=== PATIENT | female | born 1945 | race Caucasian/White ===

== ENCOUNTER → 2016-10-14 | Outpatient (CLI) | payer MEDICARE ==
--- NOTE | 2016-10-18 09:03 | MM ---
Reason for exam: screening (asymptomatic). Last mammogram was performed 2 years and 2 months ago. History: Patient is postmenopausal. Family history of breast cancer in maternal grandmother at age 82. Physical Findings: A clinical breast exam by your physician is recommended on an annual basis and results should be correlated with mammographic findings. MG 3D Screening Mammo W/Cad Bilateral CC and MLO view(s) were taken. Prior study comparison: August 02, 2014, bilateral MG screening mammo w CAD. June 26, 2013, bilateral digital screening mammo w/CAD. There are scattered fibroglandular densities. No significant changes when compared with prior studies. ASSESSMENT: Negative, BI-RAD 1 RECOMMENDATION: Routine screening mammogram of both breasts in 1 year.
== END | disposition home or self-care (01) ==
LOC: RADMAMWWP 09:52
PROVIDERS: ATTEND Family Medicine
DX: Z12.31 Encounter for screening mammogram for malignant neoplasm of breast (principal)
CPT/HCPCS: 77063; G0202

== ENCOUNTER 2016-12-06 07:41 | Emergency (ER) | payer MEDICARE ==
[2016-12-06] MEDS ORDERED: ONDANSETRON 4 MG/2 ML VIAL IVP STA (08:19)
[2016-12-06] MEDS ORDERED: SODIUM CHLORIDE 0.9% 1,000 ML IV STA (08:19)
--- NOTE | 2016-12-06 08:20 | ED ---
General Adult HPI - General Chief complaint: Nausea/Vomiting/Diarrhea Stated complaint: vomiting Time Seen by Provider: 12/06/16 08:13 Source: patient, RN notes reviewed Mode of arrival: wheelchair Limitations: no limitations - History of Present Illness Initial comments: Patient 71-year-old female who presents emergency room today with a chief complaint of chills with episode of nausea vomiting that started just approximate 45 minutes ago. Patient does admit that she was here at the hospital as a visitor when she began having chills upstairs. States she was down to the cafeteria and tried eats something when she had an episode of nausea vomiting. States she still feeling very nauseated at this time. Denies any abdominal pain. Admits to chills. Denies any other complaints or symptoms. Patient denies any recent fever, chills, shortness of breath, chest pain, back pain, abdominal pain, numbness or tingling, dysuria or hematuria, constipation or diarrhea, headaches or visual changes, or any other complaints. - Related Data Home Medications Medication Instructions Recorded Confirmed Albuterol Inhaler [Ventolin 1 - 2 puff INHALATION RT-Q6H PRN 08/05/14 12/06/16 Inhaler] Aspirin EC [Ecotrin] 81 mg PO DAILY 08/05/14 12/06/16 Fluticasone/Salmeterol [Advair 1 puff INHALATION RT-BID 08/05/14 12/06/16 500-50 Diskus] Hydrochlorothiazide [Hydrodiuril] 25 mg PO DAILY 08/05/14 12/06/16 Levothyroxine Sodium [Synthroid] 37.5 mcg PO DAILY 08/05/14 12/06/16 Lisinopril [Prinivil] 20 mg PO BID 08/05/14 12/06/16 Metoprolol Tartrate [Lopressor] 50 mg PO BID 08/05/14 12/06/16 Montelukast [Singulair] 10 mg PO HS 08/05/14 12/06/16 Omeprazole 40 mg PO DAILY 08/05/14 12/06/16 Sennosides-Docusate Sodium 1 tab PO BID 08/05/14 12/06/16 [Senokot-S] amLODIPine BESYLATE [Norvasc] 10 mg PO DAILY 08/05/14 12/06/16 Meloxicam [Mobic] 7.5 mg PO DAILY 10/23/14 12/06/16 Loratadine [Claritin] 10 mg PO DAILY 11/26/14 12/06/16 Biotin 10,000 mcg PO DAILY 02/09/16 12/06/16 HYDROcodone/APAP 10-325MG [Lenox 1 tab PO Q6H PRN 02/09/16 12/06/16 10-325] Ibuprofen [Motrin] 200 - 400 mg PO Q6HR PRN 02/09/16 12/06/16 Multivitamins, Thera [Multivitamin] 1 tab PO DAILY 04/07/16 12/06/16 Previous Rx's Medication Instructions Recorded Meclizine [Antivert] 25 mg PO TID PRN #12 tab 03/01/16 Ondansetron Odt [Zofran ODT] 4 mg PO Q8HR PRN #20 tab 12/06/16 Allergies Allergy/AdvReac Type Severity Reaction Status Date / Time adhesive Allergy Unknown Rash/Hives, Verified 12/06/16 08:44 Blisters codeine AdvReac Unknown Abdominal Verified 12/06/16 08:44 Pain banana AdvReac Wheezing Verified 12/06/16 08:44 cinnamon AdvReac Wheezing Verified 12/06/16 08:44 Mushroom AdvReac Wheezing Verified 12/06/16 08:44 Review of Systems ROS Statement: Those systems with pertinent positive or pertinent negative responses have been documented in the HPI. ROS Other: All systems not noted in ROS Statement are negative. Past Medical History Past Medical History: Asthma, Diabetes Mellitus, GERD/Reflux, Hypertension, Osteoarthritis (OA), Pneumonia Additional Past Medical History / Comment(s): DIET CONTROLLED-DIABETIC, recent pneumonia in May.-now resolved History of Any Multi-Drug Resistant Organisms: None Reported Past Surgical History: Adenoidectomy, Bariatric Surgery, Cholecystectomy, Hysterectomy, Joint Replacement, Tonsillectomy Additional Past Surgical History / Comment(s): Kwame.knee replacement,Lap band, eyelid surgery Past Anesthesia/Blood Transfusion Reactions: Motion Sickness Past Psychological History: No Psychological Hx Reported Smoking Status: Former smoker Past Alcohol Use History: Rare Additional Past Alcohol Use History / Comment(s): QUIT 1985-STARTED [id number] Past Drug Use History: None Reported - Past Family History Mother Family Medical History: No Reported History General Exam - General Exam Comments Initial Comments: General: The patient is awake and alert, in no distress, and does not appear acutely ill. Eye: Pupils are equal, round and reactive to light, extra-ocular movements are intact. No nystagmus. There is normal conjunctiva bilaterally. No signs of icterus. Ears, nose, mouth and throat: There are moist mucous membranes and no oral lesions. Neck: The neck is supple, there is no tenderness or JVD. Cardiovascular: There is a regular rate and rhythm. No murmur, rub or gallop is appreciated. Respiratory: Lungs are clear to auscultation, respirations are non-labored, breath sounds are equal. No wheezes, stridor, rales, or rhonchi. Gastrointestinal: Soft, non-distended, non-tender abdomen without masses or organomegaly noted. There is no rebound or guarding present. No CVA tenderness. Bowel sounds are unremarkable. Musculoskeletal: Normal ROM, no tenderness. Strength 5/5. Sensation intact. Pulses equal bilaterally 2+. Neurological: A&O x 3. CN II-XII intact, There are no obvious motor or sensory deficits. Coordination appears grossly intact. Speech is normal. Skin: Skin is warm and dry and no rashes or lesions are noted. Psychiatric: Cooperative, appropriate mood & affect, normal judgment. Limitations: no limitations Course Vital Signs 12/06/16 12/06/16 07:44 08:51 Temperature 98.5 F 99.3 F Pulse Rate 87 75 Respiratory 20 18 Rate Blood Pressure 200/103 121/66 O2 Sat by Pulse 99 95 Oximetry Medical Decision Making - Medical Decision Making Patient reexamined at this time shows no signs of distress. She is resting comfortably in the stretcher. She admits that nausea vomiting has improved. Denies any abdominal pain. Her abdomen is soft nontender on reexam. Results were discussed with the patient. Mildly elevated white count. Did have several bouts of vomiting and dry heaves prior to arrival. Discussed with attending physician Dr. Sinha. Patient will be discharged home with nausea medication advised return if symptoms increase or worsen or for any other concerns. She states understanding and is in agreement. - Lab Data Result diagrams: 12/06/16 08:26 12/06/16 08:26 Lab Results 12/06/16 12/06/16 12/06/16 Range/Units 08:08 08:26 08:26 WBC 15.3 H (3.8-10.6) k/uL RBC 4.75 (3.80-5.40) m/uL Hgb 13.8 (11.4-16.0) gm/dL Hct 43.4 (34.0-46.0) % MCV 91.4 (80.0-100.0) fL MCH 29.1 (25.0-35.0) pg MCHC 31.9 (31.0-37.0) g/dL RDW 14.1 (11.5-15.5) % Plt Count 299 (150-450) k/uL Neutrophils % 89 % Lymphocytes % 7 % Monocytes % 2 % Eosinophils % 2 % Basophils % 0 % Neutrophils # 13.6 H (1.3-7.7) k/uL Lymphocytes # 1.0 (1.0-4.8) k/uL Monocytes # 0.3 (0-1.0) k/uL Eosinophils # 0.3 (0-0.7) k/uL Basophils # 0.0 (0-0.2) k/uL Sodium 139 (137-145) mmol/L Potassium 3.9 (3.5-5.1) mmol/L Chloride 100 (98-107) mmol/L Carbon Dioxide 26 (22-30) mmol/L Anion Gap 13 mmol/L BUN 21 H (7-17) mg/dL Creatinine 0.83 (0.52-1.04) mg/dL Est GFR (MDRD) Af Amer >60 (>60 ml/min/1.73 sqM) Est GFR (MDRD) Non-Af >60 (>60 ml/min/1.73 sqM) Glucose 78 (74-99) mg/dL POC Glucose (mg/dL) 78 (75-99) mg/dL POC Glu Javascript Web Developer ID Radha Mata Calcium 9.6 (8.4-10.2) mg/dL Total Bilirubin 1.0 (0.2-1.3) mg/dL AST 22 (14-36) U/L ALT 16 (9-52) U/L Alkaline Phosphatase 50 (38-126) U/L Total Protein 7.3 (6.3-8.2) g/dL Albumin 4.2 (3.5-5.0) g/dL Amylase 109 (30-110) U/L Lipase 137 (23-300) U/L Urine Color Urine Appearance (Clear) Urine pH (5.0-8.0) Ur Specific Lockhart (1.001-1.035) Urine Protein (Negative) Urine Glucose (UA) (Negative) Urine Ketones (Negative) Urine Blood (Negative) Urine Nitrite (Negative) Urine Bilirubin (Negative) Urine Urobilinogen (<2.0) mg/dL Ur Leukocyte Esterase (Negative) Urine RBC (0-5) /hpf Urine WBC (0-5) /hpf Ur Squamous Epith Cells (0-4) /hpf Urine Bacteria (None) /hpf Urine Mucus (None) /hpf 12/06/16 Range/Units 08:26 WBC (3.8-10.6) k/uL RBC (3.80-5.40) m/uL Hgb (11.4-16.0) gm/dL Hct (34.0-46.0) % MCV (80.0-100.0) fL MCH (25.0-35.0) pg MCHC (31.0-37.0) g/dL RDW (11.5-15.5) % Plt Count (150-450) k/uL Neutrophils % % Lymphocytes % % Monocytes % % Eosinophils % % Basophils % % Neutrophils # (1.3-7.7) k/uL Lymphocytes # (1.0-4.8) k/uL Monocytes # (0-1.0) k/uL Eosinophils # (0-0.7) k/uL Basophils # (0-0.2) k/uL Sodium (137-145) mmol/L Potassium (3.5-5.1) mmol/L Chloride (98-107) mmol/L Carbon Dioxide (22-30) mmol/L Anion Gap mmol/L BUN (7-17) mg/dL Creatinine (0.52-1.04) mg/dL Est GFR (MDRD) Af Amer (>60 ml/min/1.73 sqM) Est GFR (MDRD) Non-Af (>60 ml/min/1.73 sqM) Glucose (74-99) mg/dL POC Glucose (mg/dL) (75-99) mg/dL POC Glu Javascript Web Developer ID Calcium (8.4-10.2) mg/dL Total Bilirubin (0.2-1.3) mg/dL AST (14-36) U/L ALT (9-52) U/L Alkaline Phosphatase (38-126) U/L Total Protein (6.3-8.2) g/dL Albumin (3.5-5.0) g/dL Amylase (30-110) U/L Lipase (23-300) U/L Urine Color Yellow Urine Appearance Clear (Clear) Urine pH 6.5 (5.0-8.0) Ur Specific Lockhart 1.013 (1.001-1.035) Urine Protein Negative (Negative) Urine Glucose (UA) Negative (Negative) Urine Ketones Negative (Negative) Urine Blood Negative (Negative) Urine Nitrite Negative (Negative) Urine Bilirubin Negative (Negative) Urine Urobilinogen <2.0 (<2.0) mg/dL Ur Leukocyte Esterase Moderate H (Negative) Urine RBC 2 (0-5) /hpf Urine WBC 3 (0-5) /hpf Ur Squamous Epith Cells 1 (0-4) /hpf Urine Bacteria Rare H (None) /hpf Urine Mucus Rare H (None) /hpf Disposition Clinical Impression: Nausea & vomiting Disposition: HOME SELF-CARE Condition: Good Instructions: Acute Nausea and Vomiting (ED) Additional Instructions: Please use medication as discussed. Please follow-up with family doctor in the next 2 days of symptoms have not improved. Please return to emergency room if the symptoms increase or worsen or for any other concerns. Prescriptions: Ondansetron Odt [Zofran ODT] 4 mg PO Q8HR PRN #20 tab PRN Reason: Nausea Time of Disposition: 10:13
[2016-12-06 08:47] LABS: Basophils % (A) 0 %; CH 29.4; CHCM 32.4; Eosinophils # (A) 0.3 k/uL (0-0.7); Eosinophils % (A) 2 %; HCT 43.4 % (34.0-46.0); HDW 2.39; HGB 13.8 gm/dL (11.4-16.0); Luc # (Auto) 0.07; Luc % (Auto) 1; Lymphocytes % (A) 7 %; MCH 29.1 pg (25.0-35.0); MCHC 31.9 g/dL (31.0-37.0); MCV 91.4 fL (80.0-100.0); Mean Platelet Volume 7.1; Monocytes # (A) 0.3 k/uL (0-1.0); Monocytes % (A) 2 %; Neutrophils # (A) 13.6 k/uL (1.3-7.7); Neutrophils % (A) 89 %; RBC 4.75 m/uL (3.80-5.40); RDW 14.1 % (11.5-15.5); WBC 15.3 k/uL (3.8-10.6); WBC (Perox) 15.46
[2016-12-06 08:53] VITALS: RESP 18
[2016-12-06 08:53] LABS: Appearance,Urine Clear (Clear); Bacteria,Urine Rare /hpf; Bilirubin,Urine Negative (Negative); Glucose,Urine (UA) Negative (Negative); Ketones,Urine Negative (Negative); Leukocyte Esterase,Urine Moderate (Negative); Mucus,Urine Rare /hpf; Nitrite,Urine Negative (Negative); PH, Urine 6.5 (5.0-8.0); Particle Count 1584; Protein,Urine Negative (Negative); RBC,Urine 2 /hpf (0-5); Specific Gravity,Urine 1.013 (1.001-1.035); Squamous Epithelial Cell,Urine 1 /hpf (0-4); UA Billing (MACRO vs. MICRO) MICRO; Urobilinogen,Urine <2.0 mg/dL (<2.0); WBC,Urine 3 /hpf (0-5)
[2016-12-06 09:08] LABS: ALT 16 U/L (9-52); AST 22 U/L (14-36); Alkaline Phosphatase 50 U/L (38-126); Amylase 109 U/L (30-110); Anion Gap 13 mmol/L; Blood Urea Nitrogen 21 mg/dL (7-17); Calcium 9.6 mg/dL (8.4-10.2); Carbon Dioxide 26 mmol/L (22-30); Chloride 100 mmol/L (98-107); Glucose 78 mg/dL (74-99); Non-African American GFR(MDRD) >60 (>60 ml/min/1.73 sqM); Sodium 139 mmol/L (137-145); Total Protein 7.3 g/dL (6.3-8.2)
[2016-12-06 09:09] LABS: Potassium 3.9 mmol/L (3.5-5.1)
--- NOTE | 2016-12-06 09:25 | XR ---
EXAMINATION TYPE: XR KUB DATE OF EXAM: 12/06/2016 9:20 AM CLINICAL HISTORY: Abdominal pain and vomiting. TECHNIQUE: Single upright KUB image of the abdomen is obtained. COMPARISON: None. FINDINGS: Lap band device is redemonstrated with stable positioning at level of diaphragmatic hiatus . Stable angle is noted. Scattered gas is seen in non-distended small bowel loops. Gas and fecal mat erial is seen in non-distended colon. There is no visceromegaly, pneumoperitoneum, or abnormal calc ification appreciated. The lung bases are clear. Osseous structures are demineralized. Underlying le voconvex scoliosis centered in the upper lumbar spine is redemonstrated. There is moderate axial join t space loss in both hips redemonstrated. IMPRESSION: Overall nonobstructive bowel gas pattern.
[2016-12-06 09:31] LABS: Glucose,Whole Blood 78 mg/dL (75-99)
[2016-12-06 10:18] VITALS: BP 127/61; PULSE 65; TEMP 100.2
== END 2016-12-06 10:30 | disposition home or self-care (01) ==
LOC: EC 07:41
DX: R11.2 Nausea with vomiting, unspecified (principal); R68.83 Chills (without fever); D72.829 Elevated white blood cell count, unspecified; M19.90 Unspecified osteoarthritis, unspecified site; J45.909 Unspecified asthma, uncomplicated; I10 Essential (primary) hypertension; K21.9 Gastro-esophageal reflux disease without esophagitis; Z87.891 Personal history of nicotine dependence; Z79.82 Long term (current) use of aspirin; Z79.51 Long term (current) use of inhaled steroids; Z79.899 Other long term (current) drug therapy; Z88.5 Allergy status to narcotic agent; Z91.018 Allergy to other foods; Z91.09 Other allergy status, other than to drugs and biological substances; Z87.01 Personal history of pneumonia (recurrent); Z90.49 Acquired absence of other specified parts of digestive tract; Z98.84 Bariatric surgery status
CPT/HCPCS: 99284 ×2; 96374 ×2; 36415; 80053; 82150; 83690; 85025; 81001; 74000; J2405

== ENCOUNTER → 2017-11-01 | Outpatient (CLI) | payer MEDICARE | LOC: CPPFTMAIN 13:16 | PROVIDERS: ATTEND Internal Medicine | DX: J45.909 Unspecified asthma, uncomplicated (principal) | CPT/HCPCS: 94060; 94726; 94729 ==

== ENCOUNTER → 2018-07-19 | Outpatient (CLI) | payer MEDICARE ==
--- NOTE | 2018-07-21 09:34 | MM ---
Reason for exam: screening (asymptomatic). Last mammogram was performed 1 year and 9 months ago. History: Patient is postmenopausal. Family history of breast cancer in maternal grandmother at age 82. Physical Findings: A clinical breast exam by your physician is recommended on an annual basis and results should be correlated with mammographic findings. MG 3D Screening Mammo W/Cad Bilateral CC and MLO view(s) were taken. Prior study comparison: October 14, 2016, bilateral MG 3d screening mammo w/cad. August 02, 2014, bilateral MG screening mammo w CAD. There are scattered fibroglandular densities. No significant changes when compared with prior studies. ASSESSMENT: Benign, BI-RAD 2 RECOMMENDATION: Routine screening mammogram of both breasts in 1 year.
== END | disposition home or self-care (01) ==
LOC: RADMAMWWP 14:08
PROVIDERS: ATTEND Internal Medicine
DX: Z12.31 Encounter for screening mammogram for malignant neoplasm of breast (principal)
CPT/HCPCS: 77063; 77067

== ENCOUNTER → 2018-07-26 | Outpatient (CLI) | payer MEDICARE ==
[2018-07-26 14:11] VITALS: BP 155/81; PULSE 60; RESP 16
--- NOTE | 2018-07-26 14:28 | P.PN ---
Subjective Progress Note Date: 07/26/18 This is a pleasant 73-year-old lady with history of lower back pain radiating down the right leg to the right ankle with numbness and tingling on the lateral aspect of the right thigh and calf. The patient denies any bowel or bladder dysfunction. She tried oral Medrol dosepak about one week ago which gave her only some pain relief during the trial. She had seen Dr. Montenegro who told her that she has mild arthritis in the right hip however he thinks most of her pain is coming from her back. Straight leg raising test negative bilaterally Neuro exam of the lower extremities showed absent right knee reflex due to previous surgery on the right knee. the rest of the neuro exam is within normal limits bilaterally and symmetrically Impression and plan: Right lumbar radiculopathy Lumbar stenosis Lumbar degenerative disc disease Lumbar spondylosis without myelopathy Pain the patient may benefit from getting lumbar epidural steroid injection under fluoroscopic guidance at the L4 5 level in the right paramedian approach. If his pain does not improve after this injection then we'll plan on doing diagnostic lumbar medial branch block on the right side followed by RFA if indicated. Objective - Vital Signs Vital signs: Vital Signs Temp Pulse 60 07/26/18 13:58 Resp 16 07/26/18 13:58 BP 155/81 07/26/18 13:58 Pulse Ox 98 07/26/18 13:58 Intake & Output 07/25/18 07/26/18 07/26/18 18:59 06:59 18:59 Weight 68.039 kg
== END | disposition home or self-care (01) ==
LOC: PNWHC3 12:34
PROVIDERS: ATTEND Anesthesiology
DX: M48.061 Spinal stenosis, lumbar region without neurogenic claudication (principal); M51.16 Intervertebral disc disorders with radiculopathy, lumbar region; M47.26 Other spondylosis with radiculopathy, lumbar region
CPT/HCPCS: 99211

== ENCOUNTER 2018-08-02 06:50 | Day surgery (SDC) | payer MEDICARE ==
[2018-07-31 11:36] VITALS: BMI 35.4
[~2018-08-02 06:50] MED LIST: LACTATED RINGERS 1,000 ML IV SCH; LIDOCAINE 1% 20 ML VIAL (10MG/ML) FOR IV START INTRADERMA PRN
[2018-08-02 07:21] VITALS: TEMP 97.8
[2018-08-02] MEDS ORDERED: PROPOFOL 10 MG/ML 20 ML VIAL IV ONE (07:35)
--- NOTE | 2018-08-02 08:03 | P.PCN ---
Date of Procedure: 08/02/18 Procedure(s) Performed: BRIEF HISTORY: Patient is a 73-year-old pleasant white female, scheduled for an elective colonoscopy as a part of evaluation of prior history of colon polyps. Last colonoscopy was 5 years ago. PROCEDURE PERFORMED: Colonoscopy. PREOPERATIVE DIAGNOSIS: History of colon polyps. IV sedation per Anesthesia. PROCEDURE: After informed consent was obtained, the patient, was brought into the endoscopy unit. IV sedation was administered by Anesthesia under continuous monitoring. Digital rectal examination was normal. Initially the Olympus CF- 160 flexible video colonoscope was then inserted in the rectum, gradually advanced into the cecum without any difficulty. Careful examination was performed as the scope was gradually being withdrawn. Ileocecal valve and the appendiceal orifice were visualized and appeared normal. Prep was excellent. Mucosa of the cecum, ascending colon, transverse colon, descending colon, sigmoid colon, and rectum appeared normal. Scattered sigmoid diverticulosis Retroflexion was performed in the rectum and no lesions were seen. The patient tolerated the procedure well. IMPRESSION: Normal-appearing colon from rectum to cecum with no evidence of colorectal neoplasia Scattered sigmoid diverticulosis . RECOMMENDATIONS: Findings of this examination were discussed with the patient as well as his family. She was she was advised to have a repeat surveillance colonoscopy in 5 years because of the prior history of colon polyps..
[2018-08-02 08:04] VITALS: BP 117/70
[2018-08-02 08:18] VITALS: PULSE 60; RESP 18
== END 2018-08-02 08:55 | disposition home or self-care (01) ==
LOC: ORWHC2ENDO 06:50
PROVIDERS: ATTEND Internal Medicine Gastroenterology
DX: Z12.11 Encounter for screening for malignant neoplasm of colon (principal); K57.30 Diverticulosis of large intestine without perforation or abscess without bleeding; Z86.010 Personal history of colon polyps; I10 Essential (primary) hypertension; J44.9 Chronic obstructive pulmonary disease, unspecified; E07.9 Disorder of thyroid, unspecified; K21.9 Gastro-esophageal reflux disease without esophagitis; Z79.82 Long term (current) use of aspirin; Z79.890 Hormone replacement therapy; Z79.51 Long term (current) use of inhaled steroids; Z79.899 Other long term (current) drug therapy; Z88.5 Allergy status to narcotic agent; Z87.891 Personal history of nicotine dependence
CPT/HCPCS: J2704; G0105; 45378

== ENCOUNTER → 2018-08-09 | Day surgery (SDC) | payer MEDICARE ==
[2018-08-07 12:30] VITALS: BMI 36.1
[~2018-08-09] MED LIST changes: -LACTATED RINGERS 1,000 ML IV SCH; -LIDOCAINE 1% 20 ML VIAL (10MG/ML) FOR IV START INTRADERMA PRN; +SODIUM CHLORIDE 0.9% 500 ML 500 ML IV ONE; +SODIUM CHLORIDE 0.9% 500 ML 500 ML IV SCH
[2018-08-09 06:44] VITALS: TEMP 97.9
--- NOTE | 2018-08-09 08:23 | P.PCN ---
Date of Procedure: 08/09/18 Surgeon: Matthias Oscar Pathology: none sent Condition: stable Disposition: PACU Description of Procedure: PREOPERATIVE DIAGNOSIS: 1-Lumbar radiculopathy 2- Lumber Degenerative Disc Diseases. POSTOPERATIVE DIAGNOSIS: 1-Lumbar radiculopathy. 2-Lumbar Degenerative Disc Diseases PROCEDURE 1. Lumbar epidural steroid injection under fluoroscopic guidance at the L4-5 level. 2. Lumbar epidurogram. ANESTHESIA: Local with 1% lidocaine; and IV moderate conscious sedation with Versed and fentanyl EBL: Minimal PROCEDURE INDICATION: The patient with low back pain and radiculitis symptoms unresponsive to conservative treatment. Fluoroscopy was used to optimize visualization of the needle placement and to maximize safety. PROCEDURE DESCRIPTION / TECHNIQUE: The patient was seen and identified in the preoperative area. Risks, benefits , complications including but not limited to infections ,bleeding ,allergic reaction to the medications ,nerve damage and not complete pain relief , and alternatives were discussed with the patient. The patient agreed to proceed with the procedure and signed the consent. IV was started, and vital signs were stable. Patient was taken to the OR and time out was completed. The patient was placed in the prone position on procedure table and a pillow was placed under the abdomen to reduce lumbar lordosis. The lumbosacral area was prepped and draped in the usual sterile fashion with ChloraPrep.Patient was closely monitored during the procedure. Conscious sedation was used during the procedure to decrease patients anxiety. Vital signs were monitered during the entire procedure. Using anterior-posterior fluoroscopy, the L4-5 interlaminar space was identified and the skin over this site was marked and then infiltrated with 1% lidocaine subcutaneously. Subsequently, a 20-gauge Tuohy epidural needle was inserted and advanced toward the epidural space in the right paramedian approach using the Loss of resistance to air technique and guided by AP and lateral fluoroscopy. The correct needle position in the epidural space was verified with the injection of 1 mL of the water soluble contrast dye Omnipaque 180 contrast and observing an excellent epidurogram with the epidural spread of the dye, after negative aspiration for blood and CSF and in the absence of paresthesias. Again after negative aspiration, a 8 ml mixture containing 80 mg of Kenalog and 4 ml of preservative free Normal Saline, and 2 ml of preservative free ropivacaine 0.5% solution was injected and a washout of epidurogram was seen. Needle was withdrawn intact, skin was cleansed, and bandages were applied. patient tolerated procedure well and was transferred to PACU in stable condition. COMPLICATIONS: None
[2018-08-09 08:29] VITALS: RESP 18
[2018-08-09 08:42] VITALS: BP 139/63; PULSE 62
--- NOTE | 2018-08-09 12:54 | FL ---
EXAMINATION TYPE: FL guided pain mgmt statistic DATE OF EXAM: 08/09/2018 FLUOROSCOPY Fluoroscopy time of 13 seconds was used during lumbar epidural steroid injection. 2 image/s document /s the procedure.
== END ==
LOC: ORPAIN 05:55
PROVIDERS: ATTEND Anesthesiology
DX: M51.16 Intervertebral disc disorders with radiculopathy, lumbar region (principal); M48.061 Spinal stenosis, lumbar region without neurogenic claudication; M47.26 Other spondylosis with radiculopathy, lumbar region
CPT/HCPCS: 62323; J2250; J3301; J3010; Q9966; 99152

== ENCOUNTER 2018-08-28 08:21 | Day surgery (SDC) | payer MEDICARE ==
[2018-08-24 13:39] VITALS: BMI 32.4
[~2018-08-28 08:21] MED LIST changes: -SODIUM CHLORIDE 0.9% 500 ML 500 ML IV ONE
[2018-08-28] MEDS ORDERED: LIDOCAINE 1% 20 ML VIAL (10MG/ML) FOR IV START INTRADERMA ONE (09:03)
[2018-08-28] MEDS ORDERED: LACTATED RINGERS 1,000 ML IV ONE (09:05)
[2018-08-28 09:07] VITALS: PULSE 60; RESP 16; TEMP 97.9
--- NOTE | 2018-08-28 10:01 | P.PCN ---
Date of Procedure: 08/28/18 Procedure(s) Performed: PREOPERATIVE DIAGNOSIS: 1- Lumbar Degenerative Disc Diseases 2-Lumbar radiculopathy POSTOPERATIVE DIAGNOSIS: 1-Lumber Degenerative Disc Diseases 2-Lumbar radiculopathy PROCEDURE 1. Lumbar epidural steroid injection under fluoroscopic guidance at the L4- 5level. 2. Lumbar epidurogram. ANESTHESIA: Local with 1% lidocaine 3 ml and , moderate sedation with intravenous Versed 1 mg ,and fentanyle 50 Mcg EBL: Minimal PROCEDURE INDICATION: The patient with low back pain and radiculitis symptoms unresponsive to conservative treatment. Fluoroscopy was used to optimize visualization of the needle placement and to maximize safety. PROCEDURE DESCRIPTION / TECHNIQUE: The patient was seen and identified in the preoperative area. Risks, benefits , complications including but not limited to infections ,bleeding ,allergic reaction to the medications ,nerve damage and not complete pain releife , and alternatives were discussed with the patient. The patient agreed to proceed with the procedure and signed the consent. IV was started, and vital signs were stable. Patient was taken to the OR and time out was completed. The patient was placed in the prone position on procedure table and a pillow was placed under the abdomen to reduce lumbar lordosis. The lumbosacral area was prepped and draped in the usual sterile fashion.ere closely monitored during the procedure. Conscious sedation was used during the procedure to decrease patients anxiety. Vital signs was monitered during the entire procedure. Using anterior-posterior fluoroscopy, the L4-5interlaminar space was identified and the skin over this site was marked and then infiltrated with 1% lidocaine subcutaneously. Subsequently, a 20-gauge Tuohy epidural needle was inserted and advanced toward the epidural space using the ``Loss of resistance technique and guided by AP and lateral fluoroscopy. The correct needle position in the epidural space was verified with the injection of 2 mL of the water soluble contrast dye Isovue 200 contrast and observing an excellent epidurogram with the epidural spread of the dye, after negative aspiration for blood and CSF and in the absence of paresthesias. Again after negative aspiration, a 6 ml mixture containing 60 mg of Depo-medrol , and 2 ml of preservative free Normal Saline, and 2 ml of preservative free lidocaine 1% solution was injected and a washout of epidurogram was seen. Needle was withdrawn intact, skin was cleansed , and bandages were applied. COMPLICATIONS: None DISPOSITION / PLANS: The patient was placed in a supine position and transferred to the recovery area in a stable condition for observation. There was no evidence of lower extremity motor or sensory deficit after the procedure. Patient was discharged from the recovery room after meeting discharge criteria. Home discharge instructions were given to the patient by the staff. The patient was reexamined prior to discharge. The patient will schedule a follow up in the clinic in 2-4 weeks.
[2018-08-28] MEDS ORDERED: IV FLUID CONTINUATION 1,000 ML IV ONE (10:08)
--- NOTE | 2018-08-28 10:11 | FL ---
Fluoroscopy INDICATION: Pain FINDINGS: Fluoroscopy time: 2 seconds. Images obtained: 1. IMPRESSIONS: 1. Documentation of fluoroscopy.
[2018-08-28 10:19] VITALS: BP 141/88
== END 2018-08-28 10:35 | disposition home or self-care (01) ==
LOC: ORPAIN 08:21
PROVIDERS: ATTEND Specialist
DX: M51.16 Intervertebral disc disorders with radiculopathy, lumbar region (principal); Z88.5 Allergy status to narcotic agent; Z91.048 Other nonmedicinal substance allergy status
CPT/HCPCS: 62323; J2250; J1030; J3010; Q9966; 99152

== ENCOUNTER → 2018-10-02 | Outpatient (CLI) | payer MEDICARE ==
[2018-10-02 15:01] VITALS: BP 126/81; PULSE 66; RESP 16
--- NOTE | 2018-10-03 18:30 | P.PAINPG ---
Subjective Progress Note Date: 10/02/18 This is follow-up visit for this patient with a history of severe and chronic low back pain secondary to lumbar degenerative disc diseases , lumbar spondylosis with facet arthropathy, We have done interventional pain procedures lumbar epidural steroid injections 3 patient continued to have severe low back pain Patients currently on Tylenol extended-release twice a day Patient denies any side effects of the medication, denies excessive drowsiness or sleepiness, denies suicidal ideation, and reports that the current pain medication is helping to control the pain ,and improve activity of daily living Patient denies any motor or sensory deficit , patient denies any fever or night sweats, denies any change in the bowel movements or urination Physical Examinations : 1-Constitutional : Cooperative , not in acute distress . 2-HEENT : nech ; supple , no Lymphadenopathy , no Thyromegaly , normal thyroid size . eyes : no ptosis , no icterus, no photophobia . ENT : normal of hearing , normal oropharynx , no Thrush . 3- Respiratory : Chest clear to auscultations Bilaterally , no wheezing , no Rhonchi . 4- Cardiovascular : regular rate and rhythem , S1 , S2 , no S3 , no S4. 5- Gastrointestinal : abdomen soft no tenderness , bowel sounds positive all four quadrents , no organomegally . 6- Genitourinary : Defferred . 7- neurologic: Cranial nerve II to XII intact , no focal neurological deffecit . 8- Psychatric: alert , oriented X 3 , appropriate affect , intact judgment and insight . 9- Lymphatic : no Lymphadenopathy . 10- Musculoskeltal : exams of the cervical spine = motor strength normal bilateral upper extremities facet loading test cervical area positive. exams of the Lumber spine =motor strength lower extremities ,thigh and legs .5/5 deep tendon reflexes : normal Knee Jerk , normal ankle Jerk . lumber facet Loading Test positive strait leg raising test positive at 30 degree RT , negative LT , Fabere test positive RT and negative LT . Range of motion: Range of motion in flexion of the lumbar spine 30 degrees Range of motion range of motion of extension of the lumbar spine 10 Sever tenderness over the Sacroiliac joint on the Right , and Left side Assessment and plan = Chronic low back pain secondary to lumbar degenerative disc disease , lumbar spondylosis with facet arthropathy without myelopathy Patient continued to have severe low back pain after lumbar epidural steroid injections 3 Patient will be good candidate to have diagnostic medial branch block lumbar area L3 to S1 and if it's positive then we will proceed with the radiofrequency ablation of the medial branch lumbar area - diagnoses, prognosis, and treatment options including but not limited to physical therapy, surgical interventions, interventional therapies , and medication management including narcotics and adjuvant medication were discussed with the patient and all the questions answered Objective - Vital Signs Vital signs: Vital Signs Temp Pulse 66 10/02/18 14:45 Resp 16 10/02/18 14:45 BP 126/81 10/02/18 14:45 Pulse Ox Intake & Output 10/02/18 10/03/18 10/03/18 18:59 06:59 18:59 Weight 68.946 kg PQRS Measure Charge Sheet Measure #130: Documentation of Current Meds in Medical Chart: Patient's medications documented in chart Measure #226: Tobacco Use: Screen & Cessation Intervention: Pt not a tobacco user Measure #111: Pneumonia Vaccination: Pneumococcal vaccine administered or previously received Measure #47: Advance Care Plan: Advance care planning discussed & documented, pt chose/unable to give Measure #412: Opioid Treatment Agreement: No documentation of signed opioid treatment agreement Measure #408: Opioid Therapy Follow-up Evaluation: Patient had NO f/u eval minimum every 3 months during opioid therapy Measure #317: Preventitive Care & Scrn High Bld Press & F/U: Normal blood pressure, f/u not required Measure #128: Body Mass Index (BMI) Screening & Follow-up: BMI documented ABOVE normal parameters - f/u documented Measure #131: Pain Assessment & Follow-up: Pain positive & plan documented, Follow-up scheduled Measure #431: Unhealthy Alcohol Use Preventative Care & Scrn: Patient not identified as an unhealthy alcohol user PQRS Narrative: Smoking Status Former smoker Do You Want the Pneumonia No Vaccine AT THIS TIME? Narcotic Agreement Date Signed 10/04/14 Blood Pressure 126/81 Pain Intensity [Bilateral 3 Lower Back] Scale Used Numeric (1 - 10) Hx Alcohol Use (MH) Yes: OCCASIONAL Home Medications: Ambulatory Orders Albuterol Inhaler [Ventolin Inhaler] 1 - 2 puff INHALATION RT-Q6H PRN 08/05/14 Aspirin EC [Ecotrin] 81 mg PO DAILY 08/05/14 Fluticasone/Salmeterol [Advair 500-50 Diskus] 1 puff INHALATION RT-BID 08/05/14 Hydrochlorothiazide [Hydrodiuril] 25 mg PO DAILY 08/05/14 Levothyroxine Sodium [Synthroid] 37.5 mcg PO DAILY 08/05/14 Lisinopril [Prinivil] 20 mg PO BID 08/05/14 Metoprolol Tartrate [Lopressor] 50 mg PO BID 08/05/14 Montelukast [Singulair] 10 mg PO HS 08/05/14 Omeprazole 40 mg PO DAILY 08/05/14 Sennosides-Docusate Sodium [Senokot-S] 1 tab PO BID 08/05/14 amLODIPine BESYLATE [Norvasc] 10 mg PO DAILY 08/05/14 Loratadine [Claritin] 10 mg PO DAILY 11/26/14 Multivitamins, Thera [Multivitamin] 1 tab PO DAILY 04/07/16 Acetaminophen Tab [Tylenol Tab] 1,000 mg PO BID PRN 10/02/18 Biotin 5,000 mcg PO DAILY 10/02/18 Controlled Substance Measures - Controlled Substance Measures Is patient prescribed a controlled substance at discharge?: No
== END | disposition home or self-care (01) ==
LOC: PNWHC3 14:16
PROVIDERS: ATTEND Specialist
DX: G89.29 Other chronic pain (principal); M54.5 Low back pain; M51.36 Other intervertebral disc degeneration, lumbar region; M47.816 Spondylosis without myelopathy or radiculopathy, lumbar region; M46.86 Other specified inflammatory spondylopathies, lumbar region; Z98.890 Other specified postprocedural states; Z79.899 Other long term (current) drug therapy; Z87.891 Personal history of nicotine dependence; Z79.891 Long term (current) use of opiate analgesic; Z79.82 Long term (current) use of aspirin
CPT/HCPCS: 99211

== ENCOUNTER 2018-10-19 06:02 | Day surgery (SDC) | payer MEDICARE ==
[2018-10-10 11:46] VITALS: BMI 31.8
[2018-10-19 06:31] VITALS: TEMP 97.5
[2018-10-19] MEDS ORDERED: LACTATED RINGERS 1,000 ML IV ONE (06:31)
[2018-10-19] MEDS ORDERED: LIDOCAINE 1% 20 ML VIAL (10MG/ML) FOR IV START INTRADERMA ONE (06:44)
[2018-10-19 06:48] LABS: Glucose,Whole Blood 72 mg/dL (75-99)
--- NOTE | 2018-10-19 07:16 | P.PCN ---
Date of Procedure: 10/19/18 Procedure(s) Performed: PREOPERATIVE DIAGNOSIS : 1- Lumbar spondylosis with Facet Arthropathy without myelopathy . 2- Lumber degenerative disc disease POSTOPERATIVE DIAGNOSIS: 1- Lumbar spondylosis with Facet Arthropathy without myelopathy . 2- Lumber degenerative disc disease PROCEDURE: Diagnostic bilateral L3 -4 , L4 -5 , and L5-S1 medial branch block under fluoroscopy ANESTHESIA: Local with Ropivacain 0.5 % 6 ml , moderate sedation with intravenous Versed 1 mg and Fentanyl 50 mcg. EBL: Minimal COMPLICATION: None. IV FLUIDS: 100 mL of normal saline. PROCEDURE INDICATION: Chronic low back pain secondary to Facet arthropathy unresponsive to conservative treatment. PROCEDURE DESCRIPTION: the patient was seen and identified in the preop holding area , risks and benefits and possible complications of the procedure and alternative were discussed with the patient, and the patient agreed to proceed with the procedure and signed the consent IV was started and vital signs monitored during the procedure and fluoroscopy was used to maximize the benefit and accuracy of the needle placement, and sedation was given to decrease patient anxiety, patient was taken to the procedure room and placed in prone position vital signs monitored in the back prepped with chlorhexidine X3 then under strict sterile technique using a right oblique fluoroscopy ,the junction of the transverse process and the superior articulating process of the right L3- 4 , L4- 5, and L5-S1 vertebra which corresponding to the fluoroscopy image of the eye of the [place] dog on the block side for the medial branches and subsequently , after local infiltration of skin and subcu tissuies with Ropivacaine 0.5 % , one mL at each level , then 22-gauge Quincke-type needles , 3 needle was used , each one of them placed at the junction of the base of the transverse process and the superior articular process at the appropriate level, and the needle was advanced until the periosteum contacted, needle placement confirmed with AP oblique and lateral view and after appropriate needle placement confirmed, and after negative aspiration for heme and CSF and there was no paresthesia 1-1/2 mL of Ropivacaine 0.5% mixed with 20 mg Depo-Medrol , then half mL injected at each level after negative aspiration the needle subsequently removed and the same procedure repeated for the left side at left side at L3-4, L4- 5 and L5-S1 levels. At the end of the procedure and the needles removed and a bandage applied after the skin was cleaned the cleaning solution patient taken to recovery room in stable condition and monitors in the recovery room for 20-30 minutes and discharged home in stable condition after discharge criteria met and patient will follow up with the pain clinic in 2-4 weeks
[2018-10-19] MEDS ORDERED: IV FLUID CONTINUATION 1,000 ML IV ONE (07:24)
--- NOTE | 2018-10-19 07:43 | FL ---
Fluoroscopy INDICATION: Pain FINDINGS: Fluoroscopy time: 10 seconds. Images obtained: 4. IMPRESSIONS: 1. Documentation of fluoroscopy.
[2018-10-19 07:50] VITALS: BP 125/74; PULSE 74; RESP 18
[2018-10-19 08:11] LABS: Glucose,Whole Blood 80 mg/dL (75-99)
== END 2018-10-19 07:56 | disposition home or self-care (01) ==
LOC: ORPAIN 06:02
PROVIDERS: ATTEND Specialist
DX: M47.816 Spondylosis without myelopathy or radiculopathy, lumbar region (principal); G89.29 Other chronic pain; M51.36 Other intervertebral disc degeneration, lumbar region; Z79.891 Long term (current) use of opiate analgesic; Z87.891 Personal history of nicotine dependence; Z79.82 Long term (current) use of aspirin; Z79.51 Long term (current) use of inhaled steroids; Z79.890 Hormone replacement therapy; Z79.899 Other long term (current) drug therapy; Z91.040 Latex allergy status; Z88.5 Allergy status to narcotic agent; Z91.048 Other nonmedicinal substance allergy status
CPT/HCPCS: 64493; 64494; 64495; J2250; J3010; 99152

== ENCOUNTER 2018-11-02 07:24 | Day surgery (SDC) | payer MEDICARE ==
[2018-11-01 09:50] VITALS: BMI 34.0
[2018-11-02 07:59] VITALS: RESP 16; TEMP 97.4
[2018-11-02] MEDS ORDERED: LACTATED RINGERS 1,000 ML IV ONE (08:04)
[2018-11-02] MEDS ORDERED: LIDOCAINE 1% 20 ML VIAL (10MG/ML) FOR IV START INTRADERMA ONE (08:05)
--- NOTE | 2018-11-02 09:23 | P.PCN ---
Date of Procedure: 11/02/18 Surgeon: Matthias Oscar Pathology: none sent Condition: stable Disposition: PACU Description of Procedure: PREOPERATIVE DIAGNOSIS : 1- Lumbar spondylosis with Facet Arthropathy without myelopathy . 2- Lumber degenerative disc disease POSTOPERATIVE DIAGNOSIS: 1- Lumbar spondylosis with Facet Arthropathy without myelopathy . 2- Lumber degenerative disc disease PROCEDURE: Diagnostic bilateral L3 -4 , L4 -5 , and L5-S1 medial branch block under fluoroscopy ANESTHESIA: Local with 1% lidocaine; IV moderate conscious sedation with Versed 2 mg . EBL: Negligible COMPLICATION: None. PROCEDURE INDICATION: Chronic low back pain secondary to Facet arthropathy unresponsive to conservative treatment. PROCEDURE DESCRIPTION: the patient was seen and identified in the preop holding area , risks and benefits and possible complications of the procedure and alternatives were discussed with the patient, and the patient agreed to proceed with the procedure and signed the consent. IV was started and vital signs monitored during the procedure and fluoroscopy was used to maximize the benefit and accuracy of the needle placement, sedation was given to decrease patient anxiety, patient was taken to the procedure room and placed in prone position vital signs monitored. The patient was brought into the procedure room and placed in prone position. Skin was prepped with Chloraprep and draped in a sterile manner. Lidocaine 1 % was used to numb the skin up at the target points that were chosen as follows : at the L5-S1 level which corresponds to the dorsal ramus of L5 the target points were at the superior medial aspect of the sacral ala on each side of the spine on the AP view of fluoroscopy, and for theL2, L3 and L4 medial branches the target points were the connection between the transverse process and the superior to go process of L3, L4 and L5 respectively on the oblique views of fluoroscopy. I used 25-gauge 3-1/2 inch Quincke spinal needles for this procedure and after contacting bone at the target points mentioned above I injected 1 mL of a mixture of Kenalog 40 mg +7 MLS of Marcaine 0.5% PF . Patient tolerated procedure well. At the end of the procedure the needles removed and a bandage applied after the skin was cleaned the cleaning solution. patient was then taken to the recovery room in stable condition and monitored in the recovery room for 20-30 minutes and discharged home in stable condition after discharge criteria met .
[2018-11-02] MEDS ORDERED: IV FLUID CONTINUATION 1,000 ML IV ONE (09:31)
[2018-11-02 09:43] VITALS: BP 125/66; PULSE 65
--- NOTE | 2018-11-02 09:45 | FL ---
Fluoroscopy INDICATION: Pain FINDINGS: Fluoroscopy time: 8 seconds. Images obtained: 1. IMPRESSIONS: 1. Documentation of fluoroscopy.
== END 2018-11-02 09:58 | disposition home or self-care (01) ==
LOC: ORPAIN 07:24
PROVIDERS: ATTEND Anesthesiology
DX: G89.29 Other chronic pain (principal); M47.816 Spondylosis without myelopathy or radiculopathy, lumbar region; Z87.891 Personal history of nicotine dependence; Z79.82 Long term (current) use of aspirin; Z79.51 Long term (current) use of inhaled steroids; Z79.899 Other long term (current) drug therapy
CPT/HCPCS: 64493; 64494; 64495; J2250; J3301; 99152

== ENCOUNTER → 2018-11-23 | Outpatient (CLI) | payer MEDICARE ==
[2018-11-23 14:13] VITALS: BP 160/77; PULSE 64; RESP 20; TEMP 98.1
--- NOTE | 2018-11-23 14:35 | P.PAINPG ---
Subjective Progress Note Date: 11/23/18 Principal diagnosis: Lumbar spondylosis and lumbar spinal stenosis This a very pleasant 73-year-old woman with a history of intractable low back pain. She's recently undergone her second lumbar medial branch nerve block. Unfortunately, she fell approximately one or 2 days after this procedure. Nevertheless, she reports that the 2 lumbar medial branch nerve blocks that she had did not seem to offer her substantial pain relief. She reports feeling much better from the lumbar epidural steroid injections that she previously had. She does feel somewhat banged up after the falls although she denies any significant exacerbation of any of her pains and overall she reports she is getting better. She does continue take Tylenol treat her pain. She limits her dosage to less than 3000 mg daily. Objective - Vital Signs Vital signs: Vital Signs Temp 98.1 F 11/23/18 14:07 Pulse 64 11/23/18 14:07 Resp 20 11/23/18 14:07 BP 160/77 11/23/18 14:07 Pulse Ox 96 11/23/18 14:07 Intake & Output 11/22/18 11/23/18 11/23/18 18:59 06:59 18:59 Weight 74.389 kg - Exam General: The patient is alert and oriented. Patient is not sedated Patient answers all question appropriately. Cardiac: Heart is regular in rate and rhythm Respiratory: Clear to auscultation. No audible wheezes. Abdomen: Soft nontender nondistended. Musculoskeletal: Strength is normal bilaterally. Sensation is normal bilaterally. Straight leg raise is negative bilaterally. She is tender to palpation over her lumbar facet joints bilaterally. Facet loading maneuvers are positive bilaterally. Neurological: Reflexes are preserved and symmetric bilaterally. Assessment and Plan (1) Spondylosis of lumbar region without myelopathy or radiculopathy Narrative/Plan: Plan of Care 1. Medications: She will continue utilize Tylenol on a dosage of less than 3000 g daily 2. Interventions: We will schedule her for lumbar epidural steroid injection at some point in the future. I do want her to wait for a period of time as I believe she has had a significant amount of steroids recently. 3. Referrals: I'm sending the patient to physical therapy. She does not benefit for quite some time I believe this will be helpful for her. 4. Testing: None 5. Follow-up: Reevaluation after completion of physical therapy Current Visit: Yes Status: Acute Code(s): M47.816 - SPONDYLOSIS W/O MYELOPATHY OR RADICULOPATHY, LUMBAR REGION SNOMED Code(s): 07426725 PQRS Measure Charge Sheet Measure #130: Documentation of Current Meds in Medical Chart: Patient not eligible for medications to be documented Measure #226: Tobacco Use: Screen & Cessation Intervention: Pt not a tobacco user Measure #111: Pneumonia Vaccination: Pneumococcal vaccine administered or previously received Measure #47: Advance Care Plan: Advance care planning discussed & documented, plan or surrogate given Measure #412: Opioid Treatment Agreement: Documented signed opioid trtmnt agreemnt min once during opioid trtmnt Measure #408: Opioid Therapy Follow-up Evaluation: Patient had f/u eval minimum every 3 months during opioid therapy Measure #317: Preventitive Care & Scrn High Bld Press & F/U: Normal blood pressure, f/u not required Measure #128: Body Mass Index (BMI) Screening & Follow-up: BMI documented ABOVE normal parameters - f/u documented Measure #131: Pain Assessment & Follow-up: Pain positive & plan documented Measure #431: Unhealthy Alcohol Use Preventative Care & Scrn: Patient not identified as an unhealthy alcohol user PQRS Narrative: Smoking Status Former smoker Narcotic Agreement Date Signed 10/04/14 Blood Pressure 160/77 Pain Intensity [Lower Back] 8 Scale Used Numeric (1 - 10) Hx Alcohol Use (MH) Yes: OCCASIONAL Home Medications: Ambulatory Orders Albuterol Inhaler [Ventolin Inhaler] 1 - 2 puff INHALATION RT-Q6H PRN 08/05/14 Aspirin EC [Ecotrin] 81 mg PO DAILY 08/05/14 Hydrochlorothiazide [Hydrodiuril] 25 mg PO DAILY 08/05/14 Levothyroxine Sodium [Synthroid] 37.5 mcg PO DAILY 08/05/14 Lisinopril [Prinivil] 20 mg PO BID 08/05/14 Metoprolol Tartrate [Lopressor] 50 mg PO BID 08/05/14 Montelukast [Singulair] 10 mg PO HS 08/05/14 Omeprazole 40 mg PO DAILY 08/05/14 Sennosides-Docusate Sodium [Senokot-S] 1 tab PO BID 08/05/14 amLODIPine BESYLATE [Norvasc] 10 mg PO DAILY 11/17/14 Loratadine [Claritin] 10 mg PO DAILY 11/26/14 Multivitamins, Thera [Multivitamin] 1 tab PO DAILY 04/07/16 Acetaminophen Tab [Tylenol Tab] 1,000 mg PO BID PRN 10/02/18 Biotin 5,000 mcg PO DAILY 10/02/18 Fluticasone/Salmeterol [Advair 250-50 Diskus] 1 inhalation PO BID 10/10/18 Controlled Substance Measures - Controlled Substance Measures Is patient prescribed a controlled substance at discharge?: No
== END ==
LOC: PNWHC3 13:52
PROVIDERS: ATTEND Pain Medicine Pain Medicine
DX: Z53.9 Procedure and treatment not carried out, unspecified reason (principal)

== ENCOUNTER → 2019-01-04 | Outpatient (CLI) | payer MEDICARE ==
[2019-01-04 13:23] VITALS: BP 151/97; PULSE 63; RESP 16
--- NOTE | 2019-01-04 14:11 | P.PN ---
Subjective Progress Note Date: 01/04/19 This is follow-up visit for this 73 years old female, with a history of severe and chronic low back pain secondary to lumbar degenerative disc diseases , lumbar spondylosis with facet arthropathy,We have done interventional pain procedures lumbar epidural steroid injections 3 patient continued to have severe low back pain, and recently we did diagnostic medial branch block lumbar area L3 4, L4 5, L5-S1 , the pain before the first diagnostic block was 7/10 dropped to 0/10 and the pain relief was for 2 days , and the second diagnostic block the pain was 5/10 decreased to 0/10 and the pain relief lasted for 2 days , patient with more than 80% improvement in her pain level after each diagnostic block Patients currently on Tylenol extended-release twice a day Patient denies any side effects of the medication, denies excessive drowsiness or sleepiness, denies suicidal ideation, and reports that the current pain medication is helping to control the pain ,and improve activity of daily living Patient denies any motor or sensory deficit , patient denies any fever or night sweats, denies any change in the bowel movements or urination Physical Examinations : 1-Constitutional : Cooperative , not in acute distress . 2-HEENT : nech ; supple , no Lymphadenopathy , no Thyromegaly , normal thyroid size . eyes : no ptosis , no icterus, no photophobia . ENT : normal of hearing , normal oropharynx , no Thrush . 3- Respiratory : Chest clear to auscultations Bilaterally , no wheezing , no Rhonchi . 4- Cardiovascular : regular rate and rhythem , S1 , S2 , no S3 , no S4. 5- Gastrointestinal : abdomen soft no tenderness , bowel sounds positive all four quadrents , no organomegally . 6- Genitourinary : Defferred . 7- neurologic: Cranial nerve II to XII intact , no focal neurological d effecit . 8- Psychatric: alert , oriented X 3 , appropriate affect , intact judgment and insight . 9- Lymphatic : no Lymphadenopathy . 10- Musculoskeltal : exams of the cervical spine = motor strength normal bilateral upper extremities facet loading test cervical area positive. exams of the Lumber spine =motor strength lower extremities ,thigh and legs .5/5 deep tendon reflexes : normal Knee Jerk , normal ankle Jerk . lumber facet Loading Test positive strait leg raising test positive at 60 degree RT , negative LT , Fabere test positive RT and negative LT . Range of motion: Range of motion in flexion of the lumbar spine 30 degrees Range of motion range of motion of extension of the lumbar spine 10 Sever tenderness over the Sacroiliac joint on the Right , and Left side Assessment and plan = Chronic low back pain secondary to lumbar degenerative disc disease , lumbar spondylosis with facet arthropathy without myelopathy Patient continued to have severe low back pain after lumbar epidural steroid injections 3 Patient had good result after the diagnostic medial branch block , she will be good candidate to radiofrequency ablation of the medial branch lumbar area Do the right side first then the left side Later - diagnoses, prognosis, and treatment options including but not limited to physical therapy, surgical interventions, interventional therapies , and medication management including narcotics and adjuvant medication were discussed with the patient and all the questions answered PQRS Measure Charge Sheet Measure #130: Documentation of Current Meds in Medical Chart: Patient's medications documented in chart Measure #226: Tobacco Use: Screen & Cessation Intervention: Pt not a tobacco user Measure #111: Pneumonia Vaccination: Pneumococcal vaccine administered or previously received Measure #47: Advance Care Plan: Advance care planning discussed & documented, pt chose/unable to give Measure #412: Opioid Treatment Agreement: No documentation of signed opioid treatment agreement Measure #408: Opioid Therapy Follow-up Evaluation: Patient had NO f/u eval minimum every 3 months during opioid therapy Measure #317: Preventitive Care & Scrn High Bld Press & F/U: elevated blood pressure, 151/97, she will follow up with her primary care Measure #128: Body Mass Index (BMI) Screening & Follow-up: BMI documented ABOVE normal parameters - f/u documented Measure #131: Pain Assessment & Follow-up: Pain positive & plan documented, Follow-up scheduled Measure #431: Unhealthy Alcohol Use Preventative Care & Scrn: Patient not identified as an unhealthy alcohol user PQRS Narrative: - Controlled Substance Measures Is patient prescribed a controlled substance at discharge?: No Objective - Vital Signs Vital signs: Vital Signs Temp Pulse 63 01/04/19 13:13 Resp 16 01/04/19 13:13 BP 151/97 01/04/19 13:13 Pulse Ox 95 01/04/19 13:13 Intake & Output 01/03/19 01/04/19 01/04/19 18:59 06:59 18:59 Weight 73.936 kg
== END ==
LOC: PNWHC3 12:45
PROVIDERS: ATTEND Specialist
DX: G89.29 Other chronic pain (principal); M51.36 Other intervertebral disc degeneration, lumbar region; M47.816 Spondylosis without myelopathy or radiculopathy, lumbar region; M46.96 Unspecified inflammatory spondylopathy, lumbar region; Z79.891 Long term (current) use of opiate analgesic
CPT/HCPCS: 99211

== ENCOUNTER → 2019-01-15 | Day surgery (SDC) | payer MEDICARE ==
[2019-01-09 16:20] VITALS: BMI 34.7
[~2019-01-15] MED LIST changes: +IV FLUID CONTINUATION 1,000 ML IV ONE; +LIDOCAINE 1% 20 ML VIAL (10MG/ML) FOR IV START INTRADERMA ONE; -SODIUM CHLORIDE 0.9% 500 ML 500 ML IV SCH
[2019-01-15 09:11] VITALS: RESP 16; TEMP 97.8
--- NOTE | 2019-01-15 09:50 | P.PCN ---
Date of Procedure: 01/15/19 Surgeon: Matthias Oscar Pathology: none sent Condition: stable Disposition: PACU Description of Procedure: PREOPERATIVE DIAGNOSIS: Lumbar spondylosis without myelopathy, morbid obesity POSTOPERATIVE DIAGNOSIS: Lumbar spondylosis without myelopathy,morbid obesity PROCEDURES : Right Radiofrequency thermocoagulation L3-L4, L4-L5, and L5-S1 medial branch, with fluoroscopic guidance ANESTHESIA: IV moderate conscious sedation with versed and fentanyl and local infiltration with lidocaine 1% 5 ml EBL: Minimal PROCEDURE INDICATION: The patient with low back pain secondary to lumbar facet arthropathy who had more than 50% relief of her pain with previous diagnostic lumbar medial branch block with bupivacaine. PROCEDURE DESCRIPTION / TECHNIQUE: The patient was seen and identified in the preoperative area. Risks, benefits, complications, including but not limited to risk of infection ,bleeding , allergic reactions to the medications and no complete pain relief , and alternatives were discussed with the patient, the patient agreed to proceed with the procedure and signed the consent. IV was started. Vital signs remained stable throughout the procedure. Patient was taken to the OR and time out was completed. The patient was placed in the prone position on the procedure table. The lumber area was prepped and draped in the usual sterile fashion. . Vital signs were closely monitored during the procedure .IV sedation was used during the procedure to decrease patients anxiety. The target points were identified as follows: For the L5-S1 level which corresponds to the dorsal ramus of L5 the target point was at the superior medial aspect of the sacral ala on the Rt side of the spine on the AP view of fluoroscopy and for the L2, L3, and L4 medial branches the target points were at the connection between the transverse process and the superior articular process of L3, L4, and L5 vertebra respectively on the Rt oblique view of fluoroscopy. skin was marked, and localized with 1% lidocaineat these points. 4 needles were used for this procedure Subsequently, an 18 -eb radiofrequency needles with a 10-mm curved active tips were advanced guided by fluoroscopy to each of the target points mentioned above in a superior medial direction to get the active tips as parallel as possible to the medial branches tracks. AP, oblique, and lateral views of fluoroscopy were used to verify needle tips position. Each level then underwent motor testing at 2.5 Hz and 0 to 3 volt with local stimulation, but no radicular symptoms down the legs. Thereafter radiofrequency thermocoagulation at 80 degrees celsius for 90 seconds after injecting 1 ml of PF Marcaine 0.5%(3 mls) with 40 mg of Kenalog. At the end of the procedure, the skin was cleansed and bandages were applied. COMPLICATIONS: No acute complications. DISPOSITION / PLANS: The patient was placed in a supine position and transferred to the recovery area in a stable condition for observation and was discharged from the recovery room after meeting discharge criteria. Home discharge instructions given to the patient by the staff. The patient was reexamined prior to discharge. The patient will schedule a follow up in the clinic in 2-4 weeks.
[2019-01-15 10:15] VITALS: BP 164/86; PULSE 57
--- NOTE | 2019-01-15 10:35 | FL ---
EXAMINATION TYPE: FL guided pain mgmt statistic DATE OF EXAM: 01/15/2019 FLUOROSCOPY Fluoroscopy time of 12 seconds was used during right-sided lumbar facet radiofrequency ablation. 3 i mage/s document/s the procedure.
== END ==
LOC: ORPAIN 08:54
PROVIDERS: ATTEND Anesthesiology
DX: M47.816 Spondylosis without myelopathy or radiculopathy, lumbar region (principal); M51.36 Other intervertebral disc degeneration, lumbar region; E66.9 Obesity, unspecified; Z68.34 Body mass index [BMI] 34.0-34.9, adult; Z79.899 Other long term (current) drug therapy
CPT/HCPCS: 64635; 64636 ×2; J2250; J3301; J3010; 99152

== ENCOUNTER → 2019-02-01 | Outpatient (CLI) | payer MEDICARE ==
[2019-02-01 12:16] VITALS: BP 136/84; PULSE 65; RESP 18
--- NOTE | 2019-02-01 12:47 | P.PN ---
Progress Note - Text Progress Note Date: 02/01/19 73 female status post right radio frequency ablation lumbar spine. She's doing well post procedure. She would like to schedule the left side next available date. Her VAS today is a 4-10 in severity mostly on her left side. Still has complaints of some radicular pain in her right leg that she's had epidural injections for in the past. Overall patient is doing well In addition to above, 13-point review of systems is also negative for chest pain, shortness of breath, changes in vision, changes in hearing, new onset weakness, abdominal pain, diarrhea, extreme fatigue, malaise, fever, skin changes, homicidal or suicidal ideation, or bowel or bladder incontinence. Vital Signs: Reviewed in EMR, obese Gen: WDWN, AAOx3, NAD HEENT: NCAT, EOMI, hearing grossly normal Pulm: resp unlabored Abd: soft, NT, ND Neck: supple, trachea midline cervical spine exam: motor strength normal bilateral upper extremities Lumbar spine exam: motor strength lower extremities ,thigh and legs .5/5 deep tendon reflexes : normal Knee Jerk , normal ankle Jerk . lumber facet positive on the left strait leg raising test positive at 60 degree RT Fabere test negative bilateral Range of motion: Range of motion in flexion of the lumbar spine 30 degrees Range of motion range of motion of extension of the lumbar spine -10 Bilateral SI joint tenderness Neuro: CN II-XII grossly intact, muscle strength lower extremities PRESERVED Imaging: Reviewed in EMR Assessment: 1. lumbar spinal stenosis 2. lumbar radiculopathy 3. lumbar spondylosis Plan: 1. Explanation: Opioid and psychological risk scores were reviewed. Diagnoses, prognoses, and multiple treatment options including but not limited to physical therapy, interventional therapies, adjuvant medical therapies, narcotic medication therapies, and surgery were discussed with the patient and all questions were answered to the patient's satisfaction. 2. Opioid agreement: None 3. Counseling: The patient was counseled extensively on BODY MASS INDEX, EXERCISE. Specifically, the patient was instructed regarding the importance of obesity and exercise in the context of both chronic pain and overall health. 4. Procedures: Left lumbar radio efficacy ablation L3-L4, L4-L5, L5-S1 5. Consultations: None 6. Investigations: None 7. Medications: None 8. Disposition: f/u for procedure as scheduled PQRS measures: 1-Patient's medications are documented in the chart. 2-Tobacco use is negative 3-Patient has not had a pneumococcal vaccine. 4-Advanced care planning discussed, patient unable to give. 5- No opiates prescribed 6-Pain positive, follow-up visit or procedure scheduled 7-Patient's blood pressure measured and documented, and WNL. 8-Patient's weight was measured, and body mass index ABOVE the normal limits, and counseling was done. Patient instructed to follow up with PCP. 9-Patient WAS NOT identified as an unhealthy alcohol user.
== END | disposition home or self-care (01) ==
LOC: PNWHC3 12:00
PROVIDERS: ATTEND Anesthesiology
DX: M48.061 Spinal stenosis, lumbar region without neurogenic claudication (principal); M47.26 Other spondylosis with radiculopathy, lumbar region
CPT/HCPCS: 99211

== ENCOUNTER 2019-02-06 08:22 | Day surgery (SDC) | payer MEDICARE ==
[2019-02-06 08:44] VITALS: TEMP 97.1
[2019-02-06] MEDS ORDERED: LACTATED RINGERS 1,000 ML IV ONE (08:46)
--- NOTE | 2019-02-06 09:12 | P.PCN ---
Date of Procedure: 02/06/19 Anesthesia: MAC Description of Procedure: PREOPERATIVE DIAGNOSIS: Lumbar Facet Arthropathy. POSTOPERATIVE DIAGNOSIS: Lumbar Facet Arthropathy. PROCEDURES: RIGHT/LEFT Radiofrequency thermocoagulation of L3 4, L4 5, L5-S1 me dial branches, with fluoroscopic guidance ANESTHESIA: IV sedation with versed and fentanyl and local infiltration with lidocaine 1% 10 ml PROCEDURE INDICATION: The patient with low back pain secondary to lumbar facet arthropathy who had more than 50% relief of pain with previous diagnostic lumbar medial branch block with local anesthetic. PROCEDURE DESCRIPTION / TECHNIQUE: The patient was seen and identified in the preoperative area. Risks, benefits, complications, including but not limited to risk of infection ,bleeding , allergic reactions to the medications and no complete pain relief , and alternatives were discussed with the patient, the patient agreed to proceed with the procedure and signed the consent. IV was started. Vital signs remained stable throughout the procedure. Patient was taken to the OR and time out was completed. The patient was placed in the prone position on the procedure table. The lumber area was prepped and draped in the usual sterile fashion. . Vital signs were closely monitored during the procedure. IV sedation was used during the procedure to decrease patient anxiety. Using AP and then oblique fluoroscopy, the eye of the Satnam dog corresponding to the connection between the superior and transverse articular processes of L3, L4, L5, S1 were identified, marked, and localized with 1% lidocaine. Subsequently, a 20 -ds radiofrequency cannula with a 10-mm active tip was advanced guided by fluoroscopy to the junction of the pedicle and transverse process of each identified level. Each site then underwent sensory testing at 50 Hz and 0 to 1 volt and motor testing at 2.5 Hz and 0 to 3 volt with local stimulation, no radicular symptoms sensed by the patient and no obvious motor stimulation noted. Thereafter the tested sites underwent radiofrequency thermocoagulation at 80 degrees celsius for 90 seconds after injecting 1 ml of PF lidocaine 1%. Then after the thermocoagulation was done, 1 ml of the block solution containing ropivaciane 0.5% was injected at the lesioned sites after negative aspiration of CSF and blood and with no paresthesias. Cannulas were retracted. At the end of the procedure, the skin was cleansed and bandages were applied. COMPLICATIONS: No acute complications. DISPOSITION / PLANS: The patient was placed in a supine position and transferred to the recovery area in a stable condition for observation and was discharged from the recovery room after meeting discharge criteria. Home discharge instructions given to the patient by the staff. The patient was reexamined prior to discharge. Patient will follow up as directed.
[2019-02-06] MEDS ORDERED: IV FLUID CONTINUATION 1,000 ML IV ONE (09:19)
[2019-02-06 09:21] VITALS: PULSE 54; RESP 16
--- NOTE | 2019-02-06 09:26 | FL ---
EXAMINATION TYPE: FL guided pain mgmt statistic DATE OF EXAM: 02/06/2019 COMPARISON: NONE HISTORY: Back pain. TECHNIQUE: Fluoroscopy. FINDINGS: Fluoroscopic guidance was provided during procedure performed by Dr. Laboy. A total of 5 seconds of fluoroscopic time was utilized during the procedure and 2 spot images was acquired demon strating multilevel localization of the lumbar spine. IMPRESSION: As Above.
[2019-02-06 09:37] VITALS: BP 132/75
--- NOTE | 2019-02-08 14:15 | CDI ---
Date: 02/08/19 CDS/[employer]er Name: Sherin Hope Phone: If any questions, call Lul[facility] at [phone] Patient Name: Saira Matias Admit Date: 02/06/19 Discharge Date: 02/06/19 ATTENTION: The [facility] Coding Staff appreciate your assistance in clarifying documentation. Please respond to the clarification below the line at the bottom and electronically sign. The [facility] Coding staff will review the response and follow-up if needed. Please note: Queries are made part of the Legal Health Record. If you have any questions, please contact the [facility]. Dear Dr. Laboy, Please clarify the type of sedation provided. Operative note state IV sedation with Versed and Fentanyl only. There is nothing check off on the Pain Procedure note under Anesthesia Plan. Please clarify if the sedation provided was MAC/unconscious or Moderate/conscious sedation. Thank you for your kind consideration. Conscious sedation was utilized. thank you MTDD
== END 2019-02-06 10:14 | disposition home or self-care (01) ==
LOC: ORPAIN 08:22
PROVIDERS: ATTEND Hospitalist
DX: M47.26 Other spondylosis with radiculopathy, lumbar region (principal); M48.061 Spinal stenosis, lumbar region without neurogenic claudication; E66.9 Obesity, unspecified; Z68.36 Body mass index [BMI] 36.0-36.9, adult
CPT/HCPCS: 64635; 64636 ×2; J2250; J2001; J3010; 99152

== ENCOUNTER → 2019-02-22 | Outpatient (CLI) | payer MEDICARE ==
[2019-02-22 13:10] VITALS: BP 169/77; PULSE 69; RESP 18
--- NOTE | 2019-02-22 14:25 | P.PN ---
Subjective Progress Note Date: 02/22/19 Saira a 81-year-old female presented today for postprocedural checkup. She complaining of increased pain in the lumbar spine and significant amount of pain and tenderness over the buttock on the left side. She had a radiofrequency ablation at L3 through the sacral darya. She has tenderness palpation over the buttock on the left side and reports that she is unable to sit on that side. She feels like there is some type of bump or mass in that area. She reports that she was feeling ill a few days after the procedure and felt severe fatigue. She was seen by her doctor is treated for asthma. She reports that he gave her a Medrol Dosepak which did not improve the pain at all. At this point she only has complaints of pain in the area along with fatigue and malaise. She denies any fevers, denies any chills,. Denies any new lower extremity weakness in the upper extremity weakness, any altered mental status denies any bowel or bladder incontinence. Objective - Vital Signs Vital signs: Vital Signs Temp Pulse 69 02/22/19 13:04 Resp 18 02/22/19 13:04 BP 169/77 02/22/19 13:04 Pulse Ox 97 02/22/19 13:04 Intake & Output 02/21/19 02/22/19 02/22/19 18:59 06:59 18:59 Weight 77.111 kg - Exam General: Awake and alert oriented 3 no distress Respiratory exam: No audible wheezing no accessory muscle usage Cardiovascular exam: regular rate, palpable bilateral pulses, no lower extremity edema Abdominal exam: No distention nontender to palpation Cervical spine: Normal alignment, Spurling's negative, facet loading negative, Drafter Plumbing strength is 5/5, seaman negative Lumbar spine: There is a loss of lumbar lordosis. There is no skin changes. There is no erythema. There is no fluctuance. There is tenderness to palpation near the injection site at one level, there is tenderness palpation over the left buttock over the sacral area. Again there is no fluctuance or or skin erythema in that area. Lower extremity strength is 5 out of 5. There is no weakness noted. Patient is able to stand from a seated position able stand on her toes and her heels. There is pain with sitting on the left buttock. Neuro exam: Normal sensation in bilateral upper extremities, deep tendon reflexes are 2+ bilateral upper extremities. Normal sensation in bilateral lower extremities. Deep tendon reflexes are 2+ in lower extremities Psych exam: Cooperative, appropriate mood Assessment and Plan Assessment: #1 lumbar spondylosis without myelopathy #2 postprocedural pain Plan: After examining the patient and evaluate her signs and symptoms. I would feel more comfortable if we got a CAT scan of the lumbar spine and sacrum to evaluate for any abscess after the procedure. His been a little over 2 weeks and her pain is not improved. She is also trialed a Medrol Dosepak without any improvement. There is no symptoms of infection such as fever or chills but she does have a significant amount of fatigue which is new for this young lady. She also has significant pain which is not improved despite having a Medrol Dosepak. Before moving on her prescribing any other steroid dose of like to rule out infection. I did give her tramadol 50 mg #14 tablets for the next week. We'll have her follow up in the next week. Soon as a CAT scan comes over will review and follow up with her if there is any significant changes. I advised her that she doesn't hear from us in the CAT scan is presumed to be normal.
== END | disposition home or self-care (01) ==
LOC: PNWHC3 12:46
PROVIDERS: ATTEND Hospitalist
DX: G89.18 Other acute postprocedural pain (principal); M47.816 Spondylosis without myelopathy or radiculopathy, lumbar region; Z98.890 Other specified postprocedural states
CPT/HCPCS: 99211

== ENCOUNTER → 2019-02-28 | Outpatient (CLI) | payer MEDICARE ==
--- NOTE | 2019-02-28 14:14 | CT ---
EXAMINATION TYPE: CT lumbar spine wo con DATE OF EXAM: 02/28/2019 COMPARISON: None HISTORY: Acute postprocedural pain CT DLP: 996 mGycm Automated exposure control for dose reduction was used. An unenhanced CT of the lumbar spine was performed. Bone and soft tissue window settings are submitt ed as well as coronal and sagittal reconstructions. FINDINGS: There is anterolisthesis grade 1 L4-5, L3-4, there is a slight spinal curvature present. Bone mineral ization is reduced. Vertebral body height is maintained. There is loss of disc height and interverteb ral levels, vacuum phenomenon present L5-S1, L2-3 and L1-2, T12-L1. Multilevel spondylosis is present . L1-L2: Posterior extension of endplate disc complex causes mild anterior mass effect on the thecal sa c. There is facet arthropathy change. Circumferential extension of endplate disc complex results in f oraminal encroachment greater on the right than on the left. L2-L3: Facet arthropathy with hypertrophy of ligamentum flavum, posterior broad-based disc bulge resu lts in a trefoil appearance of the thecal sac, moderate to severe central stenosis. Foraminal encroac hment is suspected greater on the right than on left due to circumferential extension of endplate dis c complex L3-L4: Posterior broad-based disc bulge causes anterior mass effect on the thecal sac. Hypertrophic c hanges at the facets results in severe central canal stenosis, there is likely lateral recess encroac hment. Circumferential extension endplate disc complex results in bilateral foraminal encroachment. N o significant disc herniation. L4-L5: Listhesis contributes to cause spinal stenosis with facet arthropathy changes hypertrophy of t he ligamentum flavum as well as posterior broad-based disc bulge. Listhesis also contributes to cause bilateral foraminal encroachment. L5-S1: Posterior broad-based disc bulge causes anterior mass effect on the thecal sac. There is facet arthropathy with hypertrophic changes of the facets and ligamentum flavum resulting in moderate ignacio l stenosis. Circumferential extension of endplate disc complex causes anterior mass effect on the the christianne sac and bilateral foraminal encroachment. IMPRESSION: Multilevel severe spinal stenosis, facet arthropathy, degenerative disc disease. Multilev el foraminal encroachment. No paraspinal masses are identified. Lumbar segments are intact.
== END | disposition home or self-care (01) ==
LOC: RADCTMAIN 11:41
PROVIDERS: ATTEND Hospitalist
DX: M48.061 Spinal stenosis, lumbar region without neurogenic claudication (principal); M51.36 Other intervertebral disc degeneration, lumbar region; M46.96 Unspecified inflammatory spondylopathy, lumbar region
CPT/HCPCS: 72131

== ENCOUNTER → 2019-03-01 | Outpatient (CLI) | payer MEDICARE ==
[2019-03-01 13:25] VITALS: RESP 16
[2019-03-01 13:28] VITALS: BP 169/90; PULSE 60; TEMP 98
--- NOTE | 2019-03-01 13:48 | P.PN ---
Subjective Progress Note Date: 03/01/19 This is follow up Visits for this 81-year-old female , status post radiofrequency ablation of the medial branch lumbar area, recently she had a radiofrequency ablation of the medial branch on the left-sided L34 /L45 /L5-S1 She reported that 1 week after the procedure ( RFA ) she started feeling severe left-sided low back pain with radiation to the left buttock, she denies any weakness in the lower extremity she denies any fever or night sweats, she denies any change in the bowel movement or urination. Patient had recent computed tomography scan of the lumbar spine and it showed central canal stenosis and severe degenerative disc disease and severe facet arthropathy , and central canal stenosis, patient able to ambulate without any difficulty Physical Examinations : -Constitutiona : Cooperative , not in acute distress . -HEENT : nech ; supple , no Lymphadenopathy , normal thyroid size . eyes : no ptosis , no icterus, no photophobia . - neurologic : Cranial nerve II to XII intact , no focal neurological deffecit . -psychatric : alert , oriented X 3 , appropriate affect , intact judgment and insight . -Lymphatic : no Lymphadenopathy . - musculoskeltal : Lumber spine moter stegnth lower extremities ,thigh and legs 5/5 Right side , 5/5 Left side deep tendon reflexes : normal Knee Jerk , normal ankle Jerk lumber facet Loading Test negative Range of motion of the lumbar spine Flexion 60 degrees, extension 30 degrees strait leg raising test , positive at 60 degree on the left side and is negative on the right side Fabere test negative bilaterally Sever tenderness over the Sacroiliac joint on the Left sides Gaenslen test positive left side Seated flexion test positive left Assessment and Plan Assessment: #1 lumbar spondylosis without myelopathy #2 left sacroiliitis #3 lumbar degenerative disc disease #4 lumbar spinal stenosis. Status post RFA of the lumbar medial branch, currently clinical examination support, that most of the pain is coming from ,the left sacroiliac joint, Patient could benefit from left-sided sacroiliac joint steroid injections under fluoroscopy guidance, procedure risk and benefits and alternatives discussed with the patient she agreed with the preceding Objective - Vital Signs Vital signs: Vital Signs Temp 98 F 03/01/19 13:26 Pulse 60 03/01/19 13:26 Resp 16 03/01/19 13:26 BP 169/90 03/01/19 13:26 Pulse Ox 98 03/01/19 13:26 Intake & Output 02/28/19 03/01/19 03/01/19 18:59 06:59 18:59 Weight 78.018 kg
== END ==
LOC: PNWHC3 13:07
PROVIDERS: ATTEND Specialist
DX: M48.061 Spinal stenosis, lumbar region without neurogenic claudication (principal); M51.36 Other intervertebral disc degeneration, lumbar region; M47.816 Spondylosis without myelopathy or radiculopathy, lumbar region; M46.1 Sacroiliitis, not elsewhere classified; Z98.890 Other specified postprocedural states
CPT/HCPCS: 99211

== ENCOUNTER 2019-03-04 08:07 | Emergency (ER) | payer MEDICARE ==
[2019-03-04 08:14] VITALS: BP 159/97; PULSE 62; RESP 18; TEMP 98.9
[2019-03-04] MEDS ORDERED: FAMOTIDINE 20 MG TAB PO STA (08:45)
[2019-03-04] MEDS ORDERED: DEXAMETHASONE SOD PHOSPHATE 10 MG/ML 1 ML VIAL IM STA (08:46)
[2019-03-04] MEDS ORDERED: diphenhydrAMINE 25 MG CAP PO STA (08:46)
--- NOTE | 2019-03-04 10:03 | ED ---
Skin/Abscess/FB HPI - General Chief complaint: Skin/Abscess/Foreign Body Stated complaint: RASH ALL OVER Time Seen by Provider: 03/04/19 08:16 Source: patient, family, RN notes reviewed Mode of arrival: ambulatory Limitations: no limitations - History of Present Illness Initial comments: This is a 73-year-old female who presents with complaints of a rash to her face and distal forearms the past 5 days she seen her doctor as well as an outpatient clinic has been on a Dosepak of steroids was states she is getting worse not better she does states she woke up last night under covers and felt warm. She denies any shortness of breath difficulty swallowing fevers or chills cough or phlegm production or other symptoms. She believes is secondary to exposure to a burning yan that she has near her house that she was working with. She had a similar reaction last year to the same way at. MD complaint: rash - Related Data Home Medications Medication Instructions Recorded Confirmed Albuterol Inhaler [Ventolin 1 - 2 puff INHALATION RT-Q6H PRN 08/05/14 03/04/19 Inhaler] Aspirin EC [Ecotrin] 81 mg PO DAILY 08/05/14 03/04/19 Hydrochlorothiazide [Hydrodiuril] 25 mg PO DAILY 08/05/14 03/04/19 Levothyroxine Sodium [Synthroid] 37.5 mcg PO DAILY 08/05/14 03/04/19 Lisinopril [Prinivil] 20 mg PO BID 08/05/14 03/04/19 Metoprolol Tartrate [Lopressor] 50 mg PO BID 08/05/14 03/04/19 Montelukast [Singulair] 10 mg PO HS 08/05/14 03/04/19 Omeprazole 40 mg PO DAILY 08/05/14 03/04/19 Sennosides-Docusate Sodium 1 tab PO BID 08/05/14 03/04/19 [Senokot-S] amLODIPine BESYLATE [Norvasc] 10 mg PO DAILY 08/05/14 03/04/19 Loratadine [Claritin] 10 mg PO DAILY 11/26/14 03/04/19 Multivitamins, Thera [Multivitamin] 1 tab PO DAILY 04/07/16 03/04/19 Acetaminophen Tab [Tylenol Tab] 1,000 mg PO BID PRN 10/02/18 03/04/19 Biotin 5,000 mcg PO DAILY 10/02/18 03/04/19 Budesonide-Formot 160-4.5 Mcg 2 puff INHALATION RT-BID 01/09/19 03/04/19 [Symbicort 160-4.5 Mcg Inhaler] traMADol HCL [Ultram] 50 mg PO BID 03/01/19 03/04/19 Previous Rx's Medication Instructions Recorded Famotidine [Pepcid] 20 mg PO BID #14 tablet 03/04/19 predniSONE 20 mg PO BID #10 tab 03/04/19 Allergies Allergy/AdvReac Type Severity Reaction Status Date / Time adhesive Allergy Unknown Rash/Hives, Verified 03/01/19 13:18 Blisters codeine AdvReac Unknown Abdominal Verified 03/01/19 13:18 Pain banana AdvReac Wheezing Verified 03/01/19 13:18 cinnamon AdvReac Wheezing Verified 03/01/19 13:18 monosodium glutamate [MSG] AdvReac Nausea & Verified 03/01/19 13:18 Vomiting Mushroom AdvReac Wheezing Verified 03/01/19 13:18 Review of Systems ROS Statement: Those systems with pertinent positive or pertinent negative responses have been documented in the HPI. ROS Other: All systems not noted in ROS Statement are negative. Past Medical History Past Medical History: Asthma, Diabetes Mellitus, GERD/Reflux, Hypertension, Osteoarthritis (OA), Pneumonia, Sleep Apnea/CPAP/BIPAP Additional Past Medical History / Comment(s): DIET CONTROLLED-DIABETIC, no meds X10 yrs. Pt fell on Oct 16 - tripped going up steps. "No CPAP use in yrs." History of Any Multi-Drug Resistant Organisms: None Reported Past Surgical History: Adenoidectomy, Bariatric Surgery, Cholecystectomy, Hysterectomy, Joint Replacement, Tonsillectomy Additional Past Surgical History / Comment(s): Bilateral knee replacements, Lap band, eyelid surgery, Panniculectomy. Past Anesthesia/Blood Transfusion Reactions: No Reported Reaction Past Psychological History: No Psychological Hx Reported Smoking Status: Former smoker Past Alcohol Use History: Rare - Past Family History Mother Family Medical History: No Reported History General Exam - General Exam Comments Initial Comments: This is a well-developed well-nourished awake alert oriented 3 female Limitations: no limitations General appearance: alert, anxious Head exam: Present: atraumatic, normocephalic, normal inspection Eye exam: Present: normal appearance, PERRL, EOMI. Absent: scleral icterus, conjunctival injection, periorbital swelling ENT exam: Present: normal oropharynx, other (Gemmation face reveals a rash around the ravi-aural region especially right upper cheek consistent with a contact dermatitis the oropharynx is clear) Neck exam: Present: normal inspection (Some rashes noted on the anterior neck.), full ROM. Absent: tenderness, meningismus, lymphadenopathy Respiratory exam: Present: normal lung sounds bilaterally (No stridor JVD or bruits). Absent: respiratory distress, wheezes, rales, rhonchi, stridor Cardiovascular Exam: Present: regular rate, normal rhythm, normal heart sounds. Absent: systolic murmur, diastolic murmur, rubs, gallop, clicks GI/Abdominal exam: Present: soft (Rash on the abdomen), normal bowel sounds. Absent: distended, tenderness, guarding, rebound, rigid Extremities exam: Present: full ROM, normal capillary refill, other (Some linear rash noted on the distal forearms especially on the right) Back exam: Present: full ROM. Absent: tenderness Neurological exam: Present: alert, oriented X3, CN II-XII intact Psychiatric exam: Present: normal affect, normal mood Skin exam: Present: warm, dry, erythema, other (Rash consistent with a contact dermatitis as stated above) Course Vital Signs 03/04/19 08:10 Temperature 98.9 F Pulse Rate 62 Respiratory 18 Rate Blood Pressure 159/97 O2 Sat by Pulse 96 Oximetry Medical Decision Making - Medical Decision Making The patient will be discharged on higher dosing of prednisone continue his H2 and H1 blockers I did also cautioned her buttock he exposure Disposition Clinical Impression: Contact dermatitis Disposition: HOME SELF-CARE Condition: Good Instructions (If sedation given, give patient instructions): Contact Dermatitis (ED) Additional Instructions: Egzv-oxc-yhlontl Benadryl 25 mg every 6 hours as needed also cool compresses when necessary Prescriptions: Famotidine [Pepcid] 20 mg PO BID #14 tablet predniSONE 20 mg PO BID #10 tab Is patient prescribed a controlled substance at d/c from ED?: No Referrals: Sina Tam MD [Primary Care Provider] - 1-2 days
== END 2019-03-04 10:45 | disposition home or self-care (01) ==
LOC: EC 08:07
DX: L25.9 Unspecified contact dermatitis, unspecified cause (principal); J45.909 Unspecified asthma, uncomplicated; I10 Essential (primary) hypertension; K21.9 Gastro-esophageal reflux disease without esophagitis; E11.9 Type 2 diabetes mellitus without complications; G47.30 Sleep apnea, unspecified; M19.90 Unspecified osteoarthritis, unspecified site; Z79.82 Long term (current) use of aspirin; Z79.890 Hormone replacement therapy; Z79.51 Long term (current) use of inhaled steroids; Z79.899 Other long term (current) drug therapy; Z88.5 Allergy status to narcotic agent; Z91.048 Other nonmedicinal substance allergy status; Z91.018 Allergy to other foods; Z87.891 Personal history of nicotine dependence; Z98.84 Bariatric surgery status; Z96.653 Presence of artificial knee joint, bilateral
CPT/HCPCS: 99282; 96372; J1100

== ENCOUNTER 2019-03-08 07:18 | Day surgery (SDC) | payer MEDICARE ==
[2019-03-05 16:23] VITALS: BMI 37.0
[2019-03-08] MEDS ORDERED: LIDOCAINE 1% 20 ML VIAL (10MG/ML) FOR IV START INTRADERMA ONE (07:48)
[2019-03-08 07:49] VITALS: RESP 16; TEMP 97.9
[2019-03-08] MEDS: LACTATED RINGERS 1,000 ML IV SCH ×2 (07:50→08:34)
[2019-03-08 07:56] LABS: Glucose,Whole Blood 101 mg/dL (75-99)
--- NOTE | 2019-03-08 08:55 | P.PCN ---
Date of Procedure: 03/08/19 Procedure(s) Performed: Procedure= Left sacral iliac joints steroid injection under fluoroscopy patricia cecy Preoperative diagnosis= 1-left sacroiliitis 2-lumbar spondylosis with facet arthropathy Postoperative diagnosis= same as preop Diagnoses Complication = none Condition= stable Fluoroscopy time = seconds Anesthesia= moderate sedation with intravenous Versed 1 mg , and fentanyl 50 micrograms . Indication for the procedure= patient complaining of low back pain , examination was positive for severe tenderness over the sacroiliac joints bilaterally and patient diagnosed with sacroiliitis, for this reason , she was good candidate for sacroiliac joint steroid injection. Description of the procedure= procedure risk and benefits discussed with the patient, including but not limited, risk of infection and bleeding, and ALLERGIC reaction to the medication and not complete pain relief and patient agreed with the preceding patient taken to the operating room, placed in prone position or standard monitors applied to the patient then after induction of anesthesia back prepped with chlorhexidine 3 times , Then under strict sterile technique, I did the left sacroiliac joint the which was identified under fluoroscopy guidance been local infiltration of the skin and subcu interstitial with lidocaine 1% then 22-gauge Quincke Needle advanced slowly under fluoroscopy and placed in the left sacroiliac joint needle placement confirmed with AP and oblique and lateral view and after appropriate needle placement confirmed and after negative aspiration, or heme , then Ropivacaine 0.5% 4 mL, and 40 mg of Depo-Medrol mixed together and injected in the left joint after negative aspiration patient tolerated the procedure well without any complication.
[2019-03-08] MEDS ORDERED: IV FLUID CONTINUATION 1,000 ML IV ONE (09:03)
[2019-03-08 09:18] VITALS: BP 169/83; PULSE 52
--- NOTE | 2019-03-08 10:18 | FL ---
EXAMINATION TYPE: FL guided pain mgmt statistic DATE OF EXAM: 03/08/2019 FLUOROSCOPY Fluoroscopy time of 4 seconds was used during left SI joint injection. 1 image/s document/s the proc edure.
== END 2019-03-08 09:41 | disposition home or self-care (01) ==
LOC: ORPAIN 07:18
PROVIDERS: ATTEND Specialist
DX: M46.1 Sacroiliitis, not elsewhere classified (principal); M47.9 Spondylosis, unspecified; Z91.02 Food additives allergy status; Z88.5 Allergy status to narcotic agent; Z91.018 Allergy to other foods
CPT/HCPCS: J2250; J1030; J3010; G0260; 27096

== ENCOUNTER 2019-03-29 07:58 | Day surgery (SDC) | payer MEDICARE ==
[2019-03-28 11:17] VITALS: BMI 37.0
[2019-03-29 08:42] VITALS: TEMP 97.8
[2019-03-29] MEDS ORDERED: LIDOCAINE 1% 20 ML VIAL (10MG/ML) FOR IV START INTRADERMA ONE (08:53)
[2019-03-29] MEDS ORDERED: LACTATED RINGERS 1,000 ML IV ONE (08:53)
[2019-03-29 09:02] LABS: Glucose,Whole Blood 87 mg/dL (75-99)
[2019-03-29] MEDS ORDERED: IV FLUID CONTINUATION 1,000 ML IV ONE ×2 (09:50)
[2019-03-29 09:54] VITALS: RESP 18
--- NOTE | 2019-03-29 09:55 | P.PCN ---
Date of Procedure: 03/29/19 Procedure(s) Performed: Procedure= Left sacral iliac joint steroid injection under fluoroscopy guidance Preoperative diagnosis= 1-left sacroiliitis Postoperative diagnosis= same as preop Diagnoses Complication = none Condition= stable Anesthesia= lidocaine 1% 3 mL's, Versed and fentanyl IV Indication for the procedure= patient complaining of low back pain , examination was positive for severe tenderness over the sacroiliac joints bilaterally and patient diagnosed with sacroiliitis, for this reason , she was good candidate for sacroiliac joint steroid injection. Description of the procedure= procedure risk and benefits discussed with the patient, including but not limited, risk of infection and bleeding, and ALLERGIC reaction to the medication and not complete pain relief and patient agreed with the preceding patient taken to the operating room, placed in prone position or standard monitors applied to the patient then after induction of anesthesia back prepped with chlorhexidine 2 times , Then under strict sterile technique, the left sacroiliac joint was identified under fluoroscopy guidance. Local infiltration of the skin and subcutaneous tissue was done with lidocaine 1% then 22-gauge 3.5" Quincke Needle advanced slowly under fluoroscopy and placed in the inferior portion of the left sacroiliac joint. Needle placement confirmed with AP and lateral view and after negative aspiration, 0.5 mL of Isovue-200 was injected, which revealed an arthrogram. Then, Ropivacaine 0.5% 2 mL, and 40 mg of Kenalog was mixed together and injected in the left joint after negative aspiration. Patient tolerated the procedure well without any complication. She was taken to the recovery room and monitored for a brief period of time. She was then discharged. She will follow up in clinic in 4 weeks.
--- NOTE | 2019-03-29 10:14 | FL ---
EXAMINATION TYPE: FL guided pain mgmt statistic DATE OF EXAM: 03/29/2019 CLINICAL HISTORY: Low back and sacroiliac joint pain. TECHNIQUE: Fluoroscopy. COMPARISON: None. FINDINGS: Fluoroscopic guidance was provided during pain relief procedure performed by Dr. Vogel. A t otal of 5 seconds of fluoroscopic time was utilized during the procedure and two spot images are acqu ired. Images acquired shows needle localization of the left sacroiliac joint. IMPRESSION: As Above.
[2019-03-29 10:34] VITALS: BP 137/85; PULSE 56
--- NOTE | 2019-04-02 13:46 | CDI ---
Outpatient Documentation Clarification Form Date: 04/02/19 CDS/Fruit Bar Maker Name: Sherin Hope Phone: If any questions, call [employer] Desktop Publisher at [phone] Patient Name: Saira Matias Admit Date: 03/29/19 Discharge Date: 03/29/19 ATTENTION: The [facility] Coding Staff appreciate your assistance in clarifying documentation. Please respond to the clarification below the line at the bottom and electronically sign. The [facility] Coding staff will review the response and follow-up if needed. Please note: Queries are made part of the Legal Health Record. If you have any questions, please contact the Desktop Publisher. Dear Dr. Vogel, Please clarify what type of sedation was provided. Operative note states IV versed and fentanyl Pain procedure record documents MAC. Please clarify if MAC/unconscious sedation or Moderate/conscious sedation as provided. Thank you for your kind consideration. Conscious sedation was used MTDD
== END 2019-03-29 10:34 | disposition home or self-care (01) ==
LOC: ORPAIN 07:58
PROVIDERS: ATTEND Anesthesiology
DX: M46.1 Sacroiliitis, not elsewhere classified (principal); M47.26 Other spondylosis with radiculopathy, lumbar region; M51.16 Intervertebral disc disorders with radiculopathy, lumbar region; M48.061 Spinal stenosis, lumbar region without neurogenic claudication
CPT/HCPCS: J2250; J3301; J3010; G0260; 27096

== ENCOUNTER → 2019-04-26 | Outpatient (CLI) | payer MEDICARE ==
[2019-04-26 13:11] VITALS: PULSE 74; RESP 16
[2019-04-26 13:55] VITALS: BP 153/91
--- NOTE | 2019-06-13 11:41 | P.PAINPG ---
Subjective Progress Note Date: 04/26/19 This is follow-up visit for this patient with a history of severe and chronic low back pain secondary to lumbar degenerative disc diseases , lumbar spondylosis with facet arthropathy, and sacroiliitis, recently we have done a left sacroiliac joint steroid injection and she get excellent pain relief, but currently she is complaining of severe low back pain with radiation to the lower extremities, the pain interfering with the quality of life Patient denies any side effects of the medication, denies excessive drowsiness or sleepiness, denies suicidal ideation, and reports that the current pain medication is helping to control the pain ,and improve activity of daily living Patient denies any motor or sensory deficit , patient denies any fever or night sweats, denies any change in the bowel movements or urination Physical Examinations : 1-Constitutional : Cooperative , not in acute distress . 2-HEENT : nech ; supple , no Lymphadenopathy , no Thyromegaly , normal thyroid size . eyes : no ptosis , no icterus, no photophobia . ENT : normal of hearing , normal oropharynx , no Thrush . 3- Respiratory : Chest clear to auscultations Bilaterally , no wheezing , no Rhonchi . 4- Cardiovascular : regular rate and rhythem , S1 , S2 , no S3 , no S4. 5- Gastrointestinal : abdomen soft no tenderness , bowel sounds positive all four quadrents , no organomegally . 6- Genitourinary : Defferred . 7- neurologic: Cranial nerve II to XII intact , no focal neurological deffecit . 8- Psychatric: alert , oriented X 3 , appropriate affect , intact judgment and insight . 9- Lymphatic : no Lymphadenopathy . 10- Musculoskeltal : exams of the cervical spine = motor strength normal bilateral upper extremities facet loading test cervical area positive. exams of the Lumber spine =motor strength lower extremities ,thigh and legs .5/5 deep tendon reflexes : normal Knee Jerk , normal ankle Jerk . lumber facet Loading Test positive strait leg raising test positive at 30 degree RT , negative LT , Fabere test positive RT and negative LT . Range of motion: Range of motion in flexion of the lumbar spine 30 degrees Range of motion range of motion of extension of the lumbar spine 10 tenderness over the Sacroiliac joint on the Right , and Left side Assessment and plan = Chronic low back pain secondary to lumbar degenerative disc disease , lumbar spondylosis with facet arthropathy without myelopathy , left sacroiliitis Patient could benefit from lumbar epidural steroid injection at L4 5 Patient currently on Ultram 50 mg every 12 hours when necessary she denies any side effects of the medication Patient signed a narcotic agreement risk and benefit. Discussed with the patient MAPS reviewed, and it was appropriate PQRS Measure Charge Sheet Measure #130: Documentation of Current Meds in Medical Chart: Patient's medications documented in chart Measure #226: Tobacco Use: Screen & Cessation Intervention: Pt not a tobacco user Measure #111: Pneumonia Vaccination: Pneumococcal vaccine administered or previously received Measure #47: Advance Care Plan: Advance care planning discussed & documented, pt chose/unable to give Measure #412: Opioid Treatment Agreement: Documented signed opioid trtmnt agreemnt min once during opioid trtmnt Measure #408: Opioid Therapy Follow-up Evaluation: Patient had f/u eval minimum every 3 months during opioid therapy Measure #317: Preventitive Care & Scrn High Bld Press & F/U: Pre-hypertensive or hypertensive BP documented, pt will f/u with PCP Measure #128: Body Mass Index (BMI) Screening & Follow-up: BMI documented ABOVE normal parameters - f/u documented Measure #131: Pain Assessment & Follow-up: Pain positive & plan documented, Follow-up scheduled Measure #431: Unhealthy Alcohol Use Preventative Care & Scrn: Patient not identified as an unhealthy alcohol user PQRS Narrative: Smoking Status Former smoker Narcotic Agreement Date Signed 10/04/14 Hx Alcohol Use (MH) Yes: OCCASIONAL Home Medications: Ambulatory Orders Albuterol Inhaler [Ventolin Inhaler] 1 - 2 puff INHALATION RT-Q6H PRN 08/05/14 Aspirin EC [Ecotrin] 81 mg PO DAILY 08/05/14 Hydrochlorothiazide [Hydrodiuril] 25 mg PO DAILY 08/05/14 Levothyroxine Sodium [Synthroid] 37.5 mcg PO DAILY 08/05/14 Lisinopril [Prinivil] 20 mg PO BID 08/05/14 Metoprolol Tartrate [Lopressor] 50 mg PO BID 08/05/14 Montelukast [Singulair] 10 mg PO HS 08/05/14 Omeprazole 40 mg PO DAILY 08/05/14 Sennosides-Docusate Sodium [Senokot-S] 1 tab PO BID 08/05/14 amLODIPine BESYLATE [Norvasc] 10 mg PO DAILY 08/05/14 Loratadine [Claritin] 10 mg PO DAILY 11/26/14 Multivitamins, Thera [Multivitamin] 1 tab PO DAILY 04/07/16 Acetaminophen Tab [Tylenol Tab] 1,000 mg PO BID PRN 10/02/18 Biotin 5,000 mcg PO DAILY 10/02/18 Budesonide-Formot 160-4.5 Mcg [Symbicort 160-4.5 Mcg Inhaler] 1 puff INHALATION RT-BID 01/09/19 traMADol HCL [Ultram] 50 mg PO BID PRN 03/01/19 diphenhydrAMINE [Benadryl] 25 mg PO QID PRN 03/05/19 HYDROcodone/APAP 7.5-325MG [[place] 7.5-325] 1 each PO Q6HR PRN 7 Days #28 tab 05/30/19 Controlled Substance Measures - Controlled Substance Measures Is patient prescribed a controlled substance at discharge?: Yes When asked, does pt state using other controlled substances?: No If prescribed controlled substance>3 days was MAPS reviewed?: Yes If Rx opioid, was Start Talking consent form obtained?: Yes If opioid is for acute pain is fill amount 7 days or less?: No Was information provided regarding opioid addiction?: Yes
== END | disposition home or self-care (01) ==
LOC: PNWHC3 12:52
PROVIDERS: ATTEND Specialist
DX: G89.29 Other chronic pain (principal); M51.36 Other intervertebral disc degeneration, lumbar region; M47.816 Spondylosis without myelopathy or radiculopathy, lumbar region; M46.96 Unspecified inflammatory spondylopathy, lumbar region; M46.1 Sacroiliitis, not elsewhere classified; Z87.891 Personal history of nicotine dependence; Z79.899 Other long term (current) drug therapy; Z79.82 Long term (current) use of aspirin; Z79.891 Long term (current) use of opiate analgesic
CPT/HCPCS: 99211

== ENCOUNTER → 2019-04-30 | Outpatient (CLI) | payer MEDICARE ==
--- NOTE | 2019-04-26 14:58 | P.PAINPG ---
Subjective Progress Note Date: 04/26/19 This is follow-up visit for this patient with a history of severe and chronic low back pain secondary to lumbar degenerative disc diseases , lumbar spondylosis with facet arthropathy, and sacroiliitis, recently we have done a left sacroiliac joint steroid injection and she get excellent pain relief, but currently she is complaining of severe low back pain with radiation to the lower extremities, the pain interfering with the quality of life Patient denies any side effects of the medication, denies excessive drowsiness or sleepiness, denies suicidal ideation, and reports that the current pain medication is helping to control the pain ,and improve activity of daily living Patient denies any motor or sensory deficit , patient denies any fever or night sweats, denies any change in the bowel movements or urination Physical Examinations : 1-Constitutional : Cooperative , not in acute distress . 2-HEENT : nech ; supple , no Lymphadenopathy , no Thyromegaly , normal thyroid size . eyes : no ptosis , no icterus, no photophobia . ENT : normal of hearing , normal oropharynx , no Thrush . 3- Respiratory : Chest clear to auscultations Bilaterally , no wheezing , no Rhonchi . 4- Cardiovascular : regular rate and rhythem , S1 , S2 , no S3 , no S4. 5- Gastrointestinal : abdomen soft no tenderness , bowel sounds positive all four quadrents , no organomegally . 6- Genitourinary : Defferred . 7- neurologic: Cranial nerve II to XII intact , no focal neurological deffecit . 8- Psychatric: alert , oriented X 3 , appropriate affect , intact judgment and insight . 9- Lymphatic : no Lymphadenopathy . 10- Musculoskeltal : exams of the cervical spine = motor strength normal bilateral upper extremities facet loading test cervical area positive. exams of the Lumber spine =motor strength lower extremities ,thigh and legs .5/5 deep tendon reflexes : normal Knee Jerk , normal ankle Jerk . lumber facet Loading Test positive strait leg raising test positive at 30 degree RT , negative LT , Fabere test positive RT and negative LT . Range of motion: Range of motion in flexion of the lumbar spine 30 degrees Range of motion range of motion of extension of the lumbar spine 10 tenderness over the Sacroiliac joint on the Right , and Left side Assessment and plan = Chronic low back pain secondary to lumbar degenerative disc disease , lumbar spondylosis with facet arthropathy without myelopathy , left sacroiliitis Patient could benefit from lumbar epidural steroid injection at L4 5 Patient currently on Ultram 50 mg every 12 hours when necessary she denies any side effects of the medication Patient signed a narcotic agreement risk and benefit. Discussed with the patient MAPS reviewed, and it was appropriate PQRS Measure Charge Sheet Measure #130: Documentation of Current Meds in Medical Chart: Patient's medications documented in chart Measure #226: Tobacco Use: Screen & Cessation Intervention: Pt not a tobacco user Measure #111: Pneumonia Vaccination: Pneumococcal vaccine administered or previously received Measure #47: Advance Care Plan: Advance care planning discussed & documented, pt chose/unable to give Measure #412: Opioid Treatment Agreement: Documented signed opioid trtmnt agreemnt min once during opioid trtmnt Measure #408: Opioid Therapy Follow-up Evaluation: Patient had f/u eval minimum every 3 months during opioid therapy Measure #317: Preventitive Care & Scrn High Bld Press & F/U: Pre-hypertensive or hypertensive BP documented, pt will f/u with PCP Measure #128: Body Mass Index (BMI) Screening & Follow-up: BMI documented ABOVE normal parameters - f/u documented Measure #131: Pain Assessment & Follow-up: Pain positive & plan documented, Follow-up scheduled Measure #431: Unhealthy Alcohol Use Preventative Care & Scrn: Patient not identified as an unhealthy alcohol user PQRS Narrative: Smoking Status Former smoker Narcotic Agreement Date Signed 10/04/14 Hx Alcohol Use (MH) Yes: OCCASIONAL Home Medications: Ambulatory Orders Albuterol Inhaler [Ventolin Inhaler] 1 - 2 puff INHALATION RT-Q6H PRN 08/05/14 Aspirin EC [Ecotrin] 81 mg PO DAILY 08/05/14 Hydrochlorothiazide [Hydrodiuril] 25 mg PO DAILY 08/05/14 Levothyroxine Sodium [Synthroid] 37.5 mcg PO DAILY 08/05/14 Lisinopril [Prinivil] 20 mg PO BID 08/05/14 Metoprolol Tartrate [Lopressor] 50 mg PO BID 08/05/14 Montelukast [Singulair] 10 mg PO HS 08/05/14 Omeprazole 40 mg PO DAILY 08/05/14 Sennosides-Docusate Sodium [Senokot-S] 1 tab PO BID 08/05/14 amLODIPine BESYLATE [Norvasc] 10 mg PO DAILY 08/05/14 Loratadine [Claritin] 10 mg PO DAILY 11/26/14 Multivitamins, Thera [Multivitamin] 1 tab PO DAILY 04/07/16 Acetaminophen Tab [Tylenol Tab] 1,000 mg PO BID PRN 10/02/18 Biotin 5,000 mcg PO DAILY 10/02/18 Budesonide-Formot 160-4.5 Mcg [Symbicort 160-4.5 Mcg Inhaler] 1 puff INHALATION RT-BID 01/09/19 traMADol HCL [Ultram] 50 mg PO BID PRN 03/01/19 diphenhydrAMINE [Benadryl] 25 mg PO QID PRN 03/05/19 Controlled Substance Measures - Controlled Substance Measures Is patient prescribed a controlled substance at discharge?: Yes When asked, does pt state using other controlled substances?: No If prescribed controlled substance>3 days was MAPS reviewed?: Yes If Rx opioid, was Start Talking consent form obtained?: Yes If opioid is for acute pain is fill amount 7 days or less?: No Was information provided regarding opioid addiction?: Yes
--- NOTE | 2019-04-30 11:44 | MR ---
EXAMINATION TYPE: MR shoulder RT wo con DATE OF EXAM: 04/30/2019 11:26 AM COMPARISON: NONE HISTORY: Right shoulder pain TECHNIQUE: Multiplanar multispin echo imaging of the right shoulder was performed. FINDINGS: Rotator cuff : Thickening and heterogeneity of the supraspinatus tendon compatible with chronic tendi nopathy. No evidence for full-thickness tear. Bursa: No bursal effusion or thickening is seen. Musculature: There is no muscular tear, contusion, or atrophy. Acromioclavicular joint : Moderate subacromial spur resulting in subacromial impingement. Moderate AC joint arthropathy. Osseous structures : There are no fractures or regions of abnormal bone marrow si gnal intensity. Long biceps tendon : The biceps tendon is normally situated within the bicipital groove. No complete or partial biceps tendon tear is present. Glenohumeral Joint fluid : Subcoracoid fluid collection noted measuring 1.6 cm. Cartilage and Bone : No focal hyaline cartilage defects are noted. No Hill-Sachs, reverse Hill-Sachs, or bony Bankart lesions are seen. Labrum : There are no SLAP or soft tissue Bankart lesions. No paralabral cysts are seen. OTHER FINDINGS : none IMPRESSION: 1. Chronic tendinopathy supraspinatus tendon without evidence for full-thickness tear. Subacromial im pingement as noted.
== END | disposition home or self-care (01) ==
LOC: RADMRIMAIN 10:07
PROVIDERS: ATTEND Orthopaedic Surgery
DX: M67.813 Other specified disorders of tendon, right shoulder (principal)

== ENCOUNTER 2019-05-07 07:26 | Day surgery (SDC) | payer MEDICARE ==
[2019-05-01 10:08] VITALS: BMI 37.8
[~2019-05-07 07:26] MED LIST changes: -IV FLUID CONTINUATION 1,000 ML IV ONE; +LACTATED RINGERS 1,000 ML IV SCH; -LIDOCAINE 1% 20 ML VIAL (10MG/ML) FOR IV START INTRADERMA ONE
[2019-05-07 08:02] VITALS: TEMP 98.2
[2019-05-07 08:05] LABS: Glucose,Whole Blood 84 mg/dL (75-99)
--- NOTE | 2019-05-07 08:31 | P.PCN ---
Date of Procedure: 05/07/19 Procedure(s) Performed: PREOPERATIVE DIAGNOSIS: Lumbar radicular pain POSTOPERATIVE DIAGNOSIS: Same PROCEDURE Lumbar epidural steroid injection under fluoroscopic guidance at the L4-L5 level. ANESTHESIA: Local with 1% lidocaine 3 ml; moderate sedation with 1mg Versed 50 mg of fentanyl EBL: Minimal PROCEDURE INDICATION: Radicular pain. PROCEDURE DESCRIPTION / TECHNIQUE: The patient was seen and identified in the preoperative area. Risks, benefits, complications including but not limited to infections ,bleeding ,allergic reaction to the medications ,nerve damage and not complete pain relief , and alternatives were discussed with the patient. The patient agreed to proceed with the procedure and signed the consent. IV was started, and vital signs were stable. Patient was taken to the OR and time out was completed. The patient was placed in the prone position on procedure table and a pillow was placed under the abdomen to reduce lumbar lordosis. The lumbosacral area was prepped and draped in the usual sterile fashion. The patient was closely monitored during the procedure. Conscious sedation was used during the procedure to decrease patients anxiety. Vital signs was monitored during the entire procedure. Using anterior-posterior fluoroscopy, the L4-L5 interlaminar space was identified and the skin over this site was marked and then infiltrated with 1% lidocaine subcutaneously. Subsequently, a 20-gauge Tuohy epidural needle was inserted and advanced toward the epidural space using the loss of resistance technique and guided by AP and lateral fluoroscopy. The correct needle position in the epidural space was verified. After negative aspiration, a solution con taining 40 mg of Depo-Medrol, 2 mL 1% lidocaine, 2 mL of normal saline was injected. The needle was withdrawn intact, skin was cleansed, and bandages were applied. COMPLICATIONS: None DISPOSITION / PLANS: The patient was returned to the supine position and transferred to the recovery area in a stable condition for observation. There was no evidence of lower extremity motor or sensory deficit after the procedure. Patient was discharged from the recovery room after meeting discharge criteria. Home discharge instructions were given to the patient by the staff. Follow up plan: Repeat epidural if she obtains benefit
[2019-05-07 08:43] VITALS: RESP 16
[2019-05-07 08:56] VITALS: BP 130/84; PULSE 66
[2019-05-07] MEDS ORDERED: IV FLUID CONTINUATION 1,000 ML IV ONE (08:57)
--- NOTE | 2019-05-07 11:57 | FL ---
Fluoroscopy HISTORY: Pain 9 seconds fluoroscopy time supplied to the referring clinician. 2 intraoperative C-arm images docume nt the procedure. See dictated report from anesthesia.
== END 2019-05-07 09:12 | disposition home or self-care (01) ==
LOC: ORPAIN 07:26
PROVIDERS: ATTEND Student in an Organized Health Care Education/Training Program
DX: M54.16 Radiculopathy, lumbar region (principal); Z88.5 Allergy status to narcotic agent; Z91.018 Allergy to other foods; Z91.09 Other allergy status, other than to drugs and biological substances
CPT/HCPCS: 62323; J2250; J1030; J3010; Q9966

== ENCOUNTER → 2019-05-30 | Day surgery (SDC) | payer MEDICARE ==
[2019-05-24 10:48] VITALS: BMI 40.0
--- NOTE | 2019-05-29 14:08 | HP ---
HISTORY AND PHYSICAL DATE OF SURGERY: 05/30/2019 Saira Matias is a 74-year-old patient seen with progressive right shoulder pain. After treatment options were discussed with her, she elected to proceed with right shoulder arthroscopy. Consent was obtained. PAST MEDICAL HISTORY: Asthma, hypertension, hypothyroidism. PAST SURGICAL HISTORY: Cholecystectomy, hysterectomy, left knee unicompartmental arthroplasty, right total knee arthroplasty. DAILY MEDICATIONS: 1. Advair. 2. Metoprolol. 3. Norvasc. 4. Synthroid. ALLERGIES: None. SOCIAL HISTORY: She denies current tobacco use. PHYSICAL EVALUATION RIGHT SHOULDER: Flexion 90 degrees, abduction 70 degrees, external rotation is 50 degrees with pain, weakness, tenderness along the anterior lateral acromion rotator cuff insertion site. Impingement signs positive at 80 degrees. Drop-arm sign positive. Distal neurovascular exam intact. RADIOGRAPHS OF THE RIGHT SHOULDER: Revealed a type 2 anterior acromion and evidence for acromioclavicular joint osteoarthritis. Right shoulder MRI revealed chronic rotator cuff tendinitis as well as acromioclavicular joint osteoarthritis. IMPRESSION: Right shoulder impingement with possible rotator cuff tear and acromioclavicular joint osteoarthritis. PLAN: Right shoulder arthroscopy with subacromial decompression, possible arthroscopic rotator cuff repair, probable Chidi procedure and debridement. MMODL / IJN: [id number] /
[~2019-05-30] MED LIST changes: +DEXAMETHASONE SOD PHOSPHATE 10 MG/ML 1 ML VIAL IV ONE; +DEXAMETHASONE SOD PHOSPHATE 4 MG/ML 1 ML VIAL ONE; +HYDROmorphone 0.5 MG/0.5 ML SYRINGE IVP PRN; +LACTATED RINGERS 1,000 ML IV ONE; +LIDOCAINE 1% 20 ML VIAL (10MG/ML) FOR IV START INTRADERMA PRN; +LIDOCAINE 1% INJ 10MG/ML (20 ML MDV) ONE; +MIDAZOLAM 2 MG/2 ML VIAL IV PRN; +ONDANSETRON 4 MG/2 ML VIAL IVP ONE; +PROPOFOL 10 MG/ML 20 ML VIAL IV ONE; +ROPIVACAINE 5 MG/ML 30 ML VIAL ONE; +SCOPOLAMINE 1.5MG/72HR PATCH TRANSDERM ONE; +SUCCINYLCHOLINE CHLORIDE 100 MG/5 ML SYR IV ONE; +ePHEDrine SULFATE/0.9% NACL/PF 50 MG/5 ML SYRINGE IV ONE; +fentaNYL (PF) 50 MCG/ML 2 ML AMP ONE
[2019-05-30 09:49] VITALS: RESP 16
--- NOTE | 2019-05-30 10:06 | P.ANPRN ---
Procedure Note - Anesthesia - Nerve Block Performed Right Interscalene Single Time Out Performed: Yes Date of Procedure: 05/30/19 Procedure Start Time: 09:35 Procedure Stop Time: 09:39 Location of Patient Procedure: PreOp Indication: Acute Post-Operative Pain, Requested by Surgeon Sedation Type: Sedate with meaningful contact maintained Preparation: Sterile Prep Position: Supine Needle Types: Pajunk Needle Gauge: 21 Ultrasound used to visualize needle placement: Yes Ultrasound used to observe medication spread: Yes Injectate: 0.5% Ropivacaine (see comment for volume) (ropi .5% 25 cc plus dexamethasone 4mg) Blood Aspirated: No Pain Paresthesia on Injection Noted: No Resistance on Injection: Normal Image Stored and Saved: Yes Events: Uneventful and Well Tolerated
--- NOTE | 2019-05-30 11:21 | P.OP ---
Date of Procedure: 05/30/19 Preoperative Diagnosis: Right shoulder impingement Postoperative Diagnosis: 1. Right shoulder rotator cuff tear 2. 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 Right shoulder impingement 4. Right shoulder acromioclavicular joint osteoarthritis Procedure(s) Performed: 1. Right shoulder arthroscopic rotator cuff repair 2. Right shoulder arthroscopic subacromial decompression 3. Right shoulder arthroscopic Chidi procedure 4. Right shoulder arthroscopic chondroplasty glenohumeral joint Implants: 1Arthrex 5.5 swivel lock anchor Anesthesia: GETA, regional (Interscalene block) Surgeon: Jacob Beavers Estimated Blood Loss (ml): 10 Pathology: none sent Condition: stable Disposition: PACU Indications for Procedure: 74-year-old patient seen with progressive right shoulder pain. After treatment options were discussed, she elected to proceed with arthroscopy. Operative Findings: See description of procedure Description of Procedure: Patient underwent an interscalene block by department of anesthesia for postoperative pain management. The patient was then taken to the operative suite. The patient underwent a general anesthetic by the department of anesthesia. The patient was placed into a lateral position and secured. There was appropriate padding of the bony prominence. Right shoulder was then prepped and draped in normal sterile orthopedic fashion. We placed the extremity in 10 pounds of longitudinal traction. A posterior incision was now made for a posterior working portal site. The trocar and cannula were inserted into the glenohumeral joint. Arthroscopy was initiated. Spinal needle was now inserted anteriorly, to ascertain the anterior working portal site. An incision was now made in that area, a trocar was inserted followed by a probe. There was grade 4 chondromalacia changes of both the humeral head and glenoid with osteochondral tears present as well as osteochondral fragment loose bodies noted diffusely throughout glenohumeral joint. At this point introduced a motorized shaver and I debrided out all a small osteochondral loose body fragments there were floating around. I did go ahead and perform a chondroplasty of both the humeral head and glenoid debriding out the osteochondral flap tears. There was some superficial tearing of the superior labrum which I debrided out with my motorized shaver. The shaver was removed. The probe was reintroduced. The biceps tendon was absent. I couldn't visualize rotator cuff tear from the glenohumeral side. At this point instruments removed from glenohumeral joint. Utilizing the posterior working portal site, the trocar and cannula were inserted into the subacromial space. Arthroscopy initiated. I made an incision 2 fingerbreadths lateral to the acromion. I introduced my trocar followed by my ArthroCare ablator. I now began ablating thick subacromial bursal tissue, which exposed the undersurface of the anterior acromion. There was diminished subacromial space. There was some prominence of the anterior acromion. A motorize shaver was introduced and a subacromial decompression was performed. We had good decompression of subacromial space noted. I turned my attention to the rotator cuff tendon. There was about a 11.5 cm tear along the distal supraspinatus tendon. I debrided the margins getting down to stable tendon tissue. I abraded the footprint with a motorized bur. I now passed 2 everted mattress sutures through good bites of rotator cuff tendon. I punched the hole in the footprint area for insertion of anchor. All 4 limbs of suture were now passed through a Arthrex 5.5 swivel lock anchor. I introduced anchor into her pre-punch hole. My nurses assistant appropriate tension sutures and introduced anchor with good bite and purchase noted. Residual suture limbs were clipped. We had good compression of the tendon along the footprint. We had a good stable repair. I injected 1 mL Renyte intra-articular. All residual suture limbs were now clipped. We had good compression of the tendon along the entire footprint. Instruments now removed from the portal sites. All portal sites were approximated with nylon suture. Sterile dressings were applied followed by a shoulder sling. The patient was awakened, transferred to a bed, and taken to recovery in stable condition.
[2019-05-30 11:35] VITALS: TEMP 97.3
[2019-05-30 13:03] VITALS: PULSE 58
[2019-05-30 13:04] VITALS: BP 130/80
== END | disposition home or self-care (01) ==
LOC: OR 08:55
PROVIDERS: ATTEND Orthopaedic Surgery
DX: M75.101 Unspecified rotator cuff tear or rupture of right shoulder, not specified as traumatic (principal); M94.211 Chondromalacia, right shoulder; M24.011 Loose body in right shoulder; M19.011 Primary osteoarthritis, right shoulder; S43.431A Superior glenoid labrum lesion of right shoulder, initial encounter; M75.41 Impingement syndrome of right shoulder; G47.33 Obstructive sleep apnea (adult) (pediatric); E03.9 Hypothyroidism, unspecified; J44.9 Chronic obstructive pulmonary disease, unspecified; I12.9 Hypertensive chronic kidney disease with stage 1 through stage 4 chronic kidney disease, or unspecified chronic kidney disease; E11.22 Type 2 diabetes mellitus with diabetic chronic kidney disease; N18.9 Chronic kidney disease, unspecified; M47.812 Spondylosis without myelopathy or radiculopathy, cervical region; K57.30 Diverticulosis of large intestine without perforation or abscess without bleeding; E78.00 Pure hypercholesterolemia, unspecified; K21.9 Gastro-esophageal reflux disease without esophagitis; Z90.49 Acquired absence of other specified parts of digestive tract; Z90.710 Acquired absence of both cervix and uterus; Z96.653 Presence of artificial knee joint, bilateral; Z79.890 Hormone replacement therapy; Z79.899 Other long term (current) drug therapy; Z98.84 Bariatric surgery status; Z79.82 Long term (current) use of aspirin; Z88.5 Allergy status to narcotic agent; Z86.718 Personal history of other venous thrombosis and embolism; Z98.890 Other specified postprocedural states; Z82.49 Family history of ischemic heart disease and other diseases of the circulatory system; Z80.3 Family history of malignant neoplasm of breast; X58.XXXA Exposure to other specified factors, initial encounter; Z79.51 Long term (current) use of inhaled steroids; Z79.891 Long term (current) use of opiate analgesic
CPT/HCPCS: 29827; 29826; 64415; C1713; C1765; J2250; J1100 ×2; J0690; J2405; J2001; J3010; J2795; J0330; J2704

== ENCOUNTER 2019-07-30 08:27 | Day surgery (SDC) | payer MEDICARE ==
[2019-07-25 18:30] VITALS: BMI 42.5
[~2019-07-30 08:27] MED LIST changes: -DEXAMETHASONE SOD PHOSPHATE 10 MG/ML 1 ML VIAL IV ONE; -DEXAMETHASONE SOD PHOSPHATE 4 MG/ML 1 ML VIAL ONE; -HYDROmorphone 0.5 MG/0.5 ML SYRINGE IVP PRN; -LACTATED RINGERS 1,000 ML IV ONE; -LIDOCAINE 1% 20 ML VIAL (10MG/ML) FOR IV START INTRADERMA PRN; -LIDOCAINE 1% INJ 10MG/ML (20 ML MDV) ONE; -MIDAZOLAM 2 MG/2 ML VIAL IV PRN; -ONDANSETRON 4 MG/2 ML VIAL IVP ONE; -PROPOFOL 10 MG/ML 20 ML VIAL IV ONE; -ROPIVACAINE 5 MG/ML 30 ML VIAL ONE; -SCOPOLAMINE 1.5MG/72HR PATCH TRANSDERM ONE; -SUCCINYLCHOLINE CHLORIDE 100 MG/5 ML SYR IV ONE; -ePHEDrine SULFATE/0.9% NACL/PF 50 MG/5 ML SYRINGE IV ONE; -fentaNYL (PF) 50 MCG/ML 2 ML AMP ONE
[2019-07-30 08:48] VITALS: RESP 16; TEMP 97.9
[2019-07-30] MEDS ORDERED: LIDOCAINE 1% 20 ML VIAL (10MG/ML) FOR IV START INTRADERMA ONE (08:53)
--- NOTE | 2019-07-30 09:27 | P.PCN ---
Date of Procedure: 07/30/19 Procedure(s) Performed: PREOPERATIVE DIAGNOSIS: 1- Lumbar Degenerative Disc Diseases 2-Lumbar spondylosis with Facet arthropathy without myelopathy POSTOPERATIVE DIAGNOSIS: 1-Lumber Degenerative Disc Diseases 2-Lumbar spondylosis with Facet arthropathy without myelopathy PROCEDURE 1. Lumbar epidural steroid injection under fluoroscopic guidance at the L4-5 level. (Fluoroscopy imaging was available in radiology department) 2. Lumbar epidurogram. ANESTHESIA: Local with 1% lidocaine 3 ml and , moderate sedation with intravenous Versed 1 mg ,and fentanyle 50 Mcg EBL: Minimal PROCEDURE INDICATION: The patient with low back pain and radiculitis symptoms unresponsive to conservative treatment. Fluoroscopy was used to optimize visualization of the needle placement and to maximize safety. PROCEDURE DESCRIPTION / TECHNIQUE: The patient was seen and identified in the preoperative area. Risks, benefits, complications including but not limited to infections ,bleeding ,allergic reaction to the medications ,nerve damage and not complete pain releife , and alternatives were discussed with the patient. The patient agreed to proceed with the procedure and signed the consent. IV was started, and vital signs were stable. Patient was taken to the OR and time out was completed. The patient was placed in the prone position on procedure table and a pillow was placed under the abdomen to reduce lumbar lordosis. The lumbosacral area was prepped and draped in the usual sterile fashion.ere closely monitored during the procedure. Conscious sedation was used during the procedure to decrease patients anxiety. Vital signs was monitered during the entire procedure. Using anterior-posterior fluoroscopy, the L4-5 interlaminar space was identified and the skin over this site was marked and then infiltrated with 1% lidocaine subcutaneously. Subsequently, a 20-gauge Tuohy epidural needle was inserted and advanced toward the epidural space using the ``Loss of resistance technique and guided by AP and lateral fluoroscopy. The correct needle position in the epidural space was verified with the injection of 2 mL of the water soluble contrast dye Isovue 200 contrast and observing an excellent epidurogram with the epidural spread of the dye, after negative aspiration for blood and CSF and in the absence of paresthesias. Again after negative aspiration, a 6 ml mixture containing 80 mg of Depo-medrol , and 2 ml of preservative free Normal Saline, and 2 ml of preservative free lidocaine 1% solution was injected and a washout of epidurogram was seen. Needle was withdrawn intact, skin was cleansed, and bandages were applied. COMPLICATIONS: None DISPOSITION / PLANS: The patient was placed in a supine position and transferred to the recovery area in a stable condition for observation. There was no evidence of lower extremity motor or sensory deficit after the procedure. Patient was discharged from the recovery room after meeting discharge criteria. Home discharge instructions were given to the patient by the staff. The patient was reexamined prior to discharge. The patient will schedule a follow up in the clinic in 2-4 weeks.
[2019-07-30] MEDS ORDERED: LACTATED RINGERS 1,000 ML IV ONE (09:32)
[2019-07-30 09:48] VITALS: PULSE 60
[2019-07-30 09:50] VITALS: BP 161/77
--- NOTE | 2019-07-30 10:40 | FL ---
EXAMINATION TYPE: FL guided pain mgmt statistic DATE OF EXAM: 07/30/2019 CLINICAL HISTORY: Low back pain. TECHNIQUE: Fluoroscopy. COMPARISON: None. FINDINGS: Fluoroscopic guidance was provided during pain relief procedure performed by Dr. Zapata . A total of 10 seconds of fluoroscopic time was utilized during the procedure and 1 spot images are acquired. Image acquired shows needle localization of the lumbar spine. IMPRESSION: As Above.
== END 2019-07-30 10:02 | disposition home or self-care (01) ==
LOC: ORPAIN 08:27
PROVIDERS: ATTEND Specialist
DX: M47.26 Other spondylosis with radiculopathy, lumbar region (principal); M51.16 Intervertebral disc disorders with radiculopathy, lumbar region; Z88.5 Allergy status to narcotic agent; Z91.018 Allergy to other foods; Z91.09 Other allergy status, other than to drugs and biological substances
CPT/HCPCS: 62323; J2250; J1030; J3010; Q9966

== ENCOUNTER → 2019-08-15 | Outpatient (CLI) | payer MEDICARE ==
[2019-08-15 14:32] VITALS: BP 117/85; PULSE 67; RESP 20
--- NOTE | 2019-08-17 13:28 | P.PAINPG ---
Subjective Progress Note Date: 08/15/19 This is a follow-up visit for this 74 y F patient with a history of severe and chronic low back pain secondary to lumbar degenerative disc diseases , lumbar spondylosis with facet arthropathy, and sacroiliitis, recently we have done lumbar epidural steroid injections 2 on 05/07/2019 and 07/30/2019. Patient reports very short-lived benefit from these procedures, lasting 3 days at most. Today, her pain is primarily located in the right low back, rated as 6/10, radiating occasionally to right leg. She has in the past undergone a right lumbar radiofrequency ablation in December 2017, with excellent benefit from this procedure. She believes her pain relief from this procedure lasted over a year. She would like to have this procedure repeated. She currently uses Ultram when necessary for pain. Patient denies any side effects of the medication, denies excessive drowsiness or sleepiness, denies suicidal ideation, and reports that the current pain medication is helping to control the pain ,and improve activity of daily living Patient denies any motor or sensory deficit , patient denies any fever or night sweats, denies any change in the bowel movements or urination Review of systems is negative for chest pain, shortness of breath, new onset weakness, numbness/tingling, abdominal pain, malaise, fever, night sweats, chills, homicidal or suicidal ideation, or bowel or bladder incontinence. She does endorse about 70 pound weight gain over the last 8 months or so. She has undergone bariatric surgery with Dr. Jarquin in the past and I instructed her to follow-up with him. Physical exam: Vitals: Reviewed in EMR GENERAL: Well appearing, in no acute distress PSYCH: Mood and affect is appropriate. Awake, alert, and oriented SKIN: Skin color, texture, turgor normal, no rashes or lesions HEENT: Normocephalic, atraumatic. EOM intact CV: No pedal edema RESP: Respirations are unlabored, no audible wheezing GI: Abdomen non-distended MUSCULOSKELETAL: Bilateral upper and lower extremity strength is normal and symmetric. No atrophy or tone abnormalities are noted. Lumbar spine: Tenderness to palpation over the lumbar spine and paraspinous muscles bilaterally, right greater than left. Positive for pain with facet loading, particularly on the right side Buttocks: No pain to palpation over the PSIS, sacroiliac joint maneuvers are negative for pain. Extremities: Peripheral joint ROM is full and pain free without obvious instability or laxity in all four extremities. No edema or skin discolorations noted. NEUR: Bilateral lower extremity coordination and muscle stretch reflexes are physiologic and symmetric. Negative clonus bilaterally. No loss of sensation is noted. Assessment and plan = Chronic low back pain secondary to lumbar degenerative disc disease , lumbar spondylosis with facet arthropathy without myelopathy , left sacroiliitis Patient could benefit from repeat right lumbar radiofrequency ablation, we will schedule this Patient currently on Ultram 50 mg every 12 hours when necessary she denies any side effects of the medication, she does not require refill at this point. No medications were prescribed today In the past, Patient has signed a narcotic agreement and risk and benefits were reviewed. MAPS reviewed, and it was appropriate Patient was instructed to follow up with Dr. Jarquin regarding recent weight gain PQRS Measure Charge Sheet Measure #130: Documentation of Current Meds in Medical Chart: Patient's medications documented in chart Measure #226: Tobacco Use: Screen & Cessation Intervention: Pt not a tobacco user Measure #111: Pneumonia Vaccination: Pneumococcal vaccine administered or previously received Measure #47: Advance Care Plan: Advance care planning discussed & documented, pt chose/unable to give Measure #412: Opioid Treatment Agreement: Documented signed opioid trtmnt agreemnt min once during opioid trtmnt Measure #408: Opioid Therapy Follow-up Evaluation: Patient had f/u eval minimum every 3 months during opioid therapy Measure #317: Preventitive Care & Scrn High Bld Press & F/U: Blood pressure within the normal limits, BP documented Measure #128: Body Mass Index (BMI) Screening & Follow-up: BMI documented ABOVE normal parameters - f/u documented Measure #131: Pain Assessment & Follow-up: Pain positive & plan documented, Follow-up scheduled Measure #431: Unhealthy Alcohol Use Preventative Care & Scrn: Patient not identified as an unhealthy alcohol user Objective - Vital Signs Vital signs: Vital Signs Temp Pulse 67 08/15/19 14:28 Resp 20 08/15/19 14:28 BP 117/85 08/15/19 14:28 Pulse Ox 98 08/15/19 14:28 PQRS Measure Charge Sheet PQRS Narrative: Smoking Status Former smoker Narcotic Agreement Date Signed 10/04/14 Blood Pressure 117/85 Pain Intensity [Back] 5 Scale Used Numeric (1 - 10) Hx Alcohol Use (MH) Yes: RARE Home Medications: Ambulatory Orders Albuterol Inhaler [Ventolin Inhaler] 1 - 2 puff INHALATION RT-Q6H PRN 08/05/14 Aspirin EC [Ecotrin] 81 mg PO DAILY 08/05/14 Hydrochlorothiazide [Hydrodiuril] 25 mg PO DAILY 08/05/14 Levothyroxine Sodium [Synthroid] 37.5 mcg PO DAILY 08/05/14 Lisinopril [Prinivil] 20 mg PO BID 08/05/14 Metoprolol Tartrate [Lopressor] 50 mg PO BID 08/05/14 Montelukast [Singulair] 10 mg PO HS 08/05/14 Omeprazole 40 mg PO DAILY 08/05/14 Sennosides-Docusate Sodium [Senokot-S] 1 tab PO BID 08/05/14 amLODIPine BESYLATE [Norvasc] 10 mg PO DAILY 08/05/14 Loratadine [Claritin] 10 mg PO DAILY 11/26/14 Multivitamins, Thera [Multivitamin] 1 tab PO DAILY 04/07/16 Acetaminophen Tab [Tylenol Tab] 1,000 mg PO BID PRN 10/02/18 Biotin 5,000 mcg PO DAILY 10/02/18 Budesonide-Formot 160-4.5 Mcg [Symbicort 160-4.5 Mcg Inhaler] 1 puff INHALATION RT-BID 01/09/19 traMADol HCL [Ultram] 50 mg PO BID PRN 03/01/19 diphenhydrAMINE [Benadryl] 25 mg PO QID PRN 03/05/19 HYDROcodone/APAP 7.5-325MG [[place] 7.5-325] 1 each PO Q6HR PRN 7 Days #28 tab 05/30/19 Controlled Substance Measures - Controlled Substance Measures Is patient prescribed a controlled substance at discharge?: No
== END | disposition home or self-care (01) ==
LOC: PNWHC3 13:51
PROVIDERS: ATTEND Anesthesiology
DX: G89.29 Other chronic pain (principal); M51.36 Other intervertebral disc degeneration, lumbar region; M47.816 Spondylosis without myelopathy or radiculopathy, lumbar region; M46.96 Unspecified inflammatory spondylopathy, lumbar region; M46.1 Sacroiliitis, not elsewhere classified; Z87.891 Personal history of nicotine dependence; Z79.82 Long term (current) use of aspirin; Z79.890 Hormone replacement therapy; Z79.51 Long term (current) use of inhaled steroids; Z79.891 Long term (current) use of opiate analgesic; Z79.899 Other long term (current) drug therapy
CPT/HCPCS: 99211

== ENCOUNTER 2019-08-29 06:06 | Day surgery (SDC) | payer MEDICARE ==
[2019-08-27 17:37] VITALS: BMI 45.1
[2019-08-29 06:48] VITALS: RESP 18; TEMP 97.8
[2019-08-29] MEDS ORDERED: LACTATED RINGERS 1,000 ML IV ONE (06:49)
[2019-08-29] MEDS ORDERED: LIDOCAINE 1% 20 ML VIAL (10MG/ML) FOR IV START INTRADERMA ONE (06:49)
--- NOTE | 2019-08-29 07:55 | P.PCN ---
Date of Procedure: 08/29/19 Procedure(s) Performed: PREOPERATIVE DIAGNOSIS: 1-Lumbar Spondylosis with Facet Arthropathy without myelopathy. 2- Lumber degenerative disc disease. 3-sacroiliitis POSTOPERATIVE DIAGNOSIS: 1- Lumbar Spondylosis with Facet Arthropathy without myelopathy. 2- Lumber degenerative disc disease. 3-sacroiliitis PROCEDURES : Right Radiofrequency thermocoagulation, L3 , L4 , and L5 medial branch, with fluoroscopic guidance (fluoroscopy images available in the radiology department) ( to denervate the facet joint at right L4-5 ,and L5-S1 levels ) ANESTHESIA: Moderate sedation with intravenous versed 1 mg and fentaneyl 50 mcg, and local infiltration with Ropivacaine 0.5 % . EBL: Minimal PROCEDURE INDICATION: The patient with low back pain secondary to lumbar facet arthropathy who had more than 50% relief of her pain with previous diagnostic lumbar medial branch block with bupivacaine. PROCEDURE DESCRIPTION / TECHNIQUE: The patient was seen and identified in the preoperative area. Risks, benefits, complications, including but not limited to risk of infection ,bleeding , allergic reactions to the medications and no complete pain releife , and alternatives were discussed with the patient, the patient agreed to proceed with the procedure and signed the consent. IV was started. Vital signs remained stable throughout the procedure. Patient was taken to the OR and time out was completed. The patient was placed in the prone position on the procedure table. The lumber area was prepped and draped in the usual sterile fashion. . Vital signs were closely monitored during the procedure .IV sedation was used during the procedure to decrease patients anxiety. Using AP and then oblique fluoroscopy, the ``eye of the [place] dog corresponding to the connection between the superior and transverse articular processes of right L3, L4, and L5 were identified, marked, and localized with 1% lidocaine. Subsequently, a 18 -xi radiofrequency cannula with a 10- mm active tip was advanced guided by fluoroscopy to each of the``eyes of the [place] dog at right L3, L4, and L5. Each site then underwent sensory testing at 50 Hz and 0 to 1 volt and motor testing at 2.5 Hz and 0 to 3 volt with local stimulation, but no radicular symptoms down the legs. Thereafter the right L3, L4 , and L5 sites underwent radiofrequency thermocoagulation at 80 degrees celsius for 90 seconds after injecting 0.5 ml of PF Ropivacaine 1ml, then after the thermocoagulation done , 1 ml of the block solution containing Depo-Medrol 40 mg and 3 ml of Ropivacaine 0.5% was injected at the right L3 , L4 , and L5 , levels after negative aspiration of CSF and blood and with no paresthesias. Cannulas were retracted while injecting lidocaine 1% until the needle is out. At the end of the procedure, the skin was cleansed and bandages were applied. COMPLICATIONS: No acute complications. DISPOSITION / PLANS: The patient was placed in a supine position and transferred to the recovery area in a stable condition for observation and was discharged from the recovery room after meeting discharge criteria. Home discharge instructions given to the patient by the staff. The patient was reexamined prior to discharge. The patient will schedule a follow up in the clinic in 2-4 weeks.
[2019-08-29] MEDS ORDERED: IV FLUID CONTINUATION 1,000 ML IV ONE ×2 (08:01)
[2019-08-29 08:29] VITALS: BP 144/78; PULSE 60
--- NOTE | 2019-08-29 08:55 | FL ---
EXAMINATION TYPE: FL guided pain mgmt statistic DATE OF EXAM: 08/29/2019 CLINICAL HISTORY: Low back pain. TECHNIQUE: Fluoroscopy. COMPARISON: None. FINDINGS: Fluoroscopic guidance was provided during pain relief procedure performed by Dr. Zapata . A total of 10 seconds of fluoroscopic time was utilized during the procedure and 3 spot images are acquired. Images acquired shows needle localization at multiple levels of the lumbar spine. IMPRESSION: As Above.
== END 2019-08-29 08:30 | disposition home or self-care (01) ==
LOC: ORPAIN 06:06
PROVIDERS: ATTEND Specialist
DX: M47.816 Spondylosis without myelopathy or radiculopathy, lumbar region (principal); M51.36 Other intervertebral disc degeneration, lumbar region; M46.1 Sacroiliitis, not elsewhere classified; Z91.048 Other nonmedicinal substance allergy status; Z88.5 Allergy status to narcotic agent; Z79.82 Long term (current) use of aspirin
CPT/HCPCS: 64635; 64636; J2250; J3010; 99152

== ENCOUNTER → 2019-09-03 | Outpatient (CLI) | payer MEDICARE ==
[2019-09-03 16:52] VITALS: BP 167/88; PULSE 64; TEMP 98.2; BMI 46.5
--- NOTE | 2019-10-07 13:11 | P.HPBAR ---
Bariatric H&P - History & Physicial H&P Date: 09/03/19 History & Physicial: Visit/CC: band fill Patient initial contact: Initial weight: 142.882 kg Initial weight in pounds: 315.00 Height: 4 ft 9 in Initial BMI: 68.1 Last weight: Current weight: 97.522 kg Current weight in pounds: 215.00 Current BMI: 46.5 [place] body weight (based on NIH guidelines): 38.555 kg Excess body weight loss: 43.4% The patient is a 74 year-old F who presents for Bariatric Assessment. Patient requesting a fill of her LAP-BAND. She currently is hungry. Past Medical History Past Medical History: Asthma, GERD/Reflux, Hypertension, Osteoarthritis (OA), Pneumonia, Thyroid Disorder Additional Past Medical History / Comment(s): DIET [id number] meds X10 yrs. History of Any Multi-Drug Resistant Organisms: None Reported Past Surgical History: Adenoidectomy, Appendectomy, Bariatric Surgery, Cholecystectomy, Hysterectomy, Joint Replacement, Tonsillectomy Additional Past Surgical History / Comment(s): Bilateral knee replacements, Lap band, eyelid surgery, Panniculectomy. PAIN CLINIC PROC. Past Anesthesia/Blood Transfusion Reactions: No Reported Reaction Past Psychological History: No Psychological Hx Reported Smoking Status: Former smoker Past Alcohol Use History: Rare Additional Past Alcohol Use History / Comment(s): QUIT 1985-STARTED 1966-1PPD Past Drug Use History: None Reported - Past Family History Mother Family Medical History: No Reported History Surgical - Exam Vital Signs Temp Pulse BP 98.2 F 64 167/88 09/03/19 16:44 09/03/19 16:44 09/03/19 16:44 - General well developed, well nourished - Abdomen Abdomen: soft, non tender Bariatric Assessment & Plan Plan: Patient LAP-BAND was adjusted. Her LAP-BAND port appears to malfunction. She will need replacement of the port. Bariatric Checklist Checklist: Plan: Checklist: EGD: 1. Hiatal hernia: 2. H. Pylori: HgbA1c: Vitamin D: Smoking: Former smoker Primary care physician referral: DR STORM Psychiatry clearance: Cardiology clearance: Sleep study: Diet journal: VTE risk score: VTE risk level: Rehab needs at discharge:
== END | disposition home or self-care (01) ==
LOC: BARWHC3 14:55
PROVIDERS: ATTEND Surgery
DX: Z46.51 Encounter for fitting and adjustment of gastric lap band (principal); Z87.891 Personal history of nicotine dependence; Z98.84 Bariatric surgery status; Z90.49 Acquired absence of other specified parts of digestive tract
CPT/HCPCS: 99212

== ENCOUNTER 2019-09-06 08:50 | Day surgery (SDC) | payer MEDICARE ==
[2019-09-05 09:20] VITALS: BMI 45.3
[2019-09-06 09:29] VITALS: RESP 18; TEMP 97.6
[2019-09-06] MEDS ORDERED: LIDOCAINE 1% 20 ML VIAL (10MG/ML) FOR IV START INTRADERMA ONE (09:40)
[2019-09-06 09:44] LABS: Glucose,Whole Blood 84 mg/dL (75-99)
--- NOTE | 2019-09-06 10:27 | P.PCN ---
Date of Procedure: 09/06/19 Procedure(s) Performed: PREOPERATIVE DIAGNOSIS: Lumbar Spondylosis POSTOPERATIVE DIAGNOSIS: Same PROCEDURES: Radiofrequency ablation of the L3, L4, L5 medial branches with fluoroscopic guidance on the right side SURGEON: Michael Vogel MD. ANESTHESIA: Lidocaine 1% 5 mL, Moderate sedation with intravenous Versed and fentanyl, sedation time 15 minutes EBL: Minimal Fluoroscopy was used for the procedure and images were saved in the radiology portion of the chart. PROCEDURE INDICATION: The patient with low back pain secondary to lumbar facet arthropathy who had more than 50% relief of pain with previous diagnostic lumbar medial branch block X2. PROCEDURE DESCRIPTION / TECHNIQUE: The patient was seen and identified in the preoperative area. Risks, benefits, complications, including but not limited to risk of infection ,bleeding , allergic reactions to the medications and incomplete pain relief , and alternatives were discussed with the patient, the patient agreed to proceed with the procedure and signed the consent. IV was started. The operative site was marked. Patient was taken to the OR and time out was completed. The patient was placed in the prone position on the procedure table. The lumbar area was prepped and draped in the usual sterile fashion. Vital signs were closely monitored during the procedure .IV sedation was used during the procedure to decrease patients anxiety. Using AP and then oblique fluoroscopy, the "eye of the [place] dog" corresponding to the connection between the superior and transverse articular processes of the [] L4 and L5 as well as the sacral ala were identified, marked, and localized with 1% lidocaine. Subsequently, an 18 guage 150-mm radiofrequency cannula with a 10-mm active tip was advanced guided by fluoroscopy to the identified target at each site. Needle positioning was confirmed on AP, oblique and lateral fluoroscopy. Motor testing at 2.5 Hz was done with paraspinal muscle stimulation only, and no radicular symptoms down the legs. Then 1 mL of 4% lidocaine was injected in each site. Radiofrequency thermocoagulation at 80 degrees celsius for 90 seconds was then performed. [place] were removed. Sterile dressings were applied. COMPLICATIONS: No acute complications. DISPOSITION / PLANS: The patient was placed in a supine position and transferred to the recovery area in a stable condition for observation and was discharged from the recovery room after meeting discharge criteria. Home discharge instructions given to the patient by the staff. The patient will follow up in clinic in 4 weeks.
[2019-09-06 10:48] VITALS: BP 159/77; PULSE 57
[2019-09-06] MEDS ORDERED: IV FLUID CONTINUATION 1,000 ML IV ONE (10:50)
--- NOTE | 2019-09-06 12:58 | FL ---
EXAMINATION TYPE: FL guided pain mgmt statistic DATE OF EXAM: 09/06/2019 CLINICAL HISTORY: Low back pain. TECHNIQUE: Fluoroscopy. COMPARISON: None. FINDINGS: Fluoroscopic guidance was provided during pain relief procedure performed by Dr. Vogel . A total of 10 seconds of fluoroscopic time was utilized during the procedure and then spot images are a cquired. Images acquired shows needle localization at multiple levels of the lumbosacral spine. IMPRESSION: As Above.
== END 2019-09-06 11:04 | disposition home or self-care (01) ==
LOC: ORPAIN 08:50
PROVIDERS: ATTEND Anesthesiology
DX: G89.29 Other chronic pain (principal); M51.36 Other intervertebral disc degeneration, lumbar region; M47.816 Spondylosis without myelopathy or radiculopathy, lumbar region; M46.1 Sacroiliitis, not elsewhere classified; Z98.84 Bariatric surgery status; Z87.891 Personal history of nicotine dependence; Z79.82 Long term (current) use of aspirin; Z79.890 Hormone replacement therapy; Z79.899 Other long term (current) drug therapy; Z91.048 Other nonmedicinal substance allergy status; Z88.5 Allergy status to narcotic agent
CPT/HCPCS: 64635; 64636; J2250; J3010; 99152

== ENCOUNTER → 2019-10-03 | Outpatient (CLI) | payer MEDICARE ==
[2019-10-03 11:45] LABS: Basophils # (A) 0.2 k/uL (0-0.2); Basophils % (A) 3 %; Eosinophils # (A) 0.2 k/uL (0-0.7); Eosinophils % (A) 3 %; HCT 42.2 % (34.0-46.0); HGB 13.3 gm/dL (11.4-16.0); Lymphocytes # (A) 1.6 k/uL (1.0-4.8); Lymphocytes % (A) 21 %; MCH 28.5 pg (25.0-35.0); MCHC 31.5 g/dL (31.0-37.0); MCV 90.4 fL (80.0-100.0); Mean Platelet Volume 7.5; Monocytes # (A) 0.6 k/uL (0-1.0); Monocytes % (A) 8 %; Neutrophils # (A) 4.9 k/uL (1.3-7.7); Neutrophils % (A) 62 %; Platelet Count 311 k/uL (150-450); RBC 4.67 m/uL (3.80-5.40); RDW 15.1 % (11.5-15.5); WBC 7.9 k/uL (3.8-10.6)
[2019-10-03 11:58] LABS: ALT 16 U/L (4-34); AST 25 U/L (14-36); African American GFR (CKD) >90 (>60 ml/min/1.73 sqM); Albumin 4.2 g/dL (3.5-5.0); Alkaline Phosphatase 65 U/L (38-126); Anion Gap 10 mmol/L; Blood Urea Nitrogen 20 mg/dL (7-17); Calcium 9.4 mg/dL (8.4-10.2); Carbon Dioxide 26 mmol/L (22-30); Chloride 102 mmol/L (98-107); Glucose 93 mg/dL (74-99); Non-African American GFR(CKD) 79 (>60 ml/min/1.73 sqM); Potassium 4.5 mmol/L (3.5-5.1); Sodium 138 mmol/L (137-145); Total Bilirubin 0.7 mg/dL (0.2-1.3)
== END | disposition home or self-care (01) ==
LOC: LABPAT 10:59
PROVIDERS: ATTEND Surgery
DX: Z01.812 Encounter for preprocedural laboratory examination (principal)
CPT/HCPCS: 80053; 85025; 93005

== ENCOUNTER 2019-10-08 07:29 | Day surgery (SDC) | payer MEDICARE ==
--- NOTE | 2019-10-03 14:09 | P.PN ---
Progress Note - Text Progress Note Date: 10/03/19 74 female status post bilateral radio frequency ablation lumbar spine of the L4- 5, L5-S1 facet joints. She states left-sided radio frequency ablation has not provided her with relief at this point. She is reporting excellent relief with the right-sided radio frequency ablation. She still describes point tenderness along the superior medial aspect of her gluteal muscle as well as in the lumbar paraspinal muscles on the left. She's not been taking any medication, has not been using ice or heat. She's been having limitations with range of motion of her lumbar spine secondary to discomfort on the left. She denies any radicular symptoms into her left extremity or weakness in her left lower extremity. In addition to above, 13-point review of systems is also negative for chest pain, shortness of breath, changes in vision, changes in hearing, new onset weakness, abdominal pain, diarrhea, extreme fatigue, malaise, fever, skin changes, homicidal or suicidal ideation, or bowel or bladder incontinence. Vital Signs: Reviewed in EMR, obese Gen: WDWN, AAOx3, NAD HEENT: NCAT, EOMI, hearing grossly normal Pulm: resp unlabored Abd: soft, NT, ND Neck: supple, trachea midline cervical spine exam: motor strength normal bilateral upper extremities Lumbar spine exam: motor strength lower extremities ,thigh and legs .5/5 deep tendon reflexes : normal Knee Jerk , normal ankle Jerk . lumber facet positive on the left strait leg raising test positive at 60 degree RT Fabere test negative bilateral Range of motion: Range of motion in flexion of the lumbar spine 30 degrees Range of motion range of motion of extension of the lumbar spine -10 Tenderness to palpation along left SI joint Tenderness to palpation along left lumbar paraspinal muscles from L2-S1 not appreciated on the right. Neuro: CN II-XII grossly intact, muscle strength lower extremities PRESERVED Imaging: Reviewed in EMR Assessment: 1. lumbar spinal stenosis 2. lumbar radiculopathy 3. lumbar spondylosis 4. Myofascial/myalgia pain of lumbar paraspinal muscles Plan: 1. Explanation: Diagnoses, prognoses, and multiple treatment options including but not limited to physical therapy, interventional therapies, adjuvant medical therapies, narcotic medication therapies, and surgery were discussed with the patient and all questions were answered to the patient's satisfaction. 2. Opioid agreement: None 3. Counseling: The patient was counseled extensively on BMI and exercise. Specifically, the patient was instructed regarding the importance of obesity and exercise in the context of both chronic pain and overall health. 4. Procedures: None at the moment, consider trigger point injections along the left lumbar paraspinal and left upper gluteal if patient does not improve. 5. Consultations: None 6. Investigations: None 7. Medications: Flexeril 5mg twice a day as needed 14 days 8. Disposition: We discussed trialing muscle relaxants as there appears to be a component of myofascial pain as well. I also encouraged her to utilize heat to help alleviate some myofascial discomfort and pain. Patient will call back in 2 weeks to report on her postprocedural progress. PQRS measures: 1-Patient's medications are documented in the chart. 2-Tobacco use is negative 3-Patient has not had a pneumococcal vaccine. 4-Advanced care planning discussed, patient unable to give. 5- No opiates prescribed 6-Pain positive, follow-up visit or procedure scheduled 7-Patient's blood pressure measured and documented, and WNL. 8-Patient's weight was measured, and body mass index ABOVE the normal limits, and counseling was done. Patient instructed to follow up with PCP. 9-Patient WAS NOT identified as an unhealthy alcohol user.
[2019-10-04 10:51] VITALS: BMI 45.9
[~2019-10-08 07:29] MED LIST changes: +DEXAMETHASONE SOD PHOSPHATE 10 MG/ML 1 ML VIAL IV ONE; +LIDOCAINE 1% 20 ML VIAL (10MG/ML) FOR IV START INTRADERMA PRN; +ONDANSETRON 4 MG/2 ML VIAL IVP ONE; +fentaNYL (PF) 50 MCG/ML 2 ML AMP IV PRN
[2019-10-08 08:17] LABS: Glucose,Whole Blood 106 mg/dL (75-99)
[2019-10-08] MEDS ORDERED: HEPARIN SODIUM,PORCINE 5,000 UNIT/ML 1 ML VIAL SQ ONE (08:27)
--- NOTE | 2019-10-08 08:29 | P.GSHP ---
History of Present Illness H&P Date: 10/08/19 Chief Complaint: LAP-BAND port malfunction Cyst 74-year-old female who presents today for LAP-BAND port placement. Patient has had failure the port with weight gain. Past Medical History Past Medical History: Asthma, GERD/Reflux, Hypertension, Osteoarthritis (OA), Pneumonia, Thyroid Disorder Additional Past Medical History / Comment(s): DIET [id number] meds X10 yrs. History of Any Multi-Drug Resistant Organisms: None Reported Past Surgical History: Adenoidectomy, Appendectomy, Bariatric Surgery, Cholecystectomy, Hysterectomy, Joint Replacement, Tonsillectomy Additional Past Surgical History / Comment(s): Bilateral knee replacements, Lap band, eyelid surgery, Panniculectomy. PAIN CLINIC PROC. Past Anesthesia/Blood Transfusion Reactions: No Reported Reaction Additional Past Alcohol Use History / Comment(s): QUIT 1985-STARTED 1966-1PPD - Past Family History Mother Family Medical History: No Reported History Medications and Allergies Home Medications Medication Instructions Recorded Confirmed Type Albuterol Inhaler [Ventolin 1 - 2 puff INHALATION RT-Q6H PRN 08/05/14 10/08/19 History Inhaler] Aspirin EC [Ecotrin] 81 mg PO DAILY 08/05/14 10/04/19 History Hydrochlorothiazide [Hydrodiuril] 25 mg PO QAM 08/05/14 10/04/19 History Levothyroxine Sodium [Synthroid] 37.5 mcg PO QAM 08/05/14 10/04/19 History Lisinopril [Prinivil] 20 mg PO BID 08/05/14 10/04/19 History Metoprolol Tartrate [Lopressor] 50 mg PO BID 08/05/14 10/04/19 History Montelukast [Singulair] 10 mg PO HS 08/05/14 10/04/19 History Omeprazole 40 mg PO QAM 08/05/14 10/04/19 History Sennosides-Docusate Sodium 1 tab PO BID 08/05/14 10/04/19 History [Senokot-S] amLODIPine BESYLATE [Norvasc] 10 mg PO QAM 08/05/14 10/04/19 History Loratadine [Claritin] 10 mg PO DAILY 11/26/14 10/04/19 History Multivitamins, Thera [Multivitamin] 1 tab PO DAILY 04/07/16 10/04/19 History Acetaminophen Tab [Tylenol Tab] 1,000 mg PO BID PRN 10/02/18 10/04/19 History Biotin 5,000 mcg PO DAILY 10/02/18 10/04/19 History Budesonide-Formot 160-4.5 Mcg 1 puff INHALATION RT-BID 01/09/19 10/04/19 History [Symbicort 160-4.5 Mcg Inhaler] traMADol HCL [Ultram] 50 mg PO BID PRN 03/01/19 10/04/19 History HYDROcodone/APAP 7.5-325MG [[place] 1 each PO Q6HR PRN 7 Days #28 tab 05/30/19 10/04/19 Rx 7.5-325] Cyclobenzaprine [Flexeril] 5 mg PO BID 10/04/19 10/04/19 History Naproxen Sodium [Aleve] 220 mg PO BID 10/04/19 10/04/19 History Allergies Allergy/AdvReac Type Severity Reaction Status Date / Time adhesive tape Allergy Rash/BLISTE Verified 10/08/19 08:04 RS banana Allergy Wheezing Verified 10/08/19 08:04 cinnamon Allergy Wheezing Verified 10/08/19 08:04 Mushroom Allergy Wheezing Verified 10/08/19 08:04 codeine AdvReac Unknown Abdominal Verified 10/08/19 08:04 Pain monosodium glutamate [MSG] AdvReac Nausea & Verified 10/08/19 08:04 Vomiting Surgical - Exam Vital Signs Temp Pulse Resp BP Pulse Ox 97.7 F 68 17 163/79 98 10/08/19 08:12 10/08/19 08:12 10/08/19 08:12 10/08/19 08:12 10/08/19 08:12 - General well nourished, no distress - Eyes PERRL - ENT normal pinna - Neck no masses - Respiratory normal expansion - Cardiovascular Rhythm: regular - Abdomen Abdomen: soft, non tender Results - Labs Abnormal Lab Results - Last 24 Hours (Table) 10/08/19 Range/Units 08:15 POC Glucose (mg/dL) 106 H (75-99) mg/dL Assessment and Plan Assessment: LAP-BAND port malfunction. We'll perform laparoscopic removal and replacement of LAP-BAND port
[2019-10-08] MEDS ORDERED: MIDAZOLAM 2 MG/2 ML VIAL ONE (08:51)
[2019-10-08] MEDS ORDERED: ePHEDrine SULFATE/0.9% NACL/PF 50 MG/5 ML SYRINGE IV ONE (08:51)
[2019-10-08] MEDS ORDERED: GLYCOPYRROLATE 0.2 MG/ML 2 ML VIAL ONE (08:51)
[2019-10-08] MEDS ORDERED: fentaNYL (PF) 50 MCG/ML 2 ML AMP ONE (08:51)
[2019-10-08] MEDS ORDERED: PROPOFOL 10 MG/ML 20 ML VIAL IV ONE (08:51)
[2019-10-08] MEDS ORDERED: SUCCINYLCHOLINE CHLORIDE 100 MG/5 ML SYR IV ONE (08:51)
[2019-10-08] MEDS ORDERED: ROCURONIUM BROMIDE 10 MG/ML 10 ML VIAL IV ONE (08:51)
[2019-10-08] MEDS ORDERED: LIDOCAINE 1% INJ 10MG/ML (20 ML MDV) ONE (08:51)
[2019-10-08] MEDS ORDERED: NEOSTIGMINE 1 MG/ML 10 ML VIAL ONE (08:51)
[2019-10-08] MEDS ORDERED: BUPIVACAINE (PF) 0.25% 30 ML VIAL SQ ONE ×2 (09:23)
[2019-10-08] MEDS ORDERED: LACTATED RINGERS 1,000 ML IV ONE (09:47)
[2019-10-08 10:03] VITALS: RESP 16; TEMP 96.8
--- NOTE | 2019-10-08 10:06 | P.OP ---
Date of Procedure: 10/08/19 Preoperative Diagnosis: LAP-BAND port malfunction Postoperative Diagnosis: LAP-BAND port malfunction Procedure(s) Performed: Laparoscopic removal and replacement of LAP-BAND port Anesthesia: AARON Surgeon: Osito Carr Estimated Blood Loss (ml): 5 Pathology: none sent Condition: stable Disposition: PACU Description of Procedure: The patient's placed on the endoscopy table in the lateral position. She received IV sedation. The skin was anesthetized at the LAP-BAND port site and using a 15 blade skin was incised and using left cautery and blunt sharp dissection the LAP-BAND port was dissected free. The port appeared to be fractured 2. At this point a 5 mm optical trochars placed into the peritoneal cavity direct visualization. The abdomen was insufflated. After adequate insufflation the laparoscope placed back the pleural cavity. Next a 5 mm trochars placed in the epigastric position and then the Tube was grasped and brought out through the 5 mm trocar site. The trochars withdrawn. The LAP-BAND port was connected to the PEG tube and then the port was secured to the fascia using 0 Nurolon suture. The port was flushed with saline. 2 mL of saline placed Band port. The skin was closed interrupted 3-0 Monocryl suture. Steri- Strips applied. Patient tolerated procedure well
[2019-10-08 10:08] LABS: Glucose,Whole Blood 112 mg/dL (75-99)
[2019-10-08 11:19] VITALS: BP 155/71; PULSE 56
== END 2019-10-08 11:30 | disposition home or self-care (01) ==
LOC: OR 07:29
PROVIDERS: ATTEND Surgery
DX: K95.09 Other complications of gastric band procedure (principal); Z79.82 Long term (current) use of aspirin; Z79.899 Other long term (current) drug therapy; J45.909 Unspecified asthma, uncomplicated; K21.9 Gastro-esophageal reflux disease without esophagitis; I10 Essential (primary) hypertension; M19.90 Unspecified osteoarthritis, unspecified site; E07.9 Disorder of thyroid, unspecified; E11.9 Type 2 diabetes mellitus without complications; Z87.01 Personal history of pneumonia (recurrent); Z98.84 Bariatric surgery status; Z90.89 Acquired absence of other organs; Z98.890 Other specified postprocedural states; Z90.49 Acquired absence of other specified parts of digestive tract; Z90.710 Acquired absence of both cervix and uterus; Z96.653 Presence of artificial knee joint, bilateral; Z87.891 Personal history of nicotine dependence; Z79.890 Hormone replacement therapy; Z79.1 Long term (current) use of non-steroidal anti-inflammatories (NSAID); Z88.5 Allergy status to narcotic agent; Z88.8 Allergy status to other drugs, medicaments and biological substances; Z91.048 Other nonmedicinal substance allergy status; Z91.018 Allergy to other foods; Z79.51 Long term (current) use of inhaled steroids
CPT/HCPCS: 43659; 43888; C1751; J2250; J1644; J1100; J2710; J0690; J2405; J2001; J3010; J0330; J2704

== ENCOUNTER → 2019-10-15 | Outpatient (CLI) | payer MEDICARE ==
[2019-10-15 15:39] VITALS: BP 167/88; PULSE 64; RESP 16; TEMP 98.2; BMI 45.6
--- NOTE | 2019-10-15 16:12 | P.HPBAR ---
Bariatric H&P - History & Physicial H&P Date: 10/15/19 History & Physicial: Visit/CC: Port Replacement check Patient initial contact: Initial weight: 142.882 kg Initial weight in pounds: 315.00 Height: 4 ft 9 in Initial BMI: 68.1 Last weight: Current weight: 95.708 kg Current weight in pounds: 211.00 Current BMI: 45.6 [place] body weight (based on NIH guidelines): 38.555 kg Excess body weight loss: 45.2% The patient is a 74 year-old F who presents for Bariatric Assessment. Patient presents today for lab band follow. She had her LAP-BAND port replaced last week. She has lost 8 pounds since her port was replaced. Past Medical History Past Medical History: Asthma, GERD/Reflux, Hypertension, Osteoarthritis (OA), Pneumonia, Thyroid Disorder Additional Past Medical History / Comment(s): DIET [id number]-sm meds X10 yrs. History of Any Multi-Drug Resistant Organisms: None Reported Past Surgical History: Adenoidectomy, Appendectomy, Bariatric Surgery, Cholecystectomy, Hysterectomy, Joint Replacement, Tonsillectomy Additional Past Surgical History / Comment(s): Bilateral knee replacements, Lap band, eyelid surgery, Panniculectomy. PAIN CLINIC PROC. Past Anesthesia/Blood Transfusion Reactions: No Reported Reaction Smoking Status: Former smoker - Past Family History Mother Family Medical History: No Reported History Surgical - Exam Vital Signs Temp Pulse Resp BP 98.2 F 64 16 167/88 10/15/19 15:37 10/15/19 15:37 10/15/19 15:37 10/15/19 15:37 - General well developed, well nourished, no distress - Eyes PERRL - ENT normal pinna - Neck no masses - Respiratory normal expansion - Cardiovascular Rhythm: regular - Abdomen Abdomen: soft, non tender Bariatric Assessment & Plan Plan: Patient is status post port replaced. Her LAP-BAND was not adjusted. She'll follow-up in 4 weeks. Bariatric Checklist Checklist: Plan: Checklist: EGD: 1. Hiatal hernia: 2. H. Pylori: HgbA1c: Vitamin D: Smoking: Former smoker Primary care physician referral: DR SANDRO MAURO Psychiatry clearance: Cardiology clearance: Sleep study: Diet journal: VTE risk score: VTE risk level: Rehab needs at discharge:
== END | disposition home or self-care (01) ==
LOC: BARWHC3 15:19
PROVIDERS: ATTEND Surgery
DX: Z46.51 Encounter for fitting and adjustment of gastric lap band (principal); Z87.891 Personal history of nicotine dependence; Z98.84 Bariatric surgery status; Z90.49 Acquired absence of other specified parts of digestive tract; Z90.710 Acquired absence of both cervix and uterus
CPT/HCPCS: 99211

== ENCOUNTER → 2019-10-30 | Outpatient (CLI) | payer MEDICARE ==
[2019-10-30 13:25] VITALS: PULSE 79; RESP 16
--- NOTE | 2019-10-30 13:56 | P.PN ---
Subjective Progress Note Date: 10/30/19 This is a 75-year-old pleasant lady with history of chronic lower back pain due to lumbar spondylosis and severe lumbar stenosis. The patient failed to respond to the last lumbar medial branch RFA. She still has significant pain in the mid to lower lumbar area more on the right side than the left side. The patient uses Tylenol for her pain. Patient denies new-onset weakness, bowel/bladder incontinence, or any other signs or symptoms of cauda equina syndrome. There are no signs of acute intoxication, and no indications of medication diversion or overuse. In addition to above, 13-point review of systems is also negative for chest pain, shortness of breath, changes in vision, changes in hearing, new onset weakness, abdominal pain, diarrhea, extreme fatigue, malaise, fever, skin changes, homicidal or suicidal ideation, or bowel or bladder incontinence. Vital Signs: Reviewed in EMR Gen: AAOx3, NAD HEENT: PERRLA,hearing grossly normal Pulm: resp unlabored Heart: Regular Neck: supple, trachea midline Neuro exam of the lower extremities: Absent knee reflexes bilaterally due to previous knee surgery, normal and symmetrical ankle reflexes bilaterally. Normal muscle strength bilaterally Straight leg raising test: Negative bilaterally Tenderness in the paravertebral musculature: Positive significant tenderness in the lumbar paravertebral musculature more on the right side than the left side. Neuro: CN II-XII grossly intact, Imaging: Reviewed in EMR/chart Assessment: Morbid obesity Lumbar spondylosis without myelopathy Severe lumbar stenosis centrally Myofascial pain in the lumbar area Plan: 1. Explanation: Opioid and psychological risk scores were reviewed. Diagnoses, prognoses, and multiple treatment options including but not limited to physical therapy, interventional therapies, adjuvant medical therapies, narcotic med ication therapies, and surgery were discussed with the patient and all questions were answered to the patient's satisfaction. 2. Opioid agreement: Signed with the patient and the patient is warned not to use opioids while driving or before driving and not to combine opioids with benzodiazepines or alcohol. 3. Counseling: The patient was counseled extensively on SMOKING CESSATION, BODY MASS INDEX, EXERCISE. Specifically, the patient was instructed regarding the importance of smoking cessation, obesity, and exercise in the context of both chronic pain and overall health. 4. Procedures: Schedule for trigger point injection in the lumbar paravertebral musculature bilaterally 5. Consultations: None 6. Investigations: None 7. Medications: Flexeril 5 mg daily at bedtime #10 pills with 1 refill 8. Disposition: Return to the above-mentioned procedure as soon as possible 9. Maps were reviewed and were appropriate. Objective - Vital Signs Vital signs: Vital Signs Temp Pulse 79 10/30/19 13:18 Resp 16 10/30/19 13:18 BP Pulse Ox 96 10/30/19 13:18
== END ==
LOC: PNWHC3 11:14
PROVIDERS: ATTEND Anesthesiology
DX: G89.29 Other chronic pain (principal); E66.01 Morbid (severe) obesity due to excess calories; M47.816 Spondylosis without myelopathy or radiculopathy, lumbar region; M48.061 Spinal stenosis, lumbar region without neurogenic claudication; M79.18 Myalgia, other site; Z68.42 Body mass index [BMI] 45.0-49.9, adult; Z79.899 Other long term (current) drug therapy
CPT/HCPCS: 99211

== ENCOUNTER → 2019-11-05 | Outpatient (CLI) | payer MEDICARE ==
[2019-11-05 14:05] VITALS: BP 157/96; PULSE 76; TEMP 97.2; BMI 45.8
--- NOTE | 2019-11-08 11:42 | P.HPBAR ---
Bariatric H&P - History & Physicial H&P Date: 11/05/19 History & Physicial: Visit/CC: lap band follow up Patient initial contact: Initial weight: 142.882 kg Initial weight in pounds: 315.00 Height: 4 ft 9 in Initial BMI: 68.1 Last weight: Current weight: 96.162 kg Current weight in pounds: 212.00 Current BMI: 45.8 [place] body weight (based on NIH guidelines): 38.555 kg Excess body weight loss: 44.7% The patient is a 74 year-old F who presents for Bariatric Assessment. Patient presents today for lab band follow. She had her port replaced last week. She's had some minimal inflammation the port site. She describes a rash. Past Medical History Past Medical History: Asthma, GERD/Reflux, Hypertension, Osteoarthritis (OA), Pneumonia, Thyroid Disorder Additional Past Medical History / Comment(s): DIET [id number] meds X10 yrs. History of Any Multi-Drug Resistant Organisms: None Reported Past Surgical History: Adenoidectomy, Appendectomy, Bariatric Surgery, Cholecystectomy, Hysterectomy, Joint Replacement, Tonsillectomy Additional Past Surgical History / Comment(s): Bilateral knee replacements, Lap band, eyelid surgery, Panniculectomy. PAIN CLINIC PROC. lap band port replacement 2-20 Past Anesthesia/Blood Transfusion Reactions: No Reported Reaction Past Psychological History: No Psychological Hx Reported Smoking Status: Former smoker Past Alcohol Use History: Rare Additional Past Alcohol Use History / Comment(s): QUIT 1985-STARTED 1967-1PPD Past Drug Use History: None Reported - Past Family History Mother Family Medical History: No Reported History Surgical - Exam Vital Signs Temp Pulse BP 97.2 F L 76 157/96 11/05/19 14:02 11/05/19 14:02 11/05/19 14:02 - General well developed, well nourished, no distress - Eyes PERRL - ENT normal pinna - Neck no masses - Respiratory normal expansion - Cardiovascular Rhythm: regular - Abdomen Abdomen: soft, non tender - Integumentary Evidence of [place] infection below the breast. Bariatric Assessment & Plan Plan: Patient has large pendulous breasts. She has a yeast infection in the inframammary crease was extended onto the abdominal wall. Patient was placed on nystatin powder. She'll follow-up in one week. Bariatric Checklist Checklist: Plan: Checklist: EGD: 1. Hiatal hernia: 2. H. Pylori: HgbA1c: Vitamin D: Smoking: Former smoker Primary care physician referral: DR SANDRO MAURO Psychiatry clearance: Cardiology clearance: Sleep study: Diet journal: VTE risk score: VTE risk level: Rehab needs at discharge:
== END | disposition home or self-care (01) ==
LOC: BARWHC3 13:50
PROVIDERS: ATTEND Surgery
DX: Z46.51 Encounter for fitting and adjustment of gastric lap band (principal); Z87.891 Personal history of nicotine dependence; Z98.84 Bariatric surgery status; Z98.890 Other specified postprocedural states; Z90.49 Acquired absence of other specified parts of digestive tract; Z90.710 Acquired absence of both cervix and uterus
CPT/HCPCS: 99211

== ENCOUNTER 2019-11-13 06:20 | Day surgery (SDC) | payer MEDICARE ==
[2019-11-13 06:41] VITALS: TEMP 97.7
[2019-11-13 06:47] LABS: Glucose,Whole Blood 104 mg/dL (75-99)
[2019-11-13] MEDS ORDERED: LACTATED RINGERS 1,000 ML IV ONE (06:48)
[2019-11-13] MEDS ORDERED: MIDAZOLAM 2 MG/2 ML VIAL ONE (07:36)
[2019-11-13] MEDS ORDERED: fentaNYL (PF) 50 MCG/ML 2 ML AMP ONE (07:36)
[2019-11-13] MEDS ORDERED: ROPIVACAINE 5MG/ML 20ML VIAL ONE (07:36)
[2019-11-13] MEDS ORDERED: TRIAMCINOLONE ACETONIDE 40 MG/ML 1 ML VIAL ONE (07:36)
--- NOTE | 2019-11-13 07:45 | P.PCN ---
Date of Procedure: 11/13/19 Preoperative Diagnosis: Myofascial pain Postoperative Diagnosis: Myofascial pain Procedure(s) Performed: Trigger point injection in the lumbar paravertebral musculature Anesthesia: MAC (IV moderate conscious sedation with Versed and fentanyl) Surgeon: Matthias Oscar Pathology: none sent Condition: stable Disposition: PACU Description of Procedure: The patient was seen in preoperative holding area consent was obtained patient was brought into the procedure room and placed in prone position. The trigger points were already identified and skin was marked of these points preoperatively. Skin was prepped with DuraPrep and draped in sterile manner. I used 25-gauge 1-1/2 inch needle to go through the skin and into the paravertebral musculature on both sides of the spine and injected 1 mL of a mixture of 6 and mils ropivacaine 0.5% +40 mg of Kenalog and 1 mL of this mixture was injected at each trigger point. A total of 7 trigger point injections were done. Patient tolerated procedure well.
[2019-11-13] MEDS ORDERED: IV FLUID CONTINUATION 1,000 ML IV ONE ×2 (07:49)
[2019-11-13 07:55] VITALS: PULSE 72; RESP 18
[2019-11-13] MEDS ORDERED: LACTATED RINGERS 1,000 ML IV SCH (08:00)
[2019-11-13 08:14] VITALS: BP 113/78
== END 2019-11-13 08:19 | disposition home or self-care (01) ==
LOC: ORPAIN 06:20
PROVIDERS: ATTEND Anesthesiology
DX: M79.18 Myalgia, other site (principal); I10 Essential (primary) hypertension; Z88.5 Allergy status to narcotic agent; Z91.09 Other allergy status, other than to drugs and biological substances
CPT/HCPCS: 20553; J2250; J3301; J3010; J2795

== ENCOUNTER 2019-11-14 04:35 | Inpatient (IN) | payer MEDICARE ==
[2019-11-14] MEDS ORDERED: MORPHINE SULFATE 4 MG/ML SYRINGE IV STA ×2 (04:49→06:48)
[2019-11-14 04:55] LABS: Basophils % (A) 0 %; Eosinophils # (A) 0.2 k/uL (0-0.7); Eosinophils % (A) 1 %; HCT 46.1 % (34.0-46.0); HGB 14.8 gm/dL (11.4-16.0); Lymphocytes # (A) 1.2 k/uL (1.0-4.8); Lymphocytes % (A) 9 %; MCH 29.2 pg (25.0-35.0); MCHC 32.2 g/dL (31.0-37.0); MCV 90.7 fL (80.0-100.0); Mean Platelet Volume 7.3; Monocytes # (A) 0.5 k/uL (0-1.0); Monocytes % (A) 4 %; Neutrophils # (A) 11.5 k/uL (1.3-7.7); Neutrophils % (A) 86 %; Platelet Count 378 k/uL (150-450); RBC 5.08 m/uL (3.80-5.40); RDW 14.6 % (11.5-15.5); WBC 13.4 k/uL (3.8-10.6)
[2019-11-14 05:06] LABS: Albumin 4.4 g/dL (3.5-5.0); Calcium 9.4 mg/dL (8.4-10.2); Magnesium 2.1 mg/dL (1.6-2.3); Total Bilirubin 0.7 mg/dL (0.2-1.3); Total Protein 7.6 g/dL (6.3-8.2)
--- NOTE | 2019-11-14 05:06 | XR ---
EXAMINATION TYPE: XR chest 2V DATE OF EXAM: 11/14/2019 COMPARISON: NONE HISTORY: Chest pain TECHNIQUE: FINDINGS: Heart size is normal. There is no heart failure. There is some coarsening of interstitial m arkings. There is no pleural effusion. There is small linear density at the left posterior lung base. IMPRESSION: Minimal atelectasis left lung base. Mild fibrotic changes. Normal heart.
[2019-11-14 05:12] LABS: Potassium 4.1 mmol/L (3.5-5.1)
[2019-11-14 05:30] LABS: D-Dimer 1.89 mg/L FEU (<0.60); Partial Thromboplastin Time 23.1 sec (22.0-30.0); Prothrombin Time 10.2 sec (9.0-12.0)
[2019-11-14] MEDS ORDERED: ACETAMINOPHEN TAB 325 MG TAB PO STA (06:58)
--- NOTE | 2019-11-14 07:12 | CT ---
EXAM: CT Angiography Chest With Intravenous Contrast CLINICAL HISTORY: ITS.REASON CT Reason: chest pain TECHNIQUE: Axial computed tomographic angiography images of the chest with intravenous contrast. CTDI is 23 mGy and DLP is 892 mGy-cm. This CT exam was performed using one or more of the following dose reduction techniques: automated exposure control, adjustment of the mA and/or kV according to patient size, and/or use of iterative reconstruction technique. MIP reconstructed images were created and reviewed. COMPARISON: 06/28/2013 FINDINGS: Pulmonary arteries: No filling defects. Aorta: No thoracic aortic aneurysm. Lungs: Bilateral lower lobe scarring. Nonspecific patchy groundglass opacities in the bilateral upper lobes and left lower lobe. Pleural space: No pneumothorax. No significant effusion. Heart: No cardiomegaly. No pericardial effusion. Bones/joints: No acute fracture or dislocation. Evidence of DISH. Soft tissues: Gastric band device is in place. Mild intrahepatic biliary dilatation, unchanged. Patulous fluid-filled esophagus. Lymph nodes: No enlarged lymph nodes. IMPRESSION: 1. No pulmonary embolism. 2. Nonspecific patchy groundglass opacities in the bilateral upper lobes and left lower lobe. May represent aspiration given the esophageal finding versus infectious/inflammatory process. 3. Patulous fluid-filled esophagus.
[2019-11-14] MEDS ORDERED: AZITHROMYCIN 500 MG in SODIUM CHLORIDE 0.9% 250 ML IVPB STA (07:31)
[2019-11-14] MEDS ORDERED: ALBUTEROL NEBULIZED 2.5 MG/3 ML INHALATION PRN (07:31)
[2019-11-14] MEDS ORDERED: PNEUMONIA PROTOCOL UTILIZED 1 EACH MISC PO PRN (07:31)
--- NOTE | 2019-11-14 07:35 | ED ---
Chest Pain HPI - General Chief Complaint: Chest Pain Stated Complaint: chest pain Time Seen by Provider: 11/14/19 04:48 Source: patient Mode of arrival: wheelchair Limitations: no limitations - History of Present Illness MD Complaint: chest pain Onset/Timin -: hour(s) Onset: awoke with symptoms Pain Location: epigastric Pain Radiation: back Severity: severe Quality: sharp Consistency: constant Improves With: nothing Worsens With: inspiration Other Symptoms: cough Treatments Prior to Arrival: none - Related Data Home Medications Medication Instructions Recorded Confirmed Albuterol Inhaler [Ventolin Hfa 1 - 2 puff INHALATION RT-Q6H PRN 08/05/14 11/14/19 Inhaler] Aspirin EC [Ecotrin Low Dose] 81 mg PO DAILY 08/05/14 11/14/19 Hydrochlorothiazide [Hydrodiuril] 25 mg PO QAM 08/05/14 11/14/19 Levothyroxine Sodium [Synthroid] 37.5 mcg PO QAM 08/05/14 11/14/19 Lisinopril [Prinivil] 20 mg PO BID 08/05/14 11/14/19 Metoprolol Tartrate [Lopressor] 50 mg PO BID 08/05/14 11/14/19 Montelukast [Singulair] 10 mg PO HS 08/05/14 11/14/19 Omeprazole 40 mg PO QAM 08/05/14 11/14/19 Sennosides-Docusate Sodium 1 tab PO BID 08/05/14 11/14/19 [Senokot-S] amLODIPine BESYLATE [Norvasc] 10 mg PO QAM 08/05/14 11/14/19 Loratadine [Claritin] 10 mg PO DAILY 11/26/14 11/14/19 Multivitamins, Thera [Multivitamin 1 tab PO DAILY 04/07/16 11/14/19 (formulary)] Biotin 5,000 mcg PO DAILY 10/02/18 11/14/19 Budesonide-Formot 160-4.5 Mcg 1 puff INHALATION RT-BID 01/09/19 11/14/19 [Symbicort 160-4.5 Mcg Inhaler] Nystatin 100,000 Unit/gm Powd 1 applic TOPICAL TID PRN 11/14/19 11/14/19 [Mycostatin Powder] Previous Rx's Medication Instructions Recorded Amoxicillin/Potassium Clav 1 each PO Q12HR #14 tab 11/16/19 [Augmentin 875-125 Tablet] predniSONE 0 mg PO DIRECTED #18 tab 11/16/19 Allergies Allergy/AdvReac Type Severity Reaction Status Date / Time adhesive tape Allergy Rash/BLISTE Verified 11/14/19 08:11 RS banana Allergy Wheezing Verified 11/14/19 08:11 cinnamon Allergy Wheezing Verified 11/14/19 08:11 Mushroom Allergy Wheezing Verified 11/14/19 08:11 codeine AdvReac Unknown Abdominal Verified 11/14/19 08:11 Pain monosodium glutamate [MSG] AdvReac Nausea & Verified 11/14/19 08:11 Vomiting Review of Systems ROS Statement: Those systems with pertinent positive or pertinent negative responses have been documented in the HPI. ROS Other: All systems not noted in ROS Statement are negative. Constitutional: Denies: fever, chills Respiratory: Reports: dyspnea. Denies: cough, wheezes Cardiovascular: Reports: as per HPI, chest pain. Denies: palpitations, dyspnea on exertion, orthopnea, edema, syncope Gastrointestinal: Denies: abdominal pain, nausea, vomiting, melena, hematochezia Genitourinary: Denies: dysuria, hematuria Musculoskeletal: Denies: back pain Skin: Denies: rash Neurological: Denies: headache Past Medical History Past Medical History: Asthma, GERD/Reflux, Hypertension, Osteoarthritis (OA), Pneumonia, Thyroid Disorder Additional Past Medical History / Comment(s): DIET [id number] meds X10 yrs. History of Any Multi-Drug Resistant Organisms: None Reported Past Surgical History: Adenoidectomy, Appendectomy, Bariatric Surgery, Cholecystectomy, Hysterectomy, Joint Replacement, Tonsillectomy Additional Past Surgical History / Comment(s): Bilateral knee replacements, Lap band, eyelid surgery, Panniculectomy. PAIN CLINIC PROC. lap band port replacement 2-20 Past Anesthesia/Blood Transfusion Reactions: No Reported Reaction Past Psychological History: No Psychological Hx Reported Smoking Status: Former smoker Past Alcohol Use History: Rare Past Drug Use History: None Reported - Past Family History Mother Family Medical History: No Reported History Father Family Medical History: Myocardial Infarction ([place]) Additional Family Medical History / Comment(s): Father of a [place] at the age of 63 yrs. Sister(s) Additional Family Medical History / Comment(s): Patient has one sister that from overdose of medications. Patient does not have any brothers. Patient has 2 sons with no major medical problems. General Exam Limitations: no limitations General appearance: alert, in no apparent distress Head exam: Present: atraumatic, normocephalic Eye exam: Present: normal appearance. Absent: scleral icterus, conjunctival injection ENT exam: Present: normal oropharynx Neck exam: Present: normal inspection Respiratory exam: Present: respiratory distress (Mild tachypnea), rales (Bilateral bases). Absent: wheezes, rhonchi, stridor, chest wall tenderness, accessory muscle use Cardiovascular Exam: Present: regular rate, normal rhythm, normal heart sounds. Absent: systolic murmur, diastolic murmur, rubs, gallop GI/Abdominal exam: Present: soft. Absent: distended, tenderness, guarding, rebound, rigid, mass Extremities exam: Present: normal inspection, normal capillary refill. Absent: pedal edema, calf tenderness Back exam: Present: normal inspection. Absent: CVA tenderness (R), CVA tenderness (L) Neurological exam: Present: alert Skin exam: Present: warm, dry, intact, normal color. Absent: rash Course Vital Signs 11/14/19 11/14/19 11/14/19 04:41 05:27 05:40 Temperature 97.9 F Pulse Rate 87 78 75 Respiratory 24 20 Rate Blood Pressure 135/78 129/68 130/76 O2 Sat by Pulse 92 L 97 97 Oximetry 11/14/19 11/14/19 11/14/19 06:10 06:40 07:00 Temperature Pulse Rate 75 78 70 Respiratory 19 18 Rate Blood Pressure 123/60 111/58 102/57 O2 Sat by Pulse 97 97 95 Oximetry Procedures - [place] Protocol (Time Out) Nurse: Radha Wilburn Chest Pain [facility] Patient 74-year-old woman presenting with dyspnea and chest pain. She does appear to have small bilateral infiltrates and there is question of possible aspiration. Given that the patient does have desaturations when she ambulates and become severely dyspneic, will admit to start her antibiotic therapy and for pulmonary consultation. Disposition Clinical Impression: Pneumonia Disposition: ADMITTED IP TO THIS HOSP Condition: Good
[2019-11-14] MEDS: SODIUM CHLORIDE 0.9% 1,000 ML IV SCH (08:14)
[2019-11-14] MEDS ORDERED: NYSTATIN 100,000 UNIT/GM POWD 15 GM TOPICAL PRN (08:40)
[2019-11-14] MEDS: amLODIPine 10 MG TAB PO SCH (09:01)
[2019-11-14] MEDS: METOPROLOL TARTRATE 50 MG TAB PO SCH ×2 (09:02→21:27)
[2019-11-14] MEDS: LORATADINE 10 MG TAB PO SCH (09:02)
[2019-11-14] MEDS: ASPIRIN 81 MG PO SCH (09:02)
[2019-11-14] MEDS: SENNOSIDES-DOCUSATE SODIUM 1 EACH TAB PO SCH ×2 (09:02→20:31)
[2019-11-14] MEDS: MULTIVITAMINS, THERA 1 EACH TAB PO SCH (09:02)
[2019-11-14] MEDS: PANTOPRAZOLE 40 MG TABLET PO SCH (09:06)
[2019-11-14] MEDS: LEVOTHYROXINE 75 MCG TAB PO SCH (09:06)
[2019-11-14] MEDS: IPRATROPIUM-ALBUTEROL 3 ML NEB INHALATION SCH ×4 (11:03→19:48)
--- NOTE | 2019-11-14 13:55 | P.HPIM ---
History of Present Illness H&P Date: 11/14/19 Chief Complaint: CP, SOB This is a 74-year-old female patient of Dr. Tam with past medical history of mild intermittent asthma, gastroesophageal reflux disease, hy pertension, hypothyroidism, chronic back pain status post multiple back injections, diabetes mellitus type 2 diet controlled, morbid obesity status post lap band with initial weight loss of heart 74 pounds with weight gain of about 60-70 pounds over the past year. Patient recently had lab band port replaced by Dr. Carr one month ago. She states she did have some trouble with healing following that. Patient underwent trigger point injection lumbar area yesterday with Dr. Oscar. Patient states that she woke with chest pain and shortness of breath at all started at the same time. She denies any recent cough, fever, chills, nausea, vomiting. Patient does have pain in the chest with deep inspiration. Patient states that she has seen Dr. Franco in the past for asthma but not recently. Patient came into [facility] emergency center for evaluation. Patient was found to be afebrile, initial blood pressure 135/78, heart rate 87, respiratory rate 24, pulse ox 92% on room air. Chest x-ray reveals minimal atelectasis left lung base. Mild fibrotic changes. Normal heart. CT of the chest was negative for pulmonary embolism. Nonspecific patchy groundglass opaci ties in the bilateral upper lobes and left lower lobe. This may represent aspiration given the esophageal finding versus infectious inflammatory process. Patulous fluid-filled esophagus. WBC 13.4, BUN 29 creatinine 0.85, blood sugar 136. Electrolytes normal. AST 37, troponin negative, influenza testing negative. Patient was started on a Zithromax and ceftriaxone admitted to the MedSurg floor, we have added in consult with Briana Loo. Blood culture is in progress. Review of Systems Constitutional: Reports fatigue, Denies chills, Denies fever, Denies weight loss Eyes: denies blurred vision, denies pain Ears, nose, mouth and throat: Denies dysphagia, Denies headache, Denies nasal congestion, Denies nasal discharge, Denies sore throat Cardiovascular: Reports chest pain, Reports dyspnea on exertion, Reports shortness of breath, Denies decreased exercise tolerance, Denies leg edema, Denies lightheadedness, Denies syncope Respiratory: Reports dyspnea, Denies cough, Denies cough with sputum, Denies excessive sputum, Denies hemoptysis, Denies home oxygen, Denies respiratory infections, Denies wheezing Gastrointestinal: Denies abdominal pain, Denies diarrhea, Denies loss of appetite, Denies nausea, Denies vomiting Genitourinary: Denies dysuria, Denies hematuria, Denies urgency, Denies urinary frequency Musculoskeletal: Denies gait dysfunction, Denies myalgias Integumentary: Denies pruritus, Denies rash, Denies wounds Neurological: Denies change in mentation, Denies confusion, Denies gait dysfunction, Denies numbness, Denies weakness Endocrine: Denies fatigue, Denies weight change Past Medical History Past Medical History: Asthma, Diabetes Mellitus, GERD/Reflux, Hypertension, Osteoarthritis (OA), Pneumonia, Sleep Apnea/CPAP/BIPAP, Thyroid Disorder Additional Past Medical History / Comment(s): Bronchitis, sinus problems, seasonal allergies, vhtoniv low back pain with R leg sciatica-numbness/tingling/pain, MONICA but not since wt loss, diet controlled diabetes, pt states she is on thyroid supplement for her hair/nails, occasional constipation, stress incontinence. History of Any Multi-Drug Resistant Organisms: None Reported Past Surgical History: Adenoidectomy, Appendectomy, Bariatric Surgery, Cholecystectomy, Hysterectomy, Joint Replacement, Orthopedic Surgery, Tonsillectomy Additional Past Surgical History / Comment(s): Multiple pain clinic procedures with last one on 11/13/19, Lap banding with replacements-last replacement 10/08/19, panniculectomy, one ovary removed d/t benign mass, R shoulder rotator cuff surgery, r knee arthroscopy/replacement/manipulation, L total knee arthroplasty, bilateral blepharoplasty, conlonoscopies/benign polypectomy, EGD. Past Anesthesia/Blood Transfusion Reactions: Motion Sickness, Postoperative Nausea & Vomiting (PONV) Additional Past Anesthesia/Blood Transfusion Reaction / Comment(s): PONV once with hysterectomy. Smoking Status: Former smoker Additional Past Alcohol Use History / Comment(s): Patient smokes cigarettes for 22 years and quit in 1985. She has rare alcohol use. She is . Patient is really tired from school bus driving. - Past Family History Mother Family Medical History: Congestive Heart Failure (CHF) Additional Family Medical History / Comment(s): Mother from CHF at the age of 69yrs Father Family Medical History: Myocardial Infarction ([place]) Additional Family Medical History / Comment(s): Father of a [place] at the age of 63 yrs. Sister(s) Additional Family Medical History / Comment(s): Patient has one sister that from overdose of medications. Patient does not have any brothers. Patient has 2 sons with no major medical problems. Medications and Allergies Home Medications Medication Instructions Recorded Confirmed Type Albuterol Inhaler [Ventolin 1 - 2 puff INHALATION RT-Q6H PRN 08/05/14 11/14/19 History Inhaler] Aspirin EC [Ecotrin] 81 mg PO DAILY 08/05/14 11/14/19 History Hydrochlorothiazide [Hydrodiuril] 25 mg PO QAM 08/05/14 11/14/19 History Levothyroxine Sodium [Synthroid] 37.5 mcg PO QAM 08/05/14 11/14/19 History Lisinopril [Prinivil] 20 mg PO BID 08/05/14 11/14/19 History Metoprolol Tartrate [Lopressor] 50 mg PO BID 08/05/14 11/14/19 History Montelukast [Singulair] 10 mg PO HS 08/05/14 11/14/19 History Omeprazole 40 mg PO QAM 08/05/14 11/14/19 History Sennosides-Docusate Sodium 1 tab PO BID 08/05/14 11/14/19 History [Senokot-S] amLODIPine BESYLATE [Norvasc] 10 mg PO QAM 08/05/14 11/14/19 History Loratadine [Claritin] 10 mg PO DAILY 11/26/14 11/14/19 History Multivitamins, Thera [Multivitamin] 1 tab PO DAILY 04/07/16 11/14/19 History Biotin 5,000 mcg PO DAILY 10/02/18 11/14/19 History Budesonide-Formot 160-4.5 Mcg 1 puff INHALATION RT-BID 01/09/19 11/14/19 History [Symbicort 160-4.5 Mcg Inhaler] Nystatin 100,000 Unit/gm Powd 1 applic TOPICAL TID PRN 11/14/19 11/14/19 History [Mycostatin Powder] Allergies Allergy/AdvReac Type Severity Reaction Status Date / Time adhesive tape Allergy Rash/BLISTE Verified 11/14/19 08:11 RS banana Allergy Wheezing Verified 11/14/19 08:11 cinnamon Allergy Wheezing Verified 11/14/19 08:11 Mushroom Allergy Wheezing Verified 11/14/19 08:11 codeine AdvReac Unknown Abdominal Verified 11/14/19 08:11 Pain monosodium glutamate [MSG] AdvReac Nausea & Verified 11/14/19 08:11 Vomiting Physical Exam Vitals: Vital Signs Temp Pulse Pulse Resp BP BP Pulse Ox 11/14/19 08:45 97.9 F 68 16 100/66 96 11/14/19 07:00 70 18 102/57 95 11/14/19 06:40 78 19 111/58 97 11/14/19 06:10 75 123/60 97 11/14/19 05:40 75 130/76 97 11/14/19 05:27 78 20 129/68 97 11/14/19 04:41 97.9 F 87 24 135/78 92 L Intake and Output 11/13/19 11/14/19 11/14/19 22:59 06:59 14:59 Other: Weight 94.347 kg 94.347 kg Gen: This is a 74-year-old female. Patient is resting in bed appears to be comfortable and in no acute distress. HEENT: Head is atraumatic, normocephalic. Pupils equal, round. Sclerae is an icteric. NECK: Supple. No JVD. No lymphadenopathy. No thyromegaly. LUNGS: Bilateral rales. No wheezes or rhonchi. No intercostal retractions. HEART: Regular rate and rhythm. No murmur. Chest wall tenderness ABDOMEN: Soft. Bowel sounds are present. No masses. No tenderness. EXTREMITIES: No pedal edema. No calf tenderness. NEUROLOGICAL: Patient is awake, alert and oriented x3. Cranial nerves 2 through 12 are grossly intact. Results CBC & Chem 7: 11/15/19 08:06 11/15/19 08:06 Labs: Abnormal Lab Results - Last 24 Hours (Table) 11/14/19 11/14/19 11/14/19 Range/Units 04:46 04:46 04:46 WBC 13.4 H (3.8-10.6) k/uL Hct 46.1 H (34.0-46.0) % Neutrophils # 11.5 H (1.3-7.7) k/uL D-Dimer 1.89 H (<0.60) mg/L FEU BUN 29 H (7-17) mg/dL Glucose 136 H (74-99) mg/dL AST 37 H (14-36) U/L Thrombosis Risk Factor Assmnt - DVT/VTE Prophylaxis DVT/VTE Prophylaxis: Pharmacologic Prophylaxis ordered - Choose All That Apply Any of the Below Risk Factors Present?: Yes Each Factor Represents 1 point: Obesity (BMI >25), Serious lung disease incl. pneumonia (< 1month) Other Risk Factors: Yes Each Risk Factor Represents 2 Points: Age 61-74 years Other congenital or acquired thrombophilia - If yes, enter type in comment: No Thrombosis Risk Factor Assessment Total Risk Factor Score: 4 Thrombosis Risk Factor Assessment Level: Moderate Risk Assessment and Plan Plan: 1. Bilateral pneumonia, possible aspiration pneumonia. Consult with pulmonary medicine. Continue azithromycin and ceftriaxone, DuoNeb treatments 4 times daily, Symbicort twice daily, Solu-Medrol 40 mg IV every 8 hours. Pulmonary embolism ruled out. 2. Mild intermittent asthma, mild exacerbation. Continue as in #1. Continue Singulair 10 mg at bedtime, Claritin 10 mg daily. 3. Hypertension. Continue Norvasc 10 mg daily, Lopressor 50 mg twice daily. Hold hydrochlorothiazide and hold lisinopril due to hypotension 4. Hypothyroidism. Continue levothyroxine 37.5 g daily. 5. Gastroesophageal reflux disease. Continue Protonix. 6. DVT prophylaxis. Heparin subcu. 7. Diabetes mellitus type 2, diet controlled. NovoLog scale before meals and at bedtime. 8. Remote history of tobacco use. Patient will be admitted to the hospital for a minimum of 2 night stay. Discharge plan: home Impression and plan of care have been directed as dictated by the signing physician. Roxane York nurse practitioner acting as scribe for signing physician.
--- NOTE | 2019-11-14 16:18 | P.CNPUL ---
History of Present Illness Consult date: 11/14/19 Requesting physician: Jeremy Hamilton Reason for consult: pneumonia Chief complaint: Shortness of breath History of present illness: This is a 74-year-old female with history of mild intermittent asthma, normally sees Dr. Franco for her asthma. Patient is also known to have history of type 2 diabetes, hypertension, degenerative joint disease, obstructive sleep apnea syndrome, and hypothyroidism. Patient is also known to have history of morbid obesity, and previous lab band placement with significant weight loss since her band was placed over 70 pounds in the last year. She had a recent lab band port replaced by Dr. Carr few weeks ago. Patient is also known to have history of low back pain, being followed in the pain clinic at [facility]. Patient presented to the ER with mostly acute onset of chest discomfort, described as tightness, shortness of breath, minimal cough, no wheezing, no fever, no chills, no hemoptysis. Workup in the ER included a chest x-ray which came back nondiagnostic. However her CT of the chest showed multiple areas of groundglass opacities consistent with pneumonia mostly involving the left upper lobe, left lower lobe, and to some extent right upper lobe and right lower lobe. Suggestive of possible aspiration pneumonia. Patient was admitted, had a CT angiogram of the chest showed no evidence of pulmonary embolism, and this consult was initiated. CBC showed minimal leukocytosis with WBC count of 13.4. Influenza screen was negative. Basic metabolic profile and complete metabolic profile noted to be normal. Review of Systems Constitutional: Denies fevers or chills. Had significant weight loss since she had a lab in place. Eyes: Denies blurred vision denies diplopia. Ears, nose, mouth and throat: Denies any nasal discharge, denies any sore throat, no earaches, Cardiovascular: Reports chest discomfort as noted in HPI, denies any palpitations, denies any syncope. Denies any orthopnea or PND. Respiratory: As noted in HPI. Gastrointestinal: Denies nausea vomiting abdominal pain melena or hematemesis. Genitourinary: Denies hematuria dysuria, frequency or urgency. Integumentary: Denies any skin rashes, denies any pruritus. Neurological: Denies any headache blurred vision dizziness or syncope. Endocrine: Denies any heat or cold intolerance. Musculoskeletal: Denies any deformities or limitation in range of motion. Psychiatric: Denies any symptoms of depression. Hematologic: Denies clotting bleeding or bruising. Past Medical History Past Medical History: Asthma, Diabetes Mellitus, GERD/Reflux, Hypertension, Osteoarthritis (OA), Pneumonia, Sleep Apnea/CPAP/BIPAP, Thyroid Disorder Additional Past Medical History / Comment(s): Bronchitis, sinus problems, seasonal allergies, vhtoniv low back pain with R leg sciatica- numbness/tingling/pain, MONICA but not since wt loss, diet controlled diabetes, pt states she is on thyroid supplement for her hair/nails, occasional constipation, stress incontinence. History of Any Multi-Drug Resistant Organisms: None Reported Past Surgical History: Adenoidectomy, Appendectomy, Bariatric Surgery, Cholecystectomy, Hysterectomy, Joint Replacement, Orthopedic Surgery, Tonsillectomy Additional Past Surgical History / Comment(s): Multiple pain clinic procedures with last one on 11/13/19, Lap banding with replacements-last replacement 10/08/19, panniculectomy, one ovary removed d/t benign mass, R shoulder rotator cuff surgery, r knee arthroscopy/replacement/manipulation, L total knee arthroplasty, bilateral blepharoplasty, conlonoscopies/benign polypectomy, EGD. Past Anesthesia/Blood Transfusion Reactions: Motion Sickness, Postoperative Nausea & Vomiting (PONV) Additional Past Anesthesia/Blood Transfusion Reaction / Comment(s): PONV once with hysterectomy. Smoking Status: Former smoker Additional Past Alcohol Use History / Comment(s): Patient smokes cigarettes for 22 years and quit in 1985. She has rare alcohol use. She is . Patient is really tired from school bus driving. - Past Family History Mother Family Medical History: Congestive Heart Failure (CHF) Additional Family Medical History / Comment(s): Mother from CHF at the age of 69yrs Father Family Medical History: Myocardial Infarction (UT) Additional Family Medical History / Comment(s): Father of a UT at the age of 63 yrs. Sister(s) Additional Family Medical History / Comment(s): Patient has one sister that from overdose of medications. Patient does not have any brothers. Patient has 2 sons with no major medical problems. Medications and Allergies Home Medications Medication Instructions Recorded Confirmed Type Albuterol Inhaler [Ventolin 1 - 2 puff INHALATION RT-Q6H PRN 08/05/14 11/14/19 History Inhaler] Aspirin EC [Ecotrin] 81 mg PO DAILY 08/05/14 11/14/19 History Hydrochlorothiazide [Hydrodiuril] 25 mg PO QAM 08/05/14 11/14/19 History Levothyroxine Sodium [Synthroid] 37.5 mcg PO QAM 08/05/14 11/14/19 History Lisinopril [Prinivil] 20 mg PO BID 08/05/14 11/14/19 History Metoprolol Tartrate [Lopressor] 50 mg PO BID 08/05/14 11/14/19 History Montelukast [Singulair] 10 mg PO HS 08/05/14 11/14/19 History Omeprazole 40 mg PO QAM 08/05/14 11/14/19 History Sennosides-Docusate Sodium 1 tab PO BID 08/05/14 11/14/19 History [Senokot-S] amLODIPine BESYLATE [Norvasc] 10 mg PO QAM 08/05/14 11/14/19 History Loratadine [Claritin] 10 mg PO DAILY 11/26/14 11/14/19 History Multivitamins, Thera [Multivitamin] 1 tab PO DAILY 04/07/16 11/14/19 History Biotin 5,000 mcg PO DAILY 10/02/18 11/14/19 History Budesonide-Formot 160-4.5 Mcg 1 puff INHALATION RT-BID 01/09/19 11/14/19 History [Symbicort 160-4.5 Mcg Inhaler] Nystatin 100,000 Unit/gm Powd 1 applic TOPICAL TID PRN 11/14/19 11/14/19 History [Mycostatin Powder] Allergies Allergy/AdvReac Type Severity Reaction Status Date / Time adhesive tape Allergy Rash/BLISTE Verified 11/14/19 08:11 RS banana Allergy Wheezing Verified 11/14/19 08:11 cinnamon Allergy Wheezing Verified 11/14/19 08:11 Mushroom Allergy Wheezing Verified 11/14/19 08:11 codeine AdvReac Unknown Abdominal Verified 11/14/19 08:11 Pain monosodium glutamate [MSG] AdvReac Nausea & Verified 11/14/19 08:11 Vomiting Physical Exam Vitals: Vital Signs Temp Pulse Pulse Resp BP BP Pulse Ox 11/14/19 15:52 72 16 93 L 11/14/19 15:37 16 11/14/19 14:40 98.4 F 54 L 14 94/60 95 11/14/19 11:26 72 11/14/19 11:20 68 11/14/19 08:45 97.9 F 68 16 100/66 96 11/14/19 07:00 70 18 102/57 95 11/14/19 06:40 78 19 111/58 97 11/14/19 06:10 75 123/60 97 11/14/19 05:40 75 130/76 97 11/14/19 05:27 78 20 129/68 97 11/14/19 04:41 97.9 F 87 24 135/78 92 L Intake and Output 11/14/19 11/14/19 11/14/19 06:59 14:59 22:59 Intake Total 540 Balance 540 Intake: Oral 540 Other: # Voids 2 Weight 94.347 kg 94.347 kg Physical Exam: Revealed a 74-year-old female in no distress. Head: Atraumatic, normocephalic. HEENT:[Neck is supple.] [No neck masses.] [No thyromegaly.] [No JVD.] PERRLA, EOMI, no icterus, moist mucous membranes. Chest: [Symmetrical chest expansion, bibasilar rales and crackles, no rhonchi and no wheezes.] Cardiac Exam: [Normal S1 and S2, no S3 gallop, no murmur.] Abdomen: [Soft, nontender, no megaly, no rebound, no guarding, normal bowel sounds.] Extremities: [No clubbing, no edema, no cyanosis.] Neurological Exam: [No focal neurologic deficit.] Alert and oriented 3. Psychiatric: Normal mood, affect and normal mental status examination. Skin: No rashes. Lymphatics: No lymphadenopathy. Musculoskeletal: No limitation in range of motion, good muscle tone bilaterally. No deformities. Results - Laboratory Findings CBC and BMP: 11/14/19 04:46 11/14/19 04:46 PT/INR, D-dimer PT 10.2 sec (9.0-12.0) 11/14/19 04:46 INR 1.0 (<1.2) 11/14/19 04:46 D-Dimer 1.89 mg/L FEU (<0.60) H 11/14/19 04:46 Abnormal lab findings: Abnormal Labs 11/14/19 11/14/19 11/14/19 04:46 04:46 04:46 WBC 13.4 H Hct 46.1 H Neutrophils # 11.5 H D-Dimer 1.89 H BUN 29 H Glucose 136 H AST 37 H - Diagnostic Findings Chest x-ray: image reviewed CT scan - chest: image reviewed (As noted in HPI.) Assessment and Plan Assessment: Impression: Acute bilateral, multilobar pneumonia, strongly suspicious for aspiration pneumonia. Mild intermittent asthma, presently under control. History of GERD without esophagitis. History of lap band and recent surgery on her lap band. History of hypothyroidism Benign essential hypertension Remote history of tobacco use. Patient quit smoking in 1985. She only had a [id number] smoking history. Recommendation: Continue antibiotics, however since there is a major concern about possible aspi ration I will discontinue Rocephin and Zithromax, and we will treat the patient with Zosyn and Levaquin. Continue bronchodilators. Asthma seems to be stable at this point, inactive, however will continue steroids. Continue GI and DVT prophylaxis. Resume home meds, and monitor her sugars closely. We'll continue to follow. Repeat chest x-ray in a.m. Time with Patient: Greater than 30
[2019-11-14 16:57] LABS: Glucose,Whole Blood 137 mg/dL (75-99)
[2019-11-14] MEDS: PIPERACILLIN-TAZOBACTAM 3.375 GM in SODIUM CHLORIDE 0.9% 100 ML IVPB SCH (17:11)
[2019-11-14] MEDS: INSULIN ASPART (NovoLOG) 100 UNIT/ML VIAL SQ SCH ×2 (17:12→21:26)
[2019-11-14] MEDS: methylPREDNISolone SOD SUCCI 40 MG/ML 1 ML VIAL IV SCH ×2 (17:12→23:31)
[2019-11-14] MEDS ORDERED: ACETAMINOPHEN TAB 325 MG TAB PO PRN (17:16)
[2019-11-14] MEDS: SYMBICORT 160-4.5 MCG INHALER INHALATION SCH (19:48)
[2019-11-14] MEDS: HEPARIN SODIUM,PORCINE 5,000 UNIT/ML 1 ML VIAL SQ SCH (20:31)
[2019-11-14] MEDS: MONTELUKAST 10 MG TAB PO SCH (20:31)
[2019-11-14] MEDS: LEVOFLOXACIN 750MG-D5W PMX 750 MG in DEXTROSE/WATER 1 150ML.BAG IVPB SCH (21:25)
[2019-11-14 21:51] LABS: Glucose,Whole Blood 205 mg/dL (75-99)
[2019-11-15] MEDS: PIPERACILLIN-TAZOBACTAM 3.375 GM in SODIUM CHLORIDE 0.9% 100 ML IVPB SCH ×4 (00:01→23:57)
[2019-11-15] MEDS: LEVOTHYROXINE 75 MCG TAB PO SCH (06:18)
[2019-11-15] MEDS: SYMBICORT 160-4.5 MCG INHALER INHALATION SCH ×2 (07:12→20:03)
[2019-11-15] MEDS: IPRATROPIUM-ALBUTEROL 3 ML NEB INHALATION SCH ×4 (07:12→20:03)
[2019-11-15 07:23] LABS: Glucose,Whole Blood 154 mg/dL (75-99)
--- NOTE | 2019-11-15 07:26 | XR ---
EXAMINATION TYPE: XR chest 2V DATE OF EXAM: 11/15/2019 COMPARISON: 11/14/2019 INDICATION: Pneumonia TECHNIQUE: Frontal and lateral views of the chest are obtained. FINDINGS: The heart size is normal. The pulmonary vasculature is normal. There is resolving right lower lobe infiltrate. Minimal residual remains. Some minimal increased lung markings are at the left base. Correlate for subsegmental atelectasis.. Some mild blunting the left costophrenic angle has developed. IMPRESSION: 1. Resolving infiltrate. Very minimal infiltrate remains present bases.
[2019-11-15] MEDS: HEPARIN SODIUM,PORCINE 5,000 UNIT/ML 1 ML VIAL SQ SCH ×2 (08:18→21:04)
[2019-11-15] MEDS: MULTIVITAMINS, THERA 1 EACH TAB PO SCH (08:18)
[2019-11-15] MEDS: ASPIRIN 81 MG PO SCH (08:18)
[2019-11-15] MEDS: amLODIPine 10 MG TAB PO SCH (08:18)
[2019-11-15] MEDS: PANTOPRAZOLE 40 MG TABLET PO SCH (08:18)
[2019-11-15] MEDS: methylPREDNISolone SOD SUCCI 40 MG/ML 1 ML VIAL IV SCH ×2 (08:18→15:49)
[2019-11-15] MEDS: LORATADINE 10 MG TAB PO SCH (08:18)
[2019-11-15] MEDS: SENNOSIDES-DOCUSATE SODIUM 1 EACH TAB PO SCH ×2 (08:18→21:04)
[2019-11-15] MEDS: METOPROLOL TARTRATE 50 MG TAB PO SCH ×2 (08:18→21:04)
[2019-11-15] MEDS: SODIUM CHLORIDE 0.9% 1,000 ML IV SCH (08:19)
[2019-11-15] MEDS: INSULIN ASPART (NovoLOG) 100 UNIT/ML VIAL SQ SCH ×4 (08:23→21:05)
[2019-11-15 08:57] LABS: ALT 36 U/L (4-34); AST 38 U/L (14-36); African American GFR (CKD) >90 (>60 ml/min/1.73 sqM); Albumin 3.4 g/dL (3.5-5.0); Alkaline Phosphatase 63 U/L (38-126); Anion Gap 13 mmol/L; Blood Urea Nitrogen 24 mg/dL (7-17); Calcium 8.9 mg/dL (8.4-10.2); Carbon Dioxide 18 mmol/L (22-30); Chloride 106 mmol/L (98-107); Glucose 187 mg/dL (74-99); Non-African American GFR(CKD) 83 (>60 ml/min/1.73 sqM); Potassium 3.9 mmol/L (3.5-5.1); Sodium 137 mmol/L (137-145); Total Bilirubin 0.7 mg/dL (0.2-1.3); Total Protein 6.3 g/dL (6.3-8.2)
[2019-11-15] MEDS ORDERED: AZITHROMYCIN 500 MG TAB PO SCH (09:00)
[2019-11-15 09:23] LABS: HCT 41.3 % (34.0-46.0); HGB 13.4 gm/dL (11.4-16.0); MCH 29.2 pg (25.0-35.0); MCHC 32.4 g/dL (31.0-37.0); MCV 90.1 fL (80.0-100.0); Mean Platelet Volume 8.3; Platelet Count 300 k/uL (150-450); RBC 4.58 m/uL (3.80-5.40); RDW 14.6 % (11.5-15.5); WBC 16.9 k/uL (3.8-10.6)
[2019-11-15 11:42] LABS: Glucose,Whole Blood 187 mg/dL (75-99)
--- NOTE | 2019-11-15 13:23 | P.PN ---
Subjective Progress Note Date: 11/15/19 Principal diagnosis: Aspiration pneumonia This is a 74-year-old female with history of mild intermittent asthma, normally sees Dr. Franco for her asthma. Patient is also known to have history of type 2 diabetes, hypertension, degenerative joint disease, obstructive sleep apnea syndrome, and hypothyroidism. Patient is also known to have history of morbid obesity, and previous lab band placement with significant weight loss since her band was placed over 70 pounds in the last year. She had a recent lab band port replaced by Dr. Carr few weeks ago. Patient is also known to have history of low back pain, being followed in the pain clinic at [facility]. Patient presented to the ER with mostly acute onset of chest discomfort, described as tightness, shortness of breath, minimal cough, no wheezing, no fever, no chills, no hemoptysis. Workup in the ER included a chest x-ray which came back nondiagnostic. However her CT of the chest showed multiple areas of groundglass opacities consistent with pneumonia mostly involving the left upper lobe, left lower lobe, and to some extent right upper lobe and right lower lobe. Suggestive of possible aspiration pneumonia. Patient was admitted, had a CT angiogram of the chest showed no evidence of pulmonary embolism, and this consult was initiated. CBC showed minimal leukocytosis with WBC count of 13.4. Influenza screen was negative. Basic metabolic profile and complete metabolic profile noted to be normal. Reevaluated today on 11/15/19, patient is feeling better, breathing easier, doesn't feel as sick as she felt yesterday. Her chest x-ray showed significant improvement practically speaking overnight. I believe the patient most likely aspirated and she is improving with antibiotics and steroids. Hence I will strongly recommend discharging the patient home tomorrow on Augmentin as well as a course of prednisone burst and taper. And to resume her home medications for underlying asthma. Objective - Vital Signs Vital signs: Vital Signs Temp 98.2 F 11/15/19 07:00 Pulse 70 11/15/19 11:20 Resp 18 11/15/19 07:00 BP 127/71 11/15/19 07:00 Pulse Ox 95 11/15/19 08:00 Intake & Output 11/14/19 11/15/19 11/15/19 18:59 06:59 18:59 Intake Total 540 Balance 540 Weight 94.347 kg Intake: Oral 540 Other: # Voids 2 1 - Exam Physical Exam: Revealed a 74-year-old female in no distress. Head: Atraumatic, normocephalic. HEENT:[Neck is supple.] [No neck masses.] [No thyromegaly.] [No JVD.] PERRLA, EOMI, no icterus, moist mucous membranes. Chest: [Symmetrical chest expansion, clear throughout no crackles or rhonchi or wheezes. Cardiac Exam: [Normal S1 and S2, no S3 gallop, no murmur.] Abdomen: [Soft, nontender, no megaly, no rebound, no guarding, normal bowel sounds.] Extremities: [No clubbing, no edema, no cyanosis.] Neurological Exam: [No focal neurologic deficit.] Alert and oriented 3. Psychiatric: Normal mood, affect and normal mental status examination. Skin: No rashes. Lymphatics: No lymphadenopathy. Musculoskeletal: No limitation in range of motion, good muscle tone bilaterally. No deformities. - Labs CBC & Chem 7: 11/15/19 08:06 11/15/19 08:06 Labs: Abnormal Lab Results - Last 24 Hours (Table) 11/14/19 11/14/19 11/15/19 Range/Units 16:55 21:19 07:21 WBC (3.8-10.6) k/uL Carbon Dioxide (22-30) mmol/L BUN (7-17) mg/dL Glucose (74-99) mg/dL POC Glucose (mg/dL) 137 H 205 H 154 H (75-99) mg/dL AST (14-36) U/L ALT (4-34) U/L Albumin (3.5-5.0) g/dL 11/15/19 11/15/19 11/15/19 Range/Units 08:06 08:06 11:40 WBC 16.9 H (3.8-10.6) k/uL Carbon Dioxide 18 L (22-30) mmol/L BUN 24 H (7-17) mg/dL Glucose 187 H (74-99) mg/dL POC Glucose (mg/dL) 187 H (75-99) mg/dL AST 38 H (14-36) U/L ALT 36 H (4-34) U/L Albumin 3.4 L (3.5-5.0) g/dL Microbiology - Last 24 Hours (Table) 11/14/19 08:00 Blood Culture - Preliminary Blood No Growth after 24 hours Assessment and Plan Assessment: Impression: Acute bilateral, multilobar pneumonia, strongly suspicious for aspiration pneumonia. Mild intermittent asthma, presently under control. History of GERD without esophagitis. History of lap band and recent surgery on her lap band. History of hypothyroidism Benign essential hypertension Remote history of tobacco use. Patient quit smoking in 1985. She only had a [id number] smoking history. Recommendation: Continue antibiotics, however since there is a major concern about possible aspiration I will discontinue Rocephin and Zithromax, and we will treat the patient with Zosyn and Levaquin. Continue bronchodilators. Asthma seems to be stable at this point, inactive, however will continue steroids. Continue GI and DVT prophylaxis. Chest x-ray was reviewed and discussed with the patient. We'll recommend switching the patient tomorrow to oral antibiotics in the form of Augmentin, and discharge the patient home on Augmentin, prednisone burst and taper 30 mg tapered over 2 weeks, and her usual bronchodilators. Patient will follow-up with me or with Dr. Franco in the next one week. Time with Patient: Less than 30
--- NOTE | 2019-11-15 14:52 | P.PN ---
Subjective Progress Note Date: 11/15/19 This is a 74-year-old female patient of Dr. Tam with past medical history of mild intermittent asthma, gastroesophageal reflux disease, hypertension, hypothyroidism, chronic back pain status post multiple back injections, diabetes mellitus type 2 diet controlled, morbid obesity status post lap band with initial weight loss of heart 74 pounds with weight gain of about 60-70 pounds over the past year. Patient recently had lab band port replaced by Dr. Carr one month ago. She states she did have some trouble with healing following that. Patient underwent trigger point injection lumbar area yesterday with Dr. Oscar. Patient states that she woke with chest pain and shortness of breath at all started at the same time. She denies any recent cough, fever, chills, nausea, vomiting. Patient does have pain in the chest with deep inspiration. Patient states that she has seen Dr. Franco in the past for asthma but not recently. Patient came into [facility] emergency center for evaluation. Patient was found to be afebrile, initial blood pressure 135/78, heart rate 87, respiratory rate 24, pulse ox 92% on room air. Chest x-ray reveals minimal atelectasis left lung base. Mild fibrotic changes. Normal heart. CT of the chest was negative for pulmonary embolism. Nonspecific patchy groundglass opacities in the bilateral upper lobes and left lower lobe. This may represent aspiration given the esophageal finding versus infectious inflammatory process. Patulous fluid-filled esophagus. WBC 13.4, BUN 29 creatinine 0.85, blood sugar 136. Electrolytes normal. AST 37, troponin negative, influenza testing negative. Patient was started on a Zithromax and ceftriaxone admitted to the [facility] floor, we have added in consult with Lopez LooAshley. Blood culture is in progress. 11/15: Patient is afebrile, heart rate 72, blood pressure 127/71, pulse ox 95% on room air. Repeat blood work reveals WBC 16.9, CO2 18, BUN 24 and creatinine 2.73. Blood sugars run between 154 and 205. AST 38, ALT 36, alkaline phosphatase 63. Repeat chest x-ray reveals resolving infiltrate. Very minimal infiltrate remains present. Patient is seen and followed by Dr. Drew and patient cleared for discharge home most likely with Augmentin and prednisone and follow up with Dr. Franco. States that her breathing is much improved. She feels better today. She is walking to the bathroom but not in the hallway. She is currently on Zosyn and Levaquin. Solu-Medrol will be discontinued tonight and prednisone initiated in the morning. Objective - Vital Signs Vital signs: Vital Signs Temp 98.2 F 11/15/19 07:00 Pulse 78 11/15/19 07:24 Resp 18 11/15/19 07:00 BP 127/71 11/15/19 07:00 Pulse Ox 95 11/15/19 07:00 Intake & Output 11/14/19 11/15/19 11/15/19 18:59 06:59 18:59 Intake Total 540 Balance 540 Weight 94.347 kg Intake: Oral 540 Other: # Voids 2 1 - Exam Review of Systems Constitutional: Reports fatigue, Denies chills, Denies fever, Denies weight loss Ears, nose, mouth and throat: Denies dysphagia, Denies headache, Denies nasal congestion, Denies nasal discharge, Denies sore throat Cardiovascular: Reports chest pain, Reports dyspnea on exertion, Reports shortness of breath, Denies decreased exercise tolerance, Denies leg edema, Denies lightheadedness, Denies syncope Respiratory: Reports dyspnea, Denies cough, Denies cough with sputum, Denies excessive sputum, Denies hemoptysis, Denies home oxygen, Denies respiratory infections, Denies wheezing Gastrointestinal: Denies abdominal pain, Denies diarrhea, Denies loss of appetite, Denies nausea, Denies vomiting Genitourinary: Denies dysuria, Denies hematuria, Denies urgency, Denies urinary frequency Musculoskeletal: Denies gait dysfunction, Denies myalgias Integumentary: Denies pruritus, Denies rash, Denies wounds Neurological: Denies change in mentation, Denies confusion, Denies gait dysfunction, Denies numbness, Denies weakness Endocrine: Denies fatigue, Denies weight change Physical examination: Gen: This is a 74-year-old female. Patient is resting in bed appears to be comfortable and in no acute distress. HEENT: Head is atraumatic, normocephalic. Pupils equal, round. Sclerae is anicteric. NECK: Supple. No JVD. No lymphadenopathy. No thyromegaly. LUNGS: Bilateral rales. No wheezes or rhonchi. No intercostal retractions. HEART: Regular rate and rhythm. No murmur. Chest wall tenderness ABDOMEN: Soft. Bowel sounds are present. No masses. No tenderness. EXTREMITIES: No pedal edema. No calf tenderness. NEUROLOGICAL: Patient is awake, alert and oriented x3. Cranial nerves 2 through 12 are grossly intact. - Labs CBC & Chem 7: 11/15/19 08:06 11/15/19 08:06 Labs: Abnormal Lab Results - Last 24 Hours (Table) 11/14/19 11/14/19 11/15/19 Range/Units 16:55 21:19 07:21 WBC (3.8-10.6) k/uL Carbon Dioxide (22-30) mmol/L BUN (7-17) mg/dL Glucose (74-99) mg/dL POC Glucose (mg/dL) 137 H 205 H 154 H (75-99) mg/dL AST (14-36) U/L ALT (4-34) U/L Albumin (3.5-5.0) g/dL 11/15/19 11/15/19 Range/Units 08:06 08:06 WBC 16.9 H (3.8-10.6) k/uL Carbon Dioxide 18 L (22-30) mmol/L BUN 24 H (7-17) mg/dL Glucose 187 H (74-99) mg/dL POC Glucose (mg/dL) (75-99) mg/dL AST 38 H (14-36) U/L ALT 36 H (4-34) U/L Albumin 3.4 L (3.5-5.0) g/dL Assessment and Plan Plan: 1. Bilateral pneumonia, possible aspiration pneumonia. Consult with pulmonary medicine. Continue azithromycin and ceftriaxone, DuoNeb treatments 4 times daily, Symbicort twice daily, Solu-Medrol 40 mg IV every 8 hours transitioned to oral prednisone in the morning. Pulmonary embolism ruled out. 2. Mild intermittent asthma, mild exacerbation. Continue as in #1. Continue Singulair 10 mg at bedtime, Claritin 10 mg daily. 3. Hypertension. Continue Norvasc 10 mg daily, Lopressor 50 mg twice daily. Hold hydrochlorothiazide and hold lisinopril due to hypotension 4. Hypothyroidism. Continue levothyroxine 37.5 g daily. 5. Gastroesophageal reflux disease. Continue Protonix. 6. DVT prophylaxis. Heparin subcu. 7. Diabetes mellitus type 2, diet controlled. NovoLog scale before meals and at bedtime. 8. Remote history of tobacco use. Discharge plan: home tomorrow Impression and plan of care have been directed as dictated by the signing physician. Roxane York nurse practitioner acting as scribe for signing physician.
[2019-11-15 16:33] LABS: Hemoglobin A1C 5.7 % (4.0-6.0)
[2019-11-15 16:52] LABS: Glucose,Whole Blood 212 mg/dL (75-99)
[2019-11-15 20:38] LABS: Glucose,Whole Blood 220 mg/dL (75-99)
[2019-11-15] MEDS: LEVOFLOXACIN 750MG-D5W PMX 750 MG in DEXTROSE/WATER 1 150ML.BAG IVPB SCH (20:41)
[2019-11-15] MEDS: MONTELUKAST 10 MG TAB PO SCH (21:04)
[2019-11-16] MEDS: LEVOTHYROXINE 75 MCG TAB PO SCH (05:37)
[2019-11-16 06:43] VITALS: BP 160/85; RESP 17; TEMP 98.1
[2019-11-16 07:17] LABS: Glucose,Whole Blood 134 mg/dL (75-99)
[2019-11-16] MEDS: IPRATROPIUM-ALBUTEROL 3 ML NEB INHALATION SCH ×2 (07:57→11:23)
[2019-11-16] MEDS: SYMBICORT 160-4.5 MCG INHALER INHALATION SCH (07:57)
[2019-11-16] MEDS: INSULIN ASPART (NovoLOG) 100 UNIT/ML VIAL SQ SCH ×2 (08:04→12:41)
[2019-11-16] MEDS: PIPERACILLIN-TAZOBACTAM 3.375 GM in SODIUM CHLORIDE 0.9% 100 ML IVPB SCH (08:04)
[2019-11-16] MEDS: amLODIPine 10 MG TAB PO SCH (08:05)
[2019-11-16] MEDS: METOPROLOL TARTRATE 50 MG TAB PO SCH (08:05)
[2019-11-16] MEDS: SODIUM CHLORIDE 0.9% 1,000 ML IV SCH (08:05)
[2019-11-16] MEDS: LORATADINE 10 MG TAB PO SCH (08:05)
[2019-11-16] MEDS: HEPARIN SODIUM,PORCINE 5,000 UNIT/ML 1 ML VIAL SQ SCH (08:05)
[2019-11-16] MEDS: PANTOPRAZOLE 40 MG TABLET PO SCH (08:06)
[2019-11-16] MEDS: MULTIVITAMINS, THERA 1 EACH TAB PO SCH (08:06)
[2019-11-16] MEDS: ASPIRIN 81 MG PO SCH (08:06)
[2019-11-16] MEDS: SENNOSIDES-DOCUSATE SODIUM 1 EACH TAB PO SCH (08:06)
[2019-11-16] MEDS ORDERED: predniSONE 20 MG TAB PO SCH (09:00)
[2019-11-16 11:33] VITALS: PULSE 72
[2019-11-16 11:40] LABS: Glucose,Whole Blood 169 mg/dL (75-99)
--- NOTE | 2019-11-16 12:00 | P.PN ---
Subjective Progress Note Date: 11/16/19 Principal diagnosis: Aspiration pneumonia This is a 74-year-old female with history of mild intermittent asthma, normally sees Dr. Franco for her asthma. Patient is also known to have history of type 2 diabetes, hypertension, degenerative joint disease, obstructive sleep apnea syndrome, and hypothyroidism. Patient is also known to have history of morbid obesity, and previous lab band placement with significant weight loss since her band was placed over 70 pounds in the last year. She had a recent lab band port replaced by Dr. Carr few weeks ago. Patient is also known to have history of low back pain, being followed in the pain clinic at [facility]. Patient presented to the ER with mostly acute onset of chest discomfort, described as tightness, shortness of breath, minimal cough, no wheezing, no fever, no chills, no hemoptysis. Workup in the ER included a chest x-ray which came back nondiagnostic. However her CT of the chest showed multiple areas of groundglass opacities consistent with pneumonia mostly involving the left upper lobe, left lower lobe, and to some extent right upper lobe and right lower lobe. Suggestive of possible aspiration pneumonia. Patient was admitted, had a CT angiogram of the chest showed no evidence of pulmonary embolism, and this consult was initiated. CBC showed minimal leukocytosis with WBC count of 13.4. Influenza screen was negative. Basic metabolic profile and complete metabolic profile noted to be normal. Reevaluated today on 11/15/19, patient is feeling better, breathing easier, doesn't feel as sick as she felt yesterday. Her chest x-ray showed significant improvement practically speaking overnight. I believe the patient most likely aspirated and she is improving with antibiotics and steroids. Hence I will strongly recommend discharging the patient home tomorrow on Augmentin as well as a course of prednisone burst and taper. And to resume her home medications for underlying asthma. The patient is seen today 11/16/2019 in follow-up on the regular medical floor. She is currently sitting up in a chair at the bedside. Awake and alert in no acute distress. Feeling nearly back to her baseline. Maintaining O2 saturations in the mid 90s on room air. She's been afebrile. Hemodynamically stable. Blood and sputum cultures reveal no growth. Blood glucose 169. Continued on DuoNeb inhalations, Symbicort, Singulair, prednisone taper. Objective - Vital Signs Vital signs: Vital Signs Temp 98.1 F 11/16/19 06:16 Pulse 72 11/16/19 11:32 Resp 17 11/16/19 06:16 BP 160/85 11/16/19 06:16 Pulse Ox 96 11/16/19 07:59 Intake & Output 11/15/19 11/16/19 11/16/19 18:59 06:59 18:59 Intake Total 540 240 Balance 540 240 Intake: Oral 540 240 Other: # Voids 3 1 - Exam GENERAL EXAM: Alert, active, pleasant 74-year-old female patient, on room air, comfortable in no apparent distress. HEAD: Normocephalic. EYES: Normal reaction of pupils, equal size. NOSE: Clear with pink turbinates. THROAT: No erythema or exudates. NECK: No masses, no JVD. CHEST: No chest wall deformity. LUNGS: Equal air entry with few scattered rhonchi CVS: S1 and S2 normal with no audible murmur, regular rhythm. ABDOMEN: No hepatosplenomegaly, normal bowel sounds, no guarding or rigidity. SPINE: No scoliosis or deformity SKIN: No rashes CENTRAL NERVOUS SYSTEM: No focal deficits, tone is normal in all 4 extremities. EXTREMITIES: There is no peripheral edema. No clubbing, no cyanosis. Peripheral pulses are intact. - Labs CBC & Chem 7: 11/15/19 08:06 11/15/19 08:06 Labs: Abnormal Lab Results - Last 24 Hours (Table) 11/15/19 11/15/19 11/16/19 Range/Units 16:50 20:36 07:14 POC Glucose (mg/dL) 212 H 220 H 134 H (75-99) mg/dL 11/16/19 Range/Units 11:39 POC Glucose (mg/dL) 169 H (75-99) mg/dL Microbiology - Last 24 Hours (Table) 11/14/19 08:00 Blood Culture - Preliminary Blood No Growth after 48 hours 11/15/19 11:30 Gram Stain - Preliminary Sputum Sputum Culture - Preliminary Assessment and Plan Assessment: Acute bilateral, multilobar pneumonia, strongly suspicious for aspiration pneumonia. Mild intermittent asthma, presently under control. History of GERD without esophagitis. History of lap band and recent surgery on her lap band. History of hypothyroidism Benign essential hypertension Remote history of tobacco use. Patient quit smoking in 1985. She only had a [id number] smoking history. Plan: The patient was seen and evaluated by Dr. Case. She is cleared for discharge from the pulmonary standpoint. Complete prednisone taper. Continue Symbicort and DuoNeb's. Complete course of Augmentin. Follow up with Dr. Franco in 1 week. We'll repeat a chest x-ray then. She is encouraged to call sooner with any recurrence of symptoms or other questions or concerns. I, the cosigning physician, performed a history & physical examination of the patient. Lungs sounds with few scattered rhonchi. Maintaining good O2 sat urations in the 90s on room air. I discussed the assessment and plan of care with my nurse practitioner, Tanya Hammond. I attest to the above note as dictated by her.
--- NOTE | 2019-11-16 13:45 | P.DS ---
Providers Date of admission: 11/14/19 07:31 Expected date of discharge: 11/16/19 Attending physician: Paola Valera Consults: 11/14/19 10:55 Consult Physician Routine Consulting Provider: Ryan Case Consult Reason/Comments: pneumonia, asthma hx Do you want consulting provider notified?: Yes Primary care physician: Sina [facility] Course: This is a 74-year-old female patient of Dr. Tam with past medical history of mild intermittent asthma, gastroesophageal reflux disease, hypertension, hypothyroidism, chronic back pain status post multiple back injections, diabetes mellitus type 2 diet controlled, morbid obesity status post lap band with initial weight loss of heart 74 pounds with weight gain of about 60-70 pounds over the past year. Patient recently had lab band port replaced by Dr. Carr one month ago. She states she did have some trouble with healing following that. Patient underwent trigger point injection lumbar area yesterday with Dr. Oscar. Patient states that she woke with chest pain and shortness of breath at all started at the same time. She denies any recent cough, fever, chills, nausea, vomiting. Patient does have pain in the chest with deep inspiration. Patient states that she has seen Dr. Franco in the past for asthma but not recently. Patient came into [facility] emergency center for evaluation. Patient was found to be afebrile, initial blood pressure 135/78, heart rate 87, respiratory rate 24, pulse ox 92% on room air. Chest x-ray reveals minimal atelectasis left lung base. Mild fibrotic changes. Normal heart. CT of the chest was negative for pulmonary embolism. Nonspecific patchy groundglass opacities in the bilateral upper lobes and left lower lobe. This may represent aspiration given the esophageal finding versus infectious inflammatory process. Patulous fluid-filled esophagus. WBC 13.4, BUN 29 creatinine 0.85, blood sugar 136. Electrolytes normal. AST 37, troponin negative, influenza testing negative. Patient was started on a Zithromax and ceftriaxone admitted to the MedSurg floor, we have added in consult with Briana Loo. Blood culture is in progress. 11/15: Patient is afebrile, heart rate 72, blood pressure 127/71, pulse ox 95% on room air. Repeat blood work reveals WBC 16.9, CO2 18, BUN 24 and creatinine 2.73. Blood sugars run between 154 and 205. AST 38, ALT 36, alkaline phosphatase 63. Repeat chest x-ray reveals resolving infiltrate. Very minimal infiltrate remains present. Patient is seen and followed by Dr. rDew and patient cleared for discharge home most likely with Augmentin and prednisone and follow up with Dr. Franco. States that her breathing is much improved. She feels better today. She is walking to the bathroom but not in the hallway. She is currently on Zosyn and Levaquin. Solu-Medrol will be discontinued tonight and prednisone initiated in the morning. 11/16: Patient is afebrile, heart rate 70, pulse ox 96% on room air, blood pressure 160/85. Blood sugars are running between 134 and 220. Patient states she still has some residual difficulty breathing but much improved since she was admitted. Patient has been transitioned to oral prednisone this morning. Patient is resting in chair and appears to be in no acute distress. She has been cleared for discharge by pulmonary medicine. Patient will be discharged home today in stable condition. Discharge diagnoses: 1. Bilateral pneumonia, possible aspiration pneumonia. 2. Mild intermittent asthma, mild exacerbation. 3. Hypertension. 4. Hypothyroidism. 5. Gastroesophageal reflux disease. 6. Diabetes mellitus type 2, diet controlled. 7. Remote history of tobacco use. Discharge plan: home Impression and plan of care have been directed as dictated by the signing physician. Roxane York nurse practitioner acting as scribe for signing physician. Patient Condition at Discharge: Good Plan - Discharge Summary Discharge Rx Participant: No New Discharge Prescriptions: New Amoxicillin/Potassium Clav [Augmentin 875-125 Tablet] 1 each PO Q12HR #14 tab predniSONE 0 mg PO DIRECTED #18 tab Continue Sennosides-Docusate Sodium [Senokot-S] 1 tab PO BID Albuterol Inhaler [Ventolin Hfa Inhaler] 1 - 2 puff INHALATION RT-Q6H PRN PRN Reason: Shortness Of Breath amLODIPine BESYLATE [Norvasc] 10 mg PO QAM Omeprazole 40 mg PO QAM Montelukast [Singulair] 10 mg PO HS Metoprolol Tartrate [Lopressor] 50 mg PO BID Hydrochlorothiazide [Hydrodiuril] 25 mg PO QAM Aspirin EC [Ecotrin Low Dose] 81 mg PO DAILY Lisinopril [Prinivil] 20 mg PO BID Levothyroxine Sodium [Synthroid] 37.5 mcg PO QAM Loratadine [Claritin] 10 mg PO DAILY Multivitamins, Thera [Multivitamin (formulary)] 1 tab PO DAILY Biotin 5,000 mcg PO DAILY Budesonide-Formot 160-4.5 Mcg [Symbicort 160-4.5 Mcg Inhaler] 1 puff INHALATION RT-BID Nystatin 100,000 Unit/gm Powd [Mycostatin Powder] 1 applic TOPICAL TID PRN PRN Reason: IRRITATION Discharge Medication List Albuterol Inhaler [Ventolin Hfa Inhaler] 1 - 2 puff INHALATION RT-Q6H PRN 08/05/14 [History] Aspirin EC [Ecotrin Low Dose] 81 mg PO DAILY 08/05/14 [History] Hydrochlorothiazide [Hydrodiuril] 25 mg PO QAM 08/05/14 [History] Levothyroxine Sodium [Synthroid] 37.5 mcg PO QAM 08/05/14 [History] Lisinopril [Prinivil] 20 mg PO BID 08/05/14 [History] Metoprolol Tartrate [Lopressor] 50 mg PO BID 08/05/14 [History] Montelukast [Singulair] 10 mg PO HS 08/05/14 [History] Omeprazole 40 mg PO QAM 08/05/14 [History] Sennosides-Docusate Sodium [Senokot-S] 1 tab PO BID 08/05/14 [History] amLODIPine BESYLATE [Norvasc] 10 mg PO QAM 08/05/14 [History] Loratadine [Claritin] 10 mg PO DAILY 11/26/14 [History] Multivitamins, Thera [Multivitamin (formulary)] 1 tab PO DAILY 04/07/16 [Hi story] Biotin 5,000 mcg PO DAILY 10/02/18 [History] Budesonide-Formot 160-4.5 Mcg [Symbicort 160-4.5 Mcg Inhaler] 1 puff INHALATION RT-BID 01/09/19 [History] Nystatin 100,000 Unit/gm Powd [Mycostatin Powder] 1 applic TOPICAL TID PRN 11/14/19 [History] Amoxicillin/Potassium Clav [Augmentin 875-125 Tablet] 1 each PO Q12HR #14 tab 11/16/19 [Rx] predniSONE 0 mg PO DIRECTED #18 tab 11/16/19 [Rx] Follow up Appointment(s)/Referral(s): Sina Tam MD [Primary Care Provider] - 1 Week (please call office to set up appt.) Quentin Franco MD [STAFF PHYSICIAN] - 11/27/19 2:00 am Patient Instructions/Handouts: Pneumonia (DC) Activity/Diet/Wound Care/Special Instructions: activity as tolerated heart healthy diet Discharge Disposition: HOME SELF-CARE
== END 2019-11-16 13:01 | disposition home or self-care (01) | DRG 178 ==
LOC: EC 04:35 → 6NMEDSUR 07:31
PROVIDERS: ADMIT Family Medicine; ATTEND Family Medicine
DX: J69.0 Pneumonitis due to inhalation of food and vomit (principal); J45.21 Mild intermittent asthma with (acute) exacerbation; I95.9 Hypotension, unspecified; E11.9 Type 2 diabetes mellitus without complications; I10 Essential (primary) hypertension; E03.9 Hypothyroidism, unspecified; G89.29 Other chronic pain; K21.9 Gastro-esophageal reflux disease without esophagitis; N39.3 Stress incontinence (female) (male); K59.00 Constipation, unspecified; M54.41 Lumbago with sciatica, right side; M19.90 Unspecified osteoarthritis, unspecified site; E66.9 Obesity, unspecified; Z68.30 Body mass index [BMI] 30.0-30.9, adult; Z87.891 Personal history of nicotine dependence; Z79.82 Long term (current) use of aspirin; Z79.51 Long term (current) use of inhaled steroids; Z79.890 Hormone replacement therapy; Z79.899 Other long term (current) drug therapy; Z90.49 Acquired absence of other specified parts of digestive tract; Z90.710 Acquired absence of both cervix and uterus; Z96.653 Presence of artificial knee joint, bilateral; Z98.84 Bariatric surgery status; Z87.09 Personal history of other diseases of the respiratory system; Z98.890 Other specified postprocedural states; Z91.02 Food additives allergy status; Z88.5 Allergy status to narcotic agent; Z91.018 Allergy to other foods; Z91.048 Other nonmedicinal substance allergy status; Z82.49 Family history of ischemic heart disease and other diseases of the circulatory system; Z81.4 Family history of other substance abuse and dependence
CPT/HCPCS: 36415; 71046; 71275; 80053; 82150; 83036; 83690; 83735; 84484; 85025; 85027; 85379; 85610; 85730; 87040; 87070; 87205; 87502; 93005; 94640; 94760; 96365; 96375; 99285

== ENCOUNTER → 2019-11-26 | Outpatient (CLI) | payer MEDICARE ==
[2019-11-26 14:59] VITALS: BP 125/84; PULSE 73; TEMP 98; BMI 44.6
--- NOTE | 2019-11-27 12:21 | P.HPBAR ---
Bariatric H&P - History & Physicial H&P Date: 11/26/19 History & Physicial: Visit/CC: lap band follow up Patient initial contact: Initial weight: 142.882 kg Initial weight in pounds: 315.00 Height: 4 ft 9 in Initial BMI: 68.1 Last weight: Current weight: 93.44 kg Current weight in pounds: 206.00 Current BMI: 44.6 [place] body weight (based on NIH guidelines): 38.555 kg Excess body weight loss: 47.3% The patient is a 74 year-old F who presents for Bariatric Assessment. Patient resents today for her LAP-BAND adjustment. She requesting a fill of her band. She currently is hungry. Past Medical History Past Medical History: Asthma, GERD/Reflux, Hypertension, Osteoarthritis (OA), Pneumonia, Thyroid Disorder Additional Past Medical History / Comment(s): DIET [id number]-ff meds X10 yrs. History of Any Multi-Drug Resistant Organisms: None Reported Past Surgical History: Adenoidectomy, Appendectomy, Bariatric Surgery, Cholecystectomy, Hysterectomy, Joint Replacement, Tonsillectomy Additional Past Surgical History / Comment(s): Bilateral knee replacements, Lap band, eyelid surgery, Panniculectomy. PAIN CLINIC PROC. lap band port replacement 2-20 Past Anesthesia/Blood Transfusion Reactions: No Reported Reaction Additional Past Anesthesia/Blood Transfusion Reaction / Comm: PONV once with hysterectomy. Past Psychological History: No Psychological Hx Reported Additional Psychological History / Comment(s): Pt resides alone in her home with 2 steps. She owns a cane/walker but does not need to use them. She drives. Smoking Status: Former smoker Past Alcohol Use History: Rare Additional Past Alcohol Use History / Comment(s): Patient smokes cigarettes for 22 years and quit in 1985. She has rare alcohol use. She is . Patient is really tired from school bus driving. Past Drug Use History: None Reported - Past Family History Mother Family Medical History: No Reported History Additional Family Medical History / Comment(s): Mother from CHF at the age of 69yrs Father Family Medical History: Myocardial Infarction ([place]) Additional Family Medical History / Comment(s): Father of a [place] at the age of 63 yrs. Sister(s) Additional Family Medical History / Comment(s): Patient has one sister that from overdose of medications. Patient does not have any brothers. Patient has 2 sons with no major medical problems. Surgical - Exam Vital Signs Temp Pulse BP 98.0 F 73 125/84 11/26/19 14:57 11/26/19 14:57 11/26/19 14:57 - General well developed, no distress - Eyes PERRL - ENT normal pinna - Neck no masses - Respiratory normal expansion - Cardiovascular Rhythm: regular - Abdomen Abdomen: soft, non tender Bariatric Assessment & Plan Plan: Patient LAP-BAND was adjusted. She has 3 mL added to the band. She will follow-up in 4 weeks. Bariatric Checklist Checklist: Plan: Checklist: EGD: 1. Hiatal hernia: 2. H. Pylori: HgbA1c: Vitamin D: Smoking: Former smoker Primary care physician referral: DR SANDRO MAURO Psychiatry clearance: Cardiology clearance: Sleep study: Diet journal: VTE risk score: VTE risk level: Rehab needs at discharge:
== END ==
LOC: BARWHC3 13:46
PROVIDERS: ATTEND Surgery
DX: Z46.51 Encounter for fitting and adjustment of gastric lap band (principal); Z87.891 Personal history of nicotine dependence
CPT/HCPCS: 99212

== ENCOUNTER → 2019-11-28 | Outpatient (CLI) | payer MEDICARE ==
[2019-11-28 11:47] VITALS: BP 98/59; PULSE 78; TEMP 98.2; BMI 43.9
--- NOTE | 2019-11-28 12:01 | P.HPBAR ---
Bariatric H&P - History & Physicial H&P Date: 11/28/19 History & Physicial: Visit/CC: lap band follow up Patient initial contact: Initial weight: 142.882 kg Initial weight in pounds: 315.00 Height: 4 ft 9 in Initial BMI: 68.1 Last weight: Current weight: 92.079 kg Current weight in pounds: 203.00 Current BMI: 43.9 [place] body weight (based on NIH guidelines): 38.555 kg Excess body weight loss: 48.6% The patient is a 74 year-old F who presents for Bariatric Assessment. Patient presents for lap band adjusted. She states her band is too tight. She's had some trouble swallowing last night. Past Medical History Past Medical History: Asthma, GERD/Reflux, Hypertension, Osteoarthritis (OA), Pneumonia, Thyroid Disorder Additional Past Medical History / Comment(s): DIET [id number]-gl meds X10 yrs. History of Any Multi-Drug Resistant Organisms: None Reported Past Surgical History: Adenoidectomy, Appendectomy, Bariatric Surgery, Cholecystectomy, Hysterectomy, Joint Replacement, Tonsillectomy Additional Past Surgical History / Comment(s): Bilateral knee replacements, Lap band, eyelid surgery, Panniculectomy. PAIN CLINIC PROC. lap band port replacement 2-20 Past Anesthesia/Blood Transfusion Reactions: No Reported Reaction Additional Past Anesthesia/Blood Transfusion Reaction / Comm: PONV once with hysterectomy. Past Psychological History: No Psychological Hx Reported Additional Psychological History / Comment(s): Pt resides alone in her home with 2 steps. She owns a cane/walker but does not need to use them. She drives. Smoking Status: Former smoker Past Alcohol Use History: Rare Additional Past Alcohol Use History / Comment(s): Patient smokes cigarettes for 22 years and quit in 1985. She has rare alcohol use. She is . Patient is really tired from school bus driving. Past Drug Use History: None Reported - Past Family History Mother Family Medical History: No Reported History Additional Family Medical History / Comment(s): Mother from CHF at the age of 69yrs Father Family Medical History: Myocardial Infarction ([place]) Additional Family Medical History / Comment(s): Father of a [place] at the age of 63 yrs. Sister(s) Additional Family Medical History / Comment(s): Patient has one sister that from overdose of medications. Patient does not have any brothers. Patient has 2 sons with no major medical problems. Surgical - Exam Vital Signs Temp Pulse BP 98.2 F 78 98/59 11/28/19 11:45 11/28/19 11:45 11/28/19 11:45 - General well developed, well nourished, no distress - Eyes PERRL - ENT normal pinna - Neck no masses - Respiratory normal expansion - Cardiovascular Rhythm: regular - Abdomen Abdomen: soft, non tender Bariatric Assessment & Plan Plan: Patient LAP-BAND was just. She had 0.7 mL removed from the band. She currently is 1.8 mL in the band. She's ill drink water without difficulty. Bariatric Checklist Checklist: Plan: Checklist: EGD: 1. Hiatal hernia: 2. H. Pylori: HgbA1c: Vitamin D: Smoking: Former smoker Primary care physician referral: DR SANDRO MAURO Psychiatry clearance: Cardiology clearance: Sleep study: Diet journal: VTE risk score: VTE risk level: Rehab needs at discharge:
== END | disposition home or self-care (01) ==
LOC: BARWHC3 11:22
PROVIDERS: ATTEND Surgery
DX: Z46.51 Encounter for fitting and adjustment of gastric lap band (principal); Z87.891 Personal history of nicotine dependence; Z98.84 Bariatric surgery status; Z90.49 Acquired absence of other specified parts of digestive tract; Z98.890 Other specified postprocedural states; Z90.710 Acquired absence of both cervix and uterus
CPT/HCPCS: 99212

== ENCOUNTER → 2020-02-04 | Outpatient (CLI) | payer MEDICARE ==
--- NOTE | 2020-02-04 12:12 | P.PAINPG ---
Subjective Progress Note Date: 02/04/20 THIS ENCOUNTER WAS PERFORMED A TELEMEDICINE VISIT VIA TWO-WAY AUDIO TO MINIMIZE RISK AND TRANSMISSION OF COVID-19. This is a 74-year-old pleasant lady with history of chronic lower back pain due to lumbar spondylosis, lumbar myofascial pain and severe lumbar stenosis. She h as been using flexeril and tylenol for pain; medications helping with pain, no side effects. Pain today is located in low back, with occasional radiation to left leg, rated as 6-10/10, described as sharp, stabbing; worse with standing, walking; better with medications, rest, sitting. She also recently pulled a muscle in her left groin while swinging her leg over while getting out of bed. Patient denies new-onset weakness, bowel/bladder incontinence, or any other signs or symptoms of cauda equina syndrome. There are no signs of acute intoxication, and no indications of medication diversion or overuse. In addition to above, 13-point review of systems is also negative for chest pain, shortness of breath, changes in vision, changes in hearing, new onset weakness, abdominal pain, diarrhea, extreme fatigue, malaise, fever, skin changes, homicidal or suicidal ideation, or bowel or bladder incontinence. . Objective Physical exam was unable to be performed audio telemetry medicine revisit Assessment: Morbid obesity Lumbar spondylosis without myelopathy Severe lumbar stenosis centrally Myofascial pain in the lumbar area Groin muscle strain Plan: 1. Medications: Flexeril 5 mg daily at bedtime #30 pills with 2 refills 2. Procedures: none currently 3. Disposition: return to clinic in 12 weeks for medication management 4. Maps were reviewed and were appropriate; no current opioid prescriptions. PQRS Measure Charge Sheet PQRS Narrative: Smoking Status Former smoker Narcotic Agreement Date Signed 04/26/19 Hx Alcohol Use (MH) Yes: OCCASIONAL Home Medications: Ambulatory Orders Albuterol Inhaler (Mhu) [Ventolin Hfa Inhaler (Mhu)] 1 - 2 puff INHALATION RT- Q6H PRN 08/05/14 Aspirin EC [Ecotrin Low Dose] 81 mg PO DAILY 08/05/14 Hydrochlorothiazide [Hydrodiuril] 25 mg PO QAM 08/05/14 Levothyroxine Sodium [Synthroid] 37.5 mcg PO QAM 08/05/14 Lisinopril [Prinivil] 20 mg PO BID 08/05/14 Metoprolol Tartrate [Lopressor] 50 mg PO BID 08/05/14 Montelukast [Singulair] 10 mg PO HS 08/05/14 Omeprazole 40 mg PO QAM 08/05/14 Sennosides-Docusate Sodium [Senokot-S] 1 tab PO BID 08/05/14 amLODIPine BESYLATE [Norvasc] 10 mg PO QAM 08/05/14 Loratadine [Claritin] 10 mg PO DAILY 11/26/14 Multivitamins, Thera [Multivitamin (formulary)] 1 tab PO DAILY 04/07/16 Biotin 5,000 mcg PO DAILY 10/02/18 Budesonide-Formot 160-4.5 Mcg [Symbicort 160-4.5 Mcg Inhaler] 1 puff INHALATION RT-BID 01/09/19 Acetaminophen/Diphenhydramine [Tylenol Pm Ex-Strength Caplet] 2 tab PO DIRECTED PRN 02/01/20 Controlled Substance Measures - Controlled Substance Measures Is patient prescribed a controlled substance at discharge?: No
== END | disposition home or self-care (01) ==
LOC: PNWHC3 07:43
PROVIDERS: ATTEND Anesthesiology
DX: Z53.9 Procedure and treatment not carried out, unspecified reason (principal)

== ENCOUNTER → 2020-02-04 | Outpatient (CLI) | payer MEDICARE ==
[2020-02-04 14:08] VITALS: BP 152/95; PULSE 64; RESP 20; TEMP 98; BMI 45.2
--- NOTE | 2020-02-04 14:19 | P.HPBAR ---
Bariatric H&P - History & Physicial H&P Date: 02/04/20 History & Physicial: Visit/CC: Requesting a fill Patient initial contact: Initial weight: 142.882 kg Initial weight in pounds: 315.00 Height: 4 ft 9 in Initial BMI: 68.1 Last weight: Current weight: 94.892 kg Current weight in pounds: 209.20 Current BMI: 45.2 [place] body weight (based on NIH guidelines): 38.555 kg Excess body weight loss: 46.0% The patient is a 74 year-old F who presents for Bariatric Assessment. Patient presents today for bariatric follow-up. She is requesting a fill of her LAP- BAND. She currently feels hungry. Past Medical History Past Medical History: Asthma, GERD/Reflux, Hypertension, Osteoarthritis (OA), Pneumonia, Thyroid Disorder Additional Past Medical History / Comment(s): DIET CONTROLLED-DIABETIC, back pain. , has Lap Band, hospitalized with pneumonia in october 2019., states she pulled her groin muscle 2 1/2 weeks ago . History of Any Multi-Drug Resistant Organisms: None Reported Past Surgical History: Adenoidectomy, Appendectomy, Bariatric Surgery, Cholecystectomy, Hysterectomy, Joint Replacement, Tonsillectomy Additional Past Surgical History / Comment(s): Bilateral knee replacements, Lap band, eyelid surgery, Panniculectomy. PAIN CLINIC PROC. lap band port replacement 2-20 Past Anesthesia/Blood Transfusion Reactions: No Reported Reaction Additional Past Anesthesia/Blood Transfusion Reaction / Comm: PONV once with hysterectomy. Smoking Status: Former smoker - Past Family History Mother Family Medical History: No Reported History Additional Family Medical History / Comment(s): Mother from CHF at the age of 69yrs Father Family Medical History: Myocardial Infarction ([place]) Additional Family Medical History / Comment(s): Father of a [place] at the age of 63 yrs. Sister(s) Additional Family Medical History / Comment(s): Patient has one sister that from overdose of medications. Patient does not have any brothers. Patient has 2 sons with no major medical problems. Surgical - Exam Vital Signs Temp Pulse Resp BP 98.0 F 64 20 152/95 02/04/20 14:02 02/04/20 14:02 02/04/20 14:02 02/04/20 14:02 - General well developed, well nourished, no distress - Eyes PERRL - ENT normal pinna - Neck no masses - Respiratory normal expansion - Cardiovascular Rhythm: regular - Abdomen Abdomen: soft, non tender Bariatric Assessment & Plan Plan: Patient's lap band was adjusted. She had 0.5 mL added to the band. She currently is 2.3 mL in the band. She'll follow-up in 4 weeks. Bariatric Checklist Checklist: Plan: Checklist: EGD: 1. Hiatal hernia: 2. H. Pylori: HgbA1c: Vitamin D: Smoking: Former smoker Primary care physician referral: DR SANDRO MAURO Psychiatry clearance: Cardiology clearance: Sleep study: Diet journal: VTE risk score: VTE risk level: Rehab needs at discharge:
== END | disposition home or self-care (01) ==
LOC: BARWHC3 13:40
PROVIDERS: ATTEND Surgery
DX: Z46.51 Encounter for fitting and adjustment of gastric lap band (principal); Z98.84 Bariatric surgery status; Z87.891 Personal history of nicotine dependence
CPT/HCPCS: 99212

== ENCOUNTER → 2020-02-06 | Outpatient (CLI) | payer MEDICARE ==
[2020-02-06 10:42] VITALS: BP 123/84; PULSE 74; TEMP 97.6; BMI 30.1
--- NOTE | 2020-02-06 11:22 | P.HPBAR ---
Bariatric H&P - History & Physicial H&P Date: 02/06/20 History & Physicial: Visit/CC: lap band follow up Patient initial contact: Initial weight: 142.882 kg Initial weight in pounds: 315.00 Height: 5 ft 9 in Initial BMI: 46.5 Last weight: Current weight: 92.533 kg Current weight in pounds: 204.00 Current BMI: 30.1 [place] body weight (based on NIH guidelines): 65.771 kg Excess body weight loss: 65.2% The patient is a 74 year-old F who presents for Bariatric Assessment. The patient had a recent adjustment of her LAP-BAND. She currently has dysphagia. She is requesting fluid to be removed. Past Medical History Past Medical History: Asthma, GERD/Reflux, Hypertension, Osteoarthritis (OA), Pneumonia, Thyroid Disorder Additional Past Medical History / Comment(s): DIET CONTROLLED-DIABETIC, back pain. , has Lap Band, hospitalized with pneumonia in october 2019., states she pulled her groin muscle 2 1/2 weeks ago . History of Any Multi-Drug Resistant Organisms: None Reported Past Surgical History: Adenoidectomy, Appendectomy, Bariatric Surgery, Cholecystectomy, Hysterectomy, Joint Replacement, Tonsillectomy Additional Past Surgical History / Comment(s): Bilateral knee replacements, Lap band, eyelid surgery, Panniculectomy. PAIN CLINIC PROC. lap band port replacement 2-20 Past Anesthesia/Blood Transfusion Reactions: No Reported Reaction Additional Past Anesthesia/Blood Transfusion Reaction / Comm: PONV once with hysterectomy. Past Psychological History: No Psychological Hx Reported Additional Psychological History / Comment(s): Pt resides alone in her home with 2 steps. She owns a cane/walker . She drives. Smoking Status: Former smoker Past Alcohol Use History: Rare Additional Past Alcohol Use History / Comment(s): Patient smokes cigarettes for 22 years and quit in 1985. Past Drug Use History: None Reported - Past Family History Mother Family Medical History: No Reported History Additional Family Medical History / Comment(s): Mother from CHF at the age of 69yrs Father Family Medical History: Myocardial Infarction ([place]) Additional Family Medical History / Comment(s): Father of a [place] at the age of 63 yrs. Sister(s) Additional Family Medical History / Comment(s): Patient has one sister that from overdose of medications. Patient does not have any brothers. Patient has 2 sons with no major medical problems. Surgical - Exam Vital Signs Temp Pulse BP 97.6 F 74 123/84 02/06/20 10:39 02/06/20 10:39 02/06/20 10:39 - General well developed, no distress - Eyes PERRL - Abdomen Abdomen: soft, non tender Bariatric Assessment & Plan Plan: 0.3 mL of the removal LAP-BAND. There is currently 2 mL in the band. She'll follow-up in 4 weeks. Bariatric Checklist Checklist: Plan: Checklist: EGD: 1. Hiatal hernia: 2. H. Pylori: HgbA1c: Vitamin D: Smoking: Former smoker Primary care physician referral: DR SANDRO MAURO Psychiatry clearance: Cardiology clearance: Sleep study: Diet journal: VTE risk score: VTE risk level: Rehab needs at discharge:
== END | disposition home or self-care (01) ==
LOC: BARWHC3 09:56
PROVIDERS: ATTEND Surgery
DX: Z46.51 Encounter for fitting and adjustment of gastric lap band (principal); Z87.891 Personal history of nicotine dependence; Z98.84 Bariatric surgery status; Z90.49 Acquired absence of other specified parts of digestive tract; Z90.710 Acquired absence of both cervix and uterus
CPT/HCPCS: 99212

== ENCOUNTER → 2020-02-27 | Outpatient (CLI) | payer MEDICARE ==
[2020-02-27 13:48] VITALS: BP 123/79; PULSE 75; RESP 16
--- NOTE | 2020-02-27 13:57 | P.PN ---
Progress Note - Text Progress Note Date: 02/27/20 74 female who presents with a chief complaint low back pain and left hip pain. She briefly saw her orthopedic surgeon who discussed hip arthroplasty. She's having severe pain in her left hip groin area radiating to the anterior part of her quadricep. She is also having significant plates of low back pain. She's having severe difficulty with standing, flexion, bending. Pain today is a 10 out of 10 in severity. Patient is rather emotional because of the pain. She is asking for anything to be done as soon as possible. She describes as a throbbing aching pain in her low back and her left hip with very difficult mobility of her left leg secondary to pain. Nothing seems to ease the pain worse any activity exacerbates it significantly. In addition to above, 13-point review of systems is also negative for chest pain, shortness of breath, changes in vision, changes in hearing, new onset weakness, abdominal pain, diarrhea, extreme fatigue, malaise, fever, skin changes, homicidal or suicidal ideation, or bowel or bladder incontinence. Vital Signs: Reviewed in EMR, obese Gen: WDWN, AAOx3, NAD HEENT: NCAT, EOMI, hearing grossly normal Pulm: resp unlabored Abd: soft, NT, ND Neck: supple, trachea midline cervical spine exam: motor strength normal bilateral upper extremities Lumbar spine exam: motor strength lower extremities ,thigh and legs .5/5 deep tendon reflexes : normal Knee Jerk , normal ankle Jerk . lumber facet positive bilateral straight leg raising test positive at 60 degree RT Dago test negative bilateral Range of motion: Range of motion in flexion of the lumbar spine 30 degrees Range of motion range of motion of extension of the lumbar spine -10 Tenderness to palpation along left SI joint Tenderness to palpation along left lumbar paraspinal muscles from L2-S1 not appreciated on the right. Left hip exam: Pain with motion, crepitus appreciated. Patient unable to externally rotate secondary to pain Neuro: CN II-XII grossly intact, muscle strength lower extremities PRESERVED Imaging: Reviewed in EMR Assessment: 1. lumbar spinal stenosis 2. lumbar radiculopathy 3. lumbar spondylosis 4. Myofascial/myalgia pain of lumbar paraspinal muscles 5. Left hip osteoarthritis Plan: 1. Explanation: Diagnoses, prognoses, and multiple treatment options including but not limited to physical therapy, interventional therapies, adjuvant medical therapies, narcotic medication therapies, and surgery were discussed with the patient and all questions were answered to the patient's satisfaction. 2. Opioid agreement: None 3. Counseling: The patient was counseled extensively on BMI and exercise. Specifically, the patient was instructed regarding the importance of obesity and exercise in the context of both chronic pain and overall health. 4. Procedures: None at the moment, consider trigger point injections along the left lumbar paraspinal and left upper gluteal if patient does not improve. 5. Consultations: None 6. Investigations: None 7. Medications: Flexeril 5mg twice a day as needed 14 days 8. Disposition: We'll schedule patient for left interarticular hip injection next available date. Patient also will need a repeat bilateral lumbar radio frequency ablation of L4 5 and L5-S1 facet joints.
== END | disposition home or self-care (01) ==
LOC: PNWHC3 13:29
PROVIDERS: ATTEND Anesthesiology
DX: M48.061 Spinal stenosis, lumbar region without neurogenic claudication (principal); M47.26 Other spondylosis with radiculopathy, lumbar region; M79.10 Myalgia, unspecified site; M16.12 Unilateral primary osteoarthritis, left hip
CPT/HCPCS: 99211

== ENCOUNTER → 2020-02-28 | Day surgery (SDC) | payer MEDICARE ==
[~2020-02-28] MED LIST changes: -DEXAMETHASONE SOD PHOSPHATE 10 MG/ML 1 ML VIAL IV ONE; +IOPAMIDOL M200 10 ML VIAL ONE; +IV FLUID CONTINUATION 1,000 ML IV ONE; +LACTATED RINGERS 1,000 ML IV ONE; -LACTATED RINGERS 1,000 ML IV SCH; +LIDOCAINE 1% (10MG/ML) FOR IV START INTRADERMA ONE; -LIDOCAINE 1% 20 ML VIAL (10MG/ML) FOR IV START INTRADERMA PRN; +LIDOCAINE 1% INJ 10MG/ML (20 ML MDV) ONE; +MIDAZOLAM 2 MG/2 ML VIAL ONE; -ONDANSETRON 4 MG/2 ML VIAL IVP ONE; +TRIAMCINOLONE ACETONIDE 40 MG/ML 1 ML VIAL ONE; -fentaNYL (PF) 50 MCG/ML 2 ML AMP IV PRN; +fentaNYL (PF) 50 MCG/ML 2 ML AMP ONE; +methylPREDNISolone ACETATE 40 MG/ML 1 ML VIAL ONE
[2020-02-28 11:50] VITALS: RESP 16; TEMP 97
--- NOTE | 2020-02-28 12:37 | P.PCN ---
Date of Procedure: 02/28/20 Description of Procedure: Preoperative diagnoses: 1. Left hip osteoarthritis Postoperative diagnoses: 1. Left hip osteoporosis Procedure: Left hip intra-articular steroid injection with fluoroscopy Anesthesia: Versed 1 mg and fentanyl 50 g and local anesthetic Fluoroscopy image was saved and stored. Description of the procedure: Patient was seen and identified in the preoperative holding area, risk and benefits, complications ,and alternatives of the procedure were discussed with the patient and patient agreed with the preceding, patient signed the consent and IV was started and vital signs were monitored throughout the procedure and it was stable. The patient was taken to the operating room and placed in supine position the groin area was prepped with chlorhexidine 3 and draped with the standard fashion. Local anesthetic was used with lidocaine 1% then using 25 -gauge needle, under direct fluoroscopy and anterior posterior image of the hip joint was ascertained. A 22-gauge Quincke needle was then advanced to the femoral neck until contact with bone was made. After negative aspiration for blood, 3 mL of Omnipaque was then injected to confirm placement of needle into the joint capsule. Once correct position was confirmed and after negative aspiration for blood, a solution consisting of 5 ML's of 1% lidocaine with 40 mg/1 mL of Kenalog was administered. A washout image was then obtained to confirm adequate spread within the joint capsule. Needle was removed, and a Band-Aid was placed. Patient tolerated procedure well with no complications Disposition Schedule patient for bilateral lumbar radio frequency ablation of L4-L5 and L5-S1 facet joints.
--- NOTE | 2020-02-28 12:54 | FL ---
Fluoroscopy INDICATION: Pain FINDINGS: Fluoroscopy time: 8 seconds. Images obtained: 2. IMPRESSIONS: 1. Documentation of fluoroscopy.
[2020-02-28 13:09] VITALS: BP 117/71; PULSE 59
== END ==
LOC: ORPAIN 10:32
PROVIDERS: ATTEND Anesthesiology
DX: M16.12 Unilateral primary osteoarthritis, left hip (principal); M81.0 Age-related osteoporosis without current pathological fracture; Z88.5 Allergy status to narcotic agent; Z88.8 Allergy status to other drugs, medicaments and biological substances
CPT/HCPCS: 20610; J2250; J1030; J3301; J2001; J3010; Q9966

== ENCOUNTER → 2020-03-10 | Outpatient (CLI) | payer MEDICARE ==
[2020-03-10 13:13] VITALS: BP 138/93; PULSE 73; TEMP 98.1; BMI 42.8
--- NOTE | 2020-03-20 12:45 | P.HPBAR ---
Bariatric H&P - History & Physicial H&P Date: 03/20/20 History & Physicial: Visit/CC: lap band follow up Patient initial contact: Initial weight: 142.882 kg Initial weight in pounds: 315.00 Height: 4 ft 9 in Initial BMI: 68.1 Last weight: Current weight: 89.811 kg Current weight in pounds: 198.00 Current BMI: 42.8 [place] body weight (based on NIH guidelines): 38.555 kg Excess body weight loss: 50.8% The patient is a 74 year-old F who presents for Bariatric Assessment.patient presents today for slelap band follow-upfall. She's had some complaints of GERD. Past Medical History Past Medical History: Asthma, GERD/Reflux, Hypertension, Osteoarthritis (OA), Pneumonia, Thyroid Disorder Additional Past Medical History / Comment(s): DIET CONTROLLED-DIABETIC, back pain. has Lap Band, hospitalized with pneumonia in october 2019, states she pulled her groin muscle couple weeks ago. History of Any Multi-Drug Resistant Organisms: None Reported Past Surgical History: Adenoidectomy, Appendectomy, Bariatric Surgery, Cholecystectomy, Hysterectomy, Joint Replacement, Tonsillectomy Additional Past Surgical History / Comment(s): Bilateral knee replacements, Lap band, eyelid surgery, Panniculectomy. PAIN CLINIC PROC. lap band port replacement 2-20 Past Anesthesia/Blood Transfusion Reactions: Postoperative Nausea & Vomiting (PONV) Additional Past Anesthesia/Blood Transfusion Reaction / Comm: once after hyst Past Psychological History: No Psychological Hx Reported Additional Psychological History / Comment(s): Pt resides alone in her home with 2 steps. She owns a cane/walker . She drives. Smoking Status: Former smoker Past Alcohol Use History: Rare Additional Past Alcohol Use History / Comment(s): Patient smokes cigarettes for 22 years and quit in 1985. Past Drug Use History: None Reported - Past Family History Mother Family Medical History: No Reported History Additional Family Medical History / Comment(s): Mother from CHF at the age of 69yrs Father Family Medical History: Myocardial Infarction ([place]) Additional Family Medical History / Comment(s): Father of a [place] at the age of 63 yrs. Sister(s) Additional Family Medical History / Comment(s): Patient has one sister that from overdose of medications. Patient does not have any brothers. Patient has 2 sons with no major medical problems. Surgical - Exam Vital Signs Temp Pulse BP 98.1 F 73 138/93 03/10/20 13:09 03/10/20 13:09 03/10/20 13:09 - General well developed, well nourished, no distress - Eyes PERRL - ENT normal pinna - Abdomen Abdomen: soft, non tender Bariatric Assessment & Plan Plan: patient's lap band was not adjusted. She has minimal GERD. She'll be observed. She'll follow up in 4 weeks. Bariatric Checklist Checklist: Plan: Checklist: EGD: 1. Hiatal hernia: 2. H. Pylori: HgbA1c: Vitamin D: Smoking: Former smoker Primary care physician referral: DR SANDRO MAURO Psychiatry clearance: Cardiology clearance: Sleep study: Diet journal: VTE risk score: VTE risk level: Rehab needs at discharge:
== END | disposition home or self-care (01) ==
LOC: BARWHC3 12:54
PROVIDERS: ATTEND Surgery
DX: Z48.815 Encounter for surgical aftercare following surgery on the digestive system (principal); Z87.891 Personal history of nicotine dependence
CPT/HCPCS: 99211

== ENCOUNTER 2020-03-13 07:42 | Day surgery (SDC) | payer MEDICARE ==
[2020-03-12 10:20] VITALS: BMI 38.7
[~2020-03-13 07:42] MED LIST changes: -IOPAMIDOL M200 10 ML VIAL ONE; -IV FLUID CONTINUATION 1,000 ML IV ONE; -LACTATED RINGERS 1,000 ML IV ONE; +LACTATED RINGERS 1,000 ML IV SCH; -LIDOCAINE 1% (10MG/ML) FOR IV START INTRADERMA ONE; -LIDOCAINE 1% INJ 10MG/ML (20 ML MDV) ONE; -MIDAZOLAM 2 MG/2 ML VIAL ONE; -TRIAMCINOLONE ACETONIDE 40 MG/ML 1 ML VIAL ONE; -fentaNYL (PF) 50 MCG/ML 2 ML AMP ONE; -methylPREDNISolone ACETATE 40 MG/ML 1 ML VIAL ONE
[2020-03-13 08:26] VITALS: TEMP 97.4
[2020-03-13] MEDS ORDERED: LIDOCAINE 1% (10MG/ML) FOR IV START INTRADERMA ONE (08:26)
[2020-03-13] MEDS ORDERED: MIDAZOLAM 2 MG/2 ML VIAL ONE (08:49)
[2020-03-13] MEDS ORDERED: ROPIVACAINE 5MG/ML 20ML VIAL ONE (08:49)
[2020-03-13] MEDS ORDERED: methylPREDNISolone ACETATE 40 MG/ML 1 ML VIAL ONE (08:49)
[2020-03-13] MEDS ORDERED: fentaNYL (PF) 50 MCG/ML 2 ML AMP ONE (08:49)
--- NOTE | 2020-03-13 09:23 | P.PCN ---
Date of Procedure: 03/13/20 Procedure(s) Performed: PREOPERATIVE DIAGNOSIS: 1-Lumbar Spondylosis with Facet Arthropathy without myelopathy. 2- Lumber degenerative disc disease. 3-sacroiliitis POSTOPERATIVE DIAGNOSIS: 1- Lumbar Spondylosis with Facet Arthropathy without myelopathy. 2- Lumber degenerative disc disease. 3-sacroiliitis PROCEDURES : Radiofrequency thermocoagulation Bilateral L3 , L4 , and L5 medial branch, with fluoroscopic guidance (fluoroscopy images available in the radiology department) ( to denervate the facet joint at Bilateral L4-5 ,and L5-S1 levels ) ANESTHESIA: Moderate sedation with intravenous versed 2 mg and fentaneyl 100 mcg, and local infiltration with Ropivacaine 0.5 % . EBL: Minimal PROCEDURE INDICATION: The patient with low back pain secondary to lumbar facet arthropathy who had more than 50% relief of her pain with previous diagnostic lumbar medial branch block with bupivacaine. PROCEDURE DESCRIPTION / TECHNIQUE: The patient was seen and identified in the preoperative area. Risks, benefits, complications, including but not limited to risk of infection ,bleeding , allergic reactions to the medications and no complete pain releife , and alternatives were discussed with the patient, the patient agreed to proceed with the procedure and signed the consent. IV was started. Vital signs remained stable throughout the procedure. Patient was taken to the OR and time out was completed. The patient was placed in the prone position on the procedure table. The lumber area was prepped and draped in the usual sterile fashion. . Vital signs were closely monitored during the procedure .IV sedation was used during the procedure to decrease patients anxiety. Using AP and then oblique fluoroscopy, the ``eye of the Sat[place] dog corresponding to the connection between the superior and transverse articular processes of right L3, L4, and L5 were identified, marked, and localized with 1% lidocaine. Subsequently, a 18 -tg VENOM radiofrequency cannula with a 10-mm active tip was advanced guided by fluoroscopy to each of the``eyes of the [place] dog at right L3, L4, and L5. Each site then underwent sensory testing at 50 Hz and 0 to 1 volt and motor testing at 2.5 Hz and 0 to 3 volt with local stimulation, but no radicular symptoms down the legs. Thereafter the right L3, L4 , and L5 sites underwent radiofrequency thermocoagulation at 80 degrees celsius for 90 seconds after injecting 0.5 ml of PF Ropivacaine 1ml, then after the thermocoagulation done , 1 ml of the block solution containing Depo-Medrol 20 mg and 3 ml of Ropivacaine 0.5% was injected at the right L3 , L4 , and L5 , levels after negative aspiration of CSF and blood and with no paresthesias. Cannulas were retracted while injecting lidocaine 1% until the needle is out. Cathy same entire procedure was repeated for the left side medial branch at L3, L4 , L5 ( to denervate the left side facet joint at L4- 5, and L5-S1 ) At the end of the procedure, the skin was cleansed and bandages were applied. COMPLICATIONS: No acute complications. DISPOSITION / PLANS: The patient was placed in a supine position and transferred to the recovery area in a stable condition for observation and was discharged from the recovery room after meeting discharge criteria. Home discharge instructions given to the patient by the staff. The patient was reexamined prior to discharge. The patient will schedule a follow up in the clinic in 2-4 weeks.
[2020-03-13] MEDS ORDERED: IV FLUID CONTINUATION 450 ML IV ONE (09:25)
[2020-03-13 09:30] VITALS: RESP 20
--- NOTE | 2020-03-13 09:36 | FL ---
Fluoroscopy INDICATION: Pain FINDINGS: Images obtained: 6. IMPRESSIONS: 1. Documentation of fluoroscopy.
[2020-03-13 09:47] VITALS: BP 135/90; PULSE 67
== END 2020-03-13 09:54 | disposition home or self-care (01) ==
LOC: ORPAIN 07:42
PROVIDERS: ATTEND Specialist
DX: M47.816 Spondylosis without myelopathy or radiculopathy, lumbar region (principal); M51.36 Other intervertebral disc degeneration, lumbar region; M46.1 Sacroiliitis, not elsewhere classified; M25.552 Pain in left hip; I10 Essential (primary) hypertension; J45.909 Unspecified asthma, uncomplicated; E11.9 Type 2 diabetes mellitus without complications; E07.9 Disorder of thyroid, unspecified; Z88.5 Allergy status to narcotic agent; Z91.048 Other nonmedicinal substance allergy status; Z79.82 Long term (current) use of aspirin; Z91.018 Allergy to other foods
CPT/HCPCS: 64635; 64636; J2250; J1030; J3010; J2795; 99152; 99153

== ENCOUNTER → 2020-04-02 | Outpatient (CLI) | payer MEDICARE | END | disposition home or self-care (01) | CPT/HCPCS: 99211 ==

== ENCOUNTER → 2020-04-07 | Outpatient (CLI) | payer MEDICARE ==
--- NOTE | 2020-04-02 12:09 | P.PAINPG ---
Subjective Progress Note Date: 04/02/20 This is follow-up visit for this patient with a history of severe and chronic low back pain secondary to lumbar degenerative disc diseases , lumbar spondylosis with facet arthropathy, and sacroiliitis, and she had left hip arthralgia, previously we have done RFA of the medial branch lumbar area and left hip steroid injection,currently she is complaining of severe low back pain , and she is having severe left hip pain increases with any movement, the pain interfering with the quality of life, she continued to use Tylenol when necessary for pain Patient denies any side effects of the medication, denies excessive drowsiness or sleepiness, denies suicidal ideation, and reports that the current pain medication is helping to control the pain ,and improve activity of daily living Patient denies any motor or sensory deficit , patient denies any fever or night sweats, denies any change in the bowel movements or urination The pain in the low back area is generalized transmitted to the buttock bilaterally, and the left hip . Objective - Exam Physical Examinations : -Constitutiona : Cooperative , not in acute distress . -HEENT : nech : supple , no Lymphadenopathy , normal thyroid size . : eyes : no ptosis , no icterus, no photophobia . - neurologic : Cranial nerve II to XII intact , no focal neurological deffecit . -psychatric : alert , oriented X 3 , appropriate affect , intact judgment and insight . -Lymphatic : no Lymphadenopathy . - musculoskeltal : Lumber spine moter stegnth lower extremities ,thigh and legs 5/5 Right side , 5/5 Left side deep tendon reflexes : normal Knee Jerk , normal ankle Jerk lumber facet Loading Test =positive Right , positive Left Range of motion of the lumbar spine Flexion 30 degrees, extension 10 degrees strait leg raising test = positive at 30 degree on the left side and negative on the right side Fabere test= positive Right , and positive LT . Sever tenderness over the Sacroiliac joint on the Right , and Left sides Generalized tenderness and multiple trigger point identified in the lumbar paraspinal muscles bilaterally Severe tenderness over the left trochanteric bursa. Flexion and extension, and lateral rotation of the left hip associated with pain . Assessment and Plan Plan: Assessment and plan=1-lumbar spondylosis with lumbar facet arthropathy without myelopathy, status post RFA of the medial branch lumbar area 2-lumbar degenerative disc disease. 3-myofascial pain syndrome lumbar paraspinal muscles. 4-left trochanteric bursitis. 5-left hip arthralgia. Patient could benefit from left trochanteric bursa steroid injection under fluoroscopy guidance and from the pontine injection lumbar paraspinal muscles, multiple, bilaterally. Time with Patient: Less than 30 PQRS Measure Charge Sheet Measure #130: Documentation of Current Meds in Medical Chart: Patient's medications documented in chart Measure #226: Tobacco Use: Screen & Cessation Intervention: Pt not a tobacco user Measure #111: Pneumonia Vaccination: Pneumococcal vaccine administered or previously received Measure #47: Advance Care Plan: Advance care planning discussed & documented, pt chose/unable to give Measure #412: Opioid Treatment Agreement: No documentation of signed opioid treatment agreement Measure #408: Opioid Therapy Follow-up Evaluation: Patient had NO f/u eval minimum every 3 months during opioid therapy Measure #317: Preventitive Care & Scrn High Bld Press & F/U: Pre-hypertensive or hypertensive BP documented, pt will f/u with PCP Measure #128: Body Mass Index (BMI) Screening & Follow-up: BMI documented ABOVE normal parameters - f/u documented Measure #131: Pain Assessment & Follow-up: Pain positive & plan documented, Follow-up scheduled Measure #431: Unhealthy Alcohol Use Preventative Care & Scrn: Patient not identified as an unhealthy alcohol user PQRS Narrative: Smoking Status Former smoker Narcotic Agreement Date Signed 04/26/19 Hx Alcohol Use (MH) Yes: OCCASIONAL Home Medications: Ambulatory Orders Albuterol Inhaler (Mhu) [Ventolin Hfa Inhaler (Mhu)] 1 - 2 puff INHALATION RT- Q6H PRN 08/05/14 Aspirin EC [Ecotrin Low Dose] 81 mg PO DAILY 08/05/14 Hydrochlorothiazide [Hydrodiuril] 25 mg PO QAM 08/05/14 Levothyroxine Sodium [Synthroid] 37.5 mcg PO QAM 08/05/14 Lisinopril [Prinivil] 20 mg PO BID 08/05/14 Metoprolol Tartrate [Lopressor] 50 mg PO BID 08/05/14 Montelukast [Singulair] 10 mg PO HS 08/05/14 Omeprazole 40 mg PO QAM 08/05/14 Sennosides-Docusate Sodium [Senokot-S] 1 tab PO BID 08/05/14 amLODIPine BESYLATE [Norvasc] 10 mg PO QAM 08/05/14 Loratadine [Claritin] 10 mg PO DAILY 11/26/14 Multivitamins, Thera [Multivitamin (formulary)] 1 tab PO DAILY 04/07/16 Biotin 5,000 mcg PO DAILY 10/02/18 Budesonide-Formot 160-4.5 Mcg [Symbicort 160-4.5 Mcg Inhaler] 1 puff INHALATION RT-BID 01/09/19 Acetaminophen/Diphenhydramine [Tylenol Pm Ex-Strength Caplet] 2 tab PO DIRECTED PRN 02/01/20 Controlled Substance Measures - Controlled Substance Measures Is patient prescribed a controlled substance at discharge?: No
[2020-04-07 13:30] VITALS: BP 141/92; PULSE 95; RESP 16; TEMP 98.4; BMI 42.6
== END | disposition home or self-care (01) ==
LOC: BARWHC3 12:32
PROVIDERS: ATTEND Surgery
DX: G89.29 Other chronic pain (principal); M51.36 Other intervertebral disc degeneration, lumbar region; M47.816 Spondylosis without myelopathy or radiculopathy, lumbar region; M79.18 Myalgia, other site; M70.62 Trochanteric bursitis, left hip; M46.1 Sacroiliitis, not elsewhere classified; M25.552 Pain in left hip; Z87.891 Personal history of nicotine dependence; Z98.890 Other specified postprocedural states; Z79.82 Long term (current) use of aspirin; Z79.899 Other long term (current) drug therapy
CPT/HCPCS: 99212

== ENCOUNTER 2020-04-17 06:14 | Day surgery (SDC) | payer MEDICARE ==
[2020-04-15 09:19] VITALS: BMI 41.5
[2020-04-17 06:45] VITALS: RESP 17; TEMP 97
[2020-04-17 06:46] LABS: Glucose,Whole Blood 91 mg/dL (75-99)
[2020-04-17] MEDS ORDERED: IOPAMIDOL M200 10 ML VIAL ONE (07:02)
[2020-04-17] MEDS ORDERED: TRIAMCINOLONE ACETONIDE 40 MG/ML 1 ML VIAL ONE (07:02)
[2020-04-17] MEDS ORDERED: fentaNYL (PF) 50 MCG/ML 2 ML AMP ONE (07:02)
[2020-04-17] MEDS ORDERED: MIDAZOLAM 2 MG/2 ML VIAL ONE (07:02)
[2020-04-17] MEDS ORDERED: ROPIVACAINE 5MG/ML 20ML VIAL ONE (07:02)
[2020-04-17] MEDS ORDERED: IV FLUID CONTINUATION 1,000 ML IV ONE (07:24)
[2020-04-17 07:29] VITALS: PULSE 62
--- NOTE | 2020-04-17 07:34 | FL ---
Fluoroscopy HISTORY: Pain 4 seconds fluoroscopy time supplied to the referring clinician. 1 intraoperative C-arm images docume nt the procedure. See dictated report from anesthesia.
[2020-04-17 07:41] VITALS: BP 101/66
--- NOTE | 2020-04-17 08:21 | P.PCN ---
Date of Procedure: 04/17/20 Procedure(s) Performed: Pre OP diagnoses= left trochanteric bursitis .myofascial pain syndrome of lumbar paraspinal muscles bilaterally Postoperative diagnosis= left trochanteric bursitis. myofascial pain syndrome of lumbar paraspinal muscles bilaterally Operation= left trochanteric bursa steroid injection under fluoroscopy guidance. Lumbar paraspinal trigger point injections Anesthesia= IV sedation with Versed and fentanyl and local infiltration with lidocaine 1% 2 mL . Sedation time 10 minutes Fluoroscopy was used for the procedure and fluoroscopic patient's chart. Complications= none . Description of the procedure= patient had history of severe low back pain and hip pain secondary to trochanteric bursitis and lumbar myofascial pain syndrome for this reason patient was a good candidate to have left trochanteric bursa steroid injection and trigger point injections of the lumbar paraspinal musculature. Risks and benefits of the procedure including but not limited to risk of infection and bleeding and not complete pain relief and ALLERGIC reaction to medication discussed with the patient and the alternative also discussed with the patient and patient agreed with the preceding. Patient was taken to the operating room placed in prone position or standard monitors applied, the back and the hip area prepped with chlorhexidine, using fluoroscopic guidance the left greater trochanters were identified. Then, under sterile techniquea 25-gauge needle was used for skin and subcutaneous tissue infiltration with 1% lidocaine 1 mL, then a 22-gauge 5 inch Quincke-type spinal needle advanced slowly under fluoroscopy and placed in the left trochanteric bursa. needle placement confirmed with AP fluoroscopy. Then, 1 mL of Isovue 200 was injected, revealing no intravascular uptake. Then, treatment solution consisting of 4 ML of ropivacaine 0.5% mixed with 40 mg of Kenalog was injected into the left greater trochanter after negative aspiration. there was no paresthesia during the injection and the needle removed and a dressing applied. Then I turned my attention to the lumbar paraspinal trigger point. the patient's back was sterilely prepped in the usual fashion with ChloraPrep. 12 trigger points were identified via palpation of the indicated muscles and marked sterilely. Each trigger point was injected with a 25-gauge half inch needle, with 1 mL of solution consisting of ropivacaine 0.5%. The patient's vital signs were stable afterwards and the procedure was tolerated well. Patient was discharged home with follow-up instructions.
== END 2020-04-17 07:52 | disposition home or self-care (01) ==
LOC: ORPAIN 06:14
PROVIDERS: ATTEND Anesthesiology
DX: M79.18 Myalgia, other site (principal); M70.62 Trochanteric bursitis, left hip; E11.9 Type 2 diabetes mellitus without complications; Z88.5 Allergy status to narcotic agent; Z91.048 Other nonmedicinal substance allergy status; Z79.82 Long term (current) use of aspirin
CPT/HCPCS: 20553; 20610; J2250; J3301; J3010; Q9966; J2795; 99152

== ENCOUNTER → 2020-05-02 | Outpatient (CLI) | payer MEDICARE ==
--- NOTE | 2020-05-02 13:49 | MR ---
EXAMINATION TYPE: MR lumbar spine wo con DATE OF EXAM: 05/02/2020 COMPARISON: None HISTORY: 75-year-old female low back pain into buttocks TECHNIQUE: Multiplanar, multisequence images of the lumbar spine were acquired. FINDINGS: There is a degenerated levoconvex scoliosis centered on the thoracolumbar junction. Moderate to advanced degenerative disc disease L1-L2 and L2-L3 and moderate at additional levels with desiccated, narrowed, and bulging discs. 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 Advanced hypertrophic facet arthropathy and ligamentum flavum thickening at multiple levels. Grade 1 anterolisthesis of L3-L4 and L4-L5. The remaining alignment is maintained. Vertebral body heights are preserved. No suspicious bone marrow replacement. Conus medullaris is normal. At T12-L1, there is a right paracentral disc herniation abutting the ventral cord causing a mild over all narrowing of the spinal canal. Facet arthropathy without significant neural foraminal stenosis. At L1-L2, bulging disc and ligamentum flavum thickening. There is a right paracentral disc herniation . There is circumferential attenuation of the thecal sac without significant spinal canal stenosis. F acet arthropathy is present with a moderate to severe right neural foraminal stenosis. At L2-L3, there is diffuse disc bulge with hypertrophic facet arthropathy and ligamentum. There is mo derate to severe focal spinal canal stenosis with a moderate right and mild left neuroforaminal steno sis. At L3-L4, there is hypertrophic facet arthropathy with ligamentum flavum thickening, bulging disc, an d grade 1 anterolisthesis. Changes result in a severe focal spinal canal stenosis with moderate left and mild right neuroforaminal stenosis. At L4-L5, hypertrophic facet arthropathy with bulging disc and ligamentum flavum thickening. There is moderate overall narrowing of the spinal canal with mild to moderate bilateral neuroforaminal stenos is. At L5-S1, bulging disc with ligamentum flavum thickening and facet arthropathy. Mild narrowing of the spinal canal. Moderate to severe left neuroforaminal stenosis and mild narrowing on the right. Right-sided pelvocaliectasis partially visualized. This may be transient. IMPRESSION: 1. Degenerated levoconvex scoliosis centered along the thoracolumbar junction. 2. Moderate multilevel degenerative disc disease, more advanced at L1-L2 and L2-L3. Background of mil d congenital spinal canal narrowing. 3. Hypertrophic facet arthropathy throughout with ligamentum flavum thickening. 4. Overall changes result in severe focal spinal canal stenosis at L3-L4, moderate to severe at L2-L3 , and moderate at L4-L5. 5. Variable neuroforaminal stenoses as outlined above.
== END | disposition home or self-care (01) ==
LOC: RADMRIMAIN 11:00
PROVIDERS: ATTEND Orthopaedic Surgery
DX: M48.061 Spinal stenosis, lumbar region without neurogenic claudication (principal); M51.36 Other intervertebral disc degeneration, lumbar region
CPT/HCPCS: 72148

== ENCOUNTER → 2020-05-19 | Outpatient (CLI) | payer MEDICARE ==
[2020-05-19 13:45] VITALS: BP 148/89; PULSE 67; TEMP 98.3; BMI 40.6
--- NOTE | 2020-05-19 13:58 | P.HPBAR ---
Bariatric H&P - History & Physicial H&P Date: 05/19/20 History & Physicial: Visit/CC: band f/u Patient initial contact: Initial weight: 142.882 kg Initial weight in pounds: 315.00 Height: 4 ft 9 in Initial BMI: 68.1 Last weight: Current weight: 85.275 kg Current weight in pounds: 188.00 Current BMI: 40.6 [place] body weight (based on NIH guidelines): 38.555 kg Excess body weight loss: 55.2% The patient is a 75 year-old F who presents for Bariatric Assessment. Patient presents today for LAP-BAND follow-up. She lost 10 pounds her last visit. Past Medical History Past Medical History: Asthma, GERD/Reflux, Hypertension, Osteoarthritis (OA), Pneumonia, Thyroid Disorder Additional Past Medical History / Comment(s): DIET CONTROLLED-DIABETIC, back pain. has Lap Band, hospitalized with pneumonia in october 2019, states she pulled her groin muscle couple weeks ago. History of Any Multi-Drug Resistant Organisms: None Reported Past Surgical History: Adenoidectomy, Appendectomy, Bariatric Surgery, Cholecystectomy, Hysterectomy, Joint Replacement, Tonsillectomy Additional Past Surgical History / Comment(s): Bilateral knee replacements, Lap band, eyelid surgery, Panniculectomy. PAIN CLINIC PROC. for back, lap band port replacement 2-20 Past Anesthesia/Blood Transfusion Reactions: Postoperative Nausea & Vomiting (PONV) Additional Past Anesthesia/Blood Transfusion Reaction / Comm: once after hyst Smoking Status: Former smoker - Past Family History Mother Family Medical History: No Reported History Additional Family Medical History / Comment(s): Mother from CHF at the age of 69yrs Father Family Medical History: Myocardial Infarction ([place]) Additional Family Medical History / Comment(s): Father of a CA at the age of 63 yrs. Sister(s) Additional Family Medical History / Comment(s): Patient has one sister that from overdose of medications. Patient does not have any brothers. Patient has 2 sons with no major medical problems. Surgical - Exam Vital Signs Temp Pulse BP 98.3 F 67 148/89 05/19/20 13:43 05/19/20 13:43 05/19/20 13:43 - General well developed, well nourished, no distress - Eyes PERRL - ENT normal pinna - Neck no masses - Respiratory normal expansion - Cardiovascular Rhythm: regular - Abdomen Abdomen: soft, non tender Bariatric Assessment & Plan Plan: Patient is an excellent weight loss this month. She has minimal GERD. No Whitley performed. She'll follow-up in 4 weeks Bariatric Checklist Checklist: Plan: Checklist: EGD: 1. Hiatal hernia: 2. H. Pylori: HgbA1c: Vitamin D: Smoking: Former smoker Primary care physician referral: DR SANDRO MAURO Psychiatry clearance: Cardiology clearance: Sleep study: Diet journal: VTE risk score: VTE risk level: Rehab needs at discharge:
== END | disposition home or self-care (01) ==
LOC: BARWHC3 12:25
PROVIDERS: ATTEND Surgery
DX: Z46.51 Encounter for fitting and adjustment of gastric lap band (principal)
CPT/HCPCS: 99211

== ENCOUNTER → 2020-05-28 | Outpatient (CLI) | payer MEDICARE ==
[2020-05-28 09:29] VITALS: BP 126/79; PULSE 77; RESP 18; TEMP 98.4
--- NOTE | 2020-05-28 09:51 | P.PN ---
Progress Note - Text Progress Note Date: 05/28/20 This is follow-up visit for this patient with a history of severe and chronic low back pain secondary to lumbar degenerative disc diseases , lumbar spondylosis with facet arthropathy, and sacroiliitis, and she had left hip arthralgia, previously we have done RFA of the medial branch lumbar area and left hip steroid injection,currently she is complaining of severe low back pain , and she is having severe left hip pain increases with any movement, the pain interfering with the quality of life, she continued to use Tylenol when necessary for pain Patient denies any side effects of the medication, denies excessive drowsiness or sleepiness, denies suicidal ideation, and reports that the current pain medication is helping to control the pain ,and improve activity of daily living Patient denies any motor or sensory deficit , patient denies any fever or night sweats, denies any change in the bowel movements or urination The pain in the low back area is generalized transmitted to the buttock bilaterally, and the left hip . Patient was evaluated by Dr. Montejo spine surgeon, and Dr. Beavers , under recommend possible surgical interventions on the left hip and lumbar spine, to follow up with the pain clinic here when necessary
== END | disposition home or self-care (01) ==
LOC: PNWHC3 09:16
PROVIDERS: ATTEND Specialist
DX: G89.29 Other chronic pain (principal); M51.36 Other intervertebral disc degeneration, lumbar region; M47.816 Spondylosis without myelopathy or radiculopathy, lumbar region; M46.1 Sacroiliitis, not elsewhere classified; M25.552 Pain in left hip; Z98.890 Other specified postprocedural states
CPT/HCPCS: 99211

== ENCOUNTER 2020-05-30 07:58 | Day surgery (SDC) | payer MEDICARE ==
[~2020-05-30 07:58] MED LIST changes: -LACTATED RINGERS 1,000 ML IV SCH; +PREMYELOGRAM MEDICATION REVIEW 1 EACH MISC PO ONE
[2020-05-30] MEDS ORDERED: diazePAM 5 MG TAB PO STA (08:52)
[2020-05-30 09:09] VITALS: BP 124/80; PULSE 98; RESP 18; TEMP 98
--- NOTE | 2020-05-30 09:31 | XR ---
Scoliosis survey HISTORY: Scoliosis Frontal and lateral views of the thoracic lumbar spine submitted, correlation KUB 12/06/2016 Incidental note made of a lap band showing somewhat transverse orientation. Bone mineralization is reduced. Anterolisthesis grade 1 at L4-5. Degenerative disc changes are presen t in the lumbar spine vacuum phenomenon present at L1-2. Sclerosis in the posterior elements is consi stent with facet arthropathy. Flowing anterior osteophytes in the thoracic spine with preservation of disc height may be indicative of diffuse idiopathic skeletal hyperostosis. There is a levoscoliosis centered at the upper lumbar spine corresponding to an angle of approximatel y 24 degrees. impression: Lumbar scoliosis is chronic. Degenerative disc disease and facet uropathy, osteopenia. Tr ansverse orientation of the LAP-BAND, chronic findings.
== END 2020-05-30 09:15 | disposition home or self-care (01) ==
LOC: RADPROMAIN 07:58
PROVIDERS: ATTEND Orthopaedic Surgery
DX: M41.56 Other secondary scoliosis, lumbar region (principal); M47.26 Other spondylosis with radiculopathy, lumbar region; M51.16 Intervertebral disc disorders with radiculopathy, lumbar region; M43.16 Spondylolisthesis, lumbar region; M48.061 Spinal stenosis, lumbar region without neurogenic claudication; M16.12 Unilateral primary osteoarthritis, left hip; I10 Essential (primary) hypertension; J45.909 Unspecified asthma, uncomplicated; E11.9 Type 2 diabetes mellitus without complications; E03.9 Hypothyroidism, unspecified; Z90.49 Acquired absence of other specified parts of digestive tract; Z96.653 Presence of artificial knee joint, bilateral; Z90.89 Acquired absence of other organs; Z79.51 Long term (current) use of inhaled steroids; Z79.890 Hormone replacement therapy; Z79.899 Other long term (current) drug therapy; Z82.49 Family history of ischemic heart disease and other diseases of the circulatory system; Z80.3 Family history of malignant neoplasm of breast; Z84.1 Family history of disorders of kidney and ureter
CPT/HCPCS: 72082

== ENCOUNTER → 2020-06-30 | Outpatient (CLI) | payer MEDICARE ==
[2020-06-30 14:44] VITALS: BP 144/81; PULSE 60; TEMP 98.2; BMI 39.8
--- NOTE | 2020-06-30 15:34 | P.HPBAR ---
Bariatric H&P - History & Physicial H&P Date: 06/30/20 History & Physicial: Visit/CC: lap band follow up Patient initial contact: Initial weight: 142.882 kg Initial weight in pounds: 315.00 Height: 4 ft 9 in Initial BMI: 68.1 Last weight: Current weight: 83.461 kg Current weight in pounds: 184.00 Current BMI: 39.8 [place] body weight (based on NIH guidelines): 38.555 kg Excess body weight loss: 56.9% The patient is a 75 year-old F who presents for Bariatric Assessment. Patient presents today for lab band follow up. Patient has lost 4 pounds since her last visit. She states she sees in a good fill zone. She has complaints of arthritis and some mild GERD. She is scheduled for hip replacement next week. Past Medical History Past Medical History: Asthma, GERD/Reflux, Hypertension, Osteoarthritis (OA), Pneumonia, Thyroid Disorder Additional Past Medical History / Comment(s): DIET CONTROLLED-DIABETIC, back pain. has Lap Band, hospitalized with pneumonia in october 2019, states she pulled her groin muscle couple weeks ago. History of Any Multi-Drug Resistant Organisms: None Reported Past Surgical History: Adenoidectomy, Appendectomy, Bariatric Surgery, Cholecystectomy, Hysterectomy, Joint Replacement, Tonsillectomy Additional Past Surgical History / Comment(s): Bilateral knee replacements, Lap band, eyelid surgery, Panniculectomy. PAIN CLINIC PROC. for back, lap band port replacement 2-20 Past Anesthesia/Blood Transfusion Reactions: Postoperative Nausea & Vomiting (PONV) Additional Past Anesthesia/Blood Transfusion Reaction / Comm: once after hyst Smoking Status: Former smoker - Past Family History Mother Family Medical History: No Reported History Additional Family Medical History / Comment(s): Mother from CHF at the age of 69yrs Father Family Medical History: Myocardial Infarction ([place]) Additional Family Medical History / Comment(s): Father of a [place] at the age of 63 yrs. Sister(s) Additional Family Medical History / Comment(s): Patient has one sister that from overdose of medications. Patient does not have any brothers. Patient has 2 sons with no major medical problems. Surgical - Exam Vital Signs Temp Pulse BP 98.2 F 60 144/81 06/30/20 14:40 06/30/20 14:40 06/30/20 14:40 - General well developed, well nourished, no distress - Eyes PERRL - ENT normal pinna - Neck no masses - Respiratory normal expansion - Cardiovascular Rhythm: regular - Abdomen Abdomen: soft, non tender Bariatric Assessment & Plan Plan: Morbid obesity improving. There is minimal be observed. Osteoarthritis, Patient will have her hip replaced next week . Bariatric Checklist Checklist: Plan: Checklist: EGD: 1. Hiatal hernia: 2. H. Pylori: HgbA1c: Vitamin D: Smoking: Former smoker Primary care physician referral: DR SANDRO MAURO Psychiatry clearance: Cardiology clearance: Sleep study: Diet journal: VTE risk score: VTE risk level: Rehab needs at discharge:
== END | disposition home or self-care (01) ==
LOC: BARWHC3 13:58
PROVIDERS: ATTEND Surgery
DX: Z48.815 Encounter for surgical aftercare following surgery on the digestive system (principal); E66.01 Morbid (severe) obesity due to excess calories; Z68.44 Body mass index [BMI] 60.0-69.9, adult; Z98.84 Bariatric surgery status; Z90.89 Acquired absence of other organs; Z90.49 Acquired absence of other specified parts of digestive tract
CPT/HCPCS: 99211

== ENCOUNTER → 2020-07-14 | Outpatient (CLI) | payer MEDICARE ==
--- NOTE | 2020-07-14 18:42 | BD ---
EXAMINATION TYPE: Axial Bone Density DATE OF EXAM: 07/14/2020 COMPARISON: NONE CLINICAL HISTORY: Postmenopausal screening Height: 5 FT Weight: 182 FRAX RISK QUESTIONS: Alcohol (3 or more units per day): NO Family History (Parent hip fracture): NO Glucocorticoids (More than 3mos): NO (Ex: prednisone, prednisolone, methylprednisolone, dexamethasone, and hydrocortisone). History of Fracture in Adulthood: YES Secondary Osteoporosis: 1. Type 1 Diabetes: NO 2. Hyperthyroidism: NO 3. Menopause before 45: YES 4. Malnutrition: NO 5. Chronic liver disease: NO Rheumatoid Arthritis: NO Current Tobacco Use: NO RISK FACTORS HISTORY OF: History of Wrist Fracture: YES RIGHT When: 30-40 YEARS AGO Surgery to Spine/Hip(right/left)/Wrist (right/left): NO Family History of Osteoporosis: NO Active: NO Diet low in dairy products/other sources of calcium: NO Postmenopausal woman: PART HYST AGE 25 OVARIES REMOVED AGE 31-32 Take estrogen and/or progesterone medications: TOOK HRT FOR ONE YEARS AGE 33 Lost more than 2 inches in height since high school: YES Frequent falls: WALKS WITH A CANE MEDICATIONS: Thyroid Medications: YES Which medication: LEVOTHYROXINE, How Long: UNSURE AROUND 3-4 YEARS Additional Medications: HYDROCHLORTHIAZIDE, AMLODIPINE, LISINOPRIL, LEVOTHYROXINE, ALBUTEROL, METOPRO LOL MONTELUKAST, OMEPRAZOLE Additional History: PT HAS LAP BAND VISUALIZED IN LUMBAR IMAGES EXAM MEASUREMENTS: Bone mineral densitometry was performed using the [employer] System. Bone mineral density as measured about the Lumbar spine is: ----- L1-L4(G/cm2): 1.395 T Score Values are as follows: ----- L2: 1.6 ----- L3: 2.1 ----- L4: 1.1 ----- L1-L4: 1.8 BASELINE Bone mineral density about the R hip (g/cm2): 0.726 Bone mineral density about the L hip (g/cm2): 0.802 T Score values are as follows: -----R Neck: -2.2 -----L Neck: -1.7 -----R Total: -2.4 -----L Total: -1.9 BASELINE IMPRESSION: Osteopenia (T Score between -2.5 and -1). There is slightly increased risk of fracture and the patient may be considered for treatment. Re-Screen 2-5 years. NOTE: T-SCORE=SD OF THE YOUNG ADULT MEAN.
== END | disposition home or self-care (01) ==
LOC: RADBDWWP 16:00
PROVIDERS: ATTEND Orthopaedic Surgery
DX: M85.80 Other specified disorders of bone density and structure, unspecified site (principal)
CPT/HCPCS: 77080

== ENCOUNTER → 2020-07-29 | Outpatient (CLI) | payer MEDICARE | END | disposition home or self-care (01) | LOC: LABPAT 08:38 | PROVIDERS: ATTEND Orthopaedic Surgery | DX: Z22.322 Carrier or suspected carrier of Methicillin resistant Staphylococcus aureus (principal); M16.12 Unilateral primary osteoarthritis, left hip | CPT/HCPCS: 87070 ==

== ENCOUNTER 2020-08-07 06:28 | Day surgery (SDC) | payer MEDICARE ==
[2020-07-29 15:22] VITALS: BMI 38.9
--- NOTE | 2020-08-06 20:07 | HP ---
HISTORY AND PHYSICAL DATE OF SURGERY: 08/07/2020 Saira Matias is a 75-year-old patient seen with symptomatic left hip osteoarthritis. We discussed options for treatment. She elected to proceed with left total hip arthroplasty via direct anterior approach. Consent was obtained. Medical clearance was by Dr. Tam. PAST MEDICAL HISTORY: Asthma, [id number] diabetes, hypertension, hypothyroidism. PAST SURGICAL HISTORY: Cholecystectomy, hysterectomy, left knee arthroplasty, right total knee arthroplasty. DAILY MEDICATIONS: Advil, metoprolol, Norvasc, ProAir, Singulair, Synthroid. ALLERGIES: None reported. SOCIAL HISTORY: She denies tobacco use. PHYSICAL EXAMINATION: Evaluation of the left hip limited range of motion with severe pain, diffuse tenderness. Positive hip impingement sign. Straight leg raise negative. Distal neurovascular exam intact. RADIOGRAPHS: Left hip reveal severe osteoarthritic changes. IMPRESSION: 1. Left hip osteoarthritis. 2. Hypertension. 3. Hypothyroidism. PLAN: Direct anterior left total hip arthroplasty. MMODL / IJN: [id number] /
[~2020-08-07 06:28] MED LIST changes: +ACETAMINOPHEN TAB 500 MG TAB PO ONE; +DEXAMETHASONE SOD PHOSPHATE 4 MG/ML 1 ML VIAL IV ONE; +LACTATED RINGERS 1,000 ML IV SCH; +LIDOCAINE 1% (10MG/ML) FOR IV START INTRADERMA PRN; +MELOXICAM 7.5 MG TAB PO ONE; +MIDAZOLAM 2 MG/2 ML VIAL IV PRN; +ONDANSETRON 4 MG/2 ML VIAL IVP ONE; -PREMYELOGRAM MEDICATION REVIEW 1 EACH MISC PO ONE; +ROPIVACAINE 246.25 MG, EPINEPHrine 0.5 MG, KETOROLAC 30 MG, cloNIDine HCL/PF 80 MCG, WA... MISCELLANE ONE; +TRANEXAMIC ACID 1,000 MG in SODIUM CHLORIDE 0.9% 100 ML IVPB ONE
[2020-08-07 07:05] LABS: Glucose,Whole Blood 95 mg/dL (75-99)
[2020-08-07] MEDS ORDERED: fentaNYL (PF) 50 MCG/ML 2 ML AMP ONE (07:25)
[2020-08-07] MEDS ORDERED: PROPOFOL 10 MG/ML 20 ML VIAL IV ONE (07:25)
[2020-08-07] MEDS ORDERED: SODIUM CHLORIDE 0.9% 100 ML BAG ONE (07:25)
[2020-08-07] MEDS ORDERED: WATER FOR INJECTION, STERILE 10 ML VIAL IV ONE (07:25)
[2020-08-07] MEDS ORDERED: ePHEDrine SULFATE/0.9% NACL/PF 50 MG/5 ML SYRINGE IV ONE (07:25)
[2020-08-07] MEDS ORDERED: TRANEXAMIC ACID 1,000 MG/10 ML VIAL ONE (07:25)
[2020-08-07] MEDS ORDERED: MIDAZOLAM 2 MG/2 ML VIAL ONE (07:25)
[2020-08-07] MEDS ORDERED: LACTATED RINGERS 1,000 ML IV ONE ×2 (09:05→13:21)
[2020-08-07] MEDS ORDERED: HYDROmorphone 0.2 MG/1 ML SYRINGE IVP PRN (09:24)
[2020-08-07] MEDS ORDERED: HYDROmorphone 0.5 MG/0.5 ML SYRINGE IVP PRN ×2 (09:24)
[2020-08-07] MEDS ORDERED: NALOXONE 0.4 MG/ML 1 ML VIAL IV PRN (09:24)
[2020-08-07] MEDS ORDERED: HYDROcodone/APAP 5-325MG 1 EACH TAB PO PRN (09:24)
[2020-08-07] MEDS ORDERED: ONDANSETRON 4 MG/2 ML VIAL IVP PRN (09:24)
--- NOTE | 2020-08-07 09:24 | P.OP ---
Date of Procedure: 08/07/20 Preoperative Diagnosis: Left hip osteoarthritis Postoperative Diagnosis: Left hip osteoarthritis Procedure(s) Performed: Direct anterior left total hip arthroplasty Implants: 1. Depuy Corail KA size 13 press-fit femoral stem 2. Depuy pinnacle 52 mm press-fit multi hole acetabular shell 3. Depuy pinnacle neutral polyethylene acetabular liner 36 mm ID 52 mm OD 4. Biolox delta ceramic femoral head 36 mm +5 Anesthesia: local, spinal Surgeon: Jacob Beavers Agriculture Technician #1: Abhishek Fernández Estimated Blood Loss (ml): 90 Pathology: other (Femoral head) Condition: stable Disposition: PACU Indications for Procedure: 75-year-old patient seen with symptomatic left hip osteoarthritis. After treatment options were discussed with her, she elected to proceed with total hip arthroplasty. Operative Findings: See description of procedure Description of Procedure: The patient was taken to the operative suite. Patient underwent a spinal anesthetic by the department of anesthesia. Patient was then transferred to the [place] table. Patient was given preoperative IV antibiotics and TXA. Both lower extremities were placed in standard leg spars. The hip was then prepped and draped in the normal sterile orthopedic fashion. A standard anterior incision was made beginning 3 cm lateral and 1 cm distal to the ASIS extending 10 cm. Dissection was then carried down through the subcutaneous soft tissues down to the fascia overlying the tensor fascia maycol. An incision was now made through the fascia. Careful dissection was taken down exposing the tensor fascia maycol m uscle. A Cobra retractor was now placed along the medial femoral neck and a second one along the lateral femoral neck. The venous circumflex vessels were now identified, cauterized and clipped. We identified the anterior hip capsule. An incision was made through the hip capsule along the lateral border. I performed a partial anterior capsulectomy. Retractors were now placed around the femoral neck itself. A femoral neck cut was now made with a sagittal saw. It was completed with an osteotome at the lateral neck area. The femoral head was now removed without difficulty. The extremity was now rotated to 45 of external rotation. It was locked in position. Residual labrum was now debrided out. Serial reaming was performed of the acetabulum while Neville BACA assisted holding an anterior retractor for exposure. Once we reached the appropriate size and a trial was position and fit nicely. The appropriate size was now chosen opened and made available. It was introduced into the acetabulum without difficulty. The C-arm/fluoroscopy was now brought into the operative field. We made sure we had a true AP pelvic view. We now under direct C- arm/fluoroscopy introduced into the acetabular component with appropriate version and inclination. I held the cup in appropriate position well Neville BACA used a mallet to seat the acetabular component. I noted the component now to be well seated and stable. Acetabular cup introduce her was removed. The C-arm was pulled back. An appropriate liner was introduced and clicked into position. It was felt to be stable. At this point retractors were removed. The extremity was now placed into 120 external rotation with no traction. The leg was now dropped to the ground and adducted. Appropriate retractors were now positioned along the proximal femur. We also placed our femoral look into position. Additional capsular releasing was performed to gain access to the proximal femur. We now used a box osteotome. A canal finder was now utilized. Serial broaching was now performed with the assistance of Neville BACA tapping the broaches down with a mallet while held the broach in appropriate rotation and position. This was done until we reached the appropriate size with good overall rotational stability. Appropriate calcar planing was performed. A trial head/neck was placed into position. The hip was now reduced. The C- arm/fluoroscopy was brought back into the operative field. Trial components were visualized and appeared to be adequately position. The C-arm/fluoroscopy was pulled back. Retractors were repositioned and the hip was dislocated. The leg was again taken down to the ground and adducted. Appropriate retractors were repositioned as well as the femoral hook. All trial components were removed. The femoral implant was opened along with the femoral head. The femoral implant was introduced on the appropriate handle into our pre-broached area. I held the component position well Neville BACA used a mallet to seat the femoral component. The femoral component was now noted to be well seated and stable.. The femoral head was introduced with good positioning and fixation noted. Retractors were now removed. The hip was now reduced. There appeared be good positioning of the hip confirmed on intraoperative fluoroscopy. Spot films were obtained to document this. A second gram of TXA was given. The deep and superficial soft tissues were infiltrated with local analgesic. Bipolar cautery had been utilized intermittently through the procedure for hemostasis. The wound was irrigated copiously with pulse lavage mechanical irrigation. The fascia was repaired with Vicryl suture. The subcutaneous soft tissues were repaired in layers with Vicryl suture. The skin was approximated with pernio/Dermabond. Sterile dressings were applied. Patient was then awakened, transferred to a bed and taken to recovery in stable condition. Neville BACA assisted with the complex procedure.
--- NOTE | 2020-08-07 11:15 | XR ---
Limited left hip HISTORY: Anterior hip replacement Single intraoperative C-arm image documents the procedure
--- NOTE | 2020-08-07 11:16 | FL ---
Fluoroscopy HISTORY: Anterior hip replacement 37 seconds fluoroscopy time supplied to the referring clinician. 1 intraoperative C-arm images docum ent the procedure. See dictated report from orthopedic surgery.
--- NOTE | 2020-08-07 13:06 | P.DS ---
Providers Date of admission: 08/07/2020 Attending physician: Jacob Beavers Consults: 08/07/20 09:24 Consult Physician Routine Consulting Provider: Sina Tam Reason/Comments: Medical management Do you want consulting provider notified?: Yes Primary care physician: Sina Tam Hospital Course: Date of admission: 08/07/2020 Date of discharge: [] Admission diagnosis: Status post direct anterior left total hip arthroplasty Discharge diagnosis: Same Attending physician: Dr. Beavers Surgical procedures: Direct anterior left total hip arthroplasty Brief history: Patient is a 75-year-old female with a history of progressive primary left hip osteoarthritis. At this point patient has failed conservative treatment measures and has opted to proceed with a elective direct anterior left total hip arthroplasty. Hospital course: Details of patient's surgery can be found in operative report. Patient tolerated the procedure well and was subsequently transported to orthopedic floor. Patient's orthopeidc and medical care was provided daily. Patient had daily laboratory tests performed for evaluation of overall blood counts. Patient had daily physical therapy to include strengthening range of motion as well as education with walker ambulation. Patient was treated with Lovenox for their postoperative DVT prophylaxis during their inpatient stay. Patient was noted to have a relatively uneventful postoperative course. Patient reported satisfactory pain control with oral pain medications by postoperative day 0. Patient showed satisfactory progress with physical therapy. Patient moved steadily through the program and had no difficulty meeting the goals by postoperative day []. Given patient's otherwise satisfactory course and having met physical therapy goals, plan is to discharge patient [home] on postoperative day []. Discharge condition/disposition: Patient will be discharged [home] in stable condition. Discharge medications: Instructions are given on resumption of patient's normal daily medications per primary care recommendation, in addition patient will be prescribed []. Discharge instructions: 1. Wound care and infection precautions, [keep incision dry and covered while showering], no lotions, creams, moisturizers. No soaking, tubs, pools, hottubs. Do not scrub over the incision. 2. Weight-bear [as tolerated] with walker / cane until follow-up. 3. Ice and elevate when necessary. Do not exceed 20 minutes per hour with ice pack. 4. Utilize compression sleeve until seen at first follow up appointment. 5. Visiting nursing care. 6. Home physical therapy. 7. Pain meds and anticoagulants per prescription. 8. Pain medication has potential to cause constipation. Increase oral fluid and fiber intake. Contact primary care provider if you have not had a bowel movement within 48 hours after discharge 9. No anti-inflammatory medication until discussed at first post operative visit, this including Motrin, Aleve, Mobic, Diclofenac. 10. Follow up in office at 2 weeks postop with Neville Fernández PA-C 11. Follow up with your primary care doctor 7-10 days after discharge. 12. Contact [facility] with any questions, . Procedures: Direct anterior left total hip arthroplasty Patient Condition at Discharge: Good Plan - Discharge Summary Discharge Rx Participant: Yes New Discharge Prescriptions: No Action Sennosides-Docusate Sodium [Senokot-S] 1 tab PO BID Albuterol Inhaler (Mhu) [Ventolin Hfa Inhaler (Mhu)] 1 - 2 puff INHALATION RT-Q6H PRN PRN Reason: Shortness Of Breath amLODIPine BESYLATE [Norvasc] 10 mg PO QAM Omeprazole 40 mg PO QAM Montelukast [Singulair] 10 mg PO HS Metoprolol Tartrate [Lopressor] 50 mg PO BID hydroCHLOROthiazide [Hydrodiuril] 25 mg PO QAM Aspirin EC [Ecotrin Low Dose] 81 mg PO DAILY lisinopriL [Prinivil] 20 mg PO BID Levothyroxine Sodium [Synthroid] 37.5 mcg PO QAM Loratadine [Claritin] 10 mg PO DAILY Multivitamins, Thera [Multivitamin (formulary)] 1 tab PO DAILY Biotin 5,000 mcg PO DAILY Budesonide-Formot 160-4.5 Mcg [Symbicort 160-4.5 Mcg Inhaler] 1 puff INHALATION BID Acetaminophen [Tylenol Arthritis] 650 mg PO Q6H PRN PRN Reason: Pain Cholecalciferol [Vitamin D3 (25 Mcg = 1000 Iu)] 1,000 unit PO DAILY Ascorbic Acid [Vitamin C] 500 mg PO DAILY Discharge Medication List Albuterol Inhaler (Mhu) [Ventolin Hfa Inhaler (Mhu)] 1 - 2 puff INHALATION RT- Q6H PRN 08/05/14 [History] Aspirin EC [Ecotrin Low Dose] 81 mg PO DAILY 08/05/14 [History] Levothyroxine Sodium [Synthroid] 37.5 mcg PO QAM 08/05/14 [History] Metoprolol Tartrate [Lopressor] 50 mg PO BID 08/05/14 [History] Montelukast [Singulair] 10 mg PO HS 08/05/14 [History] Omeprazole 40 mg PO QAM 08/05/14 [History] Sennosides-Docusate Sodium [Senokot-S] 1 tab PO BID 08/05/14 [History] amLODIPine BESYLATE [Norvasc] 10 mg PO QAM 08/05/14 [History] hydroCHLOROthiazide [Hydrodiuril] 25 mg PO QAM 08/05/14 [History] lisinopriL [Prinivil] 20 mg PO BID 08/05/14 [History] Loratadine [Claritin] 10 mg PO DAILY 11/26/14 [History] Multivitamins, Thera [Multivitamin (formulary)] 1 tab PO DAILY 04/07/16 [History] Biotin 5,000 mcg PO DAILY 10/02/18 [History] Budesonide-Formot 160-4.5 Mcg [Symbicort 160-4.5 Mcg Inhaler] 1 puff INHALATION BID 01/09/19 [History] Acetaminophen [Tylenol Arthritis] 650 mg PO Q6H PRN 04/15/20 [History] Ascorbic Acid [Vitamin C] 500 mg PO DAILY 05/19/20 [History] Cholecalciferol [Vitamin D3 (25 Mcg = 1000 Iu)] 1,000 unit PO DAILY 05/19/20 [History] Follow up Appointment(s)/Referral(s): Abhishek Fernández PAC [PHYSICIAN MANAGEMENT CONSULTING] - 2 Weeks Activity/Diet/Wound Care/Special Instructions: Orthopedic Discharge Instructions: 1. Wound care and infection precautions, keep incision dry and covered while showering, no lotions, creams, moisturizers. No soaking, pools, hot tubs. Do not scrub over incision. Patient may remove the foam dressing on 08/17/2020, continue to keep incision dry and covered while showering 2. Weight-bear as tolerated with walker / cane until follow-up. 3. Ice and elevate when necessary. Do not exceed 20 minutes per hour with ice pack. 4. Utilize compression sleeve until seen at first follow up appointment. 5. Pain meds and anticoagulants per prescription. 6. Pain medication has potential to cause constipation. Increase oral fluid and fiber intake. Contact primary care provider if you have not had a bowel movement within 48 hours after discharge. 7. No anti-inflammatory medication until discussed at first post operative visit, this including Motrin, Aleve, Mobic, Diclofenac. 8. Follow up in office at 2 weeks postop with Neville Fernández PA-C 9. Follow up with your primary care doctor 7-10 days after discharge. 10. Contact [facility] with any questions, . Discharge Disposition: HOME WITH HOME HEALTH SERVICES
[2020-08-07] MEDS ORDERED: KETOROLAC 15 MG/ML 1 ML VIAL IVP ONE (13:54)
[2020-08-07] MEDS: HYDROcodone/APAP 5-325MG 1 EACH TAB PO PRN ×2 (14:52→21:12)
[2020-08-07] MEDS: LACTATED RINGERS 1,000 ML IV SCH (15:18)
[2020-08-07 17:16] LABS: Glucose,Whole Blood 234 mg/dL (75-99)
[2020-08-07] MEDS ORDERED: ALBUTEROL NEBULIZED 2.5 MG/3 ML INHALATION PRN (18:37)
[2020-08-07] MEDS ORDERED: SENNOSIDES-DOCUSATE SODIUM 1 EACH TAB PO SCH ×2 (21:00)
[2020-08-07] MEDS ORDERED: MONTELUKAST 10 MG TAB PO SCH (21:00)
[2020-08-07] MEDS: METOPROLOL TARTRATE 50 MG TAB PO SCH (21:05)
[2020-08-07] MEDS: lisinopriL 20 MG TAB PO SCH (21:05)
[2020-08-07] MEDS: SYMBICORT 160-4.5 MCG INHALER INHALATION SCH (21:19)
--- NOTE | 2020-08-07 21:51 | P.CONS ---
History of Present Illness - Reason for Consult Consult date: 08/07/20 Post left total hip arthroplasty, asthma, hypertension hyperlipidemia Requesting physician: Jacob Beavers - Chief Complaint Left total hip arthroplasty, diabetes, hypertension and asthma - History of Present Illness 75-year-old female one of Dr. vidal's patient with past medical history of the asthma, type 2 diabetes, GERD, hypertension and hyperlipidemia who is known to have a chronic lower back pain also had history of morbid obesity post lap band has been doing well. Patient had developed severe worsening with advance arthritis of the left hip for the last 6 month with failure to conservative management patient was seen Dr. Beavers and was educated on anterior left total hip arthroplasty. Patient ended up coming to the hospital today had her surgery successful with no major complication. Patient had all her meds review and renew hemodynamically stable she is not having nausea or vomiting and pain is well controlled. Review of Systems CONSTITUTIONAL: Well-developed no acute respiratory distress. EYES: No icterus sclerae, no conjunctivitis. EARS, NOSE, MOUTH, THROAT, and FACE: No sore throat, lymphadenopathy, carotid bruits or deformity. RESPIRATORY: No SOB cough or wheezes. History of asthma CARDIOVASCULAR: No CP, Palpitation, PND, Orthopnea, or angina. GASTROINTESTINAL: No Abd pain, Nausea or vomiting, no Diarrhea or constipation, No GI Bleed, no distention or masses. Still have mild heartburn sometimes GENITOURINARY: Negative for Hematuria or UTI, no kidney stones. INTEGUMENT/BREAST: Negative for any muscular injury with mild osteoarthritis.. HEMATOLOGIC/LYMPHATIC: Negative for bleed or purpura. MUSCULOSKELTAL: Negative for Myalgia or arthralgia. Post left total hip arthroplasty no bleed. NEURLOGICAL: No LOC, Sz or syncope, blurred vision dizziness or abnormality.. BEHAVIORAL/PSYCH: Negative. ENDOCRINE: Negative. Social history: Patient does not smoke, [place] abuse, she is live alone. Family history: Patient has 2 children both are living and well, 1 sister with eye from multiple medical problem. father who has congestive heart failure with a 63 and mother from congestive heart failure at age 69. Past Medical History Past Medical History: No Reported History, Asthma, Diabetes Mellitus, GERD/Reflux, Hypertension, Osteoarthritis (OA), Pneumonia, Sleep Apnea/CPAP/BIPAP, Thyroid Disorder Additional Past Medical History / Comment(s): DIET CONTROLLED-DIABETIC, back pain. has Lap Band, hospitalized with pneumonia in october 2019, History of Any Multi-Drug Resistant Organisms: None Reported Past Surgical History: Adenoidectomy, Appendectomy, Bariatric Surgery, Cholecystectomy, Hysterectomy, Joint Replacement, Tonsillectomy Additional Past Surgical History / Comment(s): Bilateral knee replacements, Lap band, eyelid surgery, Panniculectomy. PAIN CLINIC PROC. for back, lap band port replacement 2-20 , RIGHT SHOULDER SURGERY Past Anesthesia/Blood Transfusion Reactions: Postoperative Nausea & Vomiting (PONV) Additional Past Anesthesia/Blood Transfusion Reaction / Comm: once after hyst Past Psychological History: No Psychological Hx Reported Additional Psychological History / Comment(s): Pt resides alone in her home with 2 steps. She owns a cane/walker . She drives. Smoking Status: Former smoker Past Alcohol Use History: Rare Additional Past Alcohol Use History / Comment(s): STARTED SMOKING AT AGE 20 QUIT IN 1985 SMOKED 3/4 PPD Past Drug Use History: None Reported - Past Family History Mother Family Medical History: No Reported History Additional Family Medical History / Comment(s): Mother from CHF at the age of 69yrs Father Family Medical History: Myocardial Infarction (SD) Additional Family Medical History / Comment(s): Father of a SD at the age of 63 yrs. Sister(s) Additional Family Medical History / Comment(s): Patient has one sister that from overdose of medications. Patient does not have any brothers. Patient has 2 sons with no major medical problems. Medications and Allergies Home Medications Medication Instructions Recorded Confirmed Type Albuterol Inhaler (Mhu) [Ventolin 1 - 2 puff INHALATION RT-Q6H PRN 08/05/14 07/29/20 History Hfa Inhaler (Mhu)] Levothyroxine Sodium [Synthroid] 37.5 mcg PO QAM 08/05/14 07/29/20 History Metoprolol Tartrate [Lopressor] 50 mg PO BID 08/05/14 07/29/20 History Montelukast [Singulair] 10 mg PO HS 08/05/14 07/29/20 History Omeprazole 40 mg PO QAM 08/05/14 07/29/20 History Sennosides-Docusate Sodium 1 tab PO BID 08/05/14 07/29/20 History [Senokot-S] amLODIPine BESYLATE [Norvasc] 10 mg PO QAM 08/05/14 07/29/20 History hydroCHLOROthiazide [Hydrodiuril] 25 mg PO QAM 08/05/14 07/29/20 History lisinopriL [Prinivil] 20 mg PO BID 08/05/14 07/29/20 History Loratadine [Claritin] 10 mg PO DAILY 11/26/14 07/29/20 History Multivitamins, Thera [Multivitamin 1 tab PO DAILY 04/07/16 07/29/20 History (formulary)] Biotin 5,000 mcg PO DAILY 10/02/18 07/29/20 History Budesonide-Formot 160-4.5 Mcg 1 puff INHALATION BID 01/09/19 07/29/20 History [Symbicort 160-4.5 Mcg Inhaler] Acetaminophen [Tylenol Arthritis] 650 mg PO Q6H PRN 04/15/20 07/29/20 History Ascorbic Acid [Vitamin C] 500 mg PO DAILY 05/19/20 07/29/20 History Cholecalciferol [Vitamin D3 (25 1,000 unit PO DAILY 05/19/20 07/29/20 History Mcg = 1000 Iu)] Aspirin [Adult Low Dose Aspirin EC] 81 mg PO BID #60 tablet. 08/08/20 Rx Docusate [Colace] 100 mg PO DAILY #30 capsule 08/08/20 Rx Hydrocodone/Acetaminophen [[place] 1 - 2 each PO Q6HR PRN #42 tab 08/08/20 Rx 5-325] Allergies Allergy/AdvReac Type Severity Reaction Status Date / Time adhesive tape Allergy Rash/BLISTE Verified 08/07/20 07:02 RS banana Allergy Wheezing Verified 08/07/20 07:02 cinnamon Allergy Wheezing Verified 08/07/20 07:02 hydromorphone [From Dilaudid] Allergy Unknown Verified 08/07/20 07:02 Mushroom Allergy COULD NO Verified 08/07/20 07:02 RESPOND" FELT LIKE SHE WAS PASSING OUT poison michell extract Allergy Rash/Hives Verified 08/07/20 07:02 codeine AdvReac Unknown Abdominal Verified 08/07/20 07:02 Pain monosodium glutamate [MSG] AdvReac Nausea & Verified 08/07/20 07:02 Vomiting burning yan Allergy Rash/Hives Uncoded 08/07/20 07:02 Physical Exam Vitals: Vital Signs Temp Pulse Pulse Resp BP Pulse Ox 08/07/20 16:05 97.7 F 72 20 107/62 97 08/07/20 14:15 70 18 103/63 97 08/07/20 13:45 72 18 109/61 98 08/07/20 13:14 89 16 134/72 95 08/07/20 12:43 88 16 147/74 100 08/07/20 12:35 71 18 116/61 98 08/07/20 12:03 66 14 104/62 97 08/07/20 11:33 68 16 118/63 08/07/20 11:05 70 16 103/70 97 08/07/20 10:35 61 16 98/63 97 08/07/20 10:20 60 16 97/51 08/07/20 10:05 59 L 16 101/51 96 08/07/20 09:50 55 L 16 99/49 96 08/07/20 09:36 97.5 F L 86 16 98/67 99 08/07/20 06:58 98 F 68 16 133/61 93 L Intake and Output 08/07/20 08/07/20 08/07/20 06:59 14:59 22:59 Intake Total 2049 Output Total 490 Balance 1560 Intake: IV 2049 Output: Urine 400 Estimated Blood Loss 90 Other: Weight 79.9 kg 79.9 kg General Appearance: Alert, cooperative, no distress, appears stated age. Neck HEENT: Supple, no lymphadenopathy, no thyroid enlargement, no carotid bruits. Lungs: Decreased breath some bilateral with fine rhonchi no crackles or wheezes Chest Wall: Decrease expansion with deep inspiration no tenderness and no deformity was found on exam, no costochondral pain or discomfort. Heart: Regular rate and rhythm, S1, S2 normal, no murmur, rub or gallop. Back: Symmetric, no curvature, ROM normal, no CVA tenderness. Abdomen: Soft, non-tender, bowel sounds active all four quadrants, no masses, no organomegaly. Extremities: Extremities normal, atraumatic, no cyanosis or edema. Left hip incision looks fine with no hematoma or bleeding Pulses: 2+ and symmetric. Skin: Skin color, texture, tugor normal, no rashes or lesions. Neurologic: Alert oriented x3 cranial nerves II through XII intact, no motor deficit, no abnormal balance or gait. Results CBC & Chem 7: 08/08/20 07:44 Labs: Abnormal Lab Results - Last 24 Hours (Table) 08/07/20 Range/Units 17:00 POC Glucose (mg/dL) 234 H (75-99) mg/dL Assessment and Plan Assessment: 1 post diuretic anterior left total hip arthroplasty: Stable post surgery, resume home meds, GI, DVT and pulmonary prophylaxis protocol, keep watching patient and with his current status carefully and watch for any complication. 2 hypertension: Remain on lisinopril 20 mg twice a day, amlodipine 10 mg a day had with diarrhea 25 mg daily also continue patient on metoprolol 50 mg twice a day. 3 Hypothyroidism: Continue patient on levothyroxine 57.5 g a day. 4 arrhythmia: Has been doing very well on metoprolol 50 mg twice a day. 5 chronic edema: Has been on diuretics. 6 mild asthma/COPD: Patient has been on budesonide and Ventolin HFA continue medication continue rescue inhaler as well. 6 chronic ALLERGY: Has been using Singulair and Zyrtec. 7 chronic vitamin D deficiency: Remain on supplement therapy. 8 severe GERD/GI prophylaxis: Patient be on omeprazole 40 mg daily. 9 DVT prophylaxis: Early mobilization and full aspirin daily. CODE STATUS: Full code. Dr. Beavers thank you much for the consult if I can be any further help to please let me know.
[2020-08-08] MEDS: LACTATED RINGERS 1,000 ML IV SCH (00:17)
[2020-08-08] MEDS: HYDROcodone/APAP 5-325MG 1 EACH TAB PO PRN (03:02)
[2020-08-08] MEDS ORDERED: LEVOTHYROXINE 75 MCG TAB PO SCH (06:30)
[2020-08-08 07:09] LABS: Glucose,Whole Blood 128 mg/dL (75-99)
[2020-08-08] MEDS: SYMBICORT 160-4.5 MCG INHALER INHALATION SCH (07:46)
[2020-08-08 08:03] LABS: Basophils % (A) 0 %; Eosinophils % (A) 0 %; HCT 35.2 % (34.0-46.0); HGB 11.6 gm/dL (11.4-16.0); Lymphocytes # (A) 1.6 k/uL (1.0-4.8); Lymphocytes % (A) 11 %; MCH 30.6 pg (25.0-35.0); MCHC 32.9 g/dL (31.0-37.0); MCV 92.8 fL (80.0-100.0); Mean Platelet Volume 6.8; Monocytes % (A) 6 %; Neutrophils # (A) 12.7 k/uL (1.3-7.7); Neutrophils % (A) 81 %; Platelet Count 318 k/uL (150-450); RBC 3.79 m/uL (3.80-5.40); RDW 13.8 % (11.5-15.5); WBC 15.6 k/uL (3.8-10.6)
[2020-08-08] MEDS ORDERED: ASCORBIC ACID 500 MG TAB PO SCH (09:00)
[2020-08-08] MEDS ORDERED: amLODIPine 10 MG TAB PO SCH (09:00)
[2020-08-08] MEDS ORDERED: ENOXAPARIN 40 MG/0.4 ML SYRINGE SQ SCH (09:00)
[2020-08-08] MEDS ORDERED: PANTOPRAZOLE 40 MG TABLET PO SCH (09:00)
[2020-08-08] MEDS ORDERED: LORATADINE 10 MG TAB PO SCH (09:00)
[2020-08-08] MEDS ORDERED: CHOLECALCIFEROL 1,000 UNIT TAB PO SCH (09:00)
[2020-08-08] MEDS ORDERED: NON FORMULARY DRUG (Biotin [Biotin] 5,000 MCG Tab.Rapdis) PO SCH (09:00)
[2020-08-08 09:05] LABS: Glucose,Whole Blood 133 mg/dL (75-99)
[2020-08-08] MEDS: METOPROLOL TARTRATE 50 MG TAB PO SCH (09:50)
[2020-08-08] MEDS: lisinopriL 20 MG TAB PO SCH (09:51)
[2020-08-08 10:01] VITALS: RESP 12
[2020-08-08 10:17] VITALS: BP 100/65; PULSE 67; TEMP 98.2
--- NOTE | 2020-08-08 10:28 | P.PN ---
Subjective Progress Note Date: 08/08/20 Principal diagnosis: Status post direct anterior left total hip arthroplasty Patient evaluated bedside, she is resting comfortably in her hospital chair. She did ambulate well with therapy. She did have some nausea and dry use after doing her exercises, this has improved. Her blood pressure has remained stable. Currently he denies any headaches, lightheadedness, chest pain or shortness of breath. Objective - Vital Signs Vital signs: Vital Signs Temp 98.2 F 08/08/20 07:25 Pulse 67 08/08/20 07:25 Resp 12 08/08/20 09:55 BP 100/65 08/08/20 07:25 Pulse Ox 97 08/08/20 07:25 Intake & Output 08/07/20 08/08/20 08/08/20 18:59 06:59 18:59 Intake Total 2049 Output Total 490 Balance 1560 Weight 79.9 kg Intake: IV 2049 Output: Urine 400 Estimated Blood Loss 90 Other: Voiding Method Toilet - Exam Left lower extremity: Incision is clean, dry, and intact. The foam dressing is in good condition. There is minimal soft tissue swelling and ecchymosis surrounding the medial and lateral aspects of the incision. Calf is soft, no tenderness with palpation. Plantar flexion, dorsiflexion, EHL, FHL are intact. Sensory exam to light touch throughout the extremity is intact, dorsal pedis pulses 2+. - Labs CBC & Chem 7: 08/08/20 07:44 Labs: Abnormal Lab Results - Last 24 Hours (Table) 08/07/20 08/08/20 08/08/20 Range/Units 17:00 07:08 07:44 WBC 15.6 H (3.8-10.6) k/uL RBC 3.79 L (3.80-5.40) m/uL Neutrophils # 12.7 H (1.3-7.7) k/uL POC Glucose (mg/dL) 234 H 128 H (75-99) mg/dL 08/08/20 Range/Units 09:03 WBC (3.8-10.6) k/uL RBC (3.80-5.40) m/uL Neutrophils # (1.3-7.7) k/uL POC Glucose (mg/dL) 133 H (75-99) mg/dL Assessment and Plan Assessment: Postoperative day 1 status post direct anterior left total hip arthroplasty Plan: Pain control, plan for discharge home on [place] 5 mg/325 mg DVT prophylaxis, aspirin 81 mg twice a day for 30 days Wound care instructions were discussed Home health care after discharge Medical recommendations Plan for discharge home today Time with Patient: Less than 30
--- NOTE | 2020-08-08 13:27 | P.PN ---
Subjective Progress Note Date: 08/08/20 HISTORY OF PRESENT ILLNESS 75-year-old female one of Dr. vidal's patient with past medical history of the asthma, type 2 diabetes, GERD, hypertension and hyperlipidemia who is known to have a chronic lower back pain also had history of morbid obesity post lap band has been doing well. Patient had developed severe worsening with advance arthritis of the left hip for the last 6 month with failure to conservative management patient was seen Dr. Beavers and was educated on anterior left total hip arthroplasty. Patient ended up coming to the hospital today had her surgery successful with no major complication. Patient had all her meds review and renew hemodynamically stable she is not having nausea or vomiting and pain is well controlled. 08/08: Patient has been afebrile, heart rate 67, blood pressure 100/65, pulse ox 97% on room air. CBC reveals 70 BC 15.6, hemoglobin 11.6. Blood sugars are running between 128 and 234. Patient is to work with physical therapy and plan for discharge home later today. Medication reconciliation reviewed. Patient may require walker at home. REVIEW OF SYSTEMS CONSTITUTIONAL: Well-developed no acute respiratory distress. Denies fever or chills. EYES: No icterus sclerae, no conjunctivitis. EARS, NOSE, MOUTH, THROAT, and FACE: No sore throat, lymphadenopathy, carotid bruits or deformity. RESPIRATORY: No SOB cough or wheezes. History of asthma CARDIOVASCULAR: No CP, Palpitation, PND, Orthopnea, or angina. GASTROINTESTINAL: No Abd pain, Nausea or vomiting, no Diarrhea or constipation, No GI Bleed, no distention or masses. Still have mild heartburn sometimes GENITOURINARY: Negative for Hematuria or UTI, no kidney stones. INTEGUMENT/BREAST: Negative for any muscular injury with mild osteoarthritis.. HEMATOLOGIC/LYMPHATIC: Negative for bleed or purpura. MUSCULOSKELTAL: Negative for Myalgia or arthralgia. Post left total hip arthroplasty no bleed. NEURLOGICAL: No LOC, Sz or syncope, blurred vision dizziness or abnormality.. BEHAVIORAL/PSYCH: Negative. ENDOCRINE: Negative. PHYSICAL EXAMINATION Gen: This is a 75-year-old female. She is resting in bed and appears to be comfortable and in no acute distress. HEENT: Head is atraumatic, normocephalic. Pupils equal, round. Sclerae is anicteric. NECK: Supple. No JVD. No lymphadenopathy. No thyromegaly. LUNGS: Clear to auscultation. No wheezes or rhonchi. No intercostal retractions. HEART: Regular rate and rhythm. No murmur. ABDOMEN: Soft. Bowel sounds are present. No masses. No tenderness. EXTREMITIES: No pedal edema. No calf tenderness. NEUROLOGICAL: Patient is awake, alert and oriented x3. Cranial nerves 2 through 12 are grossly intact. ASSESSMENT AND PLAN 1 post diuretic anterior left total hip arthroplasty, postop day #1: Stable post surgery, resume home meds, GI, DVT and pulmonary prophylaxis protocol, keep watching patient and with his current status carefully and watch for any complication. 2 hypertension: Remain on lisinopril 20 mg twice a day, amlodipine 10 mg a day had with diarrhea 25 mg daily also continue patient on metoprolol 50 mg twice a day. 3 Hypothyroidism: Continue patient on levothyroxine 57.5 g a day. 4 arrhythmia: Has been doing very well on metoprolol 50 mg twice a day. 5 chronic edema: Has been on diuretics. 6 mild asthma/COPD: Patient has been on budesonide and Ventolin HFA continue medication continue rescue inhaler as well. 6 chronic ALLERGY: Has been using Singulair and Zyrtec. 7 chronic vitamin D deficiency: Remain on supplement therapy. 8 severe GERD/GI prophylaxis: Patient be on omeprazole 40 mg daily. 9 DVT prophylaxis: Early mobilization and full aspirin daily. CODE STATUS: Full code. DISCHARGE PLAN [facility]. Impression and plan of care have been directed as dictated by the signing physician. Roxane York nurse practitioner acting as scribe for signing physician. Objective - Vital Signs Vital signs: Vital Signs Temp 97.9 F 08/08/20 00:39 Pulse 65 08/08/20 00:39 Resp 16 08/08/20 00:39 BP 93/57 08/08/20 00:39 Pulse Ox 97 08/08/20 00:39 Intake & Output 08/07/20 08/08/20 08/08/20 18:59 06:59 18:59 Intake Total 2049 Output Total 490 Balance 1560 Weight 79.9 kg Intake: IV 2049 Output: Urine 400 Estimated Blood Loss 90 - Labs CBC & Chem 7: 08/08/20 07:44 Labs: Abnormal Lab Results - Last 24 Hours (Table) 08/07/20 08/08/20 08/08/20 Range/Units 17:00 07:08 07:44 WBC 15.6 H (3.8-10.6) k/uL RBC 3.79 L (3.80-5.40) m/uL Neutrophils # 12.7 H (1.3-7.7) k/uL POC Glucose (mg/dL) 234 H 128 H (75-99) mg/dL
== END 2020-08-08 12:05 | disposition home health service (06) ==
LOC: OR 06:28 → 4SSUR 14:23 → OR 08-08 12:05
PROVIDERS: ATTEND Orthopaedic Surgery
DX: M16.12 Unilateral primary osteoarthritis, left hip (principal); I10 Essential (primary) hypertension; E03.9 Hypothyroidism, unspecified; J44.9 Chronic obstructive pulmonary disease, unspecified; E11.9 Type 2 diabetes mellitus without complications; E78.5 Hyperlipidemia, unspecified; G89.29 Other chronic pain; K21.9 Gastro-esophageal reflux disease without esophagitis; E55.9 Vitamin D deficiency, unspecified; Z90.710 Acquired absence of both cervix and uterus; Z96.653 Presence of artificial knee joint, bilateral; Z90.49 Acquired absence of other specified parts of digestive tract; Z79.890 Hormone replacement therapy; Z79.899 Other long term (current) drug therapy; Z87.01 Personal history of pneumonia (recurrent); Z87.891 Personal history of nicotine dependence; Z98.84 Bariatric surgery status; Z98.890 Other specified postprocedural states; G47.30 Sleep apnea, unspecified; Z99.89 Dependence on other enabling machines and devices; Z82.49 Family history of ischemic heart disease and other diseases of the circulatory system; Z79.51 Long term (current) use of inhaled steroids; Z91.048 Other nonmedicinal substance allergy status; Z88.8 Allergy status to other drugs, medicaments and biological substances; Z88.5 Allergy status to narcotic agent; Z91.018 Allergy to other foods
CPT/HCPCS: 94640 ×2; 97110; 97161; 97535; 97166; 85025; 88300; 73501; 27130; C1776; J2250; J0171; J1100; J0690; J2405; J1650; J3010; J1885 ×2; J2795; J2704; J0735; 36415; 86850; 86900; 86901

== ENCOUNTER 2020-08-23 10:46 | Inpatient (IN) | payer MEDICARE ==
--- NOTE | 2020-08-23 11:35 | ED ---
SOB HPI - General Chief Complaint: Shortness of Breath Stated Complaint: Dizziness, light headed Time Seen by Provider: 08/23/20 10:55 Source: patient Mode of arrival: wheelchair Limitations: no limitations - History of Present Illness Initial Comments: 75-year-old female patient presents to the emergency department today for evaluation of shortness of breath, weakness, decreased appetite. Patient states that she had hip surgery about a week ago. States she was doing well but she was exposed to people were positive with coronavirus. She has had a nonproductive cough. States that shortness of breath is worsening over the last 24 hours. She denies any vomiting. Denies fever or chills. States she did have some diarrhea but attributes this to increase and stool softeners and laxatives due to constipation from pain medication. She denies any rash. Denies any leg swelling or calf tenderness. Denies history of blood clots. She does take asp irin daily. Patient denies any recent rash, chest pain, abdominal pain, back pain, numbness, tingling, dizziness, weakness, hematuria, dysuria, urinary urgency, urinary frequency, headache, visual changes, or any other complaints. - Related Data Home Medications Medication Instructions Recorded Confirmed Levothyroxine Sodium [Synthroid] 37.5 mcg PO QAM 08/05/14 08/23/20 Metoprolol Tartrate [Lopressor] 50 mg PO BID 08/05/14 08/23/20 Montelukast [Singulair] 10 mg PO HS 08/05/14 08/23/20 Sennosides-Docusate Sodium 1 tab PO BID 08/05/14 08/23/20 [Senokot-S] amLODIPine BESYLATE [Norvasc] 10 mg PO DAILY 08/05/14 08/23/20 hydroCHLOROthiazide [Hydrodiuril] 25 mg PO QAM 08/05/14 08/23/20 lisinopriL [Prinivil] 20 mg PO BID 08/05/14 08/23/20 Loratadine [Claritin] 10 mg PO DAILY 11/26/14 08/23/20 Budesonide-Formot 160-4.5 Mcg 2 puff INHALATION RT-BID 01/09/19 08/23/20 [Symbicort 160-4.5 Mcg Inhaler] Cholecalciferol [Vitamin D3 (25 1,000 unit PO DAILY 05/19/20 08/23/20 Mcg = 1000 Iu)] Aspirin [Adult Low Dose Aspirin EC] 81 mg PO DAILY 08/23/20 08/23/20 Omeprazole 20 mg PO DAILY 08/23/20 08/23/20 Allergies Allergy/AdvReac Type Severity Reaction Status Date / Time adhesive tape Allergy Rash/BLISTE Verified 08/23/20 13:15 RS banana Allergy Wheezing Verified 08/23/20 13:15 cinnamon Allergy Wheezing Verified 08/23/20 13:15 hydromorphone [From Dilaudid] Allergy Unknown Verified 08/23/20 13:15 Mushroom Allergy COULD NO Verified 08/23/20 13:15 RESPOND" FELT LIKE SHE WAS PASSING OUT poison michell extract Allergy Rash/Hives Verified 08/23/20 13:15 codeine AdvReac Unknown Abdominal Verified 08/23/20 13:15 Pain monosodium glutamate [MSG] AdvReac Nausea & Verified 08/23/20 13:15 Vomiting burning yan Allergy Rash/Hives Uncoded 08/23/20 13:15 Review of Systems ROS Statement: Those systems with pertinent positive or pertinent negative responses have been documented in the HPI. ROS Other: All systems not noted in ROS Statement are negative. Past Medical History Past Medical History: Diabetes Mellitus, Hypertension, Pneumonia Additional Past Medical History / Comment(s): DIET CONTROLLED-DIABETIC, back pain. has Lap Band, hospitalized with pneumonia in october 2019, states she pulled her groin muscle couple weeks ago. History of Any Multi-Drug Resistant Organisms: None Reported Past Surgical History: Cholecystectomy, Joint Replacement Additional Past Surgical History / Comment(s): Bilateral knee replacements, Lap band, eyelid surgery, Panniculectomy. PAIN CLINIC PROC. for back, lap band port replacement 2-20 Past Anesthesia/Blood Transfusion Reactions: Postoperative Nausea & Vomiting (PONV) Additional Past Anesthesia/Blood Transfusion Reaction / Comment(s): once after hyst Past Psychological History: No Psychological Hx Reported Smoking Status: Former smoker Past Alcohol Use History: Rare Past Drug Use History: None Reported - Past Family History Mother Family Medical History: No Reported History Additional Family Medical History / Comment(s): Mother from CHF at the age of 69yrs Father Family Medical History: Myocardial Infarction ([place]) Additional Family Medical History / Comment(s): Father of a [place] at the age of 63 yrs. Sister(s) Additional Family Medical History / Comment(s): Patient has one sister that from overdose of medications. Patient does not have any brothers. Patient has 2 sons with no major medical problems. General Exam Limitations: no limitations General appearance: alert, in no apparent distress, other (This is a well- developed, well-nourished adult female patient in no acute distress. Vital signs upon presentation are temperature 98.9F, pulse 95, respirations 18, blood pressure 102/71, pulse ox 97% on room air.) Eye exam: Present: normal appearance, PERRL, EOMI. Absent: scleral icterus, conjunctival injection, periorbital swelling ENT exam: Present: normal exam, normal oropharynx, mucous membranes moist Respiratory exam: Present: normal lung sounds bilaterally. Absent: respiratory distress, wheezes, rales, rhonchi, stridor Cardiovascular Exam: Present: regular rate, normal rhythm, normal heart sounds. Absent: systolic murmur, diastolic murmur, rubs, gallop, clicks GI/Abdominal exam: Present: soft, normal bowel sounds. Absent: distended, tenderness, guarding, rebound, rigid Neurological exam: Present: alert, oriented X3, CN II-XII intact Psychiatric exam: Present: normal affect, normal mood Skin exam: Present: warm, dry, intact, normal color. Absent: rash Course Vital Signs 08/23/20 08/23/20 10:51 12:57 Temperature 98.9 F Pulse Rate 95 76 Respiratory 18 18 Rate Blood Pressure 102/71 136/71 O2 Sat by Pulse 97 98 Oximetry Medical Decision Making - Medical Decision Making 75-year-old female patient presents to the emergency department today for evaluation of cough, shortness of breath, and weakness. Patient states that she is too weak to even make herself food. States she did have left hip surgery about a week ago was staying with her [id number] who tested positive for occult blood, or physical therapist also tested positive for cocaine. Physical examination did reveal clear lung sounds. Patient was quite short of breath upon initial evaluation. Labs reviewed and did reveal d-dimer 1.75. Sodium 132, chloride 97, BUN is 20. She did have CRP of 37.3. She tested positive for COVID-19. X-ray showed developing groundglass opacities. I did discuss findings results with the patient. We did discuss discharge versus admission. Patient states she feels too weak and scared to go home as she has no support. She'll be admitted to the hospital we will give IV dexamethasone. She is agreeable. - Lab Data Result diagrams: 08/23/20 11:37 12 11:37 Lab Results 08/23/20 08/23/20 08/23/20 Range/Units 11:37 11:37 11:37 WBC 4.6 (3.8-10.6) k/uL RBC 4.08 (3.80-5.40) m/uL Hgb 12.7 (11.4-16.0) gm/dL Hct 37.5 (34.0-46.0) % MCV 91.9 (80.0-100.0) fL MCH 31.1 (25.0-35.0) pg MCHC 33.8 (31.0-37.0) g/dL RDW 14.1 (11.5-15.5) % Plt Count 355 (150-450) k/uL MPV 6.9 Neutrophils % 65 % Lymphocytes % 21 % Monocytes % 7 % Eosinophils % 4 % Basophils % 1 % Neutrophils # 3.0 (1.3-7.7) k/uL Lymphocytes # 1.0 (1.0-4.8) k/uL Monocytes # 0.3 (0-1.0) k/uL Eosinophils # 0.2 (0-0.7) k/uL Basophils # 0.1 (0-0.2) k/uL PT 9.7 (9.0-12.0) sec INR 0.9 (<1.2) APTT 25.8 (22.0-30.0) sec D-Dimer 1.75 H (<0.60) mg/L FEU Sodium 132 L (137-145) mmol/L Potassium 3.6 (3.5-5.1) mmol/L Chloride 97 L (98-107) mmol/L Carbon Dioxide 21 L (22-30) mmol/L Anion Gap 14 mmol/L BUN 20 H (7-17) mg/dL Creatinine 0.75 (0.52-1.04) mg/dL Est GFR (CKD-EPI)AfAm >90 (>60 ml/min/1.73 sqM) Est GFR (CKD-EPI)NonAf 79 (>60 ml/min/1.73 sqM) Glucose 61 L (74-99) mg/dL Plasma Lactic Acid Tom (0.7-2.0) mmol/L Calcium 8.9 (8.4-10.2) mg/dL Magnesium 1.8 (1.6-2.3) mg/dL Total Bilirubin 0.7 (0.2-1.3) mg/dL AST 35 (14-36) U/L ALT 21 (4-34) U/L Alkaline Phosphatase 74 (38-126) U/L Lactate Dehydrogenase 576 (313-618) U/L Troponin I (0.000-0.034) ng/mL C-Reactive Protein 37.3 H (<10.0) mg/L Total Protein 6.2 L (6.3-8.2) g/dL Albumin 3.5 (3.5-5.0) g/dL Coronavirus (PCR) (Not Detectd) 08/23/20 08/23/20 08/23/20 Range/Units 11:37 11:37 11:37 WBC (3.8-10.6) k/uL RBC (3.80-5.40) m/uL Hgb (11.4-16.0) gm/dL Hct (34.0-46.0) % MCV (80.0-100.0) fL MCH (25.0-35.0) pg MCHC (31.0-37.0) g/dL RDW (11.5-15.5) % Plt Count (150-450) k/uL MPV Neutrophils % % Lymphocytes % % Monocytes % % Eosinophils % % Basophils % % Neutrophils # (1.3-7.7) k/uL Lymphocytes # (1.0-4.8) k/uL Monocytes # (0-1.0) k/uL Eosinophils # (0-0.7) k/uL Basophils # (0-0.2) k/uL PT (9.0-12.0) sec INR (<1.2) APTT (22.0-30.0) sec D-Dimer (<0.60) mg/L FEU Sodium (137-145) mmol/L Potassium (3.5-5.1) mmol/L Chloride (98-107) mmol/L Carbon Dioxide (22-30) mmol/L Anion Gap mmol/L BUN (7-17) mg/dL Creatinine (0.52-1.04) mg/dL Est GFR (CKD-EPI)AfAm (>60 ml/min/1.73 sqM) Est GFR (CKD-EPI)NonAf (>60 ml/min/1.73 sqM) Glucose (74-99) mg/dL Plasma Lactic Acid Tom 1.3 (0.7-2.0) mmol/L Calcium (8.4-10.2) mg/dL Magnesium (1.6-2.3) mg/dL Total Bilirubin (0.2-1.3) mg/dL AST (14-36) U/L ALT (4-34) U/L Alkaline Phosphatase (38-126) U/L Lactate Dehydrogenase (313-618) U/L Troponin I <0.012 (0.000-0.034) ng/mL C-Reactive Protein (<10.0) mg/L Total Protein (6.3-8.2) g/dL Albumin (3.5-5.0) g/dL Coronavirus (PCR) Detected A (Not Detectd) - EKG Data -: EKG Interpreted by [facility] EKG Comments: EKG obtained at 1200 shows normal sinus rhythm with a ventricular rate of 73, IN interval 166, QRS duration 94, QT 434, QTC 478. No evidence of ST elevation or depression. - Radiology Data Radiology results: report reviewed, image reviewed One view x-ray of the chest is obtained. Report was reviewed in its entirety. Impression by Dr. Reed shows unable to exclude subtle early groundglass infiltrate in the periphery of the right lung. Disposition Clinical Impression: COVID-19 Disposition: [facility] Condition: Serious Referrals: Sina Tam MD [Primary Care Provider] - 1-2 days Decision to Admit Reason: Admit from EC Decision Date: 08/23/20 Decision Time: 13:32
[2020-08-23 11:49] LABS: Basophils # (A) 0.1 k/uL (0-0.2); Basophils % (A) 1 %; Eosinophils # (A) 0.2 k/uL (0-0.7); Eosinophils % (A) 4 %; HCT 37.5 % (34.0-46.0); HGB 12.7 gm/dL (11.4-16.0); Lymphocytes % (A) 21 %; MCH 31.1 pg (25.0-35.0); MCHC 33.8 g/dL (31.0-37.0); MCV 91.9 fL (80.0-100.0); Mean Platelet Volume 6.9; Monocytes # (A) 0.3 k/uL (0-1.0); Monocytes % (A) 7 %; Neutrophils % (A) 65 %; Platelet Count 355 k/uL (150-450); RBC 4.08 m/uL (3.80-5.40); RDW 14.1 % (11.5-15.5); WBC 4.6 k/uL (3.8-10.6)
[2020-08-23 12:02] LABS: ALT 21 U/L (4-34); AST 35 U/L (14-36); African American GFR (CKD) >90 (>60 ml/min/1.73 sqM); Albumin 3.5 g/dL (3.5-5.0); Alkaline Phosphatase 74 U/L (38-126); Anion Gap 14 mmol/L; Blood Urea Nitrogen 20 mg/dL (7-17); Calcium 8.9 mg/dL (8.4-10.2); Carbon Dioxide 21 mmol/L (22-30); Chloride 97 mmol/L (98-107); Glucose 61 mg/dL (74-99); LDH 576 U/L (313-618); Magnesium 1.8 mg/dL (1.6-2.3); Non-African American GFR(CKD) 79 (>60 ml/min/1.73 sqM); Potassium 3.6 mmol/L (3.5-5.1); Sodium 132 mmol/L (137-145); Total Bilirubin 0.7 mg/dL (0.2-1.3); Total Protein 6.2 g/dL (6.3-8.2)
[2020-08-23 12:09] LABS: INR 0.9 (<1.2); Partial Thromboplastin Time 25.8 sec (22.0-30.0); Prothrombin Time 9.7 sec (9.0-12.0)
[2020-08-23 12:11] LABS: D-Dimer 1.75 mg/L FEU (<0.60)
--- NOTE | 2020-08-23 12:13 | XR ---
EXAMINATION TYPE: XR chest 1V portable DATE OF EXAM: 08/23/2020 Comparison: 11/15/2019 Clinical History: 75-year-old female Suspected COVID-19 pneumonia Findings: Heart upper limits of normal in size. Aortopulmonary vasculature within normal limits. There is subtl e patchy peripheral right lung opacity. Impression: Unable to exclude subtle early groundglass infiltrate in the periphery of the right lung. Follow-up r ecommended.
[2020-08-23 12:19] LABS: C Reactive Protein 37.3 mg/L (<10.0)
[2020-08-23] MEDS ORDERED: SODIUM CHLORIDE 0.9% 500 ML 500 ML IV ONE (13:06)
[2020-08-23] MEDS: SODIUM CHLORIDE 0.9% 1,000 ML IV SCH (13:19)
[2020-08-23] MEDS ORDERED: HYDROcodone/APAP 5-325MG 1 EACH TAB PO STA (13:26)
[2020-08-23] MEDS ORDERED: DEXAMETHASONE SOD PHOSPHATE 4 MG/ML 1 ML VIAL IV STA (13:30)
[2020-08-23] MEDS ORDERED: ONDANSETRON 4 MG/2 ML VIAL IVP PRN (13:30)
[2020-08-23] MEDS ORDERED: NALOXONE 0.4 MG/ML 1 ML VIAL IV PRN (13:30)
[2020-08-23] MEDS ORDERED: ENOXAPARIN 40 MG/0.4 ML SYRINGE SQ STA (13:31)
[2020-08-23] MEDS ORDERED: ALBUTEROL HFA INHALER INHALATION PRN (13:39)
[2020-08-23 14:32] LABS: Appearance,Urine Cloudy (Clear); Bacteria,Urine Rare /hpf; Bilirubin,Urine Negative (Negative); Blood,Urine Negative (Negative); Color,Urine Yellow; Glucose,Urine (UA) Negative (Negative); Hyaline Casts,Urine 16 /lpf (0-2); Ketones,Urine 4+ (Negative); Leukocyte Esterase,Urine Negative (Negative); Mucus,Urine Moderate /hpf; Nitrite,Urine Positive (Negative); Protein,Urine 1+ (Negative); RBC,Urine 1 /hpf (0-5); Specific Gravity,Urine 1.029 (1.001-1.035); Squamous Epithelial Cell,Urine 6 /hpf (0-4); WBC,Urine 4 /hpf (0-5)
[2020-08-23] MEDS: ALBUTEROL HFA INHALER INHALATION SCH (17:18)
[2020-08-23 18:31] LABS: Ferritin 367.1 ng/mL (10.0-291.0)
[2020-08-23 20:22] LABS: Glucose,Whole Blood 108 mg/dL (75-99)
[2020-08-23] MEDS: ACETAMINOPHEN TAB 325 MG TAB PO PRN (21:36)
--- NOTE | 2020-08-23 22:25 | P.HPIM ---
History of Present Illness H&P Date: 08/23/20 Chief Complaint: Severe dyspnea and shortness of breath, Covid 19 pneumonitis, severe weakne 75-year-old female one of Dr. vidal's patient who was seen recently in consultation for post left total hip arthroplasty done by Dr. Beavers on 08/07/2020, patient spent the night in the hospital did very well with physical therapy patient was able to be discharged the following day. According to patient she has been seeing physical therapy until this last week when physical therapy call to say is running some symptom of Covid 19 going for testing and I was the last she heard. Patient developed to have significant symptom with high fever chills last 24 hours developed to have significant shortness of breath with severe dyspnea and hypoxia with pulse ox running in the low 90. [facility] with the current complaint code 19 testing was done confirmed to be positive her marker including for routine C- reactive protein along with d-dimer were requested with elevated her urine test was abnormal as well chest x-ray showed early groundglass infiltrate in the peripheral of the right lung patient was started on 2 L 4 to pulse ox is up to 96 percentile started on dexamethasone along with Lovenox will do vitamin C and D along with zinc patient be seen pulmonary and if further decline in pulse ox patient might benefit from antiviral management Review of Systems CONSTITUTIONAL: Well-developed mild respiratory this EYES: No icterus sclerae, no conjunctivitis. EARS, NOSE, MOUTH, THROAT, and FACE: No sore throat, lymphadenopathy, carotid bruits or deformity. RESPIRATORY: Slight dyspnea and shortness of breath and cough CARDIOVASCULAR: PND orthopnea and palpitation with arrhythmia GASTROINTESTINAL: Mild nausea no vomiting or diarrhea GENITOURINARY: Negative for Hematuria or UTI, no kidney stones. INTEGUMENT/BREAST: Negative for any muscular injury with mild osteoarthritis.. HEMATOLOGIC/LYMPHATIC: Negative for bleed or purpura. MUSCULOSKELTAL: Generalized muscle and joint pain especially in the left hip NEURLOGICAL: No LOC, Sz or syncope, blurred vision dizziness or abnormality.. BEHAVIORAL/PSYCH: Negative. ENDOCRINE: Negative. Past Medical History Past Medical History: Asthma, Diabetes Mellitus, Hypertension, Pneumonia Additional Past Medical History / Comment(s): Diet-controlled diabetic, back pain, lap Band, PNA, asthma History of Any Multi-Drug Resistant Organisms: None Reported Past Surgical History: Cholecystectomy, Joint Replacement Additional Past Surgical History / Comment(s): Bilateral knee replacements, lap band, eyelid surgery, panniculectomy, lap band port replacement 2-20, left hip replaced 08/07/2020, sees Dr. Montejo for back pain Past Anesthesia/Blood Transfusion Reactions: Postoperative Nausea & Vomiting (PONV) Additional Past Anesthesia/Blood Transfusion Reaction / Comment(s): once after hyst Past Psychological History: No Psychological Hx Reported Additional Psychological History / Comment(s): Pt resides alone in her home with 2 steps. She owns a cane/walker . She drives. Smoking Status: Former smoker Past Alcohol Use History: Rare Additional Past Alcohol Use History / Comment(s): Patient smokes cigarettes for 22 years and quit in 1985. Past Drug Use History: None Reported - Past Family History Mother Family Medical History: No Reported History Additional Family Medical History / Comment(s): Mother from CHF at the age of 69yrs Father Family Medical History: Myocardial Infarction ([place]) Additional Family Medical History / Comment(s): Father of a [place] at the age of 63 yrs. Sister(s) Additional Family Medical History / Comment(s): Patient has one sister that from overdose of medications. Patient does not have any brothers. Patient has 2 sons with no major medical problems. Medications and Allergies Home Medications Medication Instructions Recorded Confirmed Type Levothyroxine Sodium [Synthroid] 37.5 mcg PO QAM 08/05/14 08/23/20 History Metoprolol Tartrate [Lopressor] 50 mg PO BID 08/05/14 08/23/20 History Montelukast [Singulair] 10 mg PO HS 08/05/14 08/23/20 History Sennosides-Docusate Sodium 1 tab PO BID 08/05/14 08/23/20 History [Senokot-S] amLODIPine BESYLATE [Norvasc] 10 mg PO DAILY 08/05/14 08/23/20 History hydroCHLOROthiazide [Hydrodiuril] 25 mg PO QAM 08/05/14 08/23/20 History lisinopriL [Prinivil] 20 mg PO BID 08/05/14 08/23/20 History Loratadine [Claritin] 10 mg PO DAILY 11/26/14 08/23/20 History Budesonide-Formot 160-4.5 Mcg 2 puff INHALATION RT-BID 01/09/19 08/23/20 History [Symbicort 160-4.5 Mcg Inhaler] Cholecalciferol [Vitamin D3 (25 1,000 unit PO DAILY 05/19/20 08/23/20 History Mcg = 1000 Iu)] Aspirin [Adult Low Dose Aspirin EC] 81 mg PO DAILY 08/23/20 08/23/20 History Omeprazole 20 mg PO DAILY 08/23/20 08/23/20 History Allergies Allergy/AdvReac Type Severity Reaction Status Date / Time adhesive tape Allergy Rash/BLISTE Verified 08/23/20 13:15 RS banana Allergy Wheezing Verified 08/23/20 13:15 cinnamon Allergy Wheezing Verified 08/23/20 13:15 hydromorphone [From Dilaudid] Allergy Unknown Verified 08/23/20 13:15 Mushroom Allergy COULD NO Verified 08/23/20 13:15 RESPOND" FELT LIKE SHE WAS PASSING OUT poison michell extract Allergy Rash/Hives Verified 08/23/20 13:15 codeine AdvReac Unknown Abdominal Verified 08/23/20 13:15 Pain monosodium glutamate [MSG] AdvReac Nausea & Verified 08/23/20 13:15 Vomiting burning yan Allergy Rash/Hives Uncoded 08/23/20 13:15 Physical Exam Vitals: Vital Signs Temp Pulse Pulse Resp BP BP Pulse Ox 08/23/20 19:33 97.9 F 66 94/57 96 08/23/20 18:29 97.9 F 08/23/20 16:50 73 16 117/65 97 08/23/20 14:44 98.5 F 71 22 131/84 96 08/23/20 12:57 76 18 136/71 98 08/23/20 10:51 98.9 F 95 18 102/71 97 Intake and Output 08/23/20 08/23/20 08/23/20 06:59 14:59 22:59 Other: Weight 78.471 kg 78.471 kg General Appearance: Alert, cooperative, no distress, appears stated age. Neck HEENT: Supple, no lymphadenopathy, no thyroid enlargement, no carotid bruits. Lungs: Decreased breath sounds bilaterally especially the right lower lobe with fine rhonchi mild crackles mild expiratory wheezes. Chest Wall: Chest wall normal expansion with deep inspiration no tenderness and no deformity was found on exam, no costochondral pain or discomfort. Heart: Regular rate and rhythm, S1, S2 normal, no murmur, rub or gallop. Back: Symmetric, no curvature, ROM normal, no CVA tenderness. Abdomen: Soft, non-tender, bowel sounds active all four quadrants, no masses, no organomegaly. Extremities: Left hip incision looks fine with no hematoma or bleeding trace edema. Pulses: 2+ and symmetric. Skin: Skin color, texture, tugor normal, no rashes or lesions. Neurologic: Alert oriented x3 cranial nerves II through XII intact, no motor deficit, no abnormal balance or gait. Results CBC & Chem 7: 08/23/20 11:37 08/23/20 11:37 Labs: Abnormal Lab Results - Last 24 Hours (Table) 08/23/20 08/23/20 08/23/20 Range/Units 11:37 11:37 11:37 D-Dimer 1.75 H (<0.60) mg/L FEU Sodium 132 L (137-145) mmol/L Chloride 97 L (98-107) mmol/L Carbon Dioxide 21 L (22-30) mmol/L BUN 20 H (7-17) mg/dL Glucose 61 L (74-99) mg/dL POC Glucose (mg/dL) (75-99) mg/dL Ferritin 367.1 H (10.0-291.0) ng/mL C-Reactive Protein 37.3 H (<10.0) mg/L Total Protein 6.2 L (6.3-8.2) g/dL Urine Appearance (Clear) Urine Protein (Negative) Urine Ketones (Negative) Urine Nitrite (Negative) Ur Squamous Epith Cells (0-4) /hpf Urine Bacteria (None) /hpf Hyaline Casts (0-2) /lpf Urine Mucus (None) /hpf Coronavirus (PCR) Detected A (Not Detectd) 08/23/20 08/23/20 Range/Units 14:15 20:21 D-Dimer (<0.60) mg/L FEU Sodium (137-145) mmol/L Chloride (98-107) mmol/L Carbon Dioxide (22-30) mmol/L BUN (7-17) mg/dL Glucose (74-99) mg/dL POC Glucose (mg/dL) 108 H (75-99) mg/dL Ferritin (10.0-291.0) ng/mL C-Reactive Protein (<10.0) mg/L Total Protein (6.3-8.2) g/dL Urine Appearance Cloudy H (Clear) Urine Protein 1+ H (Negative) Urine Ketones 4+ H (Negative) Urine Nitrite Positive H (Negative) Ur Squamous Epith Cells 6 H (0-4) /hpf Urine Bacteria Rare H (None) /hpf Hyaline Casts 16 H (0-2) /lpf Urine Mucus Moderate H (None) /hpf Coronavirus (PCR) (Not Detectd) Thrombosis Risk Factor Assmnt - DVT/VTE Prophylaxis DVT/VTE Prophylaxis: Pharmacologic Prophylaxis ordered, Mechanical Prophylaxis ordered - Choose All That Apply Any of the Below Risk Factors Present?: No Other Risk Factors: Yes Each Risk Factor Represents 2 Points: Age 61-74 years Other congenital or acquired thrombophilia - If yes, enter type in comment: Yes Each Risk Factor Represents 5 Points: Hip, pelvis, or leg fracture (< 1 month) Thrombosis Risk Factor Assessment Total Risk Factor Score: 7 Thrombosis Risk Factor Assessment Level: High Risk Assessment and Plan Assessment: 1 acute Covid pneumonitis: Patient be admitted to the hospital continue O2 continue dexamethasone along with zinc calcium with vitamin D, vitamin C continue supportive care will consult pulmonary and if further decline in pulse ox patient will benefit from antiviral management. 2 hypoxia and severe dyspnea: Secondary to Covid pneumonitis will continue current management with add Rocephin and azithromycin for treatment of pneumonitis as well. 3 urinary tract infection: Lactic acid is not elevated white blood cell is not significantly elevated this point patient was started on Rocephin 1 g a day Will send urine for culture as well. 4 recent history of left total hip arthroplasty stable patient was managing well before terminating her physical therapy. 5 hypothyroidism: Continue patient on levothyroxine 37.5 g daily. 6 hypertension: Continue lisinopril 20 mg twice a day amlodipine 10 mg daily also continue metoprolol 50 mg twice a day. 7 arrhythmia: On metoprolol at this point. 8 mild asthma/COPD: Has been on budesonide and Ventolin continue updraft treatment. 9 chronic ALLERGY: Has been on Singulair and Zyrtec. 10 severe GERD/GI prophylaxis patient to continue pantoprazole. 11 DVT prophylaxis: Patient will be on Lovenox 40 mg daily. CODE STATUS: Full code. Admit patient to inpatient service for more than 2 night stay
[2020-08-24] MEDS: ALBUTEROL HFA INHALER INHALATION SCH ×5 (00:17→20:02)
[2020-08-24] MEDS: AZITHROMYCIN 500 MG in SODIUM CHLORIDE 0.9% 250 ML IVPB SCH ×2 (00:41→21:23)
[2020-08-24 04:41] LABS: Appearance,Urine Clear (Clear); Bilirubin,Urine Negative (Negative); Blood,Urine Negative (Negative); Color,Urine Yellow; Glucose,Urine (UA) Negative (Negative); Ketones,Urine 4+ (Negative); Leukocyte Esterase,Urine Negative (Negative); Nitrite,Urine Negative (Negative); PH, Urine 5.5 (5.0-8.0); Protein,Urine Trace (Negative); Specific Gravity,Urine 1.023 (1.001-1.035)
[2020-08-24 07:20] LABS: Glucose,Whole Blood 77 mg/dL (75-99)
[2020-08-24 08:00] LABS: Basophils % (A) 1 %; Eosinophils % (A) 0 %; HCT 37.8 % (34.0-46.0); HGB 12.1 gm/dL (11.4-16.0); Hypochromasia Slight; Lymphocytes # (A) 0.8 k/uL (1.0-4.8); Lymphocytes % (A) 31 %; MCH 30.3 pg (25.0-35.0); MCHC 31.9 g/dL (31.0-37.0); Monocytes # (A) 0.3 k/uL (0-1.0); Monocytes % (A) 10 %; Neutrophils # (A) 1.5 k/uL (1.3-7.7); Neutrophils % (A) 55 %; Platelet Count 378 k/uL (150-450); RBC 3.98 m/uL (3.80-5.40); RDW 14.3 % (11.5-15.5); WBC 2.7 k/uL (3.8-10.6)
[2020-08-24] MEDS: SYMBICORT 160-4.5 MCG INHALER INHALATION SCH (08:30)
[2020-08-24] MEDS: LEVOTHYROXINE 75 MCG TAB PO SCH (08:48)
[2020-08-24] MEDS: CHOLECALCIFEROL 1,000 UNIT TAB PO SCH (08:48)
[2020-08-24] MEDS: SENNOSIDES-DOCUSATE SODIUM 1 EACH TAB PO SCH ×2 (08:48→20:35)
[2020-08-24] MEDS: PANTOPRAZOLE 40 MG TABLET PO SCH (08:48)
[2020-08-24] MEDS: ENOXAPARIN 40 MG/0.4 ML SYRINGE SQ SCH (08:48)
[2020-08-24] MEDS: DEXAMETHASONE SOD PHOSPHATE 10 MG/ML 1 ML VIAL IV SCH (08:49)
[2020-08-24] MEDS: lisinopriL 20 MG TAB PO SCH ×2 (08:49→20:36)
[2020-08-24] MEDS: METOPROLOL TARTRATE 50 MG TAB PO SCH ×2 (08:49→20:35)
[2020-08-24] MEDS: ASPIRIN 81 MG PO SCH (08:49)
[2020-08-24] MEDS: LORATADINE 10 MG TAB PO SCH (08:49)
[2020-08-24] MEDS: amLODIPine 10 MG TAB PO SCH (08:49)
[2020-08-24 11:47] LABS: Glucose,Whole Blood 109 mg/dL (75-99)
[2020-08-24 11:48] LABS: African American GFR (CKD) 104.8 (60.0-200.0); Albumin 3.4 g/dL (3.80-4.90); Albumin/Globulin Ratio 1.79 (1.60-3.17); Anion Gap 17.2 mmol/L (4.00-12.00); Calcium 8.5 mg/dL (8.7-10.3); Carbon Dioxide 19.8 mmol/L (21.6-31.8); Globulin 1.9 g/dL (1.6-3.3); Non-African American GFR(CKD) 90.4 (60.0-200.0); Potassium 4.1 mmol/L (3.5-5.5); Total Bilirubin 0.2 mg/dL (0.2-1.2); Total Protein 5.3 g/dL (6.2-8.2)
[2020-08-24] MEDS: INSULIN ASPART (NovoLOG) 100 UNIT/ML VIAL SQ SCH ×3 (11:54→20:36)
--- NOTE | 2020-08-24 11:58 | P.PN ---
Subjective Progress Note Date: 08/24/20 HISTORY OF PRESENT ILLNESS 75-year-old female one of Dr. Rodriguez's patient who was seen recently in consultation for post left total hip arthroplasty done by Dr. Beavers on 08/07/2020, patient spent the night in the hospital did very well with physical therapy patient was able to be discharged the following day. According to patient she has been seeing physical therapy until this last week when physical therapy call to say is running some symptom of Covid 19 going for testing and I was the last she heard. Patient developed to have significant symptom with high fever chills last 24 hours developed to have significant shortness of breath with severe dyspnea and hypoxia with pulse ox running in the low 90. Patient presented to demurs department where was seen with the current complaint code 19 testing was done confirmed to be positive her marker including for routine C- reactive protein along with d-dimer were requested with elevated her urine test was abnormal as well chest x-ray showed early groundglass infiltrate in the peripheral of the right lung patient was started on 2 L 4 to pulse ox is up to 96 percentile started on dexamethasone along with Lovenox will do vitamin C and D along with zinc patient be seen pulmonary and if further decline in pulse ox patient might benefit from antiviral management 08/24: Patient is seen today on the MedSurg floor. She is complaining of feeling significantly weak. Pulse ox is currently 96% on 2 L nasal cannula. She has been afebrile since admission, heart rate 61, blood pressure 118/71. Repeat blood work reveals Mikayla BC 2.7, lymphocytes 0.8. CO2 19.8, potassium 4.1, creatinine 0.6. Blood sugars running between 77 and 108. Urinalysis negative for infection. Patient is reaching 1750 on incentive spirometry. REVIEW OF SYSTEMS CONSTITUTIONAL: Well-developed, no respiratory distress EYES: No icterus sclerae, no conjunctivitis. EARS, NOSE, MOUTH, THROAT, and FACE: No sore throat, lymphadenopathy, carotid bruits or deformity. RESPIRATORY: Slight dyspnea and shortness of breath and cough CARDIOVASCULAR: PND orthopnea and palpitation with arrhythmia GASTROINTESTINAL: Mild nausea no vomiting or diarrhea GENITOURINARY: Negative for Hematuria or UTI, no kidney stones. INTEGUMENT/BREAST: Negative for any muscular injury with mild osteoarthritis.. HEMATOLOGIC/LYMPHATIC: Negative for bleed or purpura. MUSCULOSKELTAL: Generalized muscle and joint pain especially in the left hip NEURLOGICAL: No LOC, Sz or syncope, blurred vision dizziness or abnormality.. BEHAVIORAL/PSYCH: Negative. ENDOCRINE: Negative. PHYSICAL EXAMINATION General Appearance: Alert, cooperative, no distress, appears stated age. Neck HEENT: Supple, no lymphadenopathy, no thyroid enlargement, no carotid bruits. Lungs: Decreased breath sounds bilaterally especially the right lower lobe with fine rhonchi mild crackles mild expiratory wheezes. Chest Wall: Chest wall normal expansion with deep inspiration no tenderness and no deformity was found on exam, no costochondral pain or discomfort. Heart: Regular rate and rhythm, S1, S2 normal, no murmur, rub or gallop. Back: Symmetric, no curvature, ROM normal, no CVA tenderness. Abdomen: Soft, non-tender, bowel sounds active all four quadrants, no masses, no organomegaly. Extremities: Left hip incision looks fine with no hematoma or bleeding trace edema. Pulses: 2+ and symmetric. Skin: Skin color, texture, tugor normal, no rashes or lesions. Neurologic: Alert oriented x3 cranial nerves II through XII intact, no motor deficit, no abnormal balance or gait. ASSESSMENT AND PLAN 1 acute Covid pneumonitis: Patient be admitted to the hospital continue O2 continue dexamethasone along with zinc calcium with vitamin D, vitamin C continue supportive care will consult pulmonary and if further decline in pulse ox patient will benefit from antiviral management. 2 hypoxia and severe dyspnea: Secondary to Covid pneumonitis will continue current management with add Rocephin and azithromycin for treatment of pneumonitis as well. 3 urinary tract infection: Lactic acid is not elevated white blood cell is not significantly elevated this point patient was started on Rocephin 1 g a day Will send urine for culture as well. 4 recent history of left total hip arthroplasty stable patient was managing well before terminating her physical therapy. PT and OT ordered. 5 hypothyroidism: Continue patient on levothyroxine 37.5 g daily. 6 hypertension: Continue lisinopril 20 mg twice a day amlodipine 10 mg daily also continue metoprolol 50 mg twice a day. 7 arrhythmia: On metoprolol at this point. 8 mild asthma/COPD: Has been on budesonide and Ventolin continue updraft treatment. 9 chronic ALLERGY: Has been on Singulair and Zyrtec. 10 severe GERD/GI prophylaxis patient to continue pantoprazole. 11 DVT prophylaxis: Patient will be on Lovenox 40 mg daily. CODE STATUS: Full code. DISCHARGE PLAN Possible need for subacute rehab. Impression and plan of care have been directed as dictated by the signing physician. Roxane York nurse practitioner acting as scribe for signing physician. Objective - Vital Signs Vital signs: Vital Signs Temp 97.7 F 08/24/20 05:55 Pulse 75 08/24/20 05:55 Resp 16 08/23/20 16:50 BP 126/72 08/24/20 05:55 Pulse Ox 97 08/24/20 05:55 Intake & Output 08/23/20 08/24/20 08/24/20 18:59 06:59 18:59 Weight 78.471 kg 78.471 kg Other: Voiding Method Bedpan # Voids 1 - Labs CBC & Chem 7: 08/24/20 07:13 08/24/20 07:13 Labs: Abnormal Lab Results - Last 24 Hours (Table) 08/23/20 08/23/20 08/23/20 Range/Units 11:37 11:37 11:37 WBC (3.8-10.6) k/uL Lymphocytes # (1.0-4.8) k/uL D-Dimer 1.75 H (<0.60) mg/L FEU Sodium 132 L (137-145) mmol/L Chloride 97 L (98-107) mmol/L Carbon Dioxide 21 L (22-30) mmol/L BUN 20 H (7-17) mg/dL Glucose 61 L (74-99) mg/dL POC Glucose (mg/dL) (75-99) mg/dL Ferritin 367.1 H (10.0-291.0) ng/mL C-Reactive Protein 37.3 H (<10.0) mg/L Total Protein 6.2 L (6.3-8.2) g/dL Urine Appearance (Clear) Urine Protein (Negative) Urine Ketones (Negative) Urine Nitrite (Negative) Ur Squamous Epith Cells (0-4) /hpf Urine Bacteria (None) /hpf Hyaline Casts (0-2) /lpf Urine Mucus (None) /hpf Coronavirus (PCR) Detected A (Not Detectd) 08/23/20 08/23/20 08/24/20 Range/Units 14:15 20:21 03:34 WBC (3.8-10.6) k/uL Lymphocytes # (1.0-4.8) k/uL D-Dimer (<0.60) mg/L FEU Sodium (137-145) mmol/L Chloride (98-107) mmol/L Carbon Dioxide (22-30) mmol/L BUN (7-17) mg/dL Glucose (74-99) mg/dL POC Glucose (mg/dL) 108 H (75-99) mg/dL Ferritin (10.0-291.0) ng/mL C-Reactive Protein (<10.0) mg/L Total Protein (6.3-8.2) g/dL Urine Appearance Cloudy H (Clear) Urine Protein 1+ H Trace H (Negative) Urine Ketones 4+ H 4+ H (Negative) Urine Nitrite Positive H (Negative) Ur Squamous Epith Cells 6 H (0-4) /hpf Urine Bacteria Rare H (None) /hpf Hyaline Casts 16 H (0-2) /lpf Urine Mucus Moderate H (None) /hpf Coronavirus (PCR) (Not Detectd) 08/24/20 Range/Units 07:13 WBC 2.7 L (3.8-10.6) k/uL Lymphocytes # 0.8 L (1.0-4.8) k/uL D-Dimer (<0.60) mg/L FEU Sodium (137-145) mmol/L Chloride (98-107) mmol/L Carbon Dioxide (22-30) mmol/L BUN (7-17) mg/dL Glucose (74-99) mg/dL POC Glucose (mg/dL) (75-99) mg/dL Ferritin (10.0-291.0) ng/mL C-Reactive Protein (<10.0) mg/L Total Protein (6.3-8.2) g/dL Urine Appearance (Clear) Urine Protein (Negative) Urine Ketones (Negative) Urine Nitrite (Negative) Ur Squamous Epith Cells (0-4) /hpf Urine Bacteria (None) /hpf Hyaline Casts (0-2) /lpf Urine Mucus (None) /hpf Coronavirus (PCR) (Not Detectd)
[2020-08-24 17:07] LABS: Glucose,Whole Blood 156 mg/dL (75-99)
[2020-08-24] MEDS: SODIUM CHLORIDE 0.9% 1,000 ML IV SCH (19:00)
[2020-08-24 20:09] LABS: Glucose,Whole Blood 141 mg/dL (75-99)
[2020-08-24] MEDS: MONTELUKAST 10 MG TAB PO SCH (20:36)
[2020-08-24] MEDS ORDERED: guaiFENesin-DM 100-10MG/5ML 10 ML CUP PO PRN (21:36)
[2020-08-24] MEDS ORDERED: ALPRAZolam 0.25 MG TAB PO PRN (21:36)
[2020-08-24] MEDS: guaiFENesin SYRUP 100MG/5ML 200 MG/10 ML CUP PO PRN (21:53)
[2020-08-25] MEDS: SYMBICORT 160-4.5 MCG INHALER INHALATION SCH ×3 (05:35→21:00)
[2020-08-25] MEDS: SODIUM CHLORIDE 0.9% 1,000 ML IV SCH (05:35)
[2020-08-25] MEDS: INSULIN ASPART (NovoLOG) 100 UNIT/ML VIAL SQ SCH ×4 (07:21→23:06)
[2020-08-25 07:22] LABS: Glucose,Whole Blood 82 mg/dL (75-99)
[2020-08-25] MEDS: METOPROLOL TARTRATE 50 MG TAB PO SCH ×2 (08:01→23:08)
[2020-08-25] MEDS: amLODIPine 10 MG TAB PO SCH (08:01)
[2020-08-25] MEDS: CHOLECALCIFEROL 1,000 UNIT TAB PO SCH (08:01)
[2020-08-25] MEDS: SENNOSIDES-DOCUSATE SODIUM 1 EACH TAB PO SCH ×2 (08:01→23:15)
[2020-08-25] MEDS: lisinopriL 20 MG TAB PO SCH ×2 (08:01→23:08)
[2020-08-25] MEDS: ENOXAPARIN 40 MG/0.4 ML SYRINGE SQ SCH (08:01)
[2020-08-25] MEDS: DEXAMETHASONE SOD PHOSPHATE 10 MG/ML 1 ML VIAL IV SCH (08:01)
[2020-08-25] MEDS: PANTOPRAZOLE 40 MG TABLET PO SCH (08:02)
[2020-08-25] MEDS: LORATADINE 10 MG TAB PO SCH (08:02)
[2020-08-25] MEDS: LEVOTHYROXINE 75 MCG TAB PO SCH (08:02)
[2020-08-25] MEDS: ASPIRIN 81 MG PO SCH (08:03)
[2020-08-25] MEDS: ALBUTEROL HFA INHALER INHALATION SCH ×4 (09:30→20:58)
[2020-08-25 11:12] LABS: Glucose,Whole Blood 113 mg/dL (75-99)
--- NOTE | 2020-08-25 13:12 | P.PN ---
Subjective Progress Note Date: 08/25/20 HISTORY OF PRESENT ILLNESS 75-year-old female one of Dr. Rodriguez's patient who was seen recently in consultation for post left total hip arthroplasty done by Dr. Beavers on 08/07/2020, patient spent the night in the hospital did very well with physical therapy patient was able to be discharged the following day. According to patient she has been seeing physical therapy until this last week when physical therapy call to say is running some symptom of Covid 19 going for testing and I was the last she heard. Patient developed to have significant symptom with high fever chills last 24 hours developed to have significant shortness of breath with severe dyspnea and hypoxia with pulse ox running in the low 90. Patient presented to demurs department where was seen with the current complaint code 19 testing was done confirmed to be positive her marker including for routine C- reactive protein along with d-dimer were requested with elevated her urine test was abnormal as well chest x-ray showed early groundglass infiltrate in the peripheral of the right lung patient was started on 2 L 4 to pulse ox is up to 96 percentile started on dexamethasone along with Lovenox will do vitamin C and D along with zinc patient be seen pulmonary and if further decline in pulse ox patient might benefit from antiviral management 08/24: Patient is seen today on the MedSurg floor. She is complaining of feeling significantly weak. Pulse ox is currently 96% on 2 L nasal cannula. She has been afebrile since admission, heart rate 61, blood pressure 118/71. Repeat blood work reveals Mikayla BC 2.7, lymphocytes 0.8. CO2 19.8, potassium 4.1, creatinine 0.6. Blood sugars running between 77 and 108. Urinalysis negative for infection. Patient is reaching 1750 on incentive spirometry. 08/25: Patient states that she is feeling a little bit better today. She denies any difficulty with her hip. PT and OT have been ordered and we'll probably see her today. She states she had a lot of coughing last night. Today cough is mild. Pulse ox 94% on room air, afebrile, blood pressure 118/72, heart rate 66. Blood sugars are running between 80-141. Anticipate probable discharge on Tue. REVIEW OF SYSTEMS CONSTITUTIONAL: Well-developed, no respiratory distress. Denies fevers EYES: No icterus sclerae, no conjunctivitis. EARS, NOSE, MOUTH, THROAT, and FACE: No sore throat, lymphadenopathy, carotid bruits or deformity. RESPIRATORY: Slight dyspnea and shortness of breath and cough CARDIOVASCULAR: PND orthopnea and palpitation with arrhythmia GASTROINTESTINAL: Mild nausea no vomiting or diarrhea GENITOURINARY: Negative for Hematuria or UTI, no kidney stones. INTEGUMENT/BREAST: Negative for any muscular injury with mild osteoarthritis.. HEMATOLOGIC/LYMPHATIC: Negative for bleed or purpura. MUSCULOSKELTAL: Generalized muscle and joint pain especially in the left hip NEURLOGICAL: No LOC, Sz or syncope, blurred vision dizziness or abnormality.. BEHAVIORAL/PSYCH: Negative. ENDOCRINE: Negative. PHYSICAL EXAMINATION General Appearance: Alert, cooperative, no distress, appears stated age. No acute respiratory distress, frequent coughing. Neck HEENT: Supple, no lymphadenopathy, no thyroid enlargement, no carotid bruits. Lungs: Decreased breath sounds bilaterally especially the right lower lobe with fine rhonchi mild crackles mild expiratory wheezes. Chest Wall: Chest wall normal expansion with deep inspiration no tenderness and no deformity was found on exam, no costochondral pain or discomfort. Heart: Regular rate and rhythm, S1, S2 normal, no murmur, rub or gallop. Back: Symmetric, no curvature, ROM normal, no CVA tenderness. Abdomen: Soft, non-tender, bowel sounds active all four quadrants, no masses, no organomegaly. Extremities: Left hip incision looks fine with no hematoma or bleeding trace rebecca ma. Pulses: 2+ and symmetric. Skin: Skin color, texture, tugor normal, no rashes or lesions. Neurologic: Alert oriented x3 cranial nerves II through XII intact, no motor deficit, no abnormal balance or gait. ASSESSMENT AND PLAN 1 acute Covid pneumonitis: Patient be admitted to the hospital continue O2 continue dexamethasone, zinc, vitamin D, vitamin C, ceftriaxone, azithromycin, continue supportive care. 2 hypoxia and severe dyspnea: Secondary to Covid pneumonitis will continue current management with add Rocephin and azithromycin for treatment of pneumon itis as well. 3 urinary tract infection: Lactic acid is not elevated white blood cell is not significantly elevated this point patient was started on Rocephin 1 g a day Will send urine for culture as well. 4 recent history of left total hip arthroplasty stable patient was managing well before terminating her physical therapy. PT and OT ordered. 5 hypothyroidism: Continue patient on levothyroxine 37.5 g daily. 6 hypertension: Continue lisinopril 20 mg twice a day amlodipine 10 mg daily also continue metoprolol 50 mg twice a day. 7 arrhythmia: On metoprolol at this point. 8 mild asthma/COPD: Has been on budesonide and Ventolin continue updraft treatment. 9 chronic ALLERGY: Has been on Singulair and Zyrtec. 10 severe GERD/GI prophylaxis patient to continue pantoprazole. 11 DVT prophylaxis: Patient will be on Lovenox 40 mg daily. CODE STATUS: Full code. DISCHARGE PLAN Possible need for subacute rehab. PT and OT to evaluate. Impression and plan of care have been directed as dictated by the signing physician. Roxane York nurse practitioner acting as scribe for signing physician. Objective - Vital Signs Vital signs: Vital Signs Temp 98.0 F 08/25/20 05:32 Pulse 66 08/25/20 05:32 Resp 16 08/24/20 18:00 BP 118/72 08/25/20 05:32 Pulse Ox 94 L 08/25/20 05:32 Intake & Output 08/24/20 08/25/20 08/25/20 18:59 06:59 18:59 Intake Total 540 Balance 540 Intake: Oral 540 Other: Voiding Method Bedpan Bedpan # Voids 3 2 - Labs CBC & Chem 7: 08/24/20 07:13 08/24/20 07:13 Labs: Abnormal Lab Results - Last 24 Hours (Table) 08/24/20 08/24/20 08/24/20 Range/Units 07:13 11:45 17:05 Carbon Dioxide 19.8 L (21.6-31.8) mmol/L Anion Gap 17.20 H (4.00-12.00) mmol/L BUN/Creatinine Ratio 30.00 H (12.00-20.00) Ratio POC Glucose (mg/dL) 109 H 156 H (75-99) mg/dL Calcium 8.5 L (8.7-10.3) mg/dL Total Protein 5.3 L (6.2-8.2) g/dL Albumin 3.40 L (3.80-4.90) g/dL 08/24/20 Range/Units 20:07 Carbon Dioxide (21.6-31.8) mmol/L Anion Gap (4.00-12.00) mmol/L BUN/Creatinine Ratio (12.00-20.00) Ratio POC Glucose (mg/dL) 141 H (75-99) mg/dL Calcium (8.7-10.3) mg/dL Total Protein (6.2-8.2) g/dL Albumin (3.80-4.90) g/dL Microbiology - Last 24 Hours (Table) 08/23/20 11:37 Blood Culture - Preliminary Blood No Growth after 24 hours
[2020-08-25] MEDS: guaiFENesin-Coden 100-10MG/5ML 10 ML CUP PO PRN (13:41)
[2020-08-25 16:41] LABS: Glucose,Whole Blood 217 mg/dL (75-99)
[2020-08-25 20:44] LABS: Glucose,Whole Blood 140 mg/dL (75-99)
[2020-08-25 22:55] LABS: Glucose,Whole Blood 128 mg/dL (75-99)
[2020-08-25] MEDS: MONTELUKAST 10 MG TAB PO SCH (23:09)
[2020-08-25] MEDS: AZITHROMYCIN 500 MG in SODIUM CHLORIDE 0.9% 250 ML IVPB SCH (23:59)
[2020-08-26] MEDS: ACETAMINOPHEN TAB 325 MG TAB PO PRN (02:00)
[2020-08-26 06:56] LABS: Glucose,Whole Blood 115 mg/dL (75-99)
[2020-08-26] MEDS: INSULIN ASPART (NovoLOG) 100 UNIT/ML VIAL SQ SCH ×4 (07:19→21:34)
[2020-08-26] MEDS: ALBUTEROL HFA INHALER INHALATION SCH ×3 (07:19→19:51)
[2020-08-26] MEDS: ASPIRIN 81 MG PO SCH (07:22)
[2020-08-26] MEDS: amLODIPine 10 MG TAB PO SCH (07:22)
[2020-08-26] MEDS: LEVOTHYROXINE 75 MCG TAB PO SCH (07:22)
[2020-08-26] MEDS: CHOLECALCIFEROL 1,000 UNIT TAB PO SCH (07:23)
[2020-08-26] MEDS: PANTOPRAZOLE 40 MG TABLET PO SCH (07:23)
[2020-08-26] MEDS: SENNOSIDES-DOCUSATE SODIUM 1 EACH TAB PO SCH ×2 (07:23→21:38)
[2020-08-26] MEDS: lisinopriL 20 MG TAB PO SCH ×2 (07:23→21:34)
[2020-08-26] MEDS: ENOXAPARIN 40 MG/0.4 ML SYRINGE SQ SCH (07:24)
[2020-08-26] MEDS: LORATADINE 10 MG TAB PO SCH (07:24)
[2020-08-26] MEDS: METOPROLOL TARTRATE 50 MG TAB PO SCH ×2 (07:24→21:34)
[2020-08-26] MEDS: DEXAMETHASONE SOD PHOSPHATE 10 MG/ML 1 ML VIAL IV SCH (07:24)
[2020-08-26] MEDS: SYMBICORT 160-4.5 MCG INHALER INHALATION SCH ×2 (09:12→19:51)
[2020-08-26] MEDS: guaiFENesin-Coden 100-10MG/5ML 10 ML CUP PO PRN (09:33)
[2020-08-26 11:36] LABS: Glucose,Whole Blood 125 mg/dL (75-99)
--- NOTE | 2020-08-26 11:54 | P.PN ---
Subjective Progress Note Date: 08/26/20 HISTORY OF PRESENT ILLNESS 75-year-old female one of Dr. Rodriguez's patient who was seen recently in consultation for post left total hip arthroplasty done by Dr. Beavers on 08/07/2020, patient spent the night in the hospital did very well with physical therapy patient was able to be discharged the following day. According to patient she has been seeing physical therapy until this last week when physical therapy call to say is running some symptom of Covid 19 going for testing and I was the last she heard. Patient developed to have significant symptom with high fever chills last 24 hours developed to have significant shortness of breath with severe dyspnea and hypoxia with pulse ox running in the low 90. Patient presented to demurs department where was seen with the current complaint code 19 testing was done confirmed to be positive her marker including for routine C- reactive protein along with d-dimer were requested with elevated her urine test was abnormal as well chest x-ray showed early groundglass infiltrate in the peripheral of the right lung patient was started on 2 L 4 to pulse ox is up to 96 percentile started on dexamethasone along with Lovenox will do vitamin C and D along with zinc patient be seen pulmonary and if further decline in pulse ox patient might benefit from antiviral management 08/24: Patient is seen today on the MedSurg floor. She is complaining of feeling significantly weak. Pulse ox is currently 96% on 2 L nasal cannula. She has been afebrile since admission, heart rate 61, blood pressure 118/71. Repeat blood work reveals Mikayla BC 2.7, lymphocytes 0.8. CO2 19.8, potassium 4.1, creatinine 0.6. Blood sugars running between 77 and 108. Urinalysis negative for infection. Patient is reaching 1750 on incentive spirometry. 08/25: Patient states that she is feeling a little bit better today. She denies any difficulty with her hip. PT and OT have been ordered and we'll probably see her today. She states she had a lot of coughing last night. Today cough is mild. Pulse ox 94% on room air, afebrile, blood pressure 118/72, heart rate 66. Blood sugars are running between 80-141. Anticipate probable discharge on Tue. 08/26: Patient states she continues to have a cough but a little bit better. She has some sputum production. She denies any fever. She states she is not much appetite. Blood sugars have been running between 115 and 140. She has been afebrile, heart rate 60, blood pressure 121/73, pulse ox 98% on 2 L. Do not expect the patient will require home oxygen but will have nurse check this with plan for discharge home tomorrow. Patient has been evaluated by therapies and advised discharge home without home care. REVIEW OF SYSTEMS CONSTITUTIONAL: Well-developed, no respiratory distress. Denies fevers. Denies chills. EYES: No icterus sclerae, no conjunctivitis. EARS, NOSE, MOUTH, THROAT, and FACE: No sore throat, lymphadenopathy, carotid bruits or deformity. RESPIRATORY: Slight dyspnea and shortness of breath and cough CARDIOVASCULAR: PND orthopnea and palpitation with arrhythmia GASTROINTESTINAL: Mild nausea no vomiting or diarrhea GENITOURINARY: Negative for Hematuria or UTI, no kidney stones. INTEGUMENT/BREAST: Negative for any muscular injury with mild osteoarthritis.. HEMATOLOGIC/LYMPHATIC: Negative for bleed or purpura. MUSCULOSKELTAL: Generalized muscle and joint pain especially in the left hip NEURLOGICAL: No LOC, Sz or syncope, blurred vision dizziness or abnormality.. BEHAVIORAL/PSYCH: Negative. ENDOCRINE: Negative. PHYSICAL EXAMINATION General Appearance: Alert, cooperative, no distress, appears stated age. No acute respiratory distress, occasional coughing. Neck HEENT: Supple, no lymphadenopathy, no thyroid enlargement, no carotid bruits. Lungs: Decreased breath sounds bilaterally especially the right lower lobe with fine rhonchi mild crackles mild expiratory wheezes. Chest Wall: Chest wall normal expansion with deep inspiration no tenderness and no deformity was found on exam, no costochondral pain or discomfort. Heart: Regular rate and rhythm, S1, S2 normal, no murmur, rub or gallop. Back: Symmetric, no curvature, ROM normal, no CVA tenderness. Abdomen: Soft, non-tender, bowel sounds active all four quadrants, no masses, no organomegaly. Extremities: Left hip incision looks fine with no hematoma or bleeding trace edema. Pulses: 2+ and symmetric. Skin: Skin color, texture, tugor normal, no rashes or lesions. Neurologic: Alert oriented x3 cranial nerves II through XII intact, no motor deficit, no abnormal balance or gait. ASSESSMENT AND PLAN 1 acute Covid pneumonitis: Patient be admitted to the hospital continue O2 continue dexamethasone, zinc, vitamin D, vitamin C, ceftriaxone, azithromycin, continue supportive care. 2 hypoxia and severe dyspnea: Secondary to Covid pneumonitis will continue current management with add Rocephin and azithromycin for treatment of pneumonitis as well. Monitor for home oxygen need. 3 urinary tract infection: Lactic acid is not elevated white blood cell is not significantly elevated this point patient was started on Rocephin 1 g a day 4 recent history of left total hip arthroplasty stable patient was managing well before terminating her physical therapy. PT and OT ordered. 5 hypothyroidism: Continue patient on levothyroxine 37.5 g daily. 6 hypertension: Continue lisinopril 20 mg twice a day amlodipine 10 mg daily also continue metoprolol 50 mg twice a day. 7 arrhythmia: On metoprolol at this point. 8 mild asthma/COPD: Has been on budesonide and Ventolin continue updraft treatment. 9 chronic ALLERGY: Has been on Singulair and Zyrtec. 10 severe GERD/GI prophylaxis patient to continue pantoprazole. 11 DVT prophylaxis: Patient will be on Lovenox 40 mg daily. CODE STATUS: Full code. DISCHARGE PLAN Home on Tuesday. Impression and plan of care have been directed as dictated by the signing physician. Roxane York nurse practitioner acting as scribe for signing physician. Objective - Vital Signs Vital signs: Vital Signs Temp 98.8 F 08/26/20 05:25 Pulse 60 08/26/20 05:25 Resp 15 08/26/20 05:25 BP 121/73 08/26/20 05:25 Pulse Ox 98 08/26/20 05:25 Intake & Output 08/25/20 08/26/20 08/26/20 18:59 06:59 18:59 Other: # Voids 3 2 - Labs CBC & Chem 7: 08/24/20 07:13 08/24/20 07:13 Labs: Abnormal Lab Results - Last 24 Hours (Table) 08/25/20 08/25/20 08/25/20 Range/Units 11:07 16:38 20:43 POC Glucose (mg/dL) 113 H 217 H 140 H (75-99) mg/dL 08/25/20 08/26/20 Range/Units 22:43 06:54 POC Glucose (mg/dL) 128 H 115 H (75-99) mg/dL Microbiology - Last 24 Hours (Table) 08/23/20 11:37 Blood Culture - Preliminary Blood No Growth after 48 hours
[2020-08-26 16:38] LABS: Glucose,Whole Blood 154 mg/dL (75-99)
[2020-08-26 20:08] LABS: Glucose,Whole Blood 209 mg/dL (75-99)
[2020-08-26] MEDS: AZITHROMYCIN 500 MG TAB PO SCH (21:34)
[2020-08-26] MEDS: MONTELUKAST 10 MG TAB PO SCH (21:34)
[2020-08-27 06:52] LABS: Glucose,Whole Blood 86 mg/dL (75-99)
[2020-08-27] MEDS: INSULIN ASPART (NovoLOG) 100 UNIT/ML VIAL SQ SCH ×4 (07:10→20:28)
[2020-08-27] MEDS: LEVOTHYROXINE 75 MCG TAB PO SCH (07:17)
[2020-08-27] MEDS: SENNOSIDES-DOCUSATE SODIUM 1 EACH TAB PO SCH ×2 (07:18→20:28)
[2020-08-27] MEDS: LORATADINE 10 MG TAB PO SCH (07:18)
[2020-08-27] MEDS: ASPIRIN 81 MG PO SCH (07:18)
[2020-08-27] MEDS: CHOLECALCIFEROL 1,000 UNIT TAB PO SCH (07:18)
[2020-08-27] MEDS: METOPROLOL TARTRATE 50 MG TAB PO SCH ×2 (07:19→20:28)
[2020-08-27] MEDS: lisinopriL 20 MG TAB PO SCH ×2 (07:19→20:28)
[2020-08-27] MEDS: amLODIPine 10 MG TAB PO SCH (07:19)
[2020-08-27] MEDS: PANTOPRAZOLE 40 MG TABLET PO SCH (07:19)
[2020-08-27] MEDS: DEXAMETHASONE SOD PHOSPHATE 10 MG/ML 1 ML VIAL IV SCH (07:20)
[2020-08-27] MEDS: ENOXAPARIN 40 MG/0.4 ML SYRINGE SQ SCH (07:20)
[2020-08-27] MEDS: SYMBICORT 160-4.5 MCG INHALER INHALATION SCH ×2 (09:18→21:19)
[2020-08-27] MEDS: ALBUTEROL HFA INHALER INHALATION SCH ×4 (09:18→21:19)
[2020-08-27] MEDS: ACETAMINOPHEN TAB 325 MG TAB PO PRN (09:19)
[2020-08-27] MEDS: guaiFENesin SYRUP 100MG/5ML 200 MG/10 ML CUP PO PRN (09:19)
[2020-08-27 11:21] LABS: Glucose,Whole Blood 138 mg/dL (75-99)
--- NOTE | 2020-08-27 14:26 | P.PN ---
Subjective Progress Note Date: 08/27/20 HISTORY OF PRESENT ILLNESS 75-year-old female one of Dr. Rodriguez's patient who was seen recently in consultation for post left total hip arthroplasty done by Dr. Beavers on 08/07/2020, patient spent the night in the hospital did very well with physical therapy patient was able to be discharged the following day. According to patient she has been seeing physical therapy until this last week when physical therapy call to say is running some symptom of Covid 19 going for testing and I was the last she heard. Patient developed to have significant symptom with high fever chills last 24 hours developed to have significant shortness of breath with severe dyspnea and hypoxia with pulse ox running in the low 90. Patient presented to demurs department where was seen with the current complaint code 19 testing was done confirmed to be positive her marker including for routine C- reactive protein along with d-dimer were requested with elevated her urine test was abnormal as well chest x-ray showed early groundglass infiltrate in the peripheral of the right lung patient was started on 2 L 4 to pulse ox is up to 96 percentile started on dexamethasone along with Lovenox will do vitamin C and D along with zinc patient be seen pulmonary and if further decline in pulse ox patient might benefit from antiviral management 08/24: Patient is seen today on the MedSurg floor. She is complaining of feeling significantly weak. Pulse ox is currently 96% on 2 L nasal cannula. She has been afebrile since admission, heart rate 61, blood pressure 118/71. Repeat blood work reveals Mikayla BC 2.7, lymphocytes 0.8. CO2 19.8, potassium 4.1, creatinine 0.6. Blood sugars running between 77 and 108. Urinalysis negative for infection. Patient is reaching 1750 on incentive spirometry. 08/25: Patient states that she is feeling a little bit better today. She denies any difficulty with her hip. PT and OT have been ordered and we'll probably see her today. She states she had a lot of coughing last night. Today cough is mild. Pulse ox 94% on room air, afebrile, blood pressure 118/72, heart rate 66. Blood sugars are running between 80-141. Anticipate probable discharge on Tue. 08/26: Patient states she continues to have a cough but a little bit better. She has some sputum production. She denies any fever. She states she is not much appetite. Blood sugars have been running between 115 and 140. She has been afebrile, heart rate 60, blood pressure 121/73, pulse ox 98% on 2 L. Do not expect the patient will require home oxygen but will have nurse check this with plan for discharge home tomorrow. Patient has been evaluated by therapies and advised discharge home without home care. 08/27: Patient states that she had a coughing spell this morning and is unco mfortable going home today. She is tearful during evaluation. She has been off oxygen she states her family are all sick with Covid. Patient has been afebrile, heart rate 67, blood pressure 123/82, pulse ox 96% on room air. Blood sugars running between 86 and 209. REVIEW OF SYSTEMS CONSTITUTIONAL: Well-developed, no respiratory distress. Denies fevers. Denies chills. EYES: No icterus sclerae, no conjunctivitis. EARS, NOSE, MOUTH, THROAT, and FACE: No sore throat, lymphadenopathy, carotid bruits or deformity. RESPIRATORY: Slight dyspnea and shortness of breath and continued cough CARDIOVASCULAR: PND orthopnea and palpitation with arrhythmia GASTROINTESTINAL: Denies nausea no vomiting or diarrhea GENITOURINARY: Negative for Hematuria or UTI, no kidney stones. INTEGUMENT/BREAST: Negative for any muscular injury with mild osteoarthritis.. HEMATOLOGIC/LYMPHATIC: Negative for bleed or purpura. MUSCULOSKELTAL: Generalized muscle and joint pain especially in the left hip NEURLOGICAL: No LOC, Sz or syncope, blurred vision dizziness or abnormality.. BEHAVIORAL/PSYCH: Negative. ENDOCRINE: Negative. PHYSICAL EXAMINATION General Appearance: Alert, cooperative, no distress, appears stated age. No acute respiratory distress, occasional coughing. Neck HEENT: Supple, no lymphadenopathy, no thyroid enlargement, no carotid bruits. Lungs: Decreased breath sounds bilaterally. Chest Wall: Chest wall normal expansion with deep inspiration no tenderness and no deformity was found on exam, no costochondral pain or discomfort. Heart: Regular rate and rhythm, S1, S2 normal, no murmur, rub or gallop. Back: Symmetric, no curvature, ROM normal, no CVA tenderness. Abdomen: Soft, non-tender, bowel sounds active all four quadrants, no masses, no organomegaly. Extremities: Left hip incision looks fine with no hematoma or bleeding trace edema. Pulses: 2+ and symmetric. Skin: Skin color, texture, tugor normal, no rashes or lesions. Neurologic: Alert oriented x3 cranial nerves II through XII intact, no motor deficit, no abnormal balance or gait. ASSESSMENT AND PLAN 1 acute Covid pneumonitis: Continue O2 continue dexamethasone, zinc, vitamin D, vitamin C, ceftriaxone, azithromycin, continue supportive care. 2 hypoxia and severe dyspnea: Secondary to Covid pneumonitis will continue current management with add Rocephin and azithromycin for treatment of pneumonitis as well. Monitor for home oxygen need. 3 urinary tract infection: Lactic acid is not elevated white blood cell is not significantly elevated this point patient was started on Rocephin 1 g a day 4 recent history of left total hip arthroplasty stable patient was managing well before terminating her physical therapy. PT and OT ordered. 5 hypothyroidism: Continue patient on levothyroxine 37.5 g daily. 6 hypertension: Continue lisinopril 20 mg twice a day amlodipine 10 mg daily also continue metoprolol 50 mg twice a day. 7 arrhythmia: On metoprolol at this point. 8 mild asthma/COPD: Has been on budesonide and Ventolin continue updraft treatment. 9 chronic ALLERGY: Has been on Singulair and Zyrtec. 10 severe GERD/GI prophylaxis patient to continue pantoprazole. 11 DVT prophylaxis: Patient will be on Lovenox 40 mg daily. CODE STATUS: Full code. DISCHARGE PLAN Home on . Impression and plan of care have been directed as dictated by the signing physician. Roxane York nurse practitioner acting as scribe for signing physician. Objective - Vital Signs Vital signs: Vital Signs Temp 98.6 F 08/27/20 05:34 Pulse 62 08/27/20 05:34 Resp 17 08/27/20 05:34 BP 134/82 08/27/20 05:34 Pulse Ox 96 08/27/20 05:34 Intake & Output 08/26/20 08/27/20 08/27/20 18:59 06:59 18:59 Other: Voiding Method Bedpan Bedpan # Voids 2 2 - Labs CBC & Chem 7: 08/24/20 07:13 08/24/20 07:13 Labs: Abnormal Lab Results - Last 24 Hours (Table) 08/26/20 08/26/20 08/26/20 Range/Units 11:33 16:35 20:06 POC Glucose (mg/dL) 125 H 154 H 209 H (75-99) mg/dL Microbiology - Last 24 Hours (Table) 08/23/20 11:37 Blood Culture - Preliminary Blood No Growth after 72 hours
[2020-08-27 16:38] LABS: Glucose,Whole Blood 157 mg/dL (75-99)
[2020-08-27 20:19] LABS: Glucose,Whole Blood 157 mg/dL (75-99)
[2020-08-27] MEDS: MONTELUKAST 10 MG TAB PO SCH (20:28)
[2020-08-27] MEDS: AZITHROMYCIN 500 MG TAB PO SCH (21:30)
[2020-08-28] MEDS: guaiFENesin SYRUP 100MG/5ML 200 MG/10 ML CUP PO PRN (01:16)
[2020-08-28 06:48] LABS: Glucose,Whole Blood 79 mg/dL (75-99)
[2020-08-28] MEDS: ALBUTEROL HFA INHALER INHALATION SCH ×4 (07:54→19:43)
[2020-08-28] MEDS: SYMBICORT 160-4.5 MCG INHALER INHALATION SCH ×2 (07:54→19:43)
[2020-08-28] MEDS: INSULIN ASPART (NovoLOG) 100 UNIT/ML VIAL SQ SCH ×4 (08:23→21:31)
[2020-08-28] MEDS: amLODIPine 10 MG TAB PO SCH (08:34)
[2020-08-28] MEDS: PANTOPRAZOLE 40 MG TABLET PO SCH (08:34)
[2020-08-28] MEDS: lisinopriL 20 MG TAB PO SCH ×2 (08:34→21:31)
[2020-08-28] MEDS: SENNOSIDES-DOCUSATE SODIUM 1 EACH TAB PO SCH ×2 (08:34→21:31)
[2020-08-28] MEDS: METOPROLOL TARTRATE 50 MG TAB PO SCH ×2 (08:34→21:31)
[2020-08-28] MEDS: ASPIRIN 81 MG PO SCH (08:34)
[2020-08-28] MEDS: CHOLECALCIFEROL 1,000 UNIT TAB PO SCH (08:34)
[2020-08-28] MEDS: LEVOTHYROXINE 75 MCG TAB PO SCH (08:35)
[2020-08-28] MEDS: DEXAMETHASONE SOD PHOSPHATE 10 MG/ML 1 ML VIAL IV SCH (08:35)
[2020-08-28] MEDS: LORATADINE 10 MG TAB PO SCH (08:35)
[2020-08-28] MEDS: ENOXAPARIN 40 MG/0.4 ML SYRINGE SQ SCH (08:37)
[2020-08-28 11:32] LABS: Glucose,Whole Blood 113 mg/dL (75-99)
--- NOTE | 2020-08-28 12:01 | P.PN ---
Subjective Progress Note Date: 08/28/20 HISTORY OF PRESENT ILLNESS 75-year-old female one of Dr. Rodriguez's patient who was seen recently in consultation for post left total hip arthroplasty done by Dr. Beavers on 08/07/2020, patient spent the night in the hospital did very well with physical therapy patient was able to be discharged the following day. According to patient she has been seeing physical therapy until this last week when physical therapy call to say is running some symptom of Covid 19 going for testing and I was the last she heard. Patient developed to have significant symptom with high fever chills last 24 hours developed to have significant shortness of breath with severe dyspnea and hypoxia with pulse ox running in the low 90. Patient presented to demurs department where was seen with the current complaint code 19 testing was done confirmed to be positive her marker including for routine C- reactive protein along with d-dimer were requested with elevated her urine test was abnormal as well chest x-ray showed early groundglass infiltrate in the peripheral of the right lung patient was started on 2 L 4 to pulse ox is up to 96 percentile started on dexamethasone along with Lovenox will do vitamin C and D along with zinc patient be seen pulmonary and if further decline in pulse ox patient might benefit from antiviral management 08/24: Patient is seen today on the MedSurg floor. She is complaining of feeling significantly weak. Pulse ox is currently 96% on 2 L nasal cannula. She has been afebrile since admission, heart rate 61, blood pressure 118/71. Repeat blood work reveals Mikayla BC 2.7, lymphocytes 0.8. CO2 19.8, potassium 4.1, creatinine 0.6. Blood sugars running between 77 and 108. Urinalysis negative for infection. Patient is reaching 1750 on incentive spirometry. 08/25: Patient states that she is feeling a little bit better today. She denies any difficulty with her hip. PT and OT have been ordered and we'll probably see her today. She states she had a lot of coughing last night. Today cough is mild. Pulse ox 94% on room air, afebrile, blood pressure 118/72, heart rate 66. Blood sugars are running between 80-141. Anticipate probable discharge on Tue. 08/26: Patient states she continues to have a cough but a little bit better. She has some sputum production. She denies any fever. She states she is not much appetite. Blood sugars have been running between 115 and 140. She has been afebrile, heart rate 60, blood pressure 121/73, pulse ox 98% on 2 L. Do not expect the patient will require home oxygen but will have nurse check this with plan for discharge home tomorrow. Patient has been evaluated by therapies and advised discharge home without home care. 08/27: Patient states that she had a coughing spell this morning and is unco mfortable going home today. She is tearful during evaluation. She has been off oxygen she states her family are all sick with Covid. Patient has been afebrile, heart rate 67, blood pressure 123/82, pulse ox 96% on room air. Blood sugars running between 86 and 209. 08/28: Patient is breathing status is stable at this point in pulse ox is 97% on room air. She has been afebrile, heart rate 71, blood pressure 131/82. Blood sugars are running between 7957. The patient is doing well with physical therapy plan is to return home. Patient states that family members are ill and unable to take care of her. She is asking to stay 1 more day until things are stable at home. REVIEW OF SYSTEMS CONSTITUTIONAL: Well-developed, no respiratory distress. Denies fevers. Denies chills. EYES: No icterus sclerae, no conjunctivitis. EARS, NOSE, MOUTH, THROAT, and FACE: No sore throat, lymphadenopathy, carotid bruits or deformity. RESPIRATORY: Slight dyspnea and shortness of breath and continued cough CARDIOVASCULAR: PND orthopnea and palpitation with arrhythmia GASTROINTESTINAL: Denies nausea no vomiting or diarrhea GENITOURINARY: Negative for Hematuria or UTI, no kidney stones. INTEGUMENT/BREAST: Negative for any muscular injury with mild osteoarthritis.. HEMATOLOGIC/LYMPHATIC: Negative for bleed or purpura. MUSCULOSKELTAL: Generalized muscle and joint pain especially in the left hip NEURLOGICAL: No LOC, Sz or syncope, blurred vision dizziness or abnormality. No confusion. BEHAVIORAL/PSYCH: Negative. ENDOCRINE: Negative. PHYSICAL EXAMINATION General Appearance: Alert, cooperative, no distress, appears stated age. No acute respiratory distress, rare coughing. Neck HEENT: Supple, no lymphadenopathy, no thyroid enlargement, no carotid bruits. Lungs: Decreased breath sounds bilaterally. Chest Wall: Chest wall normal expansion with deep inspiration no tenderness and no deformity was found on exam, no costochondral pain or discomfort. Heart: Regular rate and rhythm, S1, S2 normal, no murmur, rub or gallop. Back: Symmetric, no curvature, ROM normal, no CVA tenderness. Abdomen: Soft, non-tender, bowel sounds active all four quadrants, no masses, no organomegaly. Extremities: Left hip incision looks fine with no hematoma or bleeding trace edema. Pulses: 2+ and symmetric. Skin: Skin color, texture, tugor normal, no rashes or lesions. Neurologic: Alert oriented x3 cranial nerves II through XII intact, no motor deficit, no abnormal balance or gait. ASSESSMENT AND PLAN 1 acute Covid pneumonitis: Continue O2 continue dexamethasone, zinc, vitamin D, vitamin C, ceftriaxone, azithromycin, continue supportive care. 2 hypoxia and severe dyspnea: Secondary to Covid pneumonitis will continue current management with add Rocephin and azithromycin for treatment of pneumonitis as well. Monitor for home oxygen need. 3 urinary tract infection, ruled out 4 recent history of left total hip arthroplasty stable patient was managing well before terminating her physical therapy. PT and OT ordered. 5 hypothyroidism: Continue patient on levothyroxine 37.5 g daily. 6 hypertension: Continue lisinopril 20 mg twice a day amlodipine 10 mg daily also continue metoprolol 50 mg twice a day. 7 arrhythmia: On metoprolol at this point. 8 mild asthma/COPD: Has been on budesonide and Ventolin continue updraft treatment. 9 chronic ALLERGY: Has been on Singulair and Zyrtec. 10 severe GERD/GI prophylaxis patient to continue pantoprazole. 11 DVT prophylaxis: Patient will be on Lovenox 40 mg daily. CODE STATUS: Full code. DISCHARGE PLAN Home on Tuesday. Impression and plan of care have been directed as dictated by the signing physician. Roxane York nurse practitioner acting as scribe for signing physician. Objective - Vital Signs Vital signs: Vital Signs Temp 98.4 F 08/28/20 05:21 Pulse 71 08/28/20 05:21 Resp 18 08/28/20 05:21 BP 131/82 08/28/20 05:21 Pulse Ox 97 08/28/20 05:21 Intake & Output 08/27/20 08/28/20 08/28/20 18:59 06:59 18:59 Intake Total 1080 Balance 1080 Intake: Oral 1080 Other: Voiding Method Bedpan Bedpan # Voids 3 2 - Labs CBC & Chem 7: 08/24/20 07:13 08/24/20 07:13 Labs: Abnormal Lab Results - Last 24 Hours (Table) 08/27/20 08/27/20 08/27/20 Range/Units 11:20 16:29 20:18 POC Glucose (mg/dL) 138 H 157 H 157 H (75-99) mg/dL Microbiology - Last 24 Hours (Table) 08/23/20 11:37 Blood Culture - Preliminary Blood No Growth after 96 hours
[2020-08-28 12:55] VITALS: BMI 37.4
[2020-08-28 16:46] LABS: Glucose,Whole Blood 175 mg/dL (75-99)
[2020-08-28 20:52] LABS: Glucose,Whole Blood 166 mg/dL (75-99)
[2020-08-28] MEDS: AZITHROMYCIN 500 MG TAB PO SCH (21:31)
[2020-08-28] MEDS: MONTELUKAST 10 MG TAB PO SCH (21:31)
[2020-08-29 06:54] VITALS: TEMP 98.5
[2020-08-29 07:03] LABS: Glucose,Whole Blood 84 mg/dL (75-99)
[2020-08-29] MEDS: ALBUTEROL HFA INHALER INHALATION SCH (07:34)
[2020-08-29] MEDS: SYMBICORT 160-4.5 MCG INHALER INHALATION SCH (07:35)
[2020-08-29] MEDS: INSULIN ASPART (NovoLOG) 100 UNIT/ML VIAL SQ SCH ×2 (08:11→12:28)
[2020-08-29] MEDS: LORATADINE 10 MG TAB PO SCH (08:16)
[2020-08-29] MEDS: amLODIPine 10 MG TAB PO SCH (08:16)
[2020-08-29] MEDS: CHOLECALCIFEROL 1,000 UNIT TAB PO SCH (08:16)
[2020-08-29] MEDS: lisinopriL 20 MG TAB PO SCH (08:16)
[2020-08-29] MEDS: SENNOSIDES-DOCUSATE SODIUM 1 EACH TAB PO SCH (08:16)
[2020-08-29] MEDS: LEVOTHYROXINE 75 MCG TAB PO SCH (08:16)
[2020-08-29] MEDS: METOPROLOL TARTRATE 50 MG TAB PO SCH (08:16)
[2020-08-29] MEDS: ASPIRIN 81 MG PO SCH (08:16)
[2020-08-29] MEDS: PANTOPRAZOLE 40 MG TABLET PO SCH (08:16)
[2020-08-29] MEDS: DEXAMETHASONE SOD PHOSPHATE 10 MG/ML 1 ML VIAL IV SCH (08:17)
[2020-08-29] MEDS: ENOXAPARIN 40 MG/0.4 ML SYRINGE SQ SCH (08:17)
--- NOTE | 2020-08-29 08:55 | P.DS ---
Providers Date of admission: 08/23/20 13:58 Expected date of discharge: 08/29/20 Attending physician: Jeremy Hamilton Primary care physician: Sina [facility] Course: HISTORY OF PRESENT ILLNESS 75-year-old female one of Dr. Rodriguez's patient who was seen recently in consultation for post left total hip arthroplasty done by Dr. Beavers on 08/07/2020, patient spent the night in the hospital did very well with physical therapy patient was able to be discharged the following day. According to patient she has been seeing physical therapy until this last week when physical therapy call to say is running some symptom of Covid 19 going for testing and I was the last she heard. Patient developed to have significant symptom with high fever chills last 24 hours developed to have significant shortness of breath wi th severe dyspnea and hypoxia with pulse ox running in the low 90. Patient presented to demurs department where was seen with the current complaint code 19 testing was done confirmed to be positive her marker including for routine C- reactive protein along with d-dimer were requested with elevated her urine test was abnormal as well chest x-ray showed early groundglass infiltrate in the peripheral of the right lung patient was started on 2 L 4 to pulse ox is up to 96 percentile started on dexamethasone along with Lovenox will do vitamin C and D along with zinc patient be seen pulmonary and if further decline in pulse ox patient might benefit from antiviral management 08/24: Patient is seen today on the MedSurg floor. She is complaining of feeling significantly weak. Pulse ox is currently 96% on 2 L nasal cannula. She has been afebrile since admission, heart rate 61, blood pressure 118/71. Repeat blood work reveals Mikayla BC 2.7, lymphocytes 0.8. CO2 19.8, potassium 4.1, creatinine 0.6. Blood sugars running between 77 and 108. Urinalysis negative for infection. Patient is reaching 1750 on incentive spirometry. 08/25: Patient states that she is feeling a little bit better today. She denies any difficulty with her hip. PT and OT have been ordered and we'll probably see her today. She states she had a lot of coughing last night. Today cough is mild. Pulse ox 94% on room air, afebrile, blood pressure 118/72, heart rate 66. Blood sugars are running between 80-141. Anticipate probable discharge on Tuesday. 08/26: Patient states she continues to have a cough but a little bit better. She has some sputum production. She denies any fever. She states she is not much appetite. Blood sugars have been running between 115 and 140. She has been afebrile, heart rate 60, blood pressure 121/73, pulse ox 98% on 2 L. Do not expect the patient will require home oxygen but will have nurse check this with plan for discharge home tomorrow. Patient has been evaluated by therapies and advised discharge home without home care. 08/27: Patient states that she had a coughing spell this morning and is uncomfortable going home today. She is tearful during evaluation. She has been off oxygen she states her family are all sick with Covid. Patient has been afebrile, heart rate 67, blood pressure 123/82, pulse ox 96% on room air. Blood sugars running between 86 and 209. 08/28: Patient is breathing status is stable at this point in pulse ox is 97% on room air. She has been afebrile, heart rate 71, blood pressure 131/82. Blood sugars are running between 7957. The patient is doing well with physical therapy plan is to return home. Patient states that family members are ill and unable to take care of her. She is asking to stay 1 more day until things are stable at home. 08/29: Patient's breathing status has been stable. She has been off oxygen and pulse ox is 96-898% on room air. She has been afebrile, heart rate 65, blood pressure 142/82. Repeat CBC reveals WBC 7.6, hemoglobin 11.5, platelet count 553. Blood sugars running between 84 and 166. Patient will be discharged home today in stable condition. ASSESSMENT AND PLAN 1 acute Covid pneumonitis 2 hypoxia and severe dyspnea: Secondary to Covid pneumonitis, without acute hypoxic respiratory failure 3 urinary tract infection ruled out by repeat UA 4 recent history of left total hip arthroplasty stable 5 hypothyroidism 6 hypertension 7 arrhythmia 8 mild asthma/COPD 9 chronic ALLERGY 10 severe GERD DISCHARGE PLAN Home Impression and plan of care have been directed as dictated by the signing physician. Roxane York nurse practitioner acting as scribe for signing physician. Patient Condition at Discharge: Good Plan - Discharge Summary Discharge Rx Participant: No New Discharge Prescriptions: New Azithromycin [Zithromax] 500 mg PO HS #5 tab Dexamethasone [Decadron] 6 mg PO DAILY #4 tablet Continue Sennosides-Docusate Sodium [Senokot-S] 1 tab PO BID amLODIPine BESYLATE [Norvasc] 10 mg PO DAILY Montelukast [Singulair] 10 mg PO HS Metoprolol Tartrate [Lopressor] 50 mg PO BID hydroCHLOROthiazide [Hydrodiuril] 25 mg PO QAM lisinopriL [Prinivil] 20 mg PO BID Levothyroxine Sodium [Synthroid] 37.5 mcg PO QAM Loratadine [Claritin] 10 mg PO DAILY Budesonide-Formot 160-4.5 Mcg [Symbicort 160-4.5 Mcg Inhaler] 2 puff INHALATION RT-BID Cholecalciferol [Vitamin D3 (25 Mcg = 1000 Iu)] 1,000 unit PO DAILY Omeprazole 20 mg PO DAILY Aspirin [Adult Low Dose Aspirin EC] 81 mg PO DAILY Discharge Medication List Levothyroxine Sodium [Synthroid] 37.5 mcg PO QAM 08/05/14 [History] Metoprolol Tartrate [Lopressor] 50 mg PO BID 08/05/14 [History] Montelukast [Singulair] 10 mg PO HS 08/05/14 [History] Sennosides-Docusate Sodium [Senokot-S] 1 tab PO BID 08/05/14 [History] amLODIPine BESYLATE [Norvasc] 10 mg PO DAILY 08/05/14 [History] hydroCHLOROthiazide [Hydrodiuril] 25 mg PO QAM 08/05/14 [History] lisinopriL [Prinivil] 20 mg PO BID 08/05/14 [History] Loratadine [Claritin] 10 mg PO DAILY 11/26/14 [History] Budesonide-Formot 160-4.5 Mcg [Symbicort 160-4.5 Mcg Inhaler] 2 puff INHALATION RT-BID 01/09/19 [History] Cholecalciferol [Vitamin D3 (25 Mcg = 1000 Iu)] 1,000 unit PO DAILY 05/19/20 [History] Aspirin [Adult Low Dose Aspirin EC] 81 mg PO DAILY 08/23/20 [History] Omeprazole 20 mg PO DAILY 08/23/20 [History] Azithromycin [Zithromax] 500 mg PO HS #5 tab 08/27/20 [Rx] Dexamethasone [Decadron] 6 mg PO DAILY #4 tablet 08/29/20 [Rx] Follow up Appointment(s)/Referral(s): Sina Tam MD [Primary Care Provider] - 1 Week (Dr. Tam will be out of town until . Dr. Bhandari will be seeing Dr. Tam patients until he returns. If you are okay seeing this doctor instead Please call to schedule your appointment. Office # . Thank you. ) Patient Instructions/Handouts: Viral Pneumonia (DC), Hypoxia (GEN), Urinary Tract Infection in Older Adults (DC) Discharge Disposition: HOME SELF-CARE
[2020-08-29 09:21] VITALS: BP 142/82; PULSE 65; RESP 18
[2020-08-29 09:27] LABS: HGB 11.5 gm/dL (11.4-16.0); MCH 29.9 pg (25.0-35.0); MCHC 31.9 g/dL (31.0-37.0); MCV 93.7 fL (80.0-100.0); Mean Platelet Volume 7.7; Platelet Count 553 k/uL (150-450); RBC 3.84 m/uL (3.80-5.40); RDW 14.8 % (11.5-15.5); WBC 7.6 k/uL (3.8-10.6)
[2020-08-29 11:30] LABS: Glucose,Whole Blood 85 mg/dL (75-99)
[2020-08-29 16:05] LABS: African American GFR (CKD) 104.8 (60.0-200.0); Albumin 3.4 g/dL (3.80-4.90); Anion Gap 6.9 mmol/L (4.00-12.00); BUN/Creat Ratio 23.33 Ratio (12.00-20.00); Calcium 9.1 mg/dL (8.7-10.3); Carbon Dioxide 27.1 mmol/L (21.6-31.8); Globulin 1.7 g/dL (1.6-3.3); Non-African American GFR(CKD) 90.4 (60.0-200.0); Potassium 3.8 mmol/L (3.5-5.5); Total Bilirubin 0.4 mg/dL (0.3-1.2); Total Protein 5.1 g/dL (6.2-8.2)
== END 2020-08-29 12:47 | disposition home or self-care (01) | DRG 177 ==
LOC: EC 10:46 → 4SSUR 13:58
PROVIDERS: ADMIT Internal Medicine Geriatric Medicine; ATTEND Internal Medicine Geriatric Medicine
DX: U07.1 COVID-19 (principal); J12.89 Other viral pneumonia; J44.0 Chronic obstructive pulmonary disease with (acute) lower respiratory infection; R09.02 Hypoxemia; K21.9 Gastro-esophageal reflux disease without esophagitis; E03.9 Hypothyroidism, unspecified; E11.9 Type 2 diabetes mellitus without complications; I10 Essential (primary) hypertension; Z79.51 Long term (current) use of inhaled steroids; I49.9 Cardiac arrhythmia, unspecified; Z79.82 Long term (current) use of aspirin; Z79.899 Other long term (current) drug therapy; Z82.49 Family history of ischemic heart disease and other diseases of the circulatory system; Z87.01 Personal history of pneumonia (recurrent); Z87.891 Personal history of nicotine dependence; Z96.642 Presence of left artificial hip joint; Z96.653 Presence of artificial knee joint, bilateral; Z60.2 Problems related to living alone; Z90.49 Acquired absence of other specified parts of digestive tract; Z88.5 Allergy status to narcotic agent; Z98.84 Bariatric surgery status
CPT/HCPCS: 36415; 71045; 80053; 81001; 81003; 82728; 83605; 83615; 83735; 84145; 84484; 85025; 85027; 85379; 85610; 85730; 86140; 87040; 87635; 93005; 94640; 96361; 96372; 96374; 99285

== ENCOUNTER → 2020-09-15 | Outpatient (CLI) | payer MEDICARE ==
[2020-09-15 13:10] VITALS: BP 135/80; PULSE 69; RESP 20; TEMP 98.3; BMI 37.1
--- NOTE | 2020-09-15 14:17 | P.HPBAR ---
Bariatric H&P - History & Physicial H&P Date: 09/15/20 History & Physicial: Visit/CC: follow up / lap band Patient initial contact: Initial weight: 142.882 kg Initial weight in pounds: 315.00 Height: 4 ft 9 in Initial BMI: 68.1 Last weight: Current weight: 77.882 kg Current weight in pounds: 171.70 Current BMI: 37.1 [place] body weight (based on NIH guidelines): 38.555 kg Excess body weight loss: 62.3% The patient is a 75 year-old F who presents for Bariatric Assessment. Patient presents today for LAP-BAND follow-up. She has lost 12 pounds her last visit. She also had covert infection. Patient has had some minimal GERD. Past Medical History Past Medical History: Asthma, Diabetes Mellitus, Hypertension, Pneumonia Additional Past Medical History / Comment(s): Diet-controlled diabetic, back pain, lap Band, PNA, asthma History of Any Multi-Drug Resistant Organisms: None Reported Past Surgical History: Cholecystectomy, Joint Replacement Additional Past Surgical History / Comment(s): Bilateral knee replacements, lap band, eyelid surgery, panniculectomy, lap band port replacement 2-20, left hip replaced 08/07/2020, sees Dr. Montejo for back pain Past Anesthesia/Blood Transfusion Reactions: Postoperative Nausea & Vomiting (PONV) Additional Past Anesthesia/Blood Transfusion Reaction / Comm: once after hyst Past Psychological History: No Psychological Hx Reported Additional Psychological History / Comment(s): Pt resides alone in her home with 2 steps. She owns a cane/walker . She drives. Smoking Status: Former smoker Past Alcohol Use History: Rare Additional Past Alcohol Use History / Comment(s): Patient smokes cigarettes for 22 years and quit in 1985. Past Drug Use History: None Reported - Past Family History Mother Family Medical History: No Reported History Additional Family Medical History / Comment(s): Mother from CHF at the age of 69yrs Father Family Medical History: Myocardial Infarction ([place]) Additional Family Medical History / Comment(s): Father of a [place] at the age of 63 yrs. Sister(s) Additional Family Medical History / Comment(s): Patient has one sister that from overdose of medications. Patient does not have any brothers. Patient has 2 sons with no major medical problems. Surgical - Exam Vital Signs Temp Pulse Resp BP 98.3 F 69 20 135/80 09/15/20 13:02 09/15/20 13:02 09/15/20 13:02 09/15/20 13:02 - General well developed, well nourished, no distress - Eyes PERRL - ENT normal pinna - Neck no masses - Respiratory normal expansion - Cardiovascular Rhythm: regular - Abdomen Abdomen: soft, non tender Bariatric Assessment & Plan Plan: Status post LAP-BAND procedure. Patient is doing well. Her GERD is minimal be observed. She'll follow-up in 4 weeks. Bariatric Checklist Checklist: Plan: Checklist: EGD: 1. Hiatal hernia: 2. H. Pylori: HgbA1c: Vitamin D: Smoking: Former smoker Primary care physician referral: DR SANDRO MAURO Psychiatry clearance: Cardiology clearance: Sleep study: Diet journal: VTE risk score: VTE risk level: Rehab needs at discharge:
== END | disposition home or self-care (01) ==
LOC: BARWHC3 12:41
PROVIDERS: ATTEND Surgery
DX: Z46.51 Encounter for fitting and adjustment of gastric lap band (principal); Z98.890 Other specified postprocedural states; Z98.84 Bariatric surgery status; F17.200 Nicotine dependence, unspecified, uncomplicated
CPT/HCPCS: 99211

== ENCOUNTER → 2020-10-09 | Outpatient (CLI) | payer MEDICARE ==
[2020-10-09 12:07] LABS: African American GFR (CKD) >90 (>60 ml/min/1.73 sqM); Blood Urea Nitrogen 16 mg/dL (7-17); Non-African American GFR(CKD) 84 (>60 ml/min/1.73 sqM)
--- NOTE | 2020-10-09 13:39 | CT ---
EXAMINATION TYPE: CT neck chest w con DATE OF EXAM: 10/09/2020 COMPARISON: Chest 06/28/2013 HISTORY: 75-year-old female voice hoarseness, R05 chronic cough. J38.01, focal cord paralysis. TECHNIQUE: Contiguous axial scanning of the neck and chest performed with IV Contrast, patient injec shaista with 100 mL of Isovue 300. Coronal/sagittal reconstructions performed. CT DLP: 1228 mGycm Automated exposure control for dose reduction was used. FINDINGS: NECK: Moderate to severe mucosal thickening left sphenoid sinus. Leftward nasal septal deviation. Mastoid a ir cells well pneumatized. Visualized intracranial structures and orbits and globes appear clear. Nasopharynx is clear. Oropharynx is clear. Slight asymmetric thickening of the right aryepiglottic fold can be correlated with direct inspection . Colonic and subglottic structures as well as the tracheal column appear clear. Epiglottis and prevertebral soft tissues are satisfactory. Thyroid gland, submandibular glands and parotid glands appear satisfactory. Prominent dental amalgam artifact limiting assessment this level especially at the inferior parotid gland on both sides. No cervical lymph adenopathy identified. Moderate degenerative disc disease mid and lower cervical spine. Grade 1 anterolisthesis C3-C4. CHEST: Heart normal size without pericardial effusion. Aorta normal caliber with moderate atherosclerotic calcifications at the origin of the great vessels. There may be a moderate to severe, approximately 70% narrowing at the origin of the left subclavian artery, axial image 17. No thoracic lymphadenopathy or mediastinal mass is identified. However, the esophagus remains distended and fluid-filled with a moderate-sized hiatal hernia. The fo lds of the hiatal hernia show moderate thickening, increased from 2013. Bands of atelectasis or scarring at the lower lungs. No consolidation or pleural effusion. Lap band device remains appropriately positioned. Diverticular change of the splenic flexure of the c olon. Bones: Moderate degenerative disc disease mid and lower thoracic spine and visualized upper lumbar sp ine. COMBINED IMPRESSION (neck and chest): 1. THERE IS A LAP BAND DEVICE WITH A MODERATE-SIZED HIATAL HERNIA. THE FOLDS OF THE HERNIATED PORTION OF THE STOMACH ARE MODERATELY THICKENED, INCREASED FROM 2013. CONSIDER GASTRITIS. DIRECT DIRECT VISU ALIZATION CAN EXCLUDE THE POSSIBILITY OF NEOPLASM. 2. THE ESOPHAGUS REMAINS ABNORMALLY DISTENDED AND FLUID-FILLED. CORRELATE FOR SEVERE GASTROESOPHAGEAL REFLUX OR SEVERE DYSMOTILITY. 3. SLIGHT ASYMMETRIC THICKENING OF THE RIGHT ARYEPIGLOTTIC FOLD MAY BE POSITIONAL. CORRELATE WITH DIR ECT INSPECTION. NO MEDIASTINAL MASS OR LYMPHADENOPATHY. 4. BANDS OF ATELECTASIS OR SCARRING IN THE LOWER LUNGS. 5. MODERATE TO SEVERE ATHEROSCLEROTIC NARROWING AT THE ORIGIN OF THE LEFT SUBCLAVIAN ARTERY.
== END | disposition home or self-care (01) ==
LOC: RADCTMAIN 11:33
PROVIDERS: ATTEND Otolaryngology
DX: K44.9 Diaphragmatic hernia without obstruction or gangrene (principal); K22.8 Other specified diseases of esophagus; I70.8 Atherosclerosis of other arteries; J38.7 Other diseases of larynx; Z88.5 Allergy status to narcotic agent; Z97.8 Presence of other specified devices
CPT/HCPCS: 82565; 84520; 70491; 71260; 36415; Q9967

== ENCOUNTER → 2020-10-13 | Outpatient (CLI) | payer MEDICARE ==
[2020-10-13 13:02] VITALS: BP 137/80; PULSE 68; RESP 20; TEMP 97.4; BMI 36.0
--- NOTE | 2020-10-13 14:07 | P.HPBAR ---
Bariatric H&P - History & Physicial H&P Date: 10/13/20 History & Physicial: Visit/CC: follow up / lap band Patient initial contact: Initial weight: 142.882 kg Initial weight in pounds: 315.00 Height: 4 ft 9 in Initial BMI: 68.1 Last weight: Current weight: 75.568 kg Current weight in pounds: 166.60 Current BMI: 36.0 [place] body weight (based on NIH guidelines): 38.555 kg Excess body weight loss: 64.5% The patient is a 75 year-old F who presents for Bariatric Assessment. Patient presents today for lap band follow up. She's had excellent weight loss. She's had some minimal GERD. Past Medical History Past Medical History: Asthma, Diabetes Mellitus, Hypertension, Pneumonia Additional Past Medical History / Comment(s): Diet-controlled diabetic, back pain, lap Band, PNA, asthma History of Any Multi-Drug Resistant Organisms: None Reported Past Surgical History: Cholecystectomy, Joint Replacement Additional Past Surgical History / Comment(s): Bilateral knee replacements, lap band, eyelid surgery, panniculectomy, lap band port replacement -20, left hip replaced 08/07/2020, sees Dr. Montejo for back pain Past Anesthesia/Blood Transfusion Reactions: Postoperative Nausea & Vomiting (PONV) Additional Past Anesthesia/Blood Transfusion Reaction / Comm: once after hyst Past Psychological History: No Psychological Hx Reported Additional Psychological History / Comment(s): Pt resides alone in her home with 2 steps. She owns a cane/walker . She drives. Smoking Status: Former smoker Past Alcohol Use History: Rare Additional Past Alcohol Use History / Comment(s): Patient smokes cigarettes for 22 years and quit in 1985. Past Drug Use History: None Reported - Past Family History Mother Family Medical History: No Reported History Additional Family Medical History / Comment(s): Mother from CHF at the age of 69yrs Father Family Medical History: Myocardial Infarction ([place]) Additional Family Medical History / Comment(s): Father of a [place] at the age of 63 yrs. Sister(s) Additional Family Medical History / Comment(s): Patient has one sister that from overdose of medications. Patient does not have any brothers. Patient has 2 sons with no major medical problems. Surgical - Exam Vital Signs Temp Pulse Resp BP 97.4 F L 68 20 137/80 10/13/20 12:54 10/13/20 12:54 10/13/20 12:54 10/13/20 12:54 - General well developed, well nourished, no distress - Eyes PERRL - ENT normal pinna - Neck no masses - Respiratory normal expansion - Cardiovascular Rhythm: regular Bariatric Assessment & Plan Plan: Status post lap band procedure. Patient doing quite well. No chest was performed. Her GERD is minimal will be observed. Bariatric Checklist Checklist: Plan: Checklist: EGD: 1. Hiatal hernia: 2. H. Pylori: HgbA1c: Vitamin D: Smoking: Former smoker Primary care physician referral: DR SANDRO MAURO Psychiatry clearance: Cardiology clearance: Sleep study: Diet journal: VTE risk score: VTE risk level: Rehab needs at discharge:
== END | disposition home or self-care (01) ==
LOC: BARWHC3 12:33
PROVIDERS: ATTEND Surgery
DX: Z46.51 Encounter for fitting and adjustment of gastric lap band (principal); Z98.84 Bariatric surgery status; Z90.49 Acquired absence of other specified parts of digestive tract
CPT/HCPCS: 99211

== ENCOUNTER → 2020-11-10 | Outpatient (CLI) | payer MEDICARE ==
[2020-11-10 14:36] VITALS: BP 154/82; PULSE 98; RESP 18; TEMP 97.6; BMI 35.8
== END | disposition home or self-care (01) ==
LOC: BARWHC3 12:37
PROVIDERS: ATTEND Surgery
DX: Z48.815 Encounter for surgical aftercare following surgery on the digestive system (principal); Z98.84 Bariatric surgery status
CPT/HCPCS: 99211

== ENCOUNTER → 2020-11-17 | Outpatient (CLI) | payer MEDICARE ==
[2020-11-17 14:22] VITALS: BP 104/65; PULSE 72; RESP 18; TEMP 98; BMI 35.5
--- NOTE | 2020-11-17 15:25 | P.HPBAR ---
Bariatric H&P - History & Physicial H&P Date: 11/17/20 History & Physicial: Visit/CC: follow up - lap band Patient initial contact: Initial weight: 142.882 kg Initial weight in pounds: 315.00 Height: 4 ft 9 in Initial BMI: 68.1 Last weight: Current weight: 74.48 kg Current weight in pounds: 164.20 Current BMI: 35.5 [place] body weight (based on NIH guidelines): 38.555 kg Excess body weight loss: 65.5% The patient is a 75 year-old F who presents for Bariatric Assessment. Patient resents today for LAP-BAND follow-up. She feels that she has GERD. Her recent CAT scan shows evidence of a hiatal hernia. Past Medical History Past Medical History: Asthma, Diabetes Mellitus, Hypertension, Pneumonia Additional Past Medical History / Comment(s): Diet-controlled diabetic, back pain, lap Band, PNA, asthma History of Any Multi-Drug Resistant Organisms: None Reported Past Surgical History: Cholecystectomy, Joint Replacement Additional Past Surgical History / Comment(s): Bilateral knee replacements, lap band, eyelid surgery, panniculectomy, lap band port replacement 2-20, left hip replaced 08/07/2020, sees Dr. Montejo for back pain Past Anesthesia/Blood Transfusion Reactions: Postoperative Nausea & Vomiting (PONV) Additional Past Anesthesia/Blood Transfusion Reaction / Comm: once after hyst Past Psychological History: No Psychological Hx Reported Additional Psychological History / Comment(s): Pt resides alone in her home with 2 steps. She owns a cane/walker . She drives. Smoking Status: Former smoker Past Alcohol Use History: Rare Additional Past Alcohol Use History / Comment(s): Patient smokes cigarettes for 22 years and quit in 1985. Past Drug Use History: None Reported - Past Family History Mother Family Medical History: No Reported History Additional Family Medical History / Comment(s): Mother from CHF at the age of 69yrs Father Family Medical History: Myocardial Infarction ([place]) Additional Family Medical History / Comment(s): Father of a [place] at the age of 63 yrs. Sister(s) Additional Family Medical History / Comment(s): Patient has one sister that from overdose of medications. Patient does not have any brothers. Patient has 2 sons with no major medical problems. Surgical - Exam Vital Signs Temp Pulse Resp BP 98 F 72 18 104/65 11/17/20 14:12 11/17/20 14:12 11/17/20 14:12 11/17/20 14:12 - General well developed, well nourished, no distress - Eyes PERRL - ENT normal pinna - Neck no masses - Respiratory normal expansion - Cardiovascular Rhythm: regular - Abdomen Abdomen: soft, non tender Bariatric Assessment & Plan Plan: GERD. Hiatal hernia Patient will undergo EGD. Bariatric Checklist Checklist: Plan: Checklist: EGD: 1. Hiatal hernia: 2. H. Pylori: HgbA1c: Vitamin D: Smoking: Former smoker Primary care physician referral: DR SANDRO MAURO Psychiatry clearance: Cardiology clearance: Sleep study: Diet journal: VTE risk score: VTE risk level: Rehab needs at discharge:
== END ==
LOC: BARWHC3 13:46
PROVIDERS: ATTEND Surgery
DX: K21.9 Gastro-esophageal reflux disease without esophagitis (principal); K44.9 Diaphragmatic hernia without obstruction or gangrene; J45.909 Unspecified asthma, uncomplicated; E11.9 Type 2 diabetes mellitus without complications; I10 Essential (primary) hypertension; Z79.899 Other long term (current) drug therapy; Z87.891 Personal history of nicotine dependence; Z79.51 Long term (current) use of inhaled steroids
CPT/HCPCS: 99211

== ENCOUNTER 2020-11-21 08:24 | Day surgery (SDC) | payer MEDICARE ==
[2020-11-19 10:23] VITALS: BMI 30.7
[~2020-11-21 08:24] MED LIST changes: -ACETAMINOPHEN TAB 500 MG TAB PO ONE; -DEXAMETHASONE SOD PHOSPHATE 4 MG/ML 1 ML VIAL IV ONE; -LIDOCAINE 1% (10MG/ML) FOR IV START INTRADERMA PRN; -MELOXICAM 7.5 MG TAB PO ONE; -MIDAZOLAM 2 MG/2 ML VIAL IV PRN; -ONDANSETRON 4 MG/2 ML VIAL IVP ONE; -ROPIVACAINE 246.25 MG, EPINEPHrine 0.5 MG, KETOROLAC 30 MG, cloNIDine HCL/PF 80 MCG, WA... MISCELLANE ONE; -TRANEXAMIC ACID 1,000 MG in SODIUM CHLORIDE 0.9% 100 ML IVPB ONE
[2020-11-21 08:57] VITALS: RESP 16; TEMP 97.4
[2020-11-21] MEDS ORDERED: PROPOFOL 10 MG/ML 20 ML VIAL IV ONE (09:43)
--- NOTE | 2020-11-21 09:52 | P.GSHP ---
History of Present Illness H&P Date: 11/21/20 Chief Complaint: GERD This a 75-year-old female who presents today for EGD. She's had issues with GERD... Her recent CAT scan shows evidence of a hiatal hernia. Past Medical History Past Medical History: Asthma, Diabetes Mellitus, Eye Disorder, Hypertension, Pneumonia Additional Past Medical History / Comment(s): Diet-controlled diabetic, back pain, lap Band, PNA, asthma, HIATAL HERNIA, BILAT CATARACTS TO SEE EYE 12/19/20 History of Any Multi-Drug Resistant Organisms: None Reported Past Surgical History: Bariatric Surgery, Cholecystectomy, Joint Replacement, Orthopedic Surgery, Tonsillectomy Additional Past Surgical History / Comment(s): Bilateral knee replacements, lap band, eyelid surgery, panniculectomy, lap band port replacement 2-20, left hip replaced 08/07/2020, sees Dr. Montejo for back pain, EGD, COLONOSCOPY, RT SHOULDER SX, Past Anesthesia/Blood Transfusion Reactions: Postoperative Nausea & Vomiting (PONV) Additional Past Anesthesia/Blood Transfusion Reaction / Comment(s): once after hyst Smoking Status: Former smoker - Past Family History Mother Family Medical History: No Reported History Additional Family Medical History / Comment(s): Mother from CHF at the age of 69yrs Father Family Medical History: Myocardial Infarction ([place]) Additional Family Medical History / Comment(s): Father of a [place] at the age of 63 yrs. Sister(s) Additional Family Medical History / Comment(s): Patient has one sister that from overdose of medications. Patient does not have any brothers. Patient has 2 sons with no major medical problems. Medications and Allergies Home Medications Medication Instructions Recorded Confirmed Type Levothyroxine Sodium [Synthroid] 37.5 mcg PO QAM 08/05/14 11/21/20 History Metoprolol Tartrate [Lopressor] 50 mg PO BID 08/05/14 11/21/20 History Montelukast [Singulair] 10 mg PO HS 08/05/14 11/21/20 History Sennosides-Docusate Sodium 1 tab PO BID 08/05/14 11/21/20 History [Senokot-S] amLODIPine BESYLATE [Norvasc] 10 mg PO DAILY 08/05/14 11/21/20 History hydroCHLOROthiazide [Hydrodiuril] 25 mg PO QAM 08/05/14 11/21/20 History lisinopriL [Prinivil] 20 mg PO BID 08/05/14 11/21/20 History Loratadine [Claritin] 10 mg PO DAILY 11/26/14 11/21/20 History Budesonide-Formot 160-4.5 Mcg 2 puff INHALATION RT-BID 01/09/19 11/21/20 History [Symbicort 160-4.5 Mcg Inhaler] Cholecalciferol [Vitamin D3 (25 1,000 unit PO DAILY 05/19/20 11/21/20 History Mcg = 1000 Iu)] Aspirin [Adult Low Dose Aspirin EC] 81 mg PO DAILY 08/23/20 11/21/20 History Omeprazole 20 mg PO DAILY 08/23/20 11/21/20 History Albuterol Nebulized [Ventolin 1.25 mg INHALATION DIRECTED PRN 10/13/20 11/21/20 History Nebulized] Multivitamins, Thera [Multivitamin 1 tab PO DAILY 10/13/20 11/21/20 History (formulary)] Allergies Allergy/AdvReac Type Severity Reaction Status Date / Time adhesive tape Allergy Rash/BLISTE Verified 11/21/20 09:03 RS banana Allergy Wheezing Verified 11/21/20 09:03 cinnamon Allergy Wheezing Verified 11/21/20 09:03 hydromorphone [From Dilaudid] Allergy Unknown Verified 11/21/20 09:03 Mushroom Allergy COULD NO Verified 11/21/20 09:03 RESPOND" FELT LIKE SHE WAS PASSING OUT poison michell extract Allergy Rash/Hives Verified 11/21/20 09:03 codeine AdvReac Unknown Abdominal Verified 11/21/20 09:03 Pain monosodium glutamate [MSG] AdvReac Nausea & Verified 11/21/20 09:03 Vomiting burning yan Allergy Rash/Hives Uncoded 11/21/20 09:03 Surgical - Exam Vital Signs Temp Pulse Resp BP Pulse Ox 97.4 F L 70 16 111/64 98 11/21/20 08:53 11/21/20 08:53 11/21/20 08:53 11/21/20 08:53 11/21/20 08:53 - General well developed, well nourished, no distress - Eyes PERRL - ENT normal pinna - Neck no masses - Respiratory normal expansion - Cardiovascular Rhythm: regular - Abdomen Abdomen: soft, non tender Assessment and Plan Assessment: GERD. We'll perform EGD.
--- NOTE | 2020-11-21 10:01 | P.OP ---
Date of Procedure: 11/21/20 Preoperative Diagnosis: GERD Postoperative Diagnosis: Antral gastritis Hiatal hernia Esophagitis Procedure(s) Performed: EGD Anesthesia: MAC Surgeon: Osito Carr Pathology: other (Antrum, esophagus) Condition: stable Disposition: PACU Description of Procedure: The patient's placed on the endoscopy table in the lateral position. She received IV sedation. The gastroscope placed oropharynx passed in the esophagus and into the stomach. Scope then placed through the pylorus. The first and second portion of the duodenum appeared normal. The scope was then brought back the antrum this. Mildly inflamed. A biopsies performed. The scope was retroflexed the patient's LAP-BAND site was visualized. There is no evidence of erosion. The proximal gastric pouch. Be enlarged. The GE junction was at 38 7 is. It was unclear if there was a significant hiatal hernia or just a dilated gastric pouch. The distal esophagus. Inflamed. A biopsies performed. The proximal esophagus. Normal. Scope was withdrawn for patient.
[2020-11-21 10:24] VITALS: BP 141/88; PULSE 60
== END 2020-11-21 11:00 | disposition home or self-care (01) ==
LOC: ORWHC2ENDO 08:24
PROVIDERS: ATTEND Surgery
DX: K31.9 Disease of stomach and duodenum, unspecified (principal); K21.00 Gastro-esophageal reflux disease with esophagitis, without bleeding; J45.909 Unspecified asthma, uncomplicated; E11.9 Type 2 diabetes mellitus without complications; I10 Essential (primary) hypertension; Z87.01 Personal history of pneumonia (recurrent); Z98.84 Bariatric surgery status; H26.9 Unspecified cataract; Z90.49 Acquired absence of other specified parts of digestive tract; Z96.653 Presence of artificial knee joint, bilateral; Z90.89 Acquired absence of other organs; Z98.890 Other specified postprocedural states; Z87.891 Personal history of nicotine dependence; Z82.49 Family history of ischemic heart disease and other diseases of the circulatory system; Z79.890 Hormone replacement therapy; Z79.51 Long term (current) use of inhaled steroids; Z79.899 Other long term (current) drug therapy; Z91.02 Food additives allergy status; Z88.5 Allergy status to narcotic agent; Z91.018 Allergy to other foods; Z91.048 Other nonmedicinal substance allergy status; Z91.09 Other allergy status, other than to drugs and biological substances
CPT/HCPCS: 88305; 43239; J2704

== ENCOUNTER → 2020-12-01 | Outpatient (CLI) | payer MEDICARE ==
[2020-12-01 14:44] VITALS: BP 159/91; PULSE 66; RESP 18; TEMP 97.5; BMI 34.8
--- NOTE | 2020-12-08 15:55 | P.HPBAR ---
Bariatric H&P - History & Physicial H&P Date: 12/01/20 History & Physicial: Visit/CC: follow up / lap band Patient initial contact: Initial weight: 142.882 kg Initial weight in pounds: 315.00 Height: 4 ft 9 in Initial BMI: 68.1 Last weight: Current weight: 73.028 kg Current weight in pounds: 161.00 Current BMI: 34.8 [place] body weight (based on NIH guidelines): 38.555 kg Excess body weight loss: 66.9% The patient is a 75 year-old F who presents for Bariatric Assessment. Patient presents today for follow-up. She has second with GERD. Her recent CAT scan shows evidence of a hiatal hernia. Past Medical History Past Medical History: Asthma, Diabetes Mellitus, Eye Disorder, Hypertension, Pneumonia Additional Past Medical History / Comment(s): Diet-controlled diabetic, back pain, lap Band, PNA, asthma, HIATAL HERNIA, BILAT CATARACTS TO SEE EYE 12/19/20 History of Any Multi-Drug Resistant Organisms: None Reported Past Surgical History: Bariatric Surgery, Cholecystectomy, Joint Replacement, Orthopedic Surgery, Tonsillectomy Additional Past Surgical History / Comment(s): Bilateral knee replacements, lap band, eyelid surgery, panniculectomy, lap band port replacement 2-20, left hip replaced 08/07/2020, sees Dr. Montejo for back pain, EGD, COLONOSCOPY, RT SHOULDER SX, Past Anesthesia/Blood Transfusion Reactions: Postoperative Nausea & Vomiting (PONV) Additional Past Anesthesia/Blood Transfusion Reaction / Comm: once after hyst Past Psychological History: No Psychological Hx Reported Additional Psychological History / Comment(s): Pt resides alone in her home with 2 steps. She owns a cane/walker . She drives. Smoking Status: Former smoker Past Alcohol Use History: Rare Additional Past Alcohol Use History / Comment(s): Patient smokes cigarettes for 22 years and quit in 1985. Past Drug Use History: None Reported - Past Family History Mother Family Medical History: No Reported History Additional Family Medical History / Comment(s): Mother from CHF at the age of 69yrs Father Family Medical History: Myocardial Infarction ([place]) Additional Family Medical History / Comment(s): Father of a [place] at the age of 63 yrs. Sister(s) Additional Family Medical History / Comment(s): Patient has one sister that from overdose of medications. Patient does not have any brothers. Patient has 2 sons with no major medical problems. Surgical - Exam Vital Signs Temp Pulse Resp BP 97.5 F L 66 18 159/91 12/01/20 14:38 12/01/20 14:38 12/01/20 14:38 12/01/20 14:38 - General well developed, well nourished, no distress - Eyes PERRL - ENT normal pinna - Neck no masses - Respiratory normal expansion - Cardiovascular Rhythm: regular - Abdomen Abdomen: soft, non tender Bariatric Assessment & Plan Plan: . Hiatal hernia Patient is undergoing cardiac workup. She'll follow-up with us in 2 weeks. If she is stable she'll undergo laparoscopic repair of hiatal hernia. Bariatric Checklist Checklist: Plan: Checklist: EGD: 1. Hiatal hernia: 2. H. Pylori: HgbA1c: Vitamin D: Smoking: Former smoker Primary care physician referral: DR SANDRO MAURO Psychiatry clearance: Cardiology clearance: Sleep study: Diet journal: VTE risk score: VTE risk level: Rehab needs at discharge:
== END ==
LOC: BARWHC3 13:07
PROVIDERS: ATTEND Surgery
DX: Z98.84 Bariatric surgery status (principal); Z46.51 Encounter for fitting and adjustment of gastric lap band; K21.9 Gastro-esophageal reflux disease without esophagitis; J45.909 Unspecified asthma, uncomplicated; E11.9 Type 2 diabetes mellitus without complications; I10 Essential (primary) hypertension; Z98.890 Other specified postprocedural states
CPT/HCPCS: 99211

== ENCOUNTER → 2020-12-29 | Outpatient (CLI) | payer MEDICARE ==
[2020-12-29 14:15] VITALS: BP 103/71; PULSE 81; RESP 18; TEMP 98.3; BMI 33.0
--- NOTE | 2021-01-27 12:37 | P.HPBAR ---
Bariatric H&P - History & Physicial H&P Date: 12/29/20 History & Physicial: Visit/CC: follow up Patient initial contact: Initial weight: 142.882 kg Initial weight in pounds: 315.00 Height: 4 ft 9 in Initial BMI: 68.1 Last weight: Current weight: 69.4 kg Current weight in pounds: 153.00 Current BMI: 33.0 [place] body weight (based on NIH guidelines): 38.555 kg Excess body weight loss: 70.4% The patient is a 75 year-old F who presents for Bariatric Assessment. Patient presents today for bariatric follow-up. She has had complaints of GERD. Past Medical History Past Medical History: Asthma, Diabetes Mellitus, Eye Disorder, Hypertension, P neumonia Additional Past Medical History / Comment(s): Diet-controlled diabetic, back pain, lap Band, PNA, asthma, HIATAL HERNIA, BILAT CATARACTS TO SEE EYE DRBinu 12/19/20 History of Any Multi-Drug Resistant Organisms: None Reported Past Surgical History: Bariatric Surgery, Cholecystectomy, Joint Replacement, Orthopedic Surgery, Tonsillectomy Additional Past Surgical History / Comment(s): Bilateral knee replacements, lap band, eyelid surgery, panniculectomy, lap band port replacement 2-20, left hip replaced 08/07/2020, sees Dr. Montejo for back pain, EGD, COLONOSCOPY, RT SHOULDER SX, Past Anesthesia/Blood Transfusion Reactions: Postoperative Nausea & Vomiting (PONV) Additional Past Anesthesia/Blood Transfusion Reaction / Comm: once after hyst Past Psychological History: No Psychological Hx Reported Additional Psychological History / Comment(s): Pt resides alone in her home with 2 steps. She owns a cane/walker . She drives. Smoking Status: Former smoker Past Alcohol Use History: Rare Additional Past Alcohol Use History / Comment(s): Patient smokes cigarettes for 22 years and quit in 1985. Past Drug Use History: None Reported - Past Family History Mother Family Medical History: No Reported History Additional Family Medical History / Comment(s): Mother from CHF at the age of 69yrs Father Family Medical History: Myocardial Infarction ([place]) Additional Family Medical History / Comment(s): Father of a [place] at the age of 63 yrs. Sister(s) Additional Family Medical History / Comment(s): Patient has one sister that from overdose of medications. Patient does not have any brothers. Patient has 2 sons with no major medical problems. Surgical - Exam Vital Signs Temp Pulse Resp BP 98.3 F 81 18 103/71 12/29/20 14:09 12/29/20 14:09 12/29/20 14:09 12/29/20 14:09 - General well developed, well nourished, no distress - Eyes PERRL - ENT normal pinna - Neck no masses - Respiratory normal expansion - Cardiovascular Rhythm: regular - Abdomen Abdomen: soft, non tender Bariatric Assessment & Plan Plan: GERD. Patient will be worked up for her GERD. Bariatric Checklist Checklist: Plan: Checklist: EGD: 1. Hiatal hernia: 2. H. Pylori: HgbA1c: Vitamin D: Smoking: Former smoker Primary care physician referral: DR SANDRO MAURO Psychiatry clearance: Cardiology clearance: Sleep study: Diet journal: VTE risk score: VTE risk level: Rehab needs at discharge:
== END ==
LOC: BARWHC3 13:01
PROVIDERS: ATTEND Surgery
DX: Z09 Encounter for follow-up examination after completed treatment for conditions other than malignant neoplasm (principal); K21.9 Gastro-esophageal reflux disease without esophagitis; J45.909 Unspecified asthma, uncomplicated; E11.9 Type 2 diabetes mellitus without complications; I10 Essential (primary) hypertension; Z98.84 Bariatric surgery status; Z87.891 Personal history of nicotine dependence; Z91.018 Allergy to other foods
CPT/HCPCS: 99211

== ENCOUNTER 2021-01-13 14:15 | Emergency (ER) | payer MEDICARE ==
[2021-01-13 14:27] VITALS: RESP 18; TEMP 97.8
[2021-01-13] MEDS ORDERED: MORPHINE SULFATE 4 MG/ML SYRINGE IM STA (14:40)
[2021-01-13] MEDS ORDERED: KETOROLAC 15 MG/ML 1 ML VIAL IM STA (14:40)
--- NOTE | 2021-01-13 14:43 | ED ---
General Adult HPI - General Chief complaint: Extremity Problem,Nontraumatic Stated complaint: Hip pain Time Seen by Provider: 01/13/21 14:30 Source: patient, family, RN notes reviewed Mode of arrival: wheelchair Limitations: no limitations - History of Present Illness Initial comments: Patient is a pleasant 75-year-old female presenting to the emergency Department with left hip pain. Onset of symptoms was after a fall a month ago. Patient did have recent surgery just within the past 6 months. Discomfort worsened today with sitting up trying to go to the eye doctor. Discomfort is severe. Discomfort does increase somewhat with movement. No swelling or rash. No other area of concern. No fevers. - Related Data Home Medications Medication Instructions Recorded Confirmed Levothyroxine Sodium [Synthroid] 37.5 mcg PO DAILY 08/05/14 01/13/21 Metoprolol Tartrate [Lopressor] 50 mg PO BID 08/05/14 01/13/21 Montelukast [Singulair] 10 mg PO HS 08/05/14 01/13/21 Sennosides-Docusate Sodium 1 tab PO BID 08/05/14 01/13/21 [Senokot-S] amLODIPine BESYLATE [Norvasc] 10 mg PO DAILY 08/05/14 01/13/21 hydroCHLOROthiazide [Hydrodiuril] 25 mg PO DAILY 08/05/14 01/13/21 lisinopriL [Prinivil] 20 mg PO BID 08/05/14 01/13/21 Loratadine [Claritin] 10 mg PO DAILY 11/26/14 01/13/21 Budesonide-Formot 160-4.5 Mcg 2 puff INHALATION RT-BID 01/09/19 01/13/21 [Symbicort 160-4.5 Mcg Inhaler] Aspirin [Adult Low Dose Aspirin EC] 81 mg PO DAILY 08/23/20 01/13/21 Omeprazole 40 mg PO DAILY 08/23/20 01/13/21 Multivitamins, Thera [Multivitamin 1 tab PO DAILY 10/13/20 01/13/21 (formulary)] Acetaminophen Tab [Tylenol Tab] 1,500 mg PO Q6HR PRN 01/13/21 01/13/21 Biotin 5,000 mcg PO DAILY 01/13/21 01/13/21 HYDROcodone/APAP 5-325MG [[place] 1 - 2 tab PO Q6H PRN 01/13/21 01/13/21 5-325] Allergies Allergy/AdvReac Type Severity Reaction Status Date / Time adhesive tape Allergy Rash/BLISTE Verified 01/13/21 15:25 RS banana Allergy Wheezing Verified 01/13/21 15:25 cinnamon Allergy Wheezing Verified 01/13/21 15:25 hydromorphone [From Dilaudid] Allergy Unknown Verified 01/13/21 15:25 Mushroom Allergy COULD NO Verified 01/13/21 15:25 RESPOND" FELT LIKE SHE WAS PASSING OUT poison michell extract Allergy Rash/Hives Verified 01/13/21 15:25 codeine AdvReac Unknown Abdominal Verified 01/13/21 15:25 Pain monosodium glutamate [MSG] AdvReac Nausea & Verified 01/13/21 15:25 Vomiting burning yan Allergy Rash/Hives Uncoded 01/13/21 14:27 Review of Systems ROS Statement: Those systems with pertinent positive or pertinent negative responses have been documented in the HPI. ROS Other: All systems not noted in ROS Statement are negative. Constitutional: Denies: fever Eyes: Denies: eye pain ENT: Denies: ear pain Respiratory: Denies: cough Cardiovascular: Denies: chest pain Endocrine: Denies: fatigue Gastrointestinal: Denies: abdominal pain Genitourinary: Denies: dysuria Musculoskeletal: Reports: as per HPI Skin: Denies: rash Neurological: Denies: headache, weakness Past Medical History Past Medical History: Asthma, Diabetes Mellitus, Eye Disorder, Hypertension, Pneumonia Additional Past Medical History / Comment(s): Diet-controlled diabetic, back pain, lap Band, PNA, asthma, HIATAL HERNIA, BILAT CATARACTS TO SEE EYE 12/19/20 History of Any Multi-Drug Resistant Organisms: None Reported Past Surgical History: Bariatric Surgery, Cholecystectomy, Joint Replacement, Orthopedic Surgery, Tonsillectomy Additional Past Surgical History / Comment(s): Bilateral knee replacements, lap band, eyelid surgery, panniculectomy, lap band port replacement 2-20, left hip replaced 08/07/2020, sees Dr. Montejo for back pain, EGD, COLONOSCOPY, RT SHOULDER SX, Past Anesthesia/Blood Transfusion Reactions: Postoperative Nausea & Vomiting (PONV) Additional Past Anesthesia/Blood Transfusion Reaction / Comment(s): once after hyst Past Psychological History: No Psychological Hx Reported Smoking Status: Former smoker Past Alcohol Use History: Rare Past Drug Use History: None Reported - Past Family History Mother Family Medical History: No Reported History Additional Family Medical History / Comment(s): Mother from CHF at the age of 69yrs Father Family Medical History: Myocardial Infarction ([place]) Additional Family Medical History / Comment(s): Father of a [place] at the age of 63 yrs. Sister(s) Additional Family Medical History / Comment(s): Patient has one sister that from overdose of medications. Patient does not have any brothers. Patient has 2 sons with no major medical problems. General Exam Limitations: no limitations General appearance: alert, other (Patient does appear uncomfortable) Head exam: Present: atraumatic Eye exam: Present: normal appearance Neck exam: Present: normal inspection Respiratory exam: Present: normal lung sounds bilaterally Cardiovascular Exam: Present: regular rate, normal rhythm Expanded Peripheral pulses: 2+: Dorsalis Pedis (L) GI/Abdominal exam: Present: soft. Absent: distended, tenderness Extremities exam: Present: tenderness (Tenderness left lateral hip. The greater trochanter.). Absent: calf tenderness Back exam: Absent: vertebral tenderness Neurological exam: Present: alert. Absent: motor sensory deficit Psychiatric exam: Present: normal affect, normal mood Skin exam: Present: normal color Course Vital Signs 01/13/21 14:23 Temperature 97.8 F Pulse Rate 85 Respiratory 18 Rate Blood Pressure 118/74 O2 Sat by Pulse 98 Oximetry Medical Decision Making - Medical Decision Making Patient reevaluated and much improved with medication. Patient and family updated on results and need for follow-up. Patient does have orthopedic appointment tomorrow. - Radiology Data Radiology results: report reviewed (Ultrasound negative for DVT), image reviewed (Left hip and pelvic x-ray show no acute abnormality) Disposition Clinical Impression: Hip pain, left Disposition: HOME SELF-CARE Condition: Stable Instructions (If sedation given, give patient instructions): Hip Pain (ED) Additional Instructions: Please do follow-up with your orthopedic doctor tomorrow as planned. Return for increased pain, weakness, fever, swelling, worsening symptoms or change in symptoms or other concerns. Please also follow-up with primary care physician. Is patient prescribed a controlled substance at d/c from ED?: No Referrals: Jeremy Hamilton MD [Primary Care Provider] - 1-2 days Jacob Beavers DO [Doctor of Osteopathic Medicine] - 1-2 days Time of Disposition: 17:49
--- NOTE | 2021-01-13 16:17 | US ---
EXAMINATION TYPE: US venous doppler duplex LE LT DATE OF EXAM: 01/13/2021 4:00 PM COMPARISON: NONE CLINICAL HISTORY: pain. Pain SIDE PERFORMED: Left TECHNIQUE: The lower extremity deep venous system is examined utilizing real time linear array sonog leana with graded compression, doppler sonography and color-flow sonography. VESSELS IMAGED: Common Femoral Vein Deep Femoral Vein Greater Saphenous Vein * Femoral Vein Popliteal Vein Small Saphenous Vein * Proximal Calf Veins (* superficial vessels) Left Leg: Negative for DVT IMPRESSION: No evidence for DVT at this time.
--- NOTE | 2021-01-13 16:45 | XR ---
EXAMINATION TYPE: XR Hip LT and AP Pelvis DATE OF EXAM: 01/13/2021 COMPARISON: NONE HISTORY: Fall. Left hip pain. TECHNIQUE: 3 views FINDINGS: The pelvic ring is intact. There is left hip prosthesis. Sacroiliac joints are normal. Prox imal left femur is intact. I see no evidence of a fracture. IMPRESSION: No acute abnormality of the pelvis and left hip.
[2021-01-13 17:48] VITALS: BP 118/69; PULSE 72
[2021-01-13] MEDS ORDERED: CYCLOBENZAPRINE 10MG STARTER 3 TAB BTL PO STA (17:49)
[2021-01-13] MEDS ORDERED: FAMOTIDINE 20 MG TAB PO STA (17:49)
== END 2021-01-13 18:14 | disposition home or self-care (01) ==
LOC: EC 14:15
DX: M25.552 Pain in left hip (principal); J45.909 Unspecified asthma, uncomplicated; I10 Essential (primary) hypertension; E11.9 Type 2 diabetes mellitus without complications; Z87.891 Personal history of nicotine dependence; Z79.82 Long term (current) use of aspirin; Z79.51 Long term (current) use of inhaled steroids; Z82.49 Family history of ischemic heart disease and other diseases of the circulatory system; Z88.5 Allergy status to narcotic agent; Z96.653 Presence of artificial knee joint, bilateral; W19.XXXA Unspecified fall, initial encounter
CPT/HCPCS: 73502; 93971; 99284; 96372; J2270; J1885

== ENCOUNTER 2021-01-16 12:02 | Inpatient (IN) | payer MEDICARE ==
[2021-01-16] MEDS ORDERED: SODIUM CHLORIDE 0.9% 1,000 ML IV STA (12:53)
--- NOTE | 2021-01-16 13:01 | ED ---
General Adult HPI - General Chief complaint: Weakness Stated complaint: revisit - SOB, back pain, vomiting Time Seen by Provider: 01/16/21 12:26 Source: patient, family Mode of arrival: EMS Limitations: no limitations - History of Present Illness Initial comments: Dictation was produced using dynaTrace software dictation software. please excuse any grammatical, word or spelling errors. This patient was cared for during a federal and state declared state of emergency secondary to Covid 19 Chief Complaint: 75-year-old female presents to the emergency department for weakness. History of Present Illness: 75-year-old female she presents to the emergency department for multiple complaints per she has past medical history asthma, diabetes, hypertension, pneumonia, left hip replacement. She states that she's been suffering from nausea vomiting and generalized weakness over the last several days. She was seen here in emergency department 3 days ago for hip pain. She states she lives at home and unable to take care of herself. She is completely by her son patient denies any constitutional symptoms. She states she really had coronavirus back in August patient denies any sore throat, shortness of breath chest pain. The ROS documented in this emergency department record has been reviewed and confirmed by me. Those systems with pertinent positive or negative responses have been documented in the HPI. All other systems are other negative and/or noncontributory. PHYSICAL EXAM: General Impression: Alert and oriented x3, not in acute distress HEENT: Normocephalic atraumatic, extra-ocular movements intact, pupils equal and reactive to light bilaterally, dry mucous membranes Cardiovascular: Heart regular rate and rhythm Chest: Able to complete full sentences, no retractions, no tachypnea Abdomen: abdomen soft, non-tender, non-distended, no organomegaly Musculoskeletal: Pulses present and equal in all extremities, no peripheral edema Motor: no focal deficits noted Neurological: CN II-XII grossly intact, no focal motor or sensory deficits noted Skin: Intact with no visualized rashes Psych: Normal affect and mood ED course: 75-year-old male presents to the emergency department for worsening generalized weakness, nausea vomiting and poor appetite vital signs upon arrival are within acceptable limits. Patient is a poor social situation. She lives at home and nobody can help take care of her. Furthermore she can go to family members house temporarily. Laboratory evaluation obtained. CBC is within acceptable limits. Coag panel is negative. Metabolic panel shows an 131 with a mild anion gap acidosis. BUN 21. Magnesium was 1.5. 4+ ketones. 4-point virus test is negative. Patient will be admitted for grave disability poor social situation. She will be admitted with IV fluids, and electronically replacement. Case discussed with Dr. knox. EKG interpretation: Ventricular rate 73, normal sinus rhythm,. 186, QRS 96, QTC 436. No [place] prolongation, no QTC prolongation, no ST or T-wave changes noted. EKG compared to 08/23/2020 showing no changes. Overall, this EKG is unremarkable - Related Data Home Medications Medication Instructions Recorded Confirmed Levothyroxine Sodium [Synthroid] 37.5 mcg PO DAILY 08/05/14 01/16/21 Metoprolol Tartrate [Lopressor] 50 mg PO BID 08/05/14 01/16/21 Montelukast [Singulair] 10 mg PO HS 08/05/14 01/16/21 Sennosides-Docusate Sodium 1 tab PO BID 08/05/14 01/16/21 [Senokot-S] amLODIPine BESYLATE [Norvasc] 10 mg PO DAILY 08/05/14 01/16/21 hydroCHLOROthiazide [Hydrodiuril] 25 mg PO DAILY 08/05/14 01/16/21 lisinopriL [Prinivil] 20 mg PO BID 08/05/14 01/16/21 Loratadine [Claritin] 10 mg PO DAILY 11/26/14 01/16/21 Budesonide-Formot 160-4.5 Mcg 2 puff INHALATION RT-BID 01/09/19 01/16/21 [Symbicort 160-4.5 Mcg Inhaler] Aspirin [Adult Low Dose Aspirin EC] 81 mg PO DAILY 08/23/20 01/16/21 Omeprazole 40 mg PO DAILY 08/23/20 01/16/21 Multivitamins, Thera [Multivitamin 1 tab PO DAILY 10/13/20 01/16/21 (formulary)] Acetaminophen Tab [Tylenol Tab] 1,500 mg PO Q6HR PRN 01/13/21 01/16/21 Biotin 5,000 mcg PO DAILY 01/13/21 01/16/21 HYDROcodone/APAP 5-325MG [[place] 1 - 2 tab PO Q6H PRN 01/13/21 01/16/21 5-325] methylPREDNISolone [Medrol Dose See Taper PO DIRECTED 01/16/21 01/16/21 Pack] Allergies Allergy/AdvReac Type Severity Reaction Status Date / Time adhesive tape Allergy Rash/BLISTE Verified 01/16/21 12:15 RS banana Allergy Wheezing Verified 01/16/21 12:15 cinnamon Allergy Wheezing Verified 01/16/21 12:15 hydromorphone [From Dilaudid] Allergy Unknown Verified 01/16/21 12:15 Mushroom Allergy COULD NO Verified 01/16/21 12:15 RESPOND" FELT LIKE SHE WAS PASSING OUT poison michell extract Allergy Rash/Hives Verified 01/16/21 12:15 codeine AdvReac Unknown Abdominal Verified 01/16/21 12:15 Pain monosodium glutamate [MSG] AdvReac Nausea & Verified 01/16/21 12:15 Vomiting burning yan Allergy Rash/Hives Uncoded 01/16/21 12:15 Review of Systems ROS Statement: Those systems with pertinent positive or pertinent negative responses have been documented in the HPI. ROS Other: All systems not noted in ROS Statement are negative. Past Medical History Past Medical History: Asthma, Diabetes Mellitus, Eye Disorder, Hypertension, Pneumonia Additional Past Medical History / Comment(s): Diet-controlled diabetic, back pain, lap Band, PNA, asthma, HIATAL HERNIA, BILAT CATARACTS TO SEE EYE 12/19/20 History of Any Multi-Drug Resistant Organisms: None Reported Past Surgical History: Bariatric Surgery, Cholecystectomy, Joint Replacement, Orthopedic Surgery, Tonsillectomy Additional Past Surgical History / Comment(s): Bilateral knee replacements, lap band, eyelid surgery, panniculectomy, lap band port replacement -20, left hip replaced 08/07/2020, sees Dr. Montejo for back pain, EGD, COLONOSCOPY, RT SHOULDER SX, Past Anesthesia/Blood Transfusion Reactions: Postoperative Nausea & Vomiting (PONV) Additional Past Anesthesia/Blood Transfusion Reaction / Comment(s): once after hyst Past Psychological History: No Psychological Hx Reported Smoking Status: Former smoker Past Alcohol Use History: Rare Past Drug Use History: None Reported - Past Family History Mother Family Medical History: No Reported History Additional Family Medical History / Comment(s): Mother from CHF at the age of 69yrs Father Family Medical History: Myocardial Infarction ([place]) Additional Family Medical History / Comment(s): Father of a NE at the age of 63 yrs. Sister(s) Additional Family Medical History / Comment(s): Patient has one sister that from overdose of medications. Patient does not have any brothers. Patient has 2 sons with no major medical problems. General Exam Limitations: no limitations Course Vital Signs 01/16/21 12:12 Temperature 96.8 F L Pulse Rate 81 Respiratory 22 Rate Blood Pressure 127/83 O2 Sat by Pulse 98 Oximetry Medical Decision Making - Lab Data Result diagrams: 01/16/21 12:58 01/16/21 12:58 Lab Results 01/16/21 01/16/21 01/16/21 Range/Units 12:58 12:58 12:58 WBC 11.1 H (3.8-10.6) k/uL RBC 4.50 (3.80-5.40) m/uL Hgb 14.1 (11.4-16.0) gm/dL Hct 41.3 (34.0-46.0) % MCV 91.7 (80.0-100.0) fL MCH 31.4 (25.0-35.0) pg MCHC 34.3 (31.0-37.0) g/dL RDW 16.0 H (11.5-15.5) % Plt Count 427 (150-450) k/uL MPV 7.0 Neutrophils % 86 % Lymphocytes % 7 % Monocytes % 4 % Eosinophils % 2 % Basophils % 1 % Neutrophils # 9.5 H (1.3-7.7) k/uL Lymphocytes # 0.8 L (1.0-4.8) k/uL Monocytes # 0.4 (0-1.0) k/uL Eosinophils # 0.2 (0-0.7) k/uL Basophils # 0.1 (0-0.2) k/uL Anisocytosis Slight PT 10.5 (9.0-12.0) sec INR 1.0 (<1.2) APTT 24.9 (22.0-30.0) sec Sodium 131 L (137-145) mmol/L Potassium 3.6 (3.5-5.1) mmol/L Chloride 96 L (98-107) mmol/L Carbon Dioxide 18 L (22-30) mmol/L Anion Gap 17 mmol/L BUN 21 H (7-17) mg/dL Creatinine 0.62 (0.52-1.04) mg/dL Est GFR (CKD-EPI)AfAm >90 (>60 ml/min/1.73 sqM) Est GFR (CKD-EPI)NonAf 90 (>60 ml/min/1.73 sqM) Glucose 105 H (74-99) mg/dL Plasma Lactic Acid Tom (0.7-2.0) mmol/L Calcium 10.1 (8.4-10.2) mg/dL Ionized Calcium Cinthya 5.2 (4.5-5.3) mg/dL Magnesium 1.5 L (1.6-2.3) mg/dL Total Bilirubin 1.0 (0.2-1.3) mg/dL AST 26 (14-36) U/L ALT 14 (4-34) U/L Alkaline Phosphatase 61 (38-126) U/L Creatine Kinase 30 (30-135) U/L Troponin I (0.000-0.034) ng/mL C-Reactive Protein 1.2 H (<1.0) mg/dL Total Protein 6.4 (6.3-8.2) g/dL Albumin 3.9 (3.5-5.0) g/dL TSH 0.230 L (0.465-4.680) mIU/L Urine Color Urine Appearance (Clear) Urine pH (5.0-8.0) Ur Specific [place] (1.001-1.035) Urine Protein (Negative) Urine Glucose (UA) (Negative) Urine Ketones (Negative) Urine Blood (Negative) Urine Nitrite (Negative) Urine Bilirubin (Negative) Urine Urobilinogen (<2.0) mg/dL Ur Leukocyte Esterase (Negative) Influenza Type A (PCR) (Not Detectd) Influenza Type B (PCR) (Not Detectd) RSV (PCR) (Not Detectd) SARS-CoV-2 (PCR) (Not Detectd) 01/16/21 01/16/21 01/16/21 Range/Units 12:58 12:58 12:58 WBC (3.8-10.6) k/uL RBC (3.80-5.40) m/uL Hgb (11.4-16.0) gm/dL Hct (34.0-46.0) % MCV (80.0-100.0) fL MCH (25.0-35.0) pg MCHC (31.0-37.0) g/dL RDW (11.5-15.5) % Plt Count (150-450) k/uL MPV Neutrophils % % Lymphocytes % % Monocytes % % Eosinophils % % Basophils % % Neutrophils # (1.3-7.7) k/uL Lymphocytes # (1.0-4.8) k/uL Monocytes # (0-1.0) k/uL Eosinophils # (0-0.7) k/uL Basophils # (0-0.2) k/uL Anisocytosis PT (9.0-12.0) sec INR (<1.2) APTT (22.0-30.0) sec Sodium (137-145) mmol/L Potassium (3.5-5.1) mmol/L Chloride (98-107) mmol/L Carbon Dioxide (22-30) mmol/L Anion Gap mmol/L BUN (7-17) mg/dL Creatinine (0.52-1.04) mg/dL Est GFR (CKD-EPI)AfAm (>60 ml/min/1.73 sqM) Est GFR (CKD-EPI)NonAf (>60 ml/min/1.73 sqM) Glucose (74-99) mg/dL Plasma Lactic Acid Tom 1.1 (0.7-2.0) mmol/L Calcium (8.4-10.2) mg/dL Ionized Calcium Cinthya (4.5-5.3) mg/dL Magnesium (1.6-2.3) mg/dL Total Bilirubin (0.2-1.3) mg/dL AST (14-36) U/L ALT (4-34) U/L Alkaline Phosphatase (38-126) U/L Creatine Kinase (30-135) U/L Troponin I <0.012 (0.000-0.034) ng/mL C-Reactive Protein (<1.0) mg/dL Total Protein (6.3-8.2) g/dL Albumin (3.5-5.0) g/dL TSH (0.465-4.680) mIU/L Urine Color Yellow Urine Appearance Clear (Clear) Urine pH 6.0 (5.0-8.0) Ur Specific [place] 1.030 (1.001-1.035) Urine Protein Trace H (Negative) Urine Glucose (UA) Negative (Negative) Urine Ketones 4+ H (Negative) Urine Blood Negative (Negative) Urine Nitrite Negative (Negative) Urine Bilirubin Negative (Negative) Urine Urobilinogen 2.0 (<2.0) mg/dL Ur Leukocyte Esterase Negative (Negative) Influenza Type A (PCR) (Not Detectd) Influenza Type B (PCR) (Not Detectd) RSV (PCR) (Not Detectd) SARS-CoV-2 (PCR) (Not Detectd) 01/16/21 Range/Units 13:02 WBC (3.8-10.6) k/uL RBC (3.80-5.40) m/uL Hgb (11.4-16.0) gm/dL Hct (34.0-46.0) % MCV (80.0-100.0) fL MCH (25.0-35.0) pg MCHC (31.0-37.0) g/dL RDW (11.5-15.5) % Plt Count (150-450) k/uL MPV Neutrophils % % Lymphocytes % % Monocytes % % Eosinophils % % Basophils % % Neutrophils # (1.3-7.7) k/uL Lymphocytes # (1.0-4.8) k/uL Monocytes # (0-1.0) k/uL Eosinophils # (0-0.7) k/uL Basophils # (0-0.2) k/uL Anisocytosis PT (9.0-12.0) sec INR (<1.2) APTT (22.0-30.0) sec Sodium (137-145) mmol/L Potassium (3.5-5.1) mmol/L Chloride (98-107) mmol/L Carbon Dioxide (22-30) mmol/L Anion Gap mmol/L BUN (7-17) mg/dL Creatinine (0.52-1.04) mg/dL Est GFR (CKD-EPI)AfAm (>60 ml/min/1.73 sqM) Est GFR (CKD-EPI)NonAf (>60 ml/min/1.73 sqM) Glucose (74-99) mg/dL Plasma Lactic Acid Tom (0.7-2.0) mmol/L Calcium (8.4-10.2) mg/dL Ionized Calcium Cinthya (4.5-5.3) mg/dL Magnesium (1.6-2.3) mg/dL Total Bilirubin (0.2-1.3) mg/dL AST (14-36) U/L ALT (4-34) U/L Alkaline Phosphatase (38-126) U/L Creatine Kinase (30-135) U/L Troponin I (0.000-0.034) ng/mL C-Reactive Protein (<1.0) mg/dL Total Protein (6.3-8.2) g/dL Albumin (3.5-5.0) g/dL TSH (0.465-4.680) mIU/L Urine Color Urine Appearance (Clear) Urine pH (5.0-8.0) Ur Specific [place] (1.001-1.035) Urine Protein (Negative) Urine Glucose (UA) (Negative) Urine Ketones (Negative) Urine Blood (Negative) Urine Nitrite (Negative) Urine Bilirubin (Negative) Urine Urobilinogen (<2.0) mg/dL Ur Leukocyte Esterase (Negative) Influenza Type A (PCR) Not Detected (Not Detectd) Influenza Type B (PCR) Not Detected (Not Detectd) RSV (PCR) Not Detected (Not Detectd) SARS-CoV-2 (PCR) Not Detected (Not Detectd) Disposition Clinical Impression: Dehydration Disposition: ADMITTED IP TO THIS [facility] Condition: Fair Referrals: Jeremy Hamilton MD [Primary Care Provider] - 1-2 days Decision Time: 16:08
[2021-01-16 13:21] LABS: Anisocytosis Slight; Basophils # (A) 0.1 k/uL (0-0.2); Basophils % (A) 1 %; Eosinophils # (A) 0.2 k/uL (0-0.7); Eosinophils % (A) 2 %; HCT 41.3 % (34.0-46.0); HGB 14.1 gm/dL (11.4-16.0); Lymphocytes # (A) 0.8 k/uL (1.0-4.8); Lymphocytes % (A) 7 %; MCH 31.4 pg (25.0-35.0); MCHC 34.3 g/dL (31.0-37.0); MCV 91.7 fL (80.0-100.0); Monocytes # (A) 0.4 k/uL (0-1.0); Monocytes % (A) 4 %; Neutrophils # (A) 9.5 k/uL (1.3-7.7); Neutrophils % (A) 86 %; Platelet Count 427 k/uL (150-450); WBC 11.1 k/uL (3.8-10.6)
[2021-01-16 13:26] LABS: Ionized Calcium 5.2 mg/dL (4.5-5.3)
[2021-01-16 13:37] LABS: Appearance,Urine Clear (Clear); Bilirubin,Urine Negative (Negative); Blood,Urine Negative (Negative); Color,Urine Yellow; Glucose,Urine (UA) Negative (Negative); Ketones,Urine 4+ (Negative); Leukocyte Esterase,Urine Negative (Negative); Nitrite,Urine Negative (Negative); Partial Thromboplastin Time 24.9 sec (22.0-30.0); Protein,Urine Trace (Negative); Prothrombin Time 10.5 sec (9.0-12.0)
[2021-01-16 13:38] LABS: ALT 14 U/L (4-34); AST 26 U/L (14-36); African American GFR (CKD) >90 (>60 ml/min/1.73 sqM); Albumin 3.9 g/dL (3.5-5.0); Alkaline Phosphatase 61 U/L (38-126); Anion Gap 17 mmol/L; Blood Urea Nitrogen 21 mg/dL (7-17); C Reactive Protein 1.2 mg/dL (<1.0); Calcium 10.1 mg/dL (8.4-10.2); Carbon Dioxide 18 mmol/L (22-30); Chloride 96 mmol/L (98-107); Creatine Kinase 30 U/L (30-135); Glucose 105 mg/dL (74-99); Magnesium 1.5 mg/dL (1.6-2.3); Non-African American GFR(CKD) 90 (>60 ml/min/1.73 sqM); Potassium 3.6 mmol/L (3.5-5.1); Sodium 131 mmol/L (137-145); Total Protein 6.4 g/dL (6.3-8.2)
[2021-01-16] MEDS ORDERED: NALOXONE 0.4 MG/ML 1 ML VIAL IV PRN (16:04)
[2021-01-16] MEDS ORDERED: ACETAMINOPHEN TAB 325 MG TAB PO PRN ×2 (16:04→21:05)
[2021-01-16] MEDS ORDERED: MORPHINE SULFATE 2 MG/ML SYRINGE IVP STA (16:08)
[2021-01-16] MEDS: MAGNESIUM SULFATE-D5W PMX 1 GM in DEXTROSE/WATER 1 100ML.BAG IVPB SCH ×2 (16:18→17:35)
[2021-01-16] MEDS: SODIUM CHLORIDE 0.9% 1,000 ML IV SCH (16:19)
[2021-01-16] MEDS ORDERED: MORPHINE SULFATE 4 MG/ML SYRINGE IVP STA (17:37)
[2021-01-16] MEDS: ONDANSETRON 4 MG/2 ML VIAL IVP PRN ×2 (18:18→23:06)
[2021-01-16] MEDS ORDERED: SENNOSIDES 8.6 MG TAB PO PRN (21:05)
[2021-01-16] MEDS ORDERED: LORATADINE 10 MG TAB PO PRN (21:05)
[2021-01-16] MEDS ORDERED: PANTOPRAZOLE 40 MG TABLET PO SCH (22:42)
[2021-01-16] MEDS: PANTOPRAZOLE 40 MG TABLET PO SCH (23:00)
[2021-01-16] MEDS: HYDROcodone/APAP 5-325MG 1 EACH TAB PO PRN (23:06)
[2021-01-17] MEDS: SODIUM CHLORIDE 0.9% 1,000 ML IV SCH ×3 (04:31→22:55)
[2021-01-17] MEDS: LEVOTHYROXINE 75 MCG TAB PO SCH (05:26)
[2021-01-17 07:17] LABS: Glucose,Whole Blood 72 mg/dL (75-99)
[2021-01-17] MEDS ORDERED: PANTOPRAZOLE 40 MG TABLET PO SCH (07:30)
[2021-01-17] MEDS: PANTOPRAZOLE 40 MG TABLET PO SCH ×2 (07:56→17:45)
[2021-01-17] MEDS: ASPIRIN 81 MG PO SCH (07:57)
[2021-01-17] MEDS: amLODIPine 10 MG TAB PO SCH (07:57)
[2021-01-17] MEDS: METOPROLOL TARTRATE 50 MG TAB PO SCH ×2 (07:57→20:11)
[2021-01-17] MEDS: hydroCHLOROthiazide 25 MG TAB PO SCH (07:57)
[2021-01-17] MEDS: lisinopriL 20 MG TAB PO SCH ×2 (07:57→20:11)
[2021-01-17] MEDS: HYDROcodone/APAP 5-325MG 1 EACH TAB PO PRN (08:02)
--- NOTE | 2021-01-17 09:54 | P.HPOR ---
History of Present Illness H&P Date: 01/17/21 Chief Complaint: Hip pain Pleasant 75-year-old female with a complex medical history and previous history of left total hip arthroplasty in July 2020 presents to the hospital with generalized weakness and vomiting on 01/17/2020. Patient mentions she was seeing Dr. Montejo in the fall of 2019 and was planning on having back surgery until she came down with COVID in August. Patient does have a history of bilateral total knee replacements as well as bariatric surgery. Upon seeing her this morning, patient complains of left hip pain laterally and anteriorly that radiates to the inguinal region. Denies any perineal numbness/tingling. While talking to the patient she becomes emotional. She says she is just so tired of everything and was not able to go to see her doctor on this past Tuesday so she was instructed to go into the emergency department. She says she is so weak she is not able to stand up there and bear weight. She says she is not able lift her left left leg up on her own. Patient denies any fever, chest pain, shortness of breath, visit vision changes. She says she is positive for weakness and vomiting. Review of Systems Patient is positive for left hip pain as well as mid and lower back pain. See HPI Past Medical History Past Medical History: Asthma, Diabetes Mellitus, Eye Disorder, GERD/Reflux, Hypertension, Osteoarthritis (OA), Pneumonia Additional Past Medical History / Comment(s): Diet-controlled diabetic, back pain, lap Band, PNA, asthma, HIATAL HERNIA, Right cataract removal History of Any Multi-Drug Resistant Organisms: None Reported Past Surgical History: Adenoidectomy, Bariatric Surgery, Cholecystectomy, Hysterectomy, Joint Replacement, Orthopedic Surgery, Tonsillectomy Additional Past Surgical History / Comment(s): Bilateral knee replacements, lap band, eyelid surgery, panniculectomy, lap band port replacement 2-20, left hip replaced 08/07/2020, sees Dr. Montejo for back pain, EGD, COLONOSCOPY, RT SHOULDER SX, bilateral knee replacement Past Anesthesia/Blood Transfusion Reactions: Postoperative Nausea & Vomiting (PONV) Additional Past Anesthesia/Blood Transfusion Reaction / Comment(s): once after hysterectomy Past Psychological History: No Psychological Hx Reported Additional Psychological History / Comment(s): Pt resides alone in her home with 2 steps. She owns a cane/walker . She drives. Smoking Status: Former smoker Past Alcohol Use History: Rare Additional Past Alcohol Use History / Comment(s): Patient smokes cigarettes for 22 years and quit in 1985. Past Drug Use History: None Reported - Past Family History Mother Family Medical History: No Reported History Additional Family Medical History / Comment(s): Mother from CHF at the age of 69yrs Father Family Medical History: Myocardial Infarction ([place]) Additional Family Medical History / Comment(s): Father of a DC at the age of 63 yrs. Sister(s) Additional Family Medical History / Comment(s): Patient has one sister that from overdose of medications. Patient does not have any brothers. Patient has 2 sons with no major medical problems. Medications and Allergies Home Medications Medication Instructions Recorded Confirmed Type Levothyroxine Sodium [Synthroid] 37.5 mcg PO DAILY 08/05/14 01/16/21 History Metoprolol Tartrate [Lopressor] 50 mg PO BID 08/05/14 01/16/21 History Montelukast [Singulair] 10 mg PO HS 08/05/14 01/16/21 History Sennosides-Docusate Sodium 1 tab PO BID 08/05/14 01/16/21 History [Senokot-S] amLODIPine BESYLATE [Norvasc] 10 mg PO DAILY 08/05/14 01/16/21 History hydroCHLOROthiazide [Hydrodiuril] 25 mg PO DAILY 08/05/14 01/16/21 History lisinopriL [Prinivil] 20 mg PO BID 08/05/14 01/16/21 History Loratadine [Claritin] 10 mg PO DAILY 11/26/14 01/16/21 History Budesonide-Formot 160-4.5 Mcg 2 puff INHALATION RT-BID 01/09/19 01/16/21 History [Symbicort 160-4.5 Mcg Inhaler] Aspirin [Adult Low Dose Aspirin EC] 81 mg PO DAILY 08/23/20 01/16/21 History Omeprazole 40 mg PO DAILY 08/23/20 01/16/21 History Multivitamins, Thera [Multivitamin 1 tab PO DAILY 10/13/20 01/16/21 History (formulary)] Acetaminophen Tab [Tylenol Tab] 1,500 mg PO Q6HR PRN 01/13/21 01/16/21 History Biotin 5,000 mcg PO DAILY 01/13/21 01/16/21 History HYDROcodone/APAP 5-325MG [[place] 1 - 2 tab PO Q6H PRN 01/13/21 01/16/21 History 5-325] Allergies Allergy/AdvReac Type Severity Reaction Status Date / Time adhesive tape Allergy Rash/BLISTE Verified 01/16/21 12:15 RS banana Allergy Wheezing Verified 01/16/21 12:15 cinnamon Allergy Wheezing Verified 01/16/21 12:15 hydromorphone [From Dilaudid] Allergy Unknown Verified 01/16/21 12:15 Mushroom Allergy COULD NO Verified 01/16/21 12:15 RESPOND" FELT LIKE SHE WAS PASSING OUT poison michell extract Allergy Rash/Hives Verified 01/16/21 12:15 codeine AdvReac Unknown Abdominal Verified 01/16/21 12:15 Pain monosodium glutamate [MSG] AdvReac Nausea & Verified 01/16/21 12:15 Vomiting burning yan Allergy Rash/Hives Uncoded 01/16/21 12:15 Physical Examination Patient is unable to actively flex left hip. There is pain to palpation laterally and anteriorly to left hip region. Patient is unable to logroll onto left side due to pain. Patient is not in pain during passive flexion of left hip. Pulses are intact bilaterally in lower extremities. Negative for clonus upon dorsiflexing feet Results - Labs Labs: Abnormal Lab Results - Last 24 Hours (Table) 01/16/21 01/16/21 01/16/21 Range/Units 12:58 12:58 12:58 WBC 11.1 H (3.8-10.6) k/uL RDW 16.0 H (11.5-15.5) % Neutrophils # 9.5 H (1.3-7.7) k/uL Lymphocytes # 0.8 L (1.0-4.8) k/uL Sodium 131 L (137-145) mmol/L Chloride 96 L (98-107) mmol/L Carbon Dioxide 18 L (22-30) mmol/L BUN 21 H (7-17) mg/dL Glucose 105 H (74-99) mg/dL POC Glucose (mg/dL) (75-99) mg/dL Magnesium 1.5 L (1.6-2.3) mg/dL C-Reactive Protein 1.2 H (<1.0) mg/dL TSH 0.230 L (0.465-4.680) mIU/L Urine Protein Trace H (Negative) Urine Ketones 4+ H (Negative) 01/17/21 Range/Units 07:15 WBC (3.8-10.6) k/uL RDW (11.5-15.5) % Neutrophils # (1.3-7.7) k/uL Lymphocytes # (1.0-4.8) k/uL Sodium (137-145) mmol/L Chloride (98-107) mmol/L Carbon Dioxide (22-30) mmol/L BUN (7-17) mg/dL Glucose (74-99) mg/dL POC Glucose (mg/dL) 72 L (75-99) mg/dL Magnesium (1.6-2.3) mg/dL C-Reactive Protein (<1.0) mg/dL TSH (0.465-4.680) mIU/L Urine Protein (Negative) Urine Ketones (Negative) H & H 01/16/21 Range/Units 12:58 Hgb 14.1 (11.4-16.0) gm/dL Hct 41.3 (34.0-46.0) % Coagulation 01/16/21 Range/Units 12:58 INR 1.0 (<1.2) Result Diagrams: 01/16/21 12:58 01/16/21 12:58 Assessment and Plan Assessment: 1. Left hip pain 2. Dorsalgia Plan: 1. Appreciate medical management 2. Pain management - stable at this time; gabapentin 300 mg TID/prn; Flexeril 10 mg ordered 3. PT/OT 4. Dorsalgia - MRI of thoracic and lumbar spine without contrast ordered; computed tomography scan thoracic and lumbar spine w/o contrast ordered Time with Patient: Less than 30
[2021-01-17 10:06] LABS: Magnesium 1.7 mg/dL (1.6-2.3)
--- NOTE | 2021-01-17 10:15 | XR ---
EXAMINATION TYPE: XR chest 2V DATE OF EXAM: 01/17/2021 COMPARISON: 08/23/2020 HISTORY: Suspected Covid pneumonia TECHNIQUE: Frontal and lateral views of the chest are obtained. FINDINGS: The lungs are clear of consolidative or masslike opacity. There is mild interstitial fibro sis in the lung base. There is no pleural effusion, pleural thickening or pneumothorax. The heart, pulmonary vasculature, m ediastinum and hilum appear normal. IMPRESSION: No acute cardiopulmonary process.
[2021-01-17 11:09] LABS: Glucose,Whole Blood 81 mg/dL (75-99)
--- NOTE | 2021-01-17 11:09 | CT ---
EXAMINATION TYPE: CT thor lumbar spine wo con DATE OF EXAM: 01/17/2021 COMPARISON: 02/28/2019 HISTORY: back pain, surgical planning CT DLP: 1539.8 mGycm Automated exposure control for dose reduction was used. FINDINGS: The lumbar vertebral segments are normal in height. There is a slight anterolisthesis of L4 on L5. There is marked degenerative disc disease with disc space narrowing and vacuum phenomenon at the L1-L 2 3 levels and to a lesser extent the L5-S1 level. There are moderate degenerative changes the facet joints throughout the lumbar spine. Secondary to disc bulge, thickening ligamentum flavum and facet hypertrophy there is a severe spinal stenosis at the L3-4 level and L4-5 level. There is probable mild to moderate stenosis at the L2-3 [place]. The sacrum and SI joints are normal. The thoracic vertebral segments are normal in height and alignment and there is no fracture subluxati on. There is [id number] degenerative disc disease in the mid lower thoracic spine with disc spa ce narrowing, partial disc calcification and osteophyte formation. The bony spinal canal throughout the thoracic region is widely patent. The paraspinal soft tissues ar e unremarkable IMPRESSION: . 1. MODERATE DEGENERATIVE DISC DISEASE IN THE MID LOWER THORACIC SPINE WITHOUT EVIDENCE OF THORACIC SP INE FRACTURE OR SUBLUXATION. 2. MILD ANTEROLISTHESIS OF L4 ON L5. 3. MULTILEVEL SPINAL STENOSIS DESCRIBED ABOVE SEVERE AT THE L3-4 AND L4-5 LEVELS 4. Multilevel degenerative disc disease severe at the L1-2 and L2-3 levels and mild at at the L3-4, L 4-5 and L5-S1 level.
[2021-01-17] MEDS ORDERED: Magnesium Replacement Protocol 1 EACH MISC MISCELLANE PRN (11:19)
--- NOTE | 2021-01-17 12:07 | P.HPIM ---
History of Present Illness H&P Date: 01/17/21 Chief Complaint: Weakness and right hip pain. History of present illness This is a [age]-year-old patient who presented to the emergency room for multiple complaints. She is a patient of Dr. Hamilton past medical history significant for asthma, diabetes, hypertension, pneumonia, and left hip replacement. Patient is stating that she is having weakness and unable to ambulate. She is complaining of significant pain to the left hip. Approximate one month ago she did sustain a fall however she was seen by advanced orthopedic who ruled out any significant issues with her hip replacement. Patient was seen in the emergency room 3 days ago for hip pain. She does live at home and is unable to take care of herself. Patient is also complaining of inability to swallow. She is feeling full. She does have history of lap band however she has not had a fill in approximately 1 year. Patient does see the [facility] once a month. Patient did have Covid back in August. At this time she is denying any sore throat shortness of breath or chest pain. At this time patient is found resting in bed complaining of significant back and hip pain. Orthopedic is at the bedside and is ordering a MRI and x-rays. We will start her on steroids. Patient is also complaining of feeling of fullness and difficulty swallowing. Lab work reveals a to WBCs 11.1, potassium 3.6, BUN 21, creatinine 0.62. Urine is negative for infection does show 4+ ketones. Influenza A and B RSV ankles that are all negative. Patient is afebrile, heart rate 76, respirations 16, blood pressure 97/65, pulse ox 98% on room air. Prior to patient's Covid diagnosis she was planning to have back surgery in August. Review Of Systems: Constitutional: No fever, no chills, no night sweats. No weight change. Report weakness no fatigue or lethargy. No daytime sleepiness. EENT: No headache. No blurred vision or double vision, no loss of vision. No loss of Hearing, no ringing in the ears, no dizziness. No nasal drainage or congestion. No epistaxis. No sore throat. Lungs: No shortness of breath, cough, no sputum production. No wheezing. Cardiovascular: No chest pain, no lower extremity edema. No palpitations. No paroxysmal nocturnal dyspnea. No orthopnea. No lightheadedness or dizziness. No syncopal episodes. Abdominal: no abdominal discomfort. Report nausea with vomiting. no diarrhea. No constipation. No bloody or tarry stools. Report loss of appetite. Reports difficulty swallowing Genitourinary: No dysuria, increased frequency, urgency. No urinary retention. Musculoskeletal: No myalgias. Report muscle weakness, reports gait dysfunction, reports frequent falls and one month ago. Reports hip pain. No back pain. No neck pain. Integumentary: No wounds, no lesions. No rash or pruritus. No unusual bruising. No change in hair or nails. Neurologic: No aphasia. No facial droop. No change in mentation. No head injury. No headache. No paralysis. No paresthesia. Psychiatric: No depression. No anxiety. No mood swings. Endocrine: No abnormal blood sugars. No weight change. No excessive sweating or thirst. Social history: Previous smoker smoked for 22 years and quit in 1985, patient resides alone at home with HER-2 stepchildren she uses a cane and walker. She does drive. Rare EtOH intake, denies marijuana or illicit drug use. Family history: Mother 60 at bedtime the age of 69, father of [place] at 63, patient has one sister from overdose, 2 sons with no major medical problems. Physical examination General Appearance: Alert, cooperative, no distress, 75-year-old appears stated age. Neck HEENT: Supple, no lymphadenopathy, no thyroid enlargement, no carotid bruits. Lungs: Clear to auscultation without crackles or wheezes no rhonchi, no deformity. Chest Wall: Chest wall normal expansion with deep inspiration no tenderness and no deformity was found on exam, no costochondral pain or discomfort. Heart: Regular rate and rhythm, S1, S2 normal, no murmur, rub or gallop. Back: Symmetric, no curvature, ROM normal, no CVA tenderness. Abdomen: Soft, non-tender, no rebound or rigidity, no hepatosplenomegaly. Extremities: Extremities normal, atraumatic, no cyanosis or edema. Pain with movement and palpation Pulses: 2+ and symmetric. Skin: Skin color, texture, tugor normal, no rashes or lesions. Neurologic: Alert oriented x3 cranial nerves II through XII intact, no motor deficit, no abnormal balance or gait Assessment and plan 1. Spinal stenosis with debility and hip pain recent history of left total hip arthroplasty. Orthopedics consult appreciated. MRI of the thoracic and lumbar spine without contrast. Solu-Medrol 60 mg IV every 6 hours, Turton 1 tablet every 6 hours for pain. Flexeril 10 mg 3 times a day. 2. Dehydration. IV drip nor saline at 90 ML's per hour 3. Dysphasia. Esophagram, change to full liquid diet. 4. Hypothyroidism. Levothyroxine 37.5 MCG's by mouth daily 5. Hypertension. Norvasc 10mg daily, Enbrel 20 mg by mouth twice a day 6. Arrhythmia. Lopressor 50 mg twice a day 7. Mild asthma/COPD. Singulair 10 mg by mouth at bedtime 8. Chronic ALLERGIES. Claritin 10 mg by mouth daily 9. Severe GERD/ GI prophylaxis. Protonix 40 mg by mouth before meals twice a day 10. DVT prophylaxis. STDs CODE STATUS: full code Admit patient to inpatient services for more than 2 nights day Discharge plan: To be determined, more than likely subacute rehab. OT PT consult and social science manager consult. Past Medical History Past Medical History: Asthma, Diabetes Mellitus, Eye Disorder, GERD/Reflux, Hypertension, Osteoarthritis (OA), Pneumonia Additional Past Medical History / Comment(s): Diet-controlled diabetic, back pain, lap Band, PNA, asthma, HIATAL HERNIA, Right cataract removal History of Any Multi-Drug Resistant Organisms: None Reported Past Surgical History: Adenoidectomy, Bariatric Surgery, Cholecystectomy, Hysterectomy, Joint Replacement, Orthopedic Surgery, Tonsillectomy Additional Past Surgical History / Comment(s): Bilateral knee replacements, lap band, eyelid surgery, panniculectomy, lap band port replacement 2-20, left hip replaced 08/07/2020, sees Dr. Montejo for back pain, EGD, COLONOSCOPY, RT SHOULDER SX, bilateral knee replacement Past Anesthesia/Blood Transfusion Reactions: Postoperative Nausea & Vomiting (PONV) Additional Past Anesthesia/Blood Transfusion Reaction / Comment(s): once after hysterectomy Past Psychological History: No Psychological Hx Reported Additional Psychological History / Comment(s): Pt resides alone in her home with 2 steps. She owns a cane/walker . She drives. Smoking Status: Former smoker Past Alcohol Use History: Rare Additional Past Alcohol Use History / Comment(s): Patient smokes cigarettes for 22 years and quit in 1985. Past Drug Use History: None Reported - Past Family History Mother Family Medical History: No Reported History Additional Family Medical History / Comment(s): Mother from CHF at the age of 69yrs Father Family Medical History: Myocardial Infarction ([place]) Additional Family Medical History / Comment(s): Father of a [place] at the age of 63 yrs. Sister(s) Additional Family Medical History / Comment(s): Patient has one sister that from overdose of medications. Patient does not have any brothers. Patient has 2 sons with no major medical problems. Medications and Allergies Home Medications Medication Instructions Recorded Confirmed Type Levothyroxine Sodium [Synthroid] 37.5 mcg PO DAILY 08/05/14 01/16/21 History Metoprolol Tartrate [Lopressor] 50 mg PO BID 08/05/14 01/16/21 History Montelukast [Singulair] 10 mg PO HS 08/05/14 01/16/21 History Sennosides-Docusate Sodium 1 tab PO BID 08/05/14 01/16/21 History [Senokot-S] amLODIPine BESYLATE [Norvasc] 10 mg PO DAILY 08/05/14 01/16/21 History hydroCHLOROthiazide [Hydrodiuril] 25 mg PO DAILY 08/05/14 01/16/21 History lisinopriL [Prinivil] 20 mg PO BID 08/05/14 01/16/21 History Loratadine [Claritin] 10 mg PO DAILY 11/26/14 01/16/21 History Budesonide-Formot 160-4.5 Mcg 2 puff INHALATION RT-BID 01/09/19 01/16/21 History [Symbicort 160-4.5 Mcg Inhaler] Aspirin [Adult Low Dose Aspirin EC] 81 mg PO DAILY 08/23/20 01/16/21 History Omeprazole 40 mg PO DAILY 08/23/20 01/16/21 History Multivitamins, Thera [Multivitamin 1 tab PO DAILY 10/13/20 01/16/21 History (formulary)] Acetaminophen Tab [Tylenol Tab] 1,500 mg PO Q6HR PRN 01/13/21 01/16/21 History Biotin 5,000 mcg PO DAILY 01/13/21 01/16/21 History HYDROcodone/APAP 5-325MG [Turton 1 - 2 tab PO Q6H PRN 01/13/21 01/16/21 History 5-325] Allergies Allergy/AdvReac Type Severity Reaction Status Date / Time adhesive tape Allergy Rash/BLISTE Verified 01/16/21 12:15 RS banana Allergy Wheezing Verified 01/16/21 12:15 cinnamon Allergy Wheezing Verified 01/16/21 12:15 hydromorphone [From Dilaudid] Allergy Unknown Verified 01/16/21 12:15 Mushroom Allergy COULD NO Verified 01/16/21 12:15 RESPOND" FELT LIKE SHE WAS PASSING OUT poison michell extract Allergy Rash/Hives Verified 01/16/21 12:15 codeine AdvReac Unknown Abdominal Verified 01/16/21 12:15 Pain monosodium glutamate [MSG] AdvReac Nausea & Verified 01/16/21 12:15 Vomiting burning yan Allergy Rash/Hives Uncoded 01/16/21 12:15 Physical Exam Vitals: Vital Signs Temp Pulse Pulse Pulse Resp BP BP 01/17/21 07:33 98.3 F 76 16 97/65 01/17/21 03:08 98.5 F 79 17 126/79 01/16/21 20:00 98.8 F 81 18 90/57 01/16/21 17:16 79 18 106/69 01/16/21 12:12 96.8 F L 81 22 127/83 Pulse Ox 01/17/21 07:33 98 01/17/21 03:08 96 01/16/21 20:00 99 01/16/21 17:16 99 01/16/21 12:12 98 Intake and Output 01/16/21 01/17/21 01/17/21 22:59 06:59 14:59 Intake Total 460 Balance 460 Intake: Intake, IV Titration 360 Amount Sodium Chloride 0.9% 1, 360 000 ml @ 90 mls/hr IV . Q11H7M [facility] Rx#:[id number] Oral 100 Other: # Voids 1 Weight 72.575 kg Results CBC & Chem 7: 01/16/21 12:58 01/16/21 12:58 Labs: Abnormal Lab Results - Last 24 Hours (Table) 01/16/21 01/16/21 01/16/21 Range/Units 12:58 12:58 12:58 WBC 11.1 H (3.8-10.6) k/uL RDW 16.0 H (11.5-15.5) % Neutrophils # 9.5 H (1.3-7.7) k/uL Lymphocytes # 0.8 L (1.0-4.8) k/uL Sodium 131 L (137-145) mmol/L Chloride 96 L (98-107) mmol/L Carbon Dioxide 18 L (22-30) mmol/L BUN 21 H (7-17) mg/dL Glucose 105 H (74-99) mg/dL POC Glucose (mg/dL) (75-99) mg/dL Magnesium 1.5 L (1.6-2.3) mg/dL C-Reactive Protein 1.2 H (<1.0) mg/dL TSH 0.230 L (0.465-4.680) mIU/L Urine Protein Trace H (Negative) Urine Ketones 4+ H (Negative) 01/17/21 Range/Units 07:15 WBC (3.8-10.6) k/uL RDW (11.5-15.5) % Neutrophils # (1.3-7.7) k/uL Lymphocytes # (1.0-4.8) k/uL Sodium (137-145) mmol/L Chloride (98-107) mmol/L Carbon Dioxide (22-30) mmol/L BUN (7-17) mg/dL Glucose (74-99) mg/dL POC Glucose (mg/dL) 72 L (75-99) mg/dL Magnesium (1.6-2.3) mg/dL C-Reactive Protein (<1.0) mg/dL TSH (0.465-4.680) mIU/L Urine Protein (Negative) Urine Ketones (Negative)
[2021-01-17] MEDS: GABAPENTIN 300 MG CAP PO SCH ×3 (12:19→20:48)
[2021-01-17] MEDS: methylPREDNISolone SOD SUCCI 125 MG/2 ML VIAL IV SCH ×2 (12:19→17:45)
[2021-01-17] MEDS: MAGNESIUM SULFATE-D5W PMX 1 GM in DEXTROSE/WATER 1 100ML.BAG IVPB SCH ×2 (12:20→13:45)
[2021-01-17] MEDS: CYCLOBENZAPRINE 10 MG TAB PO PRN (13:46)
--- NOTE | 2021-01-17 15:39 | MR ---
EXAMINATION TYPE: MR pam/lsreinier wo con DATE OF EXAM: 01/17/2021 COMPARISON: Lumbar spine 05/02/2020 HISTORY: Weakness. Body planar multiecho imaging of the thoracic and lumbar spine was performed without contrast. There is thoracolumbar levoscoliosis. There is a mild midthoracic dextroscoliosis. There is hypertrop hic spurring of the endplates throughout the thoracic and cervical spine. There is endplate spur form ation and multilevel cervical spinal stenosis from C4 to C7. At T6-7 there is a mild posterior thorac ic disc herniation in the midline. There is developmentally adequate canal and no significant impinge ment on the thoracic spinal cord. The canal measures 7 mm. There is no thoracic compression fracture. There is no paraspinal mass. There is a few millimeter anterior subluxation of L4 in relation L5. There is no lumbar compression f racture. There is hypertrophic facet arthropathy and ligament thickening with resultant very severe s franklin stenosis at L3-4. There is less severe spinal stenosis at L4-5 and L2-3. There is no lumbar par aspinal mass. There are small posterior disc herniations in the lumbar spine from L1 to S1. There is a few millimeter anterior subluxation also at L3-4. IMPRESSION: Posterior disc herniation at T6-7 without significant spinal stenosis. Moderate multilevel lumbar spondylotic changes with facet arthropathy and multilevel lumbar spinal st enosis. The stenosis is more severe at L3-4. Stenosis not significantly different than old exam. No l umbar compression fracture. Degenerative first-degree L3-4 and L4-5 spondylolisthesis.
[2021-01-17 17:06] LABS: Glucose,Whole Blood 162 mg/dL (75-99)
[2021-01-17] MEDS: MONTELUKAST 10 MG TAB PO SCH (20:47)
[2021-01-17] MEDS: MELATONIN 3 MG TABLET PO SCH (20:47)
[2021-01-17 20:48] LABS: Glucose,Whole Blood 202 mg/dL (75-99)
[2021-01-18] MEDS: methylPREDNISolone SOD SUCCI 125 MG/2 ML VIAL IV SCH ×5 (00:47→23:27)
[2021-01-18] MEDS: LEVOTHYROXINE 75 MCG TAB PO SCH (06:04)
[2021-01-18] MEDS: PANTOPRAZOLE 40 MG TABLET PO SCH ×2 (07:00→16:40)
[2021-01-18] MEDS: ASPIRIN 81 MG PO SCH (07:00)
[2021-01-18] MEDS: amLODIPine 10 MG TAB PO SCH (07:00)
[2021-01-18] MEDS: GABAPENTIN 300 MG CAP PO SCH ×3 (07:00→20:35)
[2021-01-18] MEDS: hydroCHLOROthiazide 25 MG TAB PO SCH (07:00)
[2021-01-18] MEDS: lisinopriL 20 MG TAB PO SCH ×2 (07:00→20:00)
[2021-01-18] MEDS: METOPROLOL TARTRATE 50 MG TAB PO SCH ×2 (07:00→20:00)
[2021-01-18 07:16] LABS: Glucose,Whole Blood 170 mg/dL (75-99)
[2021-01-18 09:37] LABS: Basophils # (A) 0.01 X 10*3/uL (0.00-0.10); Basophils % (A) 0.2 %; Eosinophils # (A) 0 X 10*3/uL (0.04-0.35); Eosinophils % (A) 0 %; HCT 39.5 % (37.2-46.3); HGB 13.5 g/dL (12.0-15.0); Lymphocytes # (A) 0.77 X 10*3/uL (0.90-5.00); Lymphocytes % (A) 13.9 %; MCH 30.8 pg (27.0-32.0); MCHC 34.2 g/dL (32.0-37.0); Mean Platelet Volume 9.2 fL (9.5-12.2); Monocytes # (A) 0.04 X 10*3/uL (0.20-1.00); Monocytes % (A) 0.7 %; Neutrophils # (A) 4.68 X 10*3/uL (1.80-7.70); Neutrophils % (A) 84.8 %; Platelet Count 328 X 10*3/uL (140-440); RBC 4.39 X 10*6/uL (4.10-5.20); RDW 16.8 % (11.5-14.5); WBC 5.52 X 10*3/uL (4.50-10.00)
[2021-01-18] MEDS: INSULIN ASPART (NovoLOG) 100 UNIT/ML VIAL SQ SCH ×4 (09:45→20:35)
[2021-01-18 09:46] LABS: African American GFR (CKD) 104.8 (60.0-200.0); Albumin 3.5 g/dL (3.80-4.90); Albumin/Globulin Ratio 1.84 (1.60-3.17); Anion Gap 10.6 mmol/L (4.00-12.00); Calcium 8.9 mg/dL (8.7-10.3); Carbon Dioxide 25.4 mmol/L (21.6-31.8); Globulin 1.9 g/dL (1.6-3.3); Magnesium 1.8 mg/dL (1.5-2.4); Non-African American GFR(CKD) 90.4 (60.0-200.0); Potassium 4.2 mmol/L (3.5-5.5); Total Bilirubin 0.4 mg/dL (0.2-1.2); Total Protein 5.4 g/dL (6.2-8.2)
--- NOTE | 2021-01-18 10:02 | P.PN ---
Subjective Progress Note Date: 01/18/21 Principal diagnosis: -Multilevel lumbar spinal stenosis -spondylolisthesis L3-L4, L4-L5 - disc herniation T6-T7 -Degenerative disc disease Upon entering room, patient is lying semirecumbent in bed, on right side. Patient says she is feeling better this morning. She says she is able to get up and go the bathroom with minimal assistance last night. She says another provider from Dr. Hamilton's practice came to see her to discuss with her about medications. She says she is still having pain over the left hip area. She says this is mostly coming from the left lower back and buttocks region. She denies any perineal numbness/tingling. She denies any chest pain, fever, short ness of breath. She says she has been able to eat a couple different things yesterday and has been able to keep those down in her stomach. She says her stomach is feeling better today and is not in as much pain Objective - Vital Signs Vital signs: Vital Signs Temp 98.5 F 01/18/21 07:07 Pulse 68 01/18/21 07:01 Resp 16 01/18/21 07:01 BP 140/92 01/18/21 07:01 Pulse Ox 96 01/18/21 02:00 Intake & Output 01/17/21 01/18/21 01/18/21 18:59 06:59 18:59 Other: Voiding Method Bedside Commode # Voids 3 1 - Exam Negative Homans bilaterally. Negative clonus upon dorsiflexing feet bilaterally. There is some bruising over the second third digits of the left foot. Patient did say this is old and from a fall she had before coming to the hospital. Pulses intact bilaterally dorsalis pedis. Upon active straight leg raise of left leg patient experiences pain in left buttocks region that radiates anteriorly to thigh. 1 right leg is raised actively patient does not experience this pain. Upon passive range of motion during straight leg raise patient is able to flex hip more with less pain in left leg. Patient was tender to touch over anteriolateral left hip region - Labs CBC & Chem 7: 01/18/21 05:58 01/18/21 05:58 Labs: Abnormal Lab Results - Last 24 Hours (Table) 01/17/21 01/17/21 01/18/21 Range/Units 16:57 20:46 05:58 RDW 16.8 H (11.5-14.5) % MPV 9.2 L (9.5-12.2) fL Lymphocytes # 0.77 L (0.90-5.00) X 10*3/uL Monocytes # 0.04 L (0.20-1.00) X 10*3/uL Eosinophils # 0 L (0.04-0.35) X 10*3/uL POC Glucose (mg/dL) 162 H 202 H (75-99) mg/dL 01/18/21 Range/Units 07:09 RDW (11.5-14.5) % MPV (9.5-12.2) fL Lymphocytes # (0.90-5.00) X 10*3/uL Monocytes # (0.20-1.00) X 10*3/uL Eosinophils # (0.04-0.35) X 10*3/uL POC Glucose (mg/dL) 170 H (75-99) mg/dL Assessment and Plan Plan: 1. Appreciate medical management 2. Pain management - stable at this time; continue gabapentin 300 mg TID/prn; Flexeril 10 mg 3. PT/OT 4. Dorsalgia - MRI of thoracic and lumbar spine without contrast completed; computed tomography scan thoracic and lumbar spine w/o contrast was completed 5. Multilevel lumbar spinal stenosis; spondylolisthesis L3-L4, L4-L5; disc herniation T6-T7; degenerative disc disease - discussed with patient these findings in layman's terms. Would like patient to become more stabilized medically in hospital during this stay. I did discuss with Dr. Montejo yesterday before MRI and CT had been completed for the potential that the patient may follow-up in outpatient setting up once she is in more stable condition to discuss options for surgery. Time with Patient: Less than 30
[2021-01-18] MEDS ORDERED: ACETAMINOPHEN TAB 500 MG TAB PO PRN (10:23)
--- NOTE | 2021-01-18 10:36 | P.PN ---
Subjective Progress Note Date: 01/18/21 History of present illness This is a [age]-year-old patient who presented to the emergency room for multiple complaints. She is a patient of Dr. Hamilton past medical history significant for asthma, diabetes, hypertension, pneumonia, and left hip replacement. Patient is stating that she is having weakness and unable to ambulate. She is complaining of significant pain to the left hip. Approximate one month ago she did sustain a fall however she was seen by advanced orthopedic who ruled out any significant issues with her hip replacement. Patient was seen in the emergency room 3 days ago for hip pain. She does live at home and is unable to take care of herself. Patient is also complaining of inability to swallow. She is feeling full. She does have history of lap band however she has not had a fill in approximately 1 year. Patient does see the [facility] once a month. Patient did have Covid back in August. At this time she is denying any sore throat shortness of breath or chest pain. At this time patient is found resting in bed complaining of significant back and hip pain. Orthopedic is at the bedside and is ordering a MRI and x-rays. We will start her on steroids. Patient is also complaining of feeling of fullness and difficulty swallowing. Lab work reveals a to WBCs 11.1, potassium 3.6, BUN 21, creatinine 0.62. Urine is negative for infection does show 4+ ketones. Influenza A and B RSV ankles that are all negative. Patient is afebrile, heart rate 76, respirations 16, blood pressure 97/65, pulse ox 98% on room air. Prior to patient's Covid diagnosis she was planning to have back surgery in August. 01/18: Patient is found resting in bed rating pain 8/10. MRI results are noted below. Patient did state that she was up to the chair which she tolerated for short period time. We will DC aspirin at this time we will start with pain management consult. Patient states that she has seen pain management in the [facility]. Patient was scheduled for surgery however she had developed Covid was unable to move forward with a spine surgery. We will continue with pain management at this time. Discussed with patient possible need for subacute rehab. Review Of Systems: Constitutional: No fever, no chills, no night sweats. No weight change. Report weakness no fatigue or lethargy. No daytime sleepiness. EENT: No headache. No blurred vision or double vision, no loss of vision. No loss of Hearing, no ringing in the ears, no dizziness. No nasal drainage or congestion. No epistaxis. No sore throat. Lungs: No shortness of breath, cough, no sputum production. No wheezing. Cardiovascular: No chest pain, no lower extremity edema. No palpitations. No paroxysmal nocturnal dyspnea. No orthopnea. No lightheadedness or dizziness. No syncopal episodes. Abdominal: no abdominal discomfort. Report nausea with vomiting. no diarrhea. No constipation. No bloody or tarry stools. Report loss of appetite. Reports difficulty swallowing Genitourinary: No dysuria, increased frequency, urgency. No urinary retention. Musculoskeletal: No myalgias. Report muscle weakness, reports gait dysfunction, reports frequent falls and one month ago. Reports hip pain. No back pain. No neck pain. Integumentary: No wounds, no lesions. No rash or pruritus. No unusual bruising. No change in hair or nails. Neurologic: No aphasia. No facial droop. No change in mentation. No head injury. No headache. No paralysis. No paresthesia. Psychiatric: No depression. No anxiety. No mood swings. Endocrine: No abnormal blood sugars. No weight change. No excessive sweating or thirst. Social history: Previous smoker smoked for 22 years and quit in 1985, patient resides alone at home with HER-2 stepchildren she uses a cane and walker. She does drive. Rare EtOH intake, denies marijuana or illicit drug use. Family history: Mother 60 at bedtime the age of 69, father of [place] at 63, patient has one sister from overdose, 2 sons with no major medical problems. Physical examination General Appearance: Alert, cooperative, no distress, 75-year-old appears stated age. Neck HEENT: Supple, no lymphadenopathy, no thyroid enlargement, no carotid bruits. Lungs: Clear to auscultation without crackles or wheezes no rhonchi, no deformity. Chest Wall: Chest wall normal expansion with deep inspiration no tenderness and no deformity was found on exam, no costochondral pain or discomfort. Heart: Regular rate and rhythm, S1, S2 normal, no murmur, rub or gallop. Back: Symmetric, no curvature, ROM normal, no CVA tenderness. Abdomen: Soft, non-tender, no rebound or rigidity, no hepatosplenomegaly. Extremities: Extremities normal, atraumatic, no cyanosis or edema. Pain with movement and palpation Pulses: 2+ and symmetric. Skin: Skin color, texture, tugor normal, no rashes or lesions. Neurologic: Alert oriented x3 cranial nerves II through XII intact, no motor deficit, no abnormal balance or gait Assessment and plan 1. Spinal stenosis with debility and hip pain recent history of left total hip arthroplasty. Orthopedics consult appreciated. MRI of the thoracic and lumbar spine without contrast. Solu-Medrol 60 mg IV every 6 hours, Raysal 1 tablet every 6 hours for pain. Flexeril 10 mg 3 times a day. MRI Results: spondylolisthesis L3-L4, L4-L5; disc herniation T6-T7; degenerative disc disease 2. Dehydration. IV drip nor saline at 90 ML's per hour 3. Dysphasia. Esophagram, change to full liquid diet. 4. Hypothyroidism. Levothyroxine 37.5 MCG's by mouth daily 5. Hypertension. Norvasc 10mg daily, Enbrel 20 mg by mouth twice a day 6. Arrhythmia. Lopressor 50 mg twice a day 7. Mild asthma/COPD. Singulair 10 mg by mouth at bedtime 8. Chronic ALLERGIES. Claritin 10 mg by mouth daily 9. Severe GERD/ GI prophylaxis. Protonix 40 mg by mouth before meals twice a day 10. DVT prophylaxis. STDs CODE STATUS: full code Admit patient to inpatient services for more than 2 nights day Discharge plan: To be determined, more than likely subacute rehab. OT PT consult and social work therapist consult. Objective - Vital Signs Vital signs: Vital Signs Temp 98.5 F 01/18/21 07:07 Pulse 68 01/18/21 07:01 Resp 16 01/18/21 07:01 BP 140/92 01/18/21 07:01 Pulse Ox 96 01/18/21 02:00 Intake & Output 01/17/21 01/18/21 01/18/21 18:59 06:59 18:59 Other: Voiding Method Bedside Commode # Voids 3 1 - Labs CBC & Chem 7: 01/18/21 05:58 01/18/21 05:58 Labs: Abnormal Lab Results - Last 24 Hours (Table) 01/17/21 01/17/2101/18/21 Range/Units 16:57 20:46 05:58 RDW 16.8 H (11.5-14.5) % MPV 9.2 L (9.5-12.2) fL Lymphocytes # 0.77 L (0.90-5.00) X 10*3/uL Monocytes # 0.04 L (0.20-1.00) X 10*3/uL Eosinophils # 0 L (0.04-0.35) X 10*3/uL Sodium (135-145) mmol/L Glucose (70-110) mg/dL POC Glucose (mg/dL) 162 H 202 H (75-99) mg/dL Total Protein (6.2-8.2) g/dL Albumin (3.80-4.90) g/dL 01/18/21 01/18/21 Range/Units 05:58 07:09 RDW (11.5-14.5) % MPV (9.5-12.2) fL Lymphocytes # (0.90-5.00) X 10*3/uL Monocytes # (0.20-1.00) X 10*3/uL Eosinophils # (0.04-0.35) X 10*3/uL Sodium 134 L (135-145) mmol/L Glucose 154 H (70-110) mg/dL POC Glucose (mg/dL) 170 H (75-99) mg/dL Total Protein 5.4 L (6.2-8.2) g/dL Albumin 3.50 L (3.80-4.90) g/dL
[2021-01-18 11:16] LABS: Glucose,Whole Blood 196 mg/dL (75-99)
[2021-01-18] MEDS: ACETAMINOPHEN TAB 500 MG TAB PO SCH ×3 (12:06→23:28)
[2021-01-18] MEDS: SODIUM CHLORIDE 0.9% 1,000 ML IV SCH ×2 (12:12→23:30)
[2021-01-18 14:14] LABS: Hemoglobin A1C 5.1 % (4.0-6.0)
[2021-01-18] MEDS: CYCLOBENZAPRINE 10 MG TAB PO PRN (16:40)
[2021-01-18 16:41] LABS: Glucose,Whole Blood 179 mg/dL (75-99)
[2021-01-18 19:59] LABS: Glucose,Whole Blood 187 mg/dL (75-99)
[2021-01-18] MEDS: MONTELUKAST 10 MG TAB PO SCH (20:35)
[2021-01-18] MEDS: MELATONIN 3 MG TABLET PO SCH (20:35)
[2021-01-19] MEDS: LEVOTHYROXINE 75 MCG TAB PO SCH (05:30)
[2021-01-19] MEDS: ACETAMINOPHEN TAB 500 MG TAB PO SCH ×3 (05:30→17:00)
[2021-01-19] MEDS: methylPREDNISolone SOD SUCCI 125 MG/2 ML VIAL IV SCH ×3 (05:31→17:01)
[2021-01-19 07:11] LABS: Glucose,Whole Blood 146 mg/dL (75-99)
[2021-01-19] MEDS: METOPROLOL TARTRATE 50 MG TAB PO SCH ×2 (07:44→21:18)
[2021-01-19] MEDS: GABAPENTIN 300 MG CAP PO SCH ×3 (07:44→21:17)
[2021-01-19] MEDS: PANTOPRAZOLE 40 MG TABLET PO SCH ×2 (07:44→17:00)
[2021-01-19] MEDS: hydroCHLOROthiazide 25 MG TAB PO SCH (07:44)
[2021-01-19] MEDS: lisinopriL 20 MG TAB PO SCH ×2 (07:44→21:18)
[2021-01-19] MEDS: amLODIPine 10 MG TAB PO SCH (07:44)
[2021-01-19] MEDS: INSULIN ASPART (NovoLOG) 100 UNIT/ML VIAL SQ SCH ×4 (07:45→21:18)
--- NOTE | 2021-01-19 10:04 | P.PN ---
Subjective Progress Note Date: 01/19/21 Principal diagnosis: -Multilevel lumbar spinal stenosis -spondylolisthesis L3-L4, L4-L5 - disc herniation T6-T7 -Degenerative disc disease Upon entering room, patient is lying semirecumbent in bed mostly on right side. She says she is still having pain in the left hip anterolaterally. She is able to actively raise the left leg off the bed but gets pain when she gets to about 20 hip flexion. Yesterday she said she was able to get up and go to the bathroom with minimal assistance. She says she got up and sat in chair for about 2-1/2 hours. She says she took Flexeril which helped for a little bit she is up in the chair but it didn't last very long. She is going for esophagram this morning. She denies any chest pain, shortness of breath, fever, vomiting. She denies any perineal numbness/tingling Objective - Vital Signs Vital signs: Vital Signs Temp 97.8 F 01/19/21 07:31 Pulse 72 01/19/21 07:31 Resp 16 01/19/21 07:31 BP 154/89 01/19/21 07:31 Pulse Ox 98 01/19/21 07:31 Intake & Output 01/18/21 01/19/21 01/19/21 18:59 06:59 18:59 Other: Voiding Method Bedside Commode # Voids 3 1 - Exam Negative Homans bilaterally. Negative clonus upon dorsiflexing feet bilaterally. There is some bruising over the second third digits of the left foot. Patient did say this is old and from a fall she had before coming to the hospital. Pulses intact bilaterally dorsalis pedis. Upon active straight leg raise of left leg patient experiences pain in left buttocks region that radiates anteriorly to thigh. 1 right leg is raised actively patient does not experience this pain. Upon passive range of motion during straight leg raise patient is able to flex hip more with less pain in left leg. Patient was tender to touch over anteriolateral left hip region - Labs CBC & Chem 7: 01/18/21 05:58 01/18/21 05:58 Labs: Abnormal Lab Results - Last 24 Hours (Table) 01/18/21 01/18/21 01/18/21 Range/Units 11:14 16:39 19:57 POC Glucose (mg/dL) 196 H 179 H 187 H (75-99) mg/dL 01/19/21 Range/Units 07:02 POC Glucose (mg/dL) 146 H (75-99) mg/dL Assessment and Plan Plan: 1. Appreciate medical management 2. Pain management - stable at this time; continue gabapentin 300 mg TID/prn; Flexeril 10 mg 3. PT/OT 4. Multilevel lumbar spinal stenosis; spondylolisthesis L3-L4, L4-L5; disc herniation T6-T7; degenerative disc disease - discussed with patient these findings. Would like patient to become more stabilized medically in hospital during this stay. I did discuss with Dr. Montejo yesterday before MRI and CT had been completed for the potential that the patient may follow-up in outpatient setting up once she is in more stable condition to discuss options for surgery. Time with Patient: Less than 30
[2021-01-19] MEDS: CYCLOBENZAPRINE 10 MG TAB PO PRN (10:32)
--- NOTE | 2021-01-19 11:50 | P.PN ---
Subjective Progress Note Date: 01/19/21 History of present illness This is a [age]-year-old patient who presented to the emergency room for multiple complaints. She is a patient of Dr. Hamilton past medical history significant for asthma, diabetes, hypertension, pneumonia, and left hip replacement. Patient is stating that she is having weakness and unable to ambulate. She is complaining of significant pain to the left hip. Approximate one month ago she did sustain a fall however she was seen by [facility] who ruled out any significant issues with her hip replacement. Patient was seen in the emergency room 3 days ago for hip pain. She does live at home and is unable to take care of herself. Patient is also complaining of inability to swallow. She is feeling full. She does have history of lap band however she has not had a fill in approximately 1 year. Patient does see the [facility] services once a month. Patient did have Covid back in August. At this time she is denying any sore throat shortness of breath or chest pain. At this time patient is found resting in bed complaining of significant back and hip pain. Orthopedic is at the bedside and is ordering a MRI and x-rays. We will start her on steroids. Patient is also complaining of feeling of fullness and difficulty swallowing. Lab work reveals a to WBCs 11.1, potassium 3.6, BUN 21, creatinine 0.62. Urine is negative for infection does show 4+ ketones. Influenza A and B RSV ankles that are all negative. Patient is afebrile, heart rate 76, respirations 16, blood pressure 97/65, pulse ox 98% on room air. Prior to patient's Covid diagnosis she was planning to have back surgery in August. 01/18: Patient is found resting in bed rating pain 8/10. MRI results are noted below. Patient did state that she was up to the chair which she tolerated for short period time. We will DC aspirin at this time we will start with pain management consult. Patient states that she has seen pain management in the p ast. Patient was scheduled for surgery however she had developed Covid was unable to move forward with a spine surgery. We will continue with pain management at this time. Discussed with patient possible need for subacute rehab. MRI Results: spondylolisthesis L3-L4, L4-L5; disc herniation T6-T7; degenerative disc disease 01/19: Patient is followed by orthopedic spine with plan for her to follow-up in the outpatient setting. Patient is seen by pain management with plan for intervention tomorrow. Patient states that she is feeling a little better today but not great. She continues to have pain in her back with ambulation and into the left thigh. PT and OT evaluations are pending. She states her abdominal pain is also gone. She is scheduled for upper GI today. Patient has been afebrile, heart rate 72, blood pressure 154/89, pulse ox 90% on room air. Capillary blood glucose running between 146 and 196. Anticipate possible discharge tomorrow after pain management procedure. Review Of Systems: Constitutional: No fever, no chills, no night sweats. No weight change. Report weakness no fatigue or lethargy. No daytime sleepiness. EENT: No headache. No blurred vision or double vision, no loss of vision. No loss of Hearing, no ringing in the ears, no dizziness. No nasal drainage or congestion. No epistaxis. No sore throat. Lungs: No shortness of breath, cough, no sputum production. No wheezing. Cardiovascular: No chest pain, no lower extremity edema. No palpitations. No paroxysmal nocturnal dyspnea. No orthopnea. No lightheadedness or dizziness. No syncopal episodes. Abdominal: no abdominal discomfort. Denies nausea with vomiting. no diarrhea. No constipation. No bloody or tarry stools. Report loss of appetite. Denies difficulty swallowing Genitourinary: No dysuria, increased frequency, urgency. No urinary retention. Musculoskeletal: No myalgias. Report muscle weakness, reports gait dysfunction, reports frequent falls and one month ago. Reports hip pain. No back pain. No neck pain. Integumentary: No wounds, no lesions. No rash or pruritus. No unusual bruising. No change in hair or nails. Neurologic: No aphasia. No facial droop. No change in mentation. No head injury. No headache. No paralysis. No paresthesia. Psychiatric: No depression. No anxiety. No mood swings. Endocrine: No abnormal blood sugars. No weight change. No excessive sweating or thirst. Physical examination General Appearance: Alert, cooperative, no distress, 75-year-old appears stated age. Neck HEENT: Supple, no lymphadenopathy, no thyroid enlargement, no carotid bruits. Lungs: Clear to auscultation without crackles or wheezes no rhonchi, no deformity. Chest Wall: Chest wall normal expansion with deep inspiration no tenderness and no deformity was found on exam, no costochondral pain or discomfort. Heart: Regular rate and rhythm, S1, S2 normal, no murmur, rub or gallop. Back: Symmetric, no curvature, ROM normal, no CVA tenderness. Abdomen: Soft, non-tender, no rebound or rigidity, no hepatosplenomegaly. Extremities: Extremities normal, atraumatic, no cyanosis or edema. Pain with movement and palpation Pulses: 2+ and symmetric. Skin: Skin color, texture, tugor normal, no rashes or lesions. Neurologic: Alert oriented x3 cranial nerves II through XII intact, no motor deficit, no abnormal balance or gait Assessment and plan 1. Spinal stenosis with debility and hip pain recent history of left total hip arthroplasty. Orthopedics consult appreciated. Solu-Medrol 60 mg IV every 6 hours, [place] 1 tablet every 6 hours for pain. Flexeril 10 mg 3 times a day. Pain management consult appreciated. Patient is scheduled for procedure tomorrow. 2. Dehydration. IV drip normal saline at 90 ML's per hour 3. Dysphasia. Esophagram, change to full liquid diet. Report is pending. 4. Hypothyroidism. Levothyroxine 37.5 MCG's by mouth daily 5. Hypertension. Norvasc 10mg daily, lisinopril 20 mg by mouth twice a day 6. Arrhythmia. Lopressor 50 mg twice a day 7. Mild asthma/COPD. Singulair 10 mg by mouth at bedtime 8. Chronic ALLERGIES. Claritin 10 mg by mouth daily 9. Severe GERD/ GI prophylaxis. Protonix 40 mg by mouth before meals twice a day 10. DVT prophylaxis. STDs CODE STATUS: full code Discharge plan: Home. OT PT consult and high school social studies tutor consult. Impression and plan of care have been directed as dictated by the signing physician. Roxane York nurse practitioner acting as scribe for signing physician. Objective - Vital Signs Vital signs: Vital Signs Temp 97.8 F 01/19/21 07:31 Pulse 72 01/19/21 07:31 Resp 16 01/19/21 07:31 BP 154/89 01/19/21 07:31 Pulse Ox 98 01/19/21 07:31 Intake & Output 01/18/21 01/19/21 01/19/21 18:59 06:59 18:59 Other: Voiding Method Bedside Commode # Voids 3 1 - Labs CBC & Chem 7: 01/18/21 05:58 01/18/21 05:58 Labs: Abnormal Lab Results - Last 24 Hours (Table) 01/18/21 01/18/21 01/18/21 Range/Units 05:58 05:58 11:14 RDW 16.8 H (11.5-14.5) % MPV 9.2 L (9.5-12.2) fL Lymphocytes # 0.77 L (0.90-5.00) X 10*3/uL Monocytes # 0.04 L (0.20-1.00) X 10*3/uL Eosinophils # 0 L (0.04-0.35) X 10*3/uL Sodium 134 L (135-145) mmol/L Glucose 154 H (70-110) mg/dL POC Glucose (mg/dL) 196 H (75-99) mg/dL Total Protein 5.4 L (6.2-8.2) g/dL Albumin 3.50 L (3.80-4.90) g/dL 01/18/21 01/18/21 01/19/21 Range/Units 16:39 19:57 07:02 RDW (11.5-14.5) % MPV (9.5-12.2) fL Lymphocytes # (0.90-5.00) X 10*3/uL Monocytes # (0.20-1.00) X 10*3/uL Eosinophils # (0.04-0.35) X 10*3/uL Sodium (135-145) mmol/L Glucose (70-110) mg/dL POC Glucose (mg/dL) 179 H 187 H 146 H (75-99) mg/dL Total Protein (6.2-8.2) g/dL Albumin (3.80-4.90) g/dL
[2021-01-19 12:02] LABS: Glucose,Whole Blood 176 mg/dL (75-99)
--- NOTE | 2021-01-19 12:43 | FL ---
EXAMINATION TYPE: FL UGI w esophagus DATE OF EXAM: 01/17/2021 COMPARISON: NONE HISTORY: Difficulty swallowing 56 seconds of fluoroscopy and 25 images submitted. TECHNIQUE: A single contrast UGI study is performed. FINDINGS: Sales Exec image of the abdomen shows no gross abnormality. There is delay in passage across the lap band. The lap band appears in normal orientation. Numerous t ertiary contractions the esophagus are noted there is mild dilation and ectasia of the esophagus. Can not exclude a mild esophagitis. Retained contrast is seen above the level lap band with moderate donna y in passage. Contrast is seen to extend into the stomach and proximal small bowel to Limited assessm ent of the stomach due to the reduced amount of contrast passing through the lap band. Small pouch ab ove the level of the lap band noted. IMPRESSION: 1. Moderate delay at the level of the lap band correlate for lap band function. Numerous tertiary con tractions of the esophagus noted. Correlate with direct visualization as clinically warranted.
[2021-01-19] MEDS: SODIUM CHLORIDE 0.9% 1,000 ML IV SCH ×2 (12:51→21:18)
[2021-01-19 16:30] LABS: Glucose,Whole Blood 230 mg/dL (75-99)
[2021-01-19 20:57] LABS: Glucose,Whole Blood 183 mg/dL (75-99)
[2021-01-19] MEDS: MONTELUKAST 10 MG TAB PO SCH (21:17)
[2021-01-19] MEDS: MELATONIN 3 MG TABLET PO SCH (21:17)
[2021-01-20] MEDS: methylPREDNISolone SOD SUCCI 125 MG/2 ML VIAL IV SCH ×2 (00:23→05:59)
[2021-01-20] MEDS: ACETAMINOPHEN TAB 500 MG TAB PO SCH ×4 (00:23→17:30)
[2021-01-20] MEDS: LEVOTHYROXINE 75 MCG TAB PO SCH (05:04)
[2021-01-20 07:01] LABS: Glucose,Whole Blood 163 mg/dL (75-99)
[2021-01-20] MEDS ORDERED: HYDROcodone/APAP 5-325MG 1 EACH TAB PO PRN (08:03)
[2021-01-20] MEDS ORDERED: IPRATROPIUM-ALBUTEROL 3 ML NEB INHALATION PRN (08:04)
[2021-01-20] MEDS: PANTOPRAZOLE 40 MG TABLET PO SCH ×2 (08:17→17:30)
[2021-01-20] MEDS: INSULIN ASPART (NovoLOG) 100 UNIT/ML VIAL SQ SCH ×4 (08:17→21:44)
[2021-01-20] MEDS: SODIUM CHLORIDE 0.9% 1,000 ML IV SCH (09:42)
[2021-01-20] MEDS: lisinopriL 20 MG TAB PO SCH ×2 (09:42→21:44)
[2021-01-20] MEDS: METOPROLOL TARTRATE 50 MG TAB PO SCH ×2 (09:42→21:44)
[2021-01-20] MEDS: amLODIPine 10 MG TAB PO SCH (09:42)
[2021-01-20] MEDS: hydroCHLOROthiazide 25 MG TAB PO SCH (09:42)
[2021-01-20] MEDS: GABAPENTIN 300 MG CAP PO SCH ×3 (09:42→21:44)
[2021-01-20 10:42] LABS: Glucose,Whole Blood 143 mg/dL (75-99)
[2021-01-20] MEDS ORDERED: LACTATED RINGERS 1,000 ML IV ONE (10:43)
[2021-01-20] MEDS ORDERED: fentaNYL (PF) 50 MCG/ML 2 ML AMP ONE (11:04)
[2021-01-20] MEDS ORDERED: IOPAMIDOL M200 10 ML VIAL ONE (11:04)
[2021-01-20] MEDS ORDERED: methylPREDNISolone ACETATE 40 MG/ML 1 ML VIAL ONE (11:04)
[2021-01-20] MEDS ORDERED: MIDAZOLAM 2 MG/2 ML VIAL ONE (11:04)
--- NOTE | 2021-01-20 11:20 | P.PCN ---
Date of Procedure: 01/20/21 Procedure(s) Performed: PREOPERATIVE DIAGNOSIS: 1-Lumbar radiculopathy . 2-lumbar spinal stenosis. 3- lumbar spondylosis with lumbar facet arthropathy POSTOPERATIVE DIAGNOSIS: Same as preoperative diagnoses. PROCEDURE 1. Transforaminal epidural steroid injection under fluoroscopic guidance at left L3-4 level. (Fluoroscopy images stored on file in the radiology Department ) 2. Lumbar epidurogram . ANESTHESIA: Local with 1% lidocaine 3 ml , moderate sedation with intravenous Versed 2 mg and fentanyle 50 micrograms. EBL: Minimal PROCEDURE INDICATION: The patient with low back pain and radiculopathy symptoms unresponsive to conservative treatment. PROCEDURE DESCRIPTION / TECHNIQUE: The patient was seen and identified in the preoperative area. Risks, benefits, complications, and alternatives were discussed with the patient. The patient agreed to proceed with the procedure and signed the consent. IV was started, and vital signs were stable. Patient was taken to the OR and time out was completed. The patient was placed in the prone position on procedure table and a pillow was placed under the abdomen to reduce lumbar lordosis. The lumbosacral area was prepped and draped in the usual sterile fashion. Critical pause was taken. Vital signs were closely monitored during the procedure. Conscious sedation was used during the procedure to decrease patient s anxiety. Using oblique fluoroscopy, the chin of the ``Satnam dog at left L3-4 level was identified, and the skin and deeper tissues just below was localized with 1% lidocaine. Subsequently, a 22-gauge 3.5-inch spinal needle was advanced under a tunneled view fluoroscopic guidance just underneath the chin of the ``Satnam dog at the left L3-4 Under lateral fluoroscopy, the needle was then advanced to the posterior border of the interforaminal space. After negative aspiration of CSF and blood and with no paresthesias, 1 mL Isovue 200 contrast dye was injected excellent epidurogram and outlining of the nerve root Subsequently, 3 mL of block solution containing 40 mg Depo-Medrol and 2 mL of 0.9% normal saline PF was injected. Needle was removed . At the end of the procedure, skin was cleansed, and bandages were applied. COMPLICATIONS:none DISPOSITION / PLANS: The patient was placed in a supine position and transferred to the recovery area in a stable condition for observation. There was no evidence of lower extremity motor or sensory deficit after the procedure. Patient was discharged from the recovery room after meeting discharge criteria. Home discharge instructions were given to the patient by the staff. The patient was reexamined prior to discharge.
[2021-01-20 11:49] LABS: Glucose,Whole Blood 149 mg/dL (75-99)
--- NOTE | 2021-01-20 11:49 | P.PN ---
Subjective Progress Note Date: 01/20/21 History of present illness This is a [age]-year-old patient who presented to the emergency room for multiple complaints. She is a patient of Dr. Hamilton past medical history significant for asthma, diabetes, hypertension, pneumonia, and left hip replacement. Patient is stating that she is having weakness and unable to ambulate. She is complaining of significant pain to the left hip. Approximate one month ago she did sustain a fall however she was seen by advanced orthopedic who ruled out any significant issues with her hip replacement. Patient was seen in the emergency room 3 days ago for hip pain. She does live at home and is unable to take care of herself. Patient is also complaining of inability to swallow. She is feeling full. She does have history of lap band however she has not had a fill in approximately 1 year. Patient does see the LAP-BAND services once a month. Patient did have Covid back in August. At this time she is denying any sore throat shortness of breath or chest pain. At this time patient is found resting in bed complaining of significant back and hip pain. Orthopedic is at the bedside and is ordering a MRI and x-rays. We will start her on steroids. Patient is also complaining of feeling of fullness and difficulty swallowing. Lab work reveals a to WBCs 11.1, potassium 3.6, BUN 21, creatinine 0.62. Urine is negative for infection does show 4+ ketones. Influenza A and B RSV ankles that are all negative. Patient is afebrile, heart rate 76, respirations 16, blood pressure 97/65, pulse ox 98% on room air. Prior to patient's Covid diagnosis she was planning to have back surgery in August. 01/18: Patient is found resting in bed rating pain 8/10. MRI results are noted below. Patient did state that she was up to the chair which she tolerated for short period time. We will DC aspirin at this time we will start with pain management consult. Patient states that she has seen pain management in the p ast. Patient was scheduled for surgery however she had developed Covid was unable to move forward with a spine surgery. We will continue with pain management at this time. Discussed with patient possible need for subacute rehab. MRI Results: spondylolisthesis L3-L4, L4-L5; disc herniation T6-T7; degenerative disc disease 01/19: Patient is followed by orthopedic spine with plan for her to follow-up in the outpatient setting. Patient is seen by pain management with plan for intervention tomorrow. Patient states that she is feeling a little better today but not great. She continues to have pain in her back with ambulation and into the left thigh. PT and OT evaluations are pending. She states her abdominal pain is also gone. She is scheduled for upper GI today. Patient has been afebrile, heart rate 72, blood pressure 154/89, pulse ox 90% on room air. Capillary blood glucose running between 146 and 196. Anticipate possible discharge tomorrow after pain management procedure. 01/20: Esophagram was done that showed moderate delay at the level of the LAP-BAND correlate for LAP-BAND function. Numerous tertiary contractions of the esophagus noted. Correlate with direct visualization as clinically warranted. Pressure in epigastric area much better. Patient states that her abdominal epigastric area discomfort has resolved. Consult with Dr. Carr added. Patient has been afebrile, heart rate 69, blood pressure 126/83, pulse ox 95% on room air. Blood sugars are running between 163 and 230. IV steroids will be transitioned to oral prednisone starting in the morning. Patient subsequently underwent foraminal epidural steroid injection by Dr. Dr. Zapata. Plan is to monitor patient overnight and probable discharge after seen by Dr. Carr. Review Of Systems: Constitutional: No fever, no chills, no night sweats. No weight change. Report weakness no fatigue or lethargy. No daytime sleepiness. EENT: No headache. No blurred vision or double vision, no loss of vision. No loss of Hearing, no ringing in the ears, no dizziness. No nasal drainage or congestion. No epistaxis. No sore throat. Lungs: No shortness of breath, cough, no sputum production. No wheezing. Cardiovascular: No chest pain, no lower extremity edema. No palpitations. No paroxysmal nocturnal dyspnea. No orthopnea. No lightheadedness or dizziness. No syncopal episodes. Abdominal: no abdominal discomfort. Denies nausea with vomiting. no diarrhea. No constipation. No bloody or tarry stools. Report loss of appetite. Denies difficulty swallowing Genitourinary: No dysuria, increased frequency, urgency. No urinary retention. Musculoskeletal: No myalgias. Report muscle weakness, reports gait dysfunction, reports frequent falls and one month ago. Reports hip pain. No back pain. No neck pain. Integumentary: No wounds, no lesions. No rash or pruritus. No unusual bruising. No change in hair or nails. Neurologic: No aphasia. No facial droop. No change in mentation. No head injury. No headache. No paralysis. No paresthesia. Psychiatric: No depression. No anxiety. Endocrine: No abnormal blood sugars. Physical examination General Appearance: Alert, cooperative, no distress, 75-year-old appears stated age. Neck HEENT: Supple, no lymphadenopathy, no thyroid enlargement, no carotid bruits. Lungs: Clear to auscultation without crackles or wheezes no rhonchi, no deformity. Chest Wall: Chest wall normal expansion with deep inspiration no tenderness and no deformity was found on exam, no costochondral pain or discomfort. Heart: Regular rate and rhythm, S1, S2 normal, no murmur, rub or gallop. Back: Symmetric, no curvature, ROM normal, no CVA tenderness. Abdomen: Soft, non-tender, no rebound or rigidity, no hepatosplenomegaly. Extremities: Extremities normal, atraumatic, no cyanosis or edema. Pain with movement and palpation Pulses: 2+ and symmetric. Skin: Skin color, texture, tugor normal, no rashes or lesions. Neurologic: Alert oriented x3 cranial nerves II through XII intact, no motor deficit, no abnormal balance or gait Assessment and plan 1. Spinal stenosis with debility and hip pain recent history of left total hip arthroplasty. Orthopedics consult appreciated. Solu-Medrol 60 mg IV every 6 hours, [place] 1 tablet every 6 hours for pain. Flexeril 10 mg 3 times a day. Pain management consult appreciated. Patient is scheduled for procedure tomorrow. 2. Dehydration. Status post IV fluids. 3. Dysphasia. Esophagram as above. Full liquid diet, consult with Dr. Carr. 4. Hypothyroidism. Levothyroxine 37.5 MCG's by mouth daily 5. Hypertension. Norvasc 10mg daily, lisinopril 20 mg by mouth twice a day 6. Arrhythmia. Lopressor 50 mg twice a day 7. Mild asthma/COPD. Singulair 10 mg by mouth at bedtime 8. Chronic ALLERGIES. Claritin 10 mg by mouth daily 9. Severe GERD/ GI prophylaxis. Protonix 40 mg by mouth before meals twice a day 10. History of morbid obesity status post lap band, abnormal finding on esophagram. Consult with Dr. Carr. 11. DVT prophylaxis. STDs CODE STATUS: full code Discharge plan: Home. OT PT consult and social welfare clerk consult. Impression and plan of care have been directed as dictated by the signing physician. Roxane York nurse practitioner acting as scribe for signing physician. Objective - Vital Signs Vital signs: Vital Signs Temp 98.4 F 01/20/21 07:54 Pulse 69 01/20/21 07:54 Resp 16 01/20/21 07:54 BP 126/83 01/20/21 07:54 Pulse Ox 95 01/20/21 07:54 Intake & Output 01/19/21 01/20/21 01/20/21 18:59 06:59 18:59 Other: Voiding Method Bedside Commode # Voids 3 1 - Labs CBC & Chem 7: 01/18/21 05:58 01/18/21 05:58 Labs: Abnormal Lab Results - Last 24 Hours (Table) 01/19/21 01/19/21 01/19/21 Range/Units 11:34 16:28 20:56 POC Glucose (mg/dL) 176 H 230 H 183 H (75-99) mg/dL 01/20/21 Range/Units 06:59 POC Glucose (mg/dL) 163 H (75-99) mg/dL
--- NOTE | 2021-01-20 12:36 | FL ---
Fluoroscopy INDICATION: Pain FINDINGS: Fluoroscopy time: 3 seconds. Images obtained: 1. IMPRESSIONS: 1. Documentation of fluoroscopy.
[2021-01-20] MEDS: SYMBICORT 160-4.5 MCG INHALER INHALATION SCH ×2 (13:37→21:30)
--- NOTE | 2021-01-20 15:34 | P.GSCN ---
History of Present Illness Consult date: 01/20/21 History of present illness: CHIEF COMPLAINT: Hip pain Reason for consult abnormal esophagram and known LAP-BAND HISTORY OF PRESENT ILLNESS: This is a 75-year-old female with a past medical history of asthma, diabetes, hypertension, pneumonia and left hip replacement. She presented to the emergency room with complaints of left hip pain. She is followed by orthopedics and she was noted to have spinal stenosis and hip pain and it is scheduled for pain management procedure today. Surgical service was consulted because patient had been having issues with swallowing esophagram was performed and shows moderate delay at the level of the LAP-BAND correlate for LAP-BAND function. Numerous tertiary contractions of the esophagus noted. Patient has a known hiatal hernia. Her LAP-BAND was placed about 14 years ago she had a new port placed about 1 year ago in the last time she had her port filled was about 3 months after it was placed. Patient has been complaining of reflux-like symptoms. Prior surgical history does include cholecystectomy appendectomy and a panniculectomy. She denies any fever chills or sweats. Patient seen and examined with Dr. Carr PAST MEDICAL HISTORY: See list. PAST SURGICAL HISTORY: See list. MEDICATIONS: See list. ALLERGIES: See list. SOCIAL HISTORY: No illicit drug use. REVIEW OF SYSTEMS: CONSTITUTIONAL: Denies fever or chills. HEENT: Denies blurred vision, vision changes, or eye pain. Denies hemoptysis CARDIOVASCULAR: Denies chest pain or pressure. RESPIRATORY: No shortness of breath. GASTROINTESTINAL: See HPI for pertinent findings HEMATOLOGIC: Denies bleeding disorders. GENITOURINARY: Denies any blood in urine or increased urinary frequency. SKIN: Denies pruitis. Denies rash. PHYSICAL EXAM: VITAL SIGNS: Reviewed GENERAL: Well-developed in no acute distress. HEENT: No sclera icterus. Extraocular movements grossly intact. Moist buccal mucosa. Head is atraumatic, normocephalic. No nasal drainage. ABDOMEN: Soft. Nondistended. Nontender NEUROLOGIC: Alert and oriented. Cranial nerves II through XII grossly intact. LABORATORY DATA: WBC 5.52 LFTs normal IMAGING: esophagram was performed and shows moderate delay at the level of the LAP-BAND correlate for LAP-BAND function. Numerous tertiary contractions of the esophagus noted. ASSESSMENT: 1. Dysphagia and reflux symptoms with esophagram showing moderate delay at the level of the LAP-BAND correlate for LAP-BAND function. Numerous tertiary contractions of the esophagus noted. 2. History of a hiatal hernia PLAN: -Consult cardiology for preop cardiac clearance -Patient will require hiatal hernia repair and lap band removal -Continue supportive care Thank you for this consult Physician [facility] note has been reviewed by physician. Signing provider agrees with the documented findings, assessment, and plan of care. Past Medical History Past Medical History: Asthma, Diabetes Mellitus, Eye Disorder, GERD/Reflux, Hypertension, Osteoarthritis (OA), Pneumonia Additional Past Medical History / Comment(s): Diet-controlled diabetic, back pain, lap Band, PNA, asthma, HIATAL HERNIA, Right cataract removal History of Any Multi-Drug Resistant Organisms: None Reported Past Surgical History: Adenoidectomy, Bariatric Surgery, Cholecystectomy, Hysterectomy, Joint Replacement, Orthopedic Surgery, Tonsillectomy Additional Past Surgical History / Comment(s): Bilateral knee replacements, lap band, eyelid surgery, panniculectomy, lap band port replacement 2-20, left hip replaced 08/07/2020, sees Dr. Montejo for back pain, EGD, COLONOSCOPY, RT SHOULDER SX, bilateral knee replacement Past Anesthesia/Blood Transfusion Reactions: Postoperative Nausea & Vomiting (PONV) Additional Past Anesthesia/Blood Transfusion Reaction / Comm: once after hysterectomy Past Psychological History: No Psychological Hx Reported Additional Psychological History / Comment(s): Pt resides alone in her home with 2 steps. She owns a cane/walker . She drives. Smoking Status: Former smoker Past Alcohol Use History: Rare Additional Past Alcohol Use History / Comment(s): Patient smokes cigarettes for 22 years and quit in 1985. Past Drug Use History: None Reported - Past Family History Mother Family Medical History: No Reported History Additional Family Medical History / Comment(s): Mother from CHF at the age of 69yrs Father Family Medical History: Myocardial Infarction (MS) Additional Family Medical History / Comment(s): Father of a MS at the age of 63 yrs. Sister(s) Additional Family Medical History / Comment(s): Patient has one sister that from overdose of medications. Patient does not have any brothers. Patient has 2 sons with no major medical problems. Medications and Allergies Home Medications Medication Instructions Recorded Confirmed Type Levothyroxine Sodium [Synthroid] 37.5 mcg PO DAILY 08/05/14 01/16/21 History Metoprolol Tartrate [Lopressor] 50 mg PO BID 08/05/14 01/16/21 History Montelukast [Singulair] 10 mg PO HS 08/05/14 01/16/21 History Sennosides-Docusate Sodium 1 tab PO BID 08/05/14 01/16/21 History [Senokot-S] amLODIPine BESYLATE [Norvasc] 10 mg PO DAILY 08/05/14 01/16/21 History hydroCHLOROthiazide [Hydrodiuril] 25 mg PO DAILY 08/05/14 01/16/21 History lisinopriL [Prinivil] 20 mg PO BID 08/05/14 01/16/21 History Loratadine [Claritin] 10 mg PO DAILY 11/26/14 01/16/21 History Budesonide-Formot 160-4.5 Mcg 2 puff INHALATION RT-BID 01/09/19 01/16/21 History [Symbicort 160-4.5 Mcg Inhaler] Aspirin [Adult Low Dose Aspirin EC] 81 mg PO DAILY 08/23/20 01/16/21 History Omeprazole 40 mg PO DAILY 08/23/20 01/16/21 History Multivitamins, Thera [Multivitamin 1 tab PO DAILY 10/13/20 01/16/21 History (formulary)] Acetaminophen Tab [Tylenol Tab] 1,500 mg PO Q6HR PRN 01/13/21 01/16/21 History Biotin 5,000 mcg PO DAILY 01/13/21 01/16/21 History HYDROcodone/APAP 5-325MG [[place] 1 - 2 tab PO Q6H PRN 01/13/21 01/16/21 History 5-325] Allergies Allergy/AdvReac Type Severity Reaction Status Date / Time adhesive tape Allergy Rash/BLISTE Verified 01/16/21 12:15 RS banana Allergy Wheezing Verified 01/16/21 12:15 cinnamon Allergy Wheezing Verified 01/16/21 12:15 hydromorphone [From Dilaudid] Allergy Unknown Verified 01/16/21 12:15 Mushroom Allergy COULD NO Verified 01/16/21 12:15 RESPOND" FELT LIKE SHE WAS PASSING OUT poison michell extract Allergy Rash/Hives Verified 01/16/21 12:15 codeine AdvReac Unknown Abdominal Verified 01/16/21 12:15 Pain monosodium glutamate [MSG] AdvReac Nausea & Verified 01/16/21 12:15 Vomiting burning yan Allergy Rash/Hives Uncoded 01/16/21 12:15 Surgical - Exam Vital Signs Temp Pulse Resp BP Pulse Ox 96.8 F L 81 22 127/83 98 01/16/21 12:12 01/16/21 12:12 01/16/21 12:12 01/16/21 12:12 01/16/21 12:12 Results - Labs 01/18/21 05:58 01/18/21 05:58 Abnormal Lab Results - Last 24 Hours (Table) 01/19/21 01/19/21 01/20/21 Range/Units 16:28 20:56 06:59 POC Glucose (mg/dL) 230 H 183 H 163 H (75-99) mg/dL 01/20/21 01/20/21 Range/Units 10:42 11:47 POC Glucose (mg/dL) 143 H 149 H (75-99) mg/dL
[2021-01-20 16:47] LABS: Glucose,Whole Blood 199 mg/dL (75-99)
--- NOTE | 2021-01-20 17:32 | P.PN ---
Subjective Progress Note Date: 01/20/21 Principal diagnosis: -Multilevel lumbar spinal stenosis -spondylolisthesis L3-L4, L4-L5 - disc herniation T6-T7 -Degenerative disc disease Upon entering room, patient is lying semirecumbent in bed mostly on right side. She says she is still having pain in the left hip anterolaterally. She is able to actively raise the left leg off of bed further than yesterday. Yesterday she said she was able to get up and go to the bathroom with minimal assistance. She says she got up and sat in chair for about 2-1/2 hours. Objective - Vital Signs Vital signs: Vital Signs Temp 98.2 F 01/20/21 14:00 Pulse 69 01/20/21 14:00 Resp 16 01/20/21 14:00 BP 103/72 01/20/21 14:00 Pulse Ox 98 01/20/21 14:00 Intake & Output 01/19/21 01/20/21 01/20/21 18:59 06:59 18:59 Intake Total 150 Balance 150 Intake: IV 50 Oral 100 Other: Voiding Method Bedside Commode # Voids 3 1 - Exam Negative Homans bilaterally. Negative clonus upon dorsiflexing feet bilaterally. There is some bruising over the second third digits of the left foot. Patient did say this is old and from a fall she had before coming to the hospital. Pulses intact bilaterally dorsalis pedis. Upon active straight leg raise of left leg patient experiences pain in left buttocks region that radiates anteriorly to thigh. Rght leg is raised actively patient does not experience this pain. Upon passive range of motion during straight leg raise patient is able to flex hip more with less pain in left leg. Patient was tender to touch over anterolateral left hip region - Labs CBC & Chem 7: 01/18/21 05:58 01/18/21 05:58 Labs: Abnormal Lab Results - Last 24 Hours (Table) 01/19/21 01/19/21 01/20/21 Range/Units 16:28 20:56 06:59 POC Glucose (mg/dL) 230 H 183 H 163 H (75-99) mg/dL 01/20/21 01/20/21 Range/Units 10:42 11:47 POC Glucose (mg/dL) 143 H 149 H (75-99) mg/dL Assessment and Plan Plan: 1. Appreciate medical management 2. Pain management - stable at this time; continue gabapentin 300 mg TID/prn; Flexeril 10 mg; patient was given steroid injection into L3-L4 level this morning. She does feel some mild relief but is hoping over the next couple days it'll get better. 3. PT/OT 4. Multilevel lumbar spinal stenosis; spondylolisthesis L3-L4, L4-L5; disc herniation T6-T7; degenerative disc disease - discussed with patient these findings. Would like patient to become more stabilized medically in hospital during this stay. I did discuss with Dr. Montejo yesterday before MRI and CT had been completed for the potential that the patient may follow-up in outpatient setting up once she is in more stable condition to discuss options for surgery. Time with Patient: Less than 30
[2021-01-20] MEDS ORDERED: SYMBICORT 160-4.5 MCG INHALER INHALATION SCH (20:00)
[2021-01-20 20:07] LABS: Glucose,Whole Blood 175 mg/dL (75-99)
[2021-01-20] MEDS: MONTELUKAST 10 MG TAB PO SCH (21:44)
[2021-01-20] MEDS: MELATONIN 3 MG TABLET PO SCH (21:45)
[2021-01-21] MEDS: ACETAMINOPHEN TAB 500 MG TAB PO SCH ×4 (00:19→17:31)
[2021-01-21] MEDS: LEVOTHYROXINE 75 MCG TAB PO SCH (05:25)
[2021-01-21 06:50] LABS: Glucose,Whole Blood 106 mg/dL (75-99)
[2021-01-21] MEDS: INSULIN ASPART (NovoLOG) 100 UNIT/ML VIAL SQ SCH ×4 (07:19→20:26)
[2021-01-21] MEDS: SYMBICORT 160-4.5 MCG INHALER INHALATION SCH ×2 (07:25→19:37)
[2021-01-21 08:30] LABS: Anisocytosis Slight; HCT 43.2 % (34.0-46.0); HGB 13.8 gm/dL (11.4-16.0); MCH 29.7 pg (25.0-35.0); MCHC 31.8 g/dL (31.0-37.0); MCV 93.5 fL (80.0-100.0); Mean Platelet Volume 6.7; Platelet Count 361 k/uL (150-450); RBC 4.62 m/uL (3.80-5.40); RDW 16.5 % (11.5-15.5); WBC 11.7 k/uL (3.8-10.6)
[2021-01-21 08:39] LABS: ALT 56 U/L (4-34); AST 41 U/L (14-36); African American GFR (CKD) >90 (>60 ml/min/1.73 sqM); Albumin 3.1 g/dL (3.5-5.0); Albumin/Globulin Ratio 1.3; Alkaline Phosphatase 45 U/L (38-126); Anion Gap 5 mmol/L; Blood Urea Nitrogen 11 mg/dL (7-17); Carbon Dioxide 30 mmol/L (22-30); Chloride 92 mmol/L (98-107); Globulin 2.3 g/dL; Glucose 133 mg/dL (74-99); Non-African American GFR(CKD) >90 (>60 ml/min/1.73 sqM); Potassium 3.2 mmol/L (3.5-5.1); Sodium 127 mmol/L (137-145); Total Bilirubin 0.7 mg/dL (0.2-1.3); Total Protein 5.4 g/dL (6.3-8.2)
--- NOTE | 2021-01-21 09:01 | P.PN ---
Subjective Progress Note Date: 01/21/21 Pt s/e this AM she is seating up eating breakfast. She states she had great relief from her injection yesterday. She still has some mild thigh pain, but otherwise is very happy with the injection. She states no increased numbness/tingling. No bowel bladder issues. No perineal numbness/tingling. She is still having great difficulty with swallowing and cannot keep anything down. Gen sx to address today. Objective - Vital Signs Vital signs: Vital Signs Temp 99.4 F 01/21/21 07:13 Pulse 61 01/21/21 07:13 Resp 16 01/21/21 07:13 BP 129/81 01/21/21 07:13 Pulse Ox 97 01/21/21 07:13 Intake & Output 01/20/21 01/21/21 01/21/21 18:59 06:59 18:59 Intake Total 150 Balance 150 Intake: IV 50 Oral 100 Other: Voiding Method Bedside Commode # Voids 3 1 - Exam Exam is stable at this time No interval changes in motor, neuro or vascular status Pain improved. Neg SLR Neg hoffmans neg babinski neg clonus SILT L2-S1 - Constitutional General appearance: Present: cooperative - Labs CBC & Chem 7: 01/21/21 08:12 01/21/21 08:12 Labs: Abnormal Lab Results - Last 24 Hours (Table) 01/20/21 01/20/21 01/20/21 Range/Units 10:42 11:47 16:45 WBC (3.8-10.6) k/uL RDW (11.5-15.5) % Sodium (137-145) mmol/L Potassium (3.5-5.1) mmol/L Chloride (98-107) mmol/L Glucose (74-99) mg/dL POC Glucose (mg/dL) 143 H 149 H 199 H (75-99) mg/dL AST (14-36) U/L ALT (4-34) U/L Total Protein (6.3-8.2) g/dL Albumin (3.5-5.0) g/dL 01/20/21 01/21/21 01/21/21 Range/Units 20:05 06:48 08:12 WBC 11.7 H (3.8-10.6) k/uL RDW 16.5 H (11.5-15.5) % Sodium (137-145) mmol/L Potassium (3.5-5.1) mmol/L Chloride (98-107) mmol/L Glucose (74-99) mg/dL POC Glucose (mg/dL) 175 H 106 H (75-99) mg/dL AST (14-36) U/L ALT (4-34) U/L Total Protein (6.3-8.2) g/dL Albumin (3.5-5.0) g/dL 01/21/21 Range/Units 08:12 WBC (3.8-10.6) k/uL RDW (11.5-15.5) % Sodium 127 L (137-145) mmol/L Potassium 3.2 L (3.5-5.1) mmol/L Chloride 92 L (98-107) mmol/L Glucose 133 H (74-99) mg/dL POC Glucose (mg/dL) (75-99) mg/dL AST 41 H (14-36) U/L ALT 56 H (4-34) U/L Total Protein 5.4 L (6.3-8.2) g/dL Albumin 3.1 L (3.5-5.0) g/dL Assessment and Plan Assessment: 1. Lumbar degenerative spondylolisthesis multiple levels L2-S1 with related stenosis 2. Lumbar stenosis Moderate to severe L2-S1 3. Complex medical pt and history with multiple comorbid conditions. Plan: 1. Appreciate medical management 2. Pain management - stable at this time; continue gabapentin 300 mg TID/prn; Flexeril 10 mg; patient was given steroid injection into L3-L4 level this morning. She does feel some mild relief but is hoping over the next couple days it'll get better. 3. PT/OT 4. Multilevel lumbar spinal stenosis; spondylolisthesis L3-L4, L4-L5; disc herniation T6-T7; degenerative disc disease - discussed with patient these findings. Pt is feeling better from injection. We will see her in office in follow up and plan surgery.
[2021-01-21] MEDS ORDERED: POTASSIUM CHLORIDE ER 20 MEQ TAB.ER PO STA (09:03)
[2021-01-21] MEDS: METOPROLOL TARTRATE 50 MG TAB PO SCH ×2 (09:47→20:31)
[2021-01-21] MEDS: GABAPENTIN 300 MG CAP PO SCH ×3 (09:47→20:27)
[2021-01-21] MEDS: PANTOPRAZOLE 40 MG TABLET PO SCH ×2 (09:47→17:31)
[2021-01-21] MEDS: lisinopriL 20 MG TAB PO SCH ×2 (09:47→20:26)
[2021-01-21] MEDS: predniSONE 20 MG TAB PO SCH (09:47)
[2021-01-21] MEDS: hydroCHLOROthiazide 25 MG TAB PO SCH (09:47)
[2021-01-21] MEDS: amLODIPine 10 MG TAB PO SCH (09:47)
[2021-01-21] MEDS: SENNOSIDES-DOCUSATE SODIUM 1 EACH TAB PO SCH (09:53)
[2021-01-21 11:18] LABS: Glucose,Whole Blood 132 mg/dL (75-99)
[2021-01-21] MEDS ORDERED: CALCIUM CARBONATE 500 MG CHEWABLE PO PRN (12:10)
--- NOTE | 2021-01-21 12:13 | P.PN ---
Subjective Progress Note Date: 01/21/21 History of present illness This is a [age]-year-old patient who presented to the emergency room for multiple complaints. She is a patient of Dr. Hamilton past medical history significant for asthma, diabetes, hypertension, pneumonia, and left hip replacement. Patient is stating that she is having weakness and unable to ambulate. She is complaining of significant pain to the left hip. Approximate one month ago she did sustain a fall however she was seen by advanced orthopedic who ruled out any significant issues with her hip replacement. Patient was seen in the emergency room 3 days ago for hip pain. She does live at home and is unable to take care of herself. Patient is also complaining of inability to swallow. She is feeling full. She does have history of lap band however she has not had a fill in approximately 1 year. Patient does see the LAP-BAND services once a month. Patient did have Covid back in August. At this time she is denying any sore throat shortness of breath or chest pain. At this time patient is found resting in bed complaining of significant back and hip pain. Orthopedic is at the bedside and is ordering a MRI and x-rays. We will start her on steroids. Patient is also complaining of feeling of fullness and difficulty swallowing. Lab work reveals a to WBCs 11.1, potassium 3.6, BUN 21, creatinine 0.62. Urine is negative for infection does show 4+ ketones. Influenza A and B RSV ankles that are all negative. Patient is afebrile, heart rate 76, respirations 16, blood pressure 97/65, pulse ox 98% on room air. Prior to patient's Covid diagnosis she was planning to have back surgery in August. 01/18: Patient is found resting in bed rating pain 8/10. MRI results are noted below. Patient did state that she was up to the chair which she tolerated for short period time. We will DC aspirin at this time we will start with pain management consult. Patient states that she has seen pain management in the p ast. Patient was scheduled for surgery however she had developed Covid was unable to move forward with a spine surgery. We will continue with pain management at this time. Discussed with patient possible need for subacute rehab. MRI Results: spondylolisthesis L3-L4, L4-L5; disc herniation T6-T7; degenerative disc disease 01/19: Patient is followed by orthopedic spine with plan for her to follow-up in the outpatient setting. Patient is seen by pain management with plan for intervention tomorrow. Patient states that she is feeling a little better today but not great. She continues to have pain in her back with ambulation and into the left thigh. PT and OT evaluations are pending. She states her abdominal pain is also gone. She is scheduled for upper GI today. Patient has been afebrile, heart rate 72, blood pressure 154/89, pulse ox 90% on room air. Capillary blood glucose running between 146 and 196. Anticipate possible discharge tomorrow after pain management procedure. 01/20: Esophagram was done that showed moderate delay at the level of the LAP-BAND correlate for LAP-BAND function. Numerous tertiary contractions of the esophagus noted. Correlate with direct visualization as clinically warranted. Pressure in epigastric area much better. Patient states that her abdominal epigastric area discomfort has resolved. Consult with Dr. Carr added. Patient has been afebrile, heart rate 69, blood pressure 126/83, pulse ox 95% on room air. Blood sugars are running between 163 and 230. IV steroids will be transitioned to oral prednisone starting in the morning. Patient subsequently underwent foraminal epidural steroid injection by Dr. Zapata. Plan is to monitor patient overnight and probable discharge after seen by Dr. Carr. 01/21: Patient has been seen by Dr. Carr with recommendations for cardiology consult for surgical clearance, hiatal hernia repair in LAP-BAND removal. Patient has been afebrile, heart rate 61, blood pressure 129/81, pulse ox 97% on room air. Regarding her back pain, she states she still is having pain in the buttocks area but the pain in her leg has resolved. She is complaining of abdominal bloating and constipation for which Senokot will be changed to scheduled. Repeat blood work reveals WBC 11.7, hemoglobin 13.8, platelet count 361. Sodium 127, potassium 3.2 and will be replaced, chloride 92, CO2 30, BUN 11 and creatinine 0.55. Sugars are running between [address] Montejo plan to see the patient in the office. Review Of Systems: Constitutional: No fever, no chills, no night sweats. No weight change. Report weakness no fatigue or lethargy. No daytime sleepiness. EENT: No headache. No blurred vision or double vision, no loss of vision. No loss of Hearing, no ringing in the ears, no dizziness. No nasal drainage or congestion. No epistaxis. No sore throat. Lungs: No shortness of breath, cough, no sputum production. No wheezing. Cardiovascular: No chest pain, no lower extremity edema. No palpitations. No paroxysmal nocturnal dyspnea. No orthopnea. No lightheadedness or dizziness. No syncopal episodes. Abdominal: no abdominal discomfort. Denies nausea with vomiting. no diarrhea. No constipation. No bloody or tarry stools. Report loss of appetite. Denies difficulty swallowing Genitourinary: No dysuria, increased frequency, urgency. No urinary retention. Musculoskeletal: No myalgias. Report muscle weakness, reports gait dysfunction, reports frequent falls and one month ago. Reports hip pain. No back pain. No neck pain. Integumentary: No wounds, no lesions. No rash or pruritus. No unusual bruising. No change in hair or nails. Neurologic: No aphasia. No facial droop. No change in mentation. No head injury. No headache. No paralysis. No paresthesia. Psychiatric: No depression. No anxiety. Endocrine: No abnormal blood sugars. Physical examination General Appearance: Alert, cooperative, no distress, 75-year-old appears stated age. Neck HEENT: Supple, no lymphadenopathy, no thyroid enlargement, no carotid bruits. Lungs: Clear to auscultation without crackles or wheezes no rhonchi, no deformity. Chest Wall: Chest wall normal expansion with deep inspiration no tenderness and no deformity was found on exam, no costochondral pain or discomfort. Heart: Regular rate and rhythm, S1, S2 normal, no murmur, rub or gallop. Back: Symmetric, no curvature, ROM normal, no CVA tenderness. Abdomen: Soft, non-tender, no rebound or rigidity, no hepatosplenomegaly. Extremities: Extremities normal, atraumatic, no cyanosis or edema. Pain with movement and palpation Pulses: 2+ and symmetric. Skin: Skin color, texture, tugor normal, no rashes or lesions. Neurologic: Alert oriented x3 cranial nerves II through XII intact, no motor deficit, no abnormal balance or gait Assessment and plan 1. Spinal stenosis with debility and hip pain recent history of left total hip arthroplasty. Orthopedics consult appreciated. Lopez-Medrol 60 mg IV every 6 hours, Mcrae Hel[place] 1 tablet every 6 hours for pain. Flexeril 10 mg 3 times a day. Pain management consult appreciated. Patient is status post epidural steroid injection. 2. Dehydration. Status post IV fluids. 3. 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 Consult with general surgery appreciated. Plan is for hiatal hernia repair in LAP-BAND removal. 4. Hypothyroidism. Levothyroxine 37.5 MCG's by mouth daily 5. Hypertension. Norvasc 10mg daily, lisinopril 20 mg by mouth twice a day 6. Arrhythmia. Lopressor 50 mg twice a day 7. Mild asthma/COPD. Singulair 10 mg by mouth at bedtime 8. Chronic ALLERGIES. Claritin 10 mg by mouth daily 9. Severe GERD/ GI prophylaxis. Protonix 40 mg by mouth before meals twice a day 10. History of morbid obesity status post lap band. 11. DVT prophylaxis. STDs CODE STATUS: full code Discharge plan: Home. OT PT consult and social and political studies professor consult. Impression and plan of care have been directed as dictated by the signing physician. Roxane York nurse practitioner acting as scribe for signing physician. Objective - Vital Signs Vital signs: Vital Signs Temp 99.4 F 01/21/21 07:13 Pulse 61 01/21/21 07:13 Resp 16 01/21/21 07:13 BP 129/81 01/21/21 07:13 Pulse Ox 97 01/21/21 07:13 Intake & Output 01/20/21 01/21/21 01/21/21 18:59 06:59 18:59 Intake Total 150 Balance 150 Intake: IV 50 Oral 100 Other: Voiding Method Bedside Commode # Voids 3 1 - Labs CBC & Chem 7: 01/21/21 08:12 01/21/21 08:12 Labs: Abnormal Lab Results - Last 24 Hours (Table) 01/20/21 01/20/21 01/20/21 Range/Units 10:42 11:47 16:45 POC Glucose (mg/dL) 143 H 149 H 199 H (75-99) mg/dL 01/20/21 01/21/21 Range/Units 20:05 06:48 POC Glucose (mg/dL) 175 H 106 H (75-99) mg/dL
--- NOTE | 2021-01-21 12:29 | P.CRDCN ---
History of Present Illness Consult date: 01/21/21 History of present illness: HISTORY OF PRESENT ILLNESS: This is a 75-year-old female with a past medical history significant for hypertension, hyperlipidemia, obstructive sleep apnea, LAP-BAND surgery, and diabetes mellitus. Patient recently established in the office with Dr Cooney. We have been asked to see the patient in consultation for surgical clearance. Patient examined at the bedside. Patient underwent esophagram revealing moderate delay at the level of the LAP-BAND. Patient also has a history of a hiatal hernia. Patient had her fluid removed from her lap band today by Dr. Givens. Dr. Carr may be scheduling the patient for hiatal hernia repair and LAP-BAND removal, however, there is no definite surgery scheduled at this time. EKG reveals sinus mechanism with nonspecific ST-T wave changes Chest xray no acute cardiopulmonary process Laboratory data: WBC 11.7. Hemoglobin 13.8. Platelet count 361. Sodium 127. Potassium 3.2. BUN 11. Creatinine 0.55. BNP 514. Troponin negative 2. Current home cardiac medications include lisinopril 20 mg twice a day, hydrochlorothiazide 25 mg daily, metoprolol tartrate 50 mg twice a day, amlodipine 10 mg daily, and aspirin 81 mg daily Patient underwent a 24-hour Holter monitor in November 2020 revealing sinus mechanism. Heart rate ranging from 46-104. Average of 64/m. No sustained or nonsustained arrhythmias Most recent echocardiogram obtained in November 2020 reveals ejection fraction 55%, moderate mitral regurgitation, trace aortic regurgitation, moderate tricuspid regurgitation and mildly increased pulmonary artery pressure of 35 mmHg. Patient underwent Lexiscan stress test in November 2020 revealing no evidence of reversible ischemia REVIEW OF SYSTEMS: At the time of my exam: CONSTITUTIONAL: Denies fever or chills. HEENT: Denies blurred vision, vision changes, or eye pain. Denies hemoptysis CARDIOVASCULAR: Denies chest pain. Denies orthopnea. Denies PND. Denies palpitations RESPIRATORY: Denies shortness of breath. GASTROINTESTINAL: Denies abdominal pain. Denies nausea or vomiting. HEMATOLOGIC: Denies bleeding disorders. GENITOURINARY: Denies any blood in urine. SKIN: Denies pruitis. Denies rash. PHYSICAL EXAM: VITAL SIGNS: Reviewed. GENERAL: Well-developed in no acute distress. HEENT: Head is normocephalic. Pupils are equal, round. Sclerae anicteric. Mucous membranes of the mouth are moist. Neck supple. No JVD or thyromegaly LUNGS: Respirations even and unlabored. Lungs essentially clear to auscultation bilaterally. HEART: Regular rate and rhythm. S1 and S2 heard. ABDOMEN: Soft. Nondistended. Nontender. EXTREMITIES: Normal range of motion. No clubbing or cyanosis. Peripheral pulses intact. No lower extremity edema NEUROLOGIC: Awake and alert. Oriented x 3. ASSESSMENT: Dysphagia and reflux symptoms with esophagram showing moderate delay level of LAP-BAND Hiatal hernia Hypertension Hyperlipidemia History of morbid obesity with previous LAP-BAND Hypothyroidism Spinal stenosis with debility Hip pain with recent history of left total hip arthroplasty Hypokalemia Left subclavian artery stenosis, 70%, per CT PLAN: Office records reviewed including recent holter monitor, echo, and stress test Continue current cardiac medications There are no contraindications to undergo surgical intervention from a cardiac standpoint if deemed necessary by Dr. Carr Further recommendations pending patient course Nurse practitioner note has been reviewed by physician. Signing provider agrees with the documented findings, assessment, and plan of care. Past Medical History Past Medical History: Asthma, Diabetes Mellitus, Eye Disorder, GERD/Reflux, Hypertension, Osteoarthritis (OA), Pneumonia Additional Past Medical History / Comment(s): Diet-controlled diabetic, back pain, lap Band, PNA, asthma, HIATAL HERNIA, Right cataract removal History of Any Multi-Drug Resistant Organisms: None Reported Past Surgical History: Adenoidectomy, Bariatric Surgery, Cholecystectomy, Hysterectomy, Joint Replacement, Orthopedic Surgery, Tonsillectomy Additional Past Surgical History / Comment(s): Bilateral knee replacements, lap band, eyelid surgery, panniculectomy, lap band port replacement -20, left hip replaced 08/07/2020, sees Dr. Montejo for back pain, EGD, COLONOSCOPY, RT SHOULDER SX, bilateral knee replacement Past Anesthesia/Blood Transfusion Reactions: Postoperative Nausea & Vomiting (PONV) Additional Past Anesthesia/Blood Transfusion Reaction / Comment(s): once after hysterectomy Past Psychological History: No Psychological Hx Reported Additional Psychological History / Comment(s): Pt resides alone in her home with 2 steps. She owns a cane/walker . She drives. Smoking Status: Former smoker Past Alcohol Use History: Rare Additional Past Alcohol Use History / Comment(s): Patient smokes cigarettes for 22 years and quit in 1985. Past Drug Use History: None Reported - Past Family History Mother Family Medical History: No Reported History Additional Family Medical History / Comment(s): Mother from CHF at the age of 69yrs Father Family Medical History: Myocardial Infarction (MT) Additional Family Medical History / Comment(s): Father of a MT at the age of 63 yrs. Sister(s) Additional Family Medical History / Comment(s): Patient has one sister that from overdose of medications. Patient does not have any brothers. Patient has 2 sons with no major medical problems. Medications and Allergies Home Medications Medication Instructions Recorded Confirmed Type Levothyroxine Sodium [Synthroid] 37.5 mcg PO DAILY 08/05/14 01/16/21 History Metoprolol Tartrate [Lopressor] 50 mg PO BID 08/05/14 01/16/21 History Montelukast [Singulair] 10 mg PO HS 08/05/14 01/16/21 History Sennosides-Docusate Sodium 1 tab PO BID 08/05/14 01/16/21 History [Senokot-S] amLODIPine BESYLATE [Norvasc] 10 mg PO DAILY 08/05/14 01/16/21 History hydroCHLOROthiazide [Hydrodiuril] 25 mg PO DAILY 08/05/14 01/16/21 History lisinopriL [Prinivil] 20 mg PO BID 08/05/14 01/16/21 History Loratadine [Claritin] 10 mg PO DAILY 11/26/14 01/16/21 History Budesonide-Formot 160-4.5 Mcg 2 puff INHALATION RT-BID 01/09/19 01/16/21 History [Symbicort 160-4.5 Mcg Inhaler] Aspirin [Adult Low Dose Aspirin EC] 81 mg PO DAILY 08/23/20 01/16/21 History Omeprazole 40 mg PO DAILY 08/23/20 01/16/21 History Multivitamins, Thera [Multivitamin 1 tab PO DAILY 10/13/20 01/16/21 History (formulary)] Acetaminophen Tab [Tylenol Tab] 1,500 mg PO Q6HR PRN 01/13/21 01/16/21 History Biotin 5,000 mcg PO DAILY 01/13/21 01/16/21 History HYDROcodone/APAP 5-325MG [[place] 1 - 2 tab PO Q6H PRN 01/13/21 01/16/21 History 5-325] Allergies Allergy/AdvReac Type Severity Reaction Status Date / Time adhesive tape Allergy Rash/BLISTE Verified 01/16/21 12:15 RS banana Allergy Wheezing Verified 01/16/21 12:15 cinnamon Allergy Wheezing Verified 01/16/21 12:15 hydromorphone [From Dilaudid] Allergy Unknown Verified 01/16/21 12:15 Mushroom Allergy COULD NO Verified 01/16/21 12:15 RESPOND" FELT LIKE SHE WAS PASSING OUT poison michell extract Allergy Rash/Hives Verified 01/16/21 12:15 codeine AdvReac Unknown Abdominal Verified 01/16/21 12:15 Pain monosodium glutamate [MSG] AdvReac Nausea & Verified 01/16/21 12:15 Vomiting burning yan Allergy Rash/Hives Uncoded 01/16/21 12:15 Physical Exam Vitals: Vital Signs Temp Pulse Resp BP Pulse Ox 01/21/21 07:13 99.4 F 61 16 129/81 97 01/21/21 01:58 97.7 F 61 19 95/69 96 01/20/21 19:15 75 18 01/20/21 18:45 98.3 F 75 18 97/66 96 01/20/21 14:00 98.2 F 69 16 103/72 98 01/20/21 12:14 56 L 138/80 96 01/20/21 11:59 56 L 128/78 01/20/21 11:45 97.4 F L 59 L 112/73 96 01/20/21 10:44 98 F 66 18 132/70 97 Intake and Output 01/20/21 01/21/21 01/21/21 22:59 06:59 14:59 Other: Voiding Method Bedside Commode # Voids 1 1 Results 01/21/21 08:12 01/21/21 08:12 Cardiac Enzymes 01/21/21 01/21/21 Range/Units 08:12 08:12 AST 41 H (14-36) U/L Troponin I <0.012 (0.000-0.034) ng/mL CBC 01/21/21 Range/Units 08:12 WBC 11.7 H (3.8-10.6) k/uL RBC 4.62 (3.80-5.40) m/uL Hgb 13.8 (11.4-16.0) gm/dL Hct 43.2 (34.0-46.0) % Plt Count 361 (150-450) k/uL Comprehensive Metabolic Panel 01/21/21 Range/Units 08:12 Sodium 127 L (137-145) mmol/L Potassium 3.2 L (3.5-5.1) mmol/L Chloride 92 L (98-107) mmol/L Carbon Dioxide 30 (22-30) mmol/L BUN 11 (7-17) mg/dL Creatinine 0.55 (0.52-1.04) mg/dL Glucose 133 H (74-99) mg/dL Calcium 9.0 (8.4-10.2) mg/dL AST 41 H (14-36) U/L ALT 56 H (4-34) U/L Alkaline Phosphatase 45 (38-126) U/L Total Protein 5.4 L (6.3-8.2) g/dL Albumin 3.1 L (3.5-5.0) g/dL Current Medications Generic Name Dose Route Start Last Admin Trade Name Freq PRN Reason Stop Dose Admin Acetaminophen 1,000 mg 01/18/21 12:00 01/21/21 05:25 Acetaminophen Tab 500 Mg Tab PO 1,000 mg Q6HR LELIA Administration Hydrocodone Bitart/Acetaminophen 1 each 01/20/21 08:03 Hydrocodone/Apap 5-325mg 1 Each Tab PO Q6H PRN Pain Albuterol/Ipratropium 3 ml 01/20/21 08:04 Ipratropium-Albuterol 3 Ml Neb INHALATION RT-QID PRN Shortness Of Breath Or Wheezing Amlodipine Besylate 10 mg 01/17/21 09:00 01/21/21 09:47 Amlodipine 10 Mg Tab PO 10 mg DAILY LELIA Administration Budesonide/Formoterol Fumarate 2 puff 01/20/21 08:16 01/21/21 07:25 Symbicort 160-4.5 Mcg Inhaler INHALATION 2 puff RT-BID LELIA Administration Cyclobenzaprine HCl 10 mg 01/17/21 09:09 01/19/21 10:32 Cyclobenzaprine 10 Mg Tab PO 10 mg TID PRN Administration Muscle Spasm Gabapentin 300 mg 01/17/21 09:15 01/21/21 09:47 Gabapentin 300 Mg Cap PO 300 mg TID LELIA Administration Hydrochlorothiazide 25 mg 01/17/21 09:00 01/21/21 09:47 Hydrochlorothiazide 25 Mg Tab PO 25 mg DAILY LELIA Administration Insulin Aspart 0 unit 01/18/21 07:30 01/21/21 07:19 Insulin Aspart (Novolog) 100 Unit/Ml Vial SQ Not Given ACHS LELIA Protocol Levothyroxine Sodium 37.5 mcg 01/17/21 06:30 01/21/21 05:25 Levothyroxine 75 Mcg Tab PO 37.5 mcg DAILY@0630 LELIA Administration Lisinopril 20 mg 01/17/21 09:00 01/21/21 09:47 Lisinopril 20 Mg Tab PO 20 mg BID LELIA Administration Loratadine 10 mg 01/16/21 21:05 Loratadine 10 Mg Tab PO DAILY PRN Allergy Symptoms Melatonin 6 mg 01/17/21 21:00 01/20/21 21:45 Melatonin 3 Mg Tablet PO 6 mg HS LELIA Administration Metoprolol Tartrate 50 mg 01/17/21 09:00 01/21/21 09:47 Metoprolol Tartrate 50 Mg Tab PO 50 mg BID LELIA Administration Miscellaneous Information 1 each 01/17/21 11:19 Magnesium Replacement Protocol 1 Each Misc MISCELLANE DAILY PRN Per Protocol Protocol Montelukast Sodium 10 mg 01/17/21 21:00 01/20/21 21:44 Montelukast 10 Mg Tab PO 10 mg HS LELIA Administration Naloxone HCl 0.2 mg 01/16/21 16:04 Naloxone 0.4 Mg/Ml 1 Ml Vial IV Q2M PRN Opioid Reversal Ondansetron HCl 4 mg 01/16/21 16:04 01/16/21 23:06 Ondansetron 4 Mg/2 Ml Vial IVP 4 mg Q8HR PRN Administration Nausea And Vomiting Oxycodone HCl 5 mg 01/18/21 10:22 01/19/21 10:32 Oxycodone Hcl 5 Mg Tab PO 5 mg Q6H PRN Administration Pain Pantoprazole Sodium 40 mg 01/16/21 23:00 01/21/21 09:47 Pantoprazole 40 Mg Tablet PO 40 mg AC-BID LELIA Administration Prednisone 40 mg 01/21/21 09:00 01/21/21 09:47 Prednisone 20 Mg Tab PO 40 mg DAILY LELIA Administration Senna/Docusate Sodium 2 each 01/21/21 09:15 01/21/21 09:53 Sennosides-Docusate Sodium 1 Each Tab PO 2 each DAILY LELIA Administration Intake and Output 01/20/21 01/21/21 01/21/21 22:59 06:59 14:59 Other: Voiding Method Bedside Commode # Voids 1 1 01/21/21 08:12 01/21/21 08:12
--- NOTE | 2021-01-21 13:03 | P.PN ---
Subjective Progress Note Date: 01/21/21 CHIEF COMPLAINT: Dysphagia and abnormal esophagram HISTORY OF PRESENT ILLNESS: Surgical service is following in regards to patient's dysphagia and esophagram has shown moderate delay at the level of the LAP-BAND correlate for LAP-BAND function. Numerous tertiary contractions of the esophagus noted. This morning patient felt that her oatmeal was getting stuck as she swallowed. She also had difficulty with her morning medications. She denies any nausea or vomiting. She did complain of heartburn. Patient evaluated with Dr. Givens at bedside and 2.4ml were removed from her LAP-BAND port. Patient also has a known history of a hiatal hernia. Patient evaluated by cardiology for preop clearance and it cleared her for surgery from cardiac standpoint. She is afebrile. WBC 11.7 sodium 127 potassium 3.2 PHYSICAL EXAM: VITAL SIGNS: Reviewed. GENERAL: Well-developed in no acute distress. HEENT: No sclera icterus. Extraocular movements grossly intact. Moist buccal mucosa. Head is atraumatic, normocephalic. ABDOMEN: Soft. Nondistended. Nontender. NEUROLOGIC: Alert and oriented. Cranial nerves II through XII grossly intact. ASSESSMENT: 1. Dysphagia and reflux symptoms with esophagram showing moderate delay at the level of the LAP-BAND correlate for LAP-BAND function. Numerous tertiary contractions of the esophagus noted. 2. History of a hiatal hernia PLAN: -2.4 ml removed from LAP-BAND port by Dr. Givens -Continue full liquid diet -Patient will require hiatal hernia repair and lap band removal -Add Tums for acid reflux symptoms Physician Mines Safety Engineer note has been reviewed by physician. Signing provider agrees with the documented findings, assessment, and plan of care. Objective - Vital Signs Vital signs: Vital Signs Temp 99.4 F 01/21/21 07:13 Pulse 61 01/21/21 07:13 Resp 16 01/21/21 07:13 BP 129/81 01/21/21 07:13 Pulse Ox 97 01/21/21 07:13 Intake & Output 01/20/21 01/21/21 01/21/21 18:59 06:59 18:59 Intake Total 150 Balance 150 Intake: IV 50 Oral 100 Other: Voiding Method Bedside Commode # Voids 3 1 - Labs CBC & Chem 7: 01/21/21 08:12 01/21/21 08:12 Labs: Abnormal Lab Results - Last 24 Hours (Table) 01/20/21 01/20/21 01/21/21 Range/Units 16:45 20:05 06:48 WBC (3.8-10.6) k/uL RDW (11.5-15.5) % Sodium (137-145) mmol/L Potassium (3.5-5.1) mmol/L Chloride (98-107) mmol/L Glucose (74-99) mg/dL POC Glucose (mg/dL) 199 H 175 H 106 H (75-99) mg/dL AST (14-36) U/L ALT (4-34) U/L Total Protein (6.3-8.2) g/dL Albumin (3.5-5.0) g/dL 01/21/21 01/21/21 01/21/21 Range/Units 08:12 08:12 11:14 WBC 11.7 H (3.8-10.6) k/uL RDW 16.5 H (11.5-15.5) % Sodium 127 L (137-145) mmol/L Potassium 3.2 L (3.5-5.1) mmol/L Chloride 92 L (98-107) mmol/L Glucose 133 H (74-99) mg/dL POC Glucose (mg/dL) 132 H (75-99) mg/dL AST 41 H (14-36) U/L ALT 56 H (4-34) U/L Total Protein 5.4 L (6.3-8.2) g/dL Albumin 3.1 L (3.5-5.0) g/dL
[2021-01-21 16:41] LABS: Glucose,Whole Blood 358 mg/dL (75-99)
[2021-01-21 20:07] LABS: Glucose,Whole Blood 153 mg/dL (75-99)
[2021-01-21] MEDS: MONTELUKAST 10 MG TAB PO SCH (20:26)
[2021-01-21] MEDS: MELATONIN 3 MG TABLET PO SCH (20:26)
[2021-01-22] MEDS: ACETAMINOPHEN TAB 500 MG TAB PO SCH ×4 (00:46→17:09)
[2021-01-22] MEDS: LEVOTHYROXINE 75 MCG TAB PO SCH (05:12)
[2021-01-22 06:58] LABS: Glucose,Whole Blood 84 mg/dL (75-99)
[2021-01-22] MEDS: INSULIN ASPART (NovoLOG) 100 UNIT/ML VIAL SQ SCH ×4 (07:22→20:15)
[2021-01-22] MEDS: SENNOSIDES-DOCUSATE SODIUM 1 EACH TAB PO SCH (07:29)
[2021-01-22] MEDS: predniSONE 20 MG TAB PO SCH (07:29)
[2021-01-22] MEDS: METOPROLOL TARTRATE 50 MG TAB PO SCH ×2 (07:30→20:35)
[2021-01-22] MEDS: amLODIPine 10 MG TAB PO SCH (07:30)
[2021-01-22] MEDS: GABAPENTIN 300 MG CAP PO SCH ×3 (07:30→20:39)
[2021-01-22] MEDS: hydroCHLOROthiazide 25 MG TAB PO SCH (07:30)
[2021-01-22] MEDS: lisinopriL 20 MG TAB PO SCH ×2 (07:30→20:35)
[2021-01-22] MEDS: PANTOPRAZOLE 40 MG TABLET PO SCH ×2 (07:30→16:34)
[2021-01-22] MEDS ORDERED: LACTULOSE 20 GM/30 ML CUP PO ONE (08:55)
[2021-01-22] MEDS: SYMBICORT 160-4.5 MCG INHALER INHALATION SCH ×2 (09:28→20:35)
[2021-01-22] MEDS: polyethylene glycoL 3350 17 GM POWD.PACK PO SCH (09:56)
[2021-01-22] MEDS: SPIRONOLACTONE 25 MG TAB PO SCH (10:02)
[2021-01-22 11:07] LABS: Glucose,Whole Blood 154 mg/dL (75-99)
--- NOTE | 2021-01-22 11:20 | P.PN ---
Subjective Progress Note Date: 01/22/21 History of present illness This is a [age]-year-old patient who presented to the emergency room for multiple complaints. She is a patient of Dr. Hamilton past medical history significant for asthma, diabetes, hypertension, pneumonia, and left hip replacement. Patient is stating that she is having weakness and unable to ambulate. She is complaining of significant pain to the left hip. Approximate one month ago she did sustain a fall however she was seen by advanced orthopedic who ruled out any significant issues with her hip replacement. Patient was seen in the emergency room 3 days ago for hip pain. She does live at home and is unable to take care of herself. Patient is also complaining of inability to swallow. She is feeling full. She does have history of lap band however she has not had a fill in approximately 1 year. Patient does see the LAP-BAND services once a month. Patient did have Covid back in August. At this time she is denying any sore throat shortness of breath or chest pain. At this time patient is found resting in bed complaining of significant back and hip pain. Orthopedic is at the bedside and is ordering a MRI and x-rays. We will start her on steroids. Patient is also complaining of feeling of fullness and difficulty swallowing. Lab work reveals a to WBCs 11.1, potassium 3.6, BUN 21, creatinine 0.62. Urine is negative for infection does show 4+ ketones. Influenza A and B RSV ankles that are all negative. Patient is afebrile, heart rate 76, respirations 16, blood pressure 97/65, pulse ox 98% on room air. Prior to patient's Covid diagnosis she was planning to have back surgery in August. 01/18: Patient is found resting in bed rating pain 8/10. MRI results are noted below. Patient did state that she was up to the chair which she tolerated for short period time. We will DC aspirin at this time we will start with pain management consult. Patient states that she has seen pain management in the p ast. Patient was scheduled for surgery however she had developed Covid was unable to move forward with a spine surgery. We will continue with pain management at this time. Discussed with patient possible need for subacute rehab. MRI Results: spondylolisthesis L3-L4, L4-L5; disc herniation T6-T7; degenerative disc disease 01/19: Patient is followed by orthopedic spine with plan for her to follow-up in the outpatient setting. Patient is seen by pain management with plan for intervention tomorrow. Patient states that she is feeling a little better today but not great. She continues to have pain in her back with ambulation and into the left thigh. PT and OT evaluations are pending. She states her abdominal pain is also gone. She is scheduled for upper GI today. Patient has been afebrile, heart rate 72, blood pressure 154/89, pulse ox 90% on room air. Capillary blood glucose running between 146 and 196. Anticipate possible discharge tomorrow after pain management procedure. 01/20: Esophagram was done that showed moderate delay at the level of the LAP-BAND correlate for LAP-BAND function. Numerous tertiary contractions of the esophagus noted. Correlate with direct visualization as clinically warranted. Pressure in epigastric area much better. Patient states that her abdominal epigastric area discomfort has resolved. Consult with Dr. Carr added. Patient has been afebrile, heart rate 69, blood pressure 126/83, pulse ox 95% on room air. Blood sugars are running between 163 and 230. IV steroids will be transitioned to oral prednisone starting in the morning. Patient subsequently underwent foraminal epidural steroid injection by Dr. Zapata. Plan is to monitor patient overnight and probable discharge after seen by Dr. Carr. 01/21: Patient has been seen by Dr. Carr with recommendations for cardiology consult for surgical clearance, hiatal hernia repair in LAP-BAND removal. Patient has been afebrile, heart rate 61, blood pressure 129/81, pulse ox 97% on room air. Regarding her back pain, she states she still is having pain in the buttocks area but the pain in her leg has resolved. She is complaining of abdominal bloating and constipation for which Senokot will be changed to scheduled. Repeat blood work reveals WBC 11.7, hemoglobin 13.8, platelet count 361. Sodium 127, potassium 3.2 and will be replaced, chloride 92, CO2 30, BUN 11 and creatinine 0.55. Sugars are running between [address] Montejo plan to see the patient in the office. 01/22: A Chin had her lap band emptied yesterday by general surgery and she states she is feeling so much better but she still has a little sticky feeling that things are not going down her esophagus. Waiting for general surgery to decide if patient is undergoing surgical intervention at this time or if this will be related when she is outpatient. Patient has been afebrile, heart rate 69, blood pressure 123/77, pulse ox 97% on room air. Blood sugars are running between 84 and 358. Repeat blood work ordered for tomorrow. Depending on general surgery's decision, patient may be ready for discharge tomorrow. Review Of Systems: Constitutional: No fever, no chills, no night sweats. No weight change. Report weakness no fatigue or lethargy. No daytime sleepiness. EENT: No headache. No blurred vision or double vision, no loss of vision. No loss of Hearing, no ringing in the ears, no dizziness. No nasal drainage or congestion. No epistaxis. No sore throat. Lungs: No shortness of breath, cough, no sputum production. No wheezing. Cardiovascular: No chest pain, no lower extremity edema. No palpitations. No paroxysmal nocturnal dyspnea. No orthopnea. No lightheadedness or dizziness. No syncopal episodes. Abdominal: no abdominal discomfort, improved. Denies nausea with vomiting. no diarrhea. No constipation. No bloody or tarry stools. Report loss of appetite. Denies difficulty swallowing Genitourinary: No dysuria, increased frequency, urgency. No urinary retention. Musculoskeletal: No myalgias. Report muscle weakness, reports gait dysfunction, reports frequent falls and one month ago. Reports hip pain. No back pain. No neck pain. Integumentary: No wounds, no lesions. No rash or pruritus. No unusual bruising. No change in hair or nails. Neurologic: No aphasia. No facial droop. No change in mentation. No head injury. No headache. No paralysis. No paresthesia. Psychiatric: No depression. No anxiety. Endocrine: Noted abnormal blood sugars. Physical examination General Appearance: Alert, cooperative, no distress, 75-year-old appears stated age. Neck HEENT: Supple, no lymphadenopathy, no thyroid enlargement, no carotid bruits. Lungs: Clear to auscultation without crackles or wheezes no rhonchi, no deformity. Chest Wall: Chest wall normal expansion with deep inspiration no tenderness and no deformity was found on exam, no costochondral pain or discomfort. Heart: Regular rate and rhythm, S1, S2 normal, no murmur, rub or gallop. Back: Symmetric, no curvature, ROM normal, no CVA tenderness. Abdomen: Soft, non-tender, no rebound or rigidity, no hepatosplenomegaly. Extremities: Extremities normal, atraumatic, no cyanosis or edema. Pain with movement and palpation Pulses: 2+ and symmetric. Skin: Skin color, texture, tugor normal, no rashes or lesions. Neurologic: Alert oriented x3 cranial nerves II through XII intact, no motor deficit, no abnormal balance or gait Assessment and plan 1. Spinal stenosis with debility and hip pain recent history of left total hip arthroplasty. Orthopedics consult appreciated. Solu-Medrol 60 mg IV every 6 hours, [place] 1 tablet every 6 hours for pain. Flexeril 10 mg 3 times a day. Pain management consult appreciated. Patient is status post epidural steroid injection. 2. Dehydration. Status post IV fluids. 3. 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 Consult with general surgery appreciated. Plan is for hiatal hernia repair in LAP-BAND removal. LAP-BAND has been emptied. Await further decision from general surgery. 4. Hypothyroidism. Levothyroxine 37.5 MCG's by mouth daily 5. Hypertension. Norvasc 10mg daily, lisinopril 20 mg by mouth twice a day 6. Arrhythmia. Lopressor 50 mg twice a day 7. Mild asthma/COPD. Singulair 10 mg by mouth at bedtime 8. Chronic ALLERGIES. Claritin 10 mg by mouth daily 9. Severe GERD/ GI prophylaxis. Protonix 40 mg by mouth before meals twice a day 10. History of morbid obesity status post lap band. 11. Hyperglycemia secondary to steroids. Continue NovoLog scale. DVT prophylaxis. STDs CODE STATUS: full code Discharge plan: Home possibly tomorrow. Impression and plan of care have been directed as dictated by the signing physician. Roxane York nurse practitioner acting as scribe for signing manuel ibarra. Objective - Vital Signs Vital signs: Vital Signs Temp 98.2 F 01/22/21 07:25 Pulse 69 01/22/21 07:25 Resp 16 01/22/21 07:25 BP 123/77 01/22/21 07:25 Pulse Ox 97 01/22/21 07:25 Intake & Output 01/21/21 01/22/21 01/22/21 18:59 06:59 18:59 Other: Voiding Method Bedside Commode # Voids 3 1 - Labs CBC & Chem 7: 01/21/21 08:12 01/21/21 08:12 Labs: Abnormal Lab Results - Last 24 Hours (Table) 01/21/21 01/21/21 01/21/21 Range/Units 11:14 16:35 20:05 POC Glucose (mg/dL) 132 H 358 H 153 H (75-99) mg/dL
--- NOTE | 2021-01-22 12:40 | P.PN ---
Subjective Progress Note Date: 01/22/21 CHIEF COMPLAINT: Dysphagia and abnormal esophagram HISTORY OF PRESENT ILLNESS: Surgical service is following in regards to patient's dysphagia and esophagram has shown moderate delay at the level of the LAP-BAND correlate for LAP-BAND function. Numerous tertiary contractions of the esophagus noted. Yesterday patient had 2.4 mL removed from her lap band port. She reports that she's had improvement in her swallowing. However, she is still complaining of acid reflux like symptoms. She also is complaining of constipation. Medicine service has added MiraLAX. Reports her last bowel movement was a week ago. She is passing gas. She denies any nausea or vomiting. Patient evaluated by cardiology for preop clearance and it cleared her for surgery from cardiac standpoint. Afebrile. No new labs for today Patient seen and examined with Dr. jaffe PHYSICAL EXAM: VITAL SIGNS: Reviewed. GENERAL: Well-developed in no acute distress. HEENT: No sclera icterus. Extraocular movements grossly intact. Moist buccal mucosa. Head is atraumatic, normocephalic. ABDOMEN: Soft. Nondistended. Nontender. NEUROLOGIC: Alert and oriented. Cranial nerves II through XII grossly intact. ASSESSMENT: 1. Dysphagia and reflux symptoms with esophagram showing moderate delay at the level of the LAP-BAND 2. History of a hiatal hernia PLAN: -Continue full liquid diet -Patient will require hiatal hernia repair and lap band removal. Surgery tentatively planned for Tuesday -Give lactulose for constipation Physician General Manager note has been reviewed by physician. Signing provider agrees with the documented findings, assessment, and plan of care. Objective - Vital Signs Vital signs: Vital Signs Temp 98.2 F 01/22/21 07:25 Pulse 69 01/22/21 07:25 Resp 20 01/22/21 08:45 BP 123/77 01/22/21 07:25 Pulse Ox 97 01/22/21 07:25 Intake & Output 01/21/21 01/22/21 01/22/21 18:59 06:59 18:59 Intake Total 100 Balance 100 Intake: Oral 100 Other: Voiding Method Bedside Commode Bedside Commode # Voids 3 1 - Labs CBC & Chem 7: 01/21/21 08:12 01/21/21 08:12 Labs: Abnormal Lab Results - Last 24 Hours (Table) 05/02/0601/21/21 01/22/21 Range/Units 16:35 20:05 11:05 POC Glucose (mg/dL) 358 H 153 H 154 H (75-99) mg/dL
[2021-01-22 13:19] LABS: African American GFR (CKD) >90 (>60 ml/min/1.73 sqM); Anion Gap 8 mmol/L; Blood Urea Nitrogen 8 mg/dL (7-17); Calcium 9.6 mg/dL (8.4-10.2); Carbon Dioxide 29 mmol/L (22-30); Chloride 89 mmol/L (98-107); Glucose 145 mg/dL (74-99); Non-African American GFR(CKD) >90 (>60 ml/min/1.73 sqM); Potassium 4.4 mmol/L (3.5-5.1); Sodium 126 mmol/L (137-145)
[2021-01-22 16:34] LABS: Glucose,Whole Blood 175 mg/dL (75-99)
[2021-01-22 20:13] LABS: Glucose,Whole Blood 130 mg/dL (75-99)
[2021-01-22] MEDS: MONTELUKAST 10 MG TAB PO SCH (20:39)
[2021-01-22] MEDS: MELATONIN 3 MG TABLET PO SCH (20:39)
[2021-01-22] MEDS: CYCLOBENZAPRINE 10 MG TAB PO PRN (20:42)
[2021-01-23] MEDS: ACETAMINOPHEN TAB 500 MG TAB PO SCH ×2 (00:01→05:50)
[2021-01-23 01:20] VITALS: RESP 16
[2021-01-23] MEDS: LEVOTHYROXINE 75 MCG TAB PO SCH (05:51)
[2021-01-23 07:15] LABS: Glucose,Whole Blood 99 mg/dL (75-99)
[2021-01-23] MEDS: INSULIN ASPART (NovoLOG) 100 UNIT/ML VIAL SQ SCH ×2 (07:48→12:24)
[2021-01-23] MEDS: SYMBICORT 160-4.5 MCG INHALER INHALATION SCH (07:51)
[2021-01-23 07:58] VITALS: BP 120/76; PULSE 78; TEMP 97.6
[2021-01-23] MEDS: GABAPENTIN 300 MG CAP PO SCH (08:03)
[2021-01-23] MEDS: SENNOSIDES-DOCUSATE SODIUM 1 EACH TAB PO SCH (08:03)
[2021-01-23] MEDS: amLODIPine 10 MG TAB PO SCH (08:03)
[2021-01-23] MEDS: METOPROLOL TARTRATE 50 MG TAB PO SCH (08:03)
[2021-01-23] MEDS: SPIRONOLACTONE 25 MG TAB PO SCH (08:03)
[2021-01-23] MEDS: lisinopriL 20 MG TAB PO SCH (08:03)
[2021-01-23] MEDS: predniSONE 20 MG TAB PO SCH (08:03)
[2021-01-23] MEDS: polyethylene glycoL 3350 17 GM POWD.PACK PO SCH (08:03)
[2021-01-23] MEDS: PANTOPRAZOLE 40 MG TABLET PO SCH (08:03)
[2021-01-23 08:39] VITALS: BMI 33.4
[2021-01-23 09:42] LABS: Anisocytosis Slight; Basophils % (A) 0 %; Eosinophils # (A) 0.2 k/uL (0-0.7); Eosinophils % (A) 2 %; HCT 37.6 % (34.0-46.0); HGB 12.7 gm/dL (11.4-16.0); Lymphocytes # (A) 3.3 k/uL (1.0-4.8); Lymphocytes % (A) 26 %; MCH 31.5 pg (25.0-35.0); MCHC 33.8 g/dL (31.0-37.0); MCV 93.1 fL (80.0-100.0); Mean Platelet Volume 7.4; Monocytes # (A) 0.8 k/uL (0-1.0); Monocytes % (A) 6 %; Neutrophils # (A) 8.4 k/uL (1.3-7.7); Neutrophils % (A) 65 %; Platelet Count 317 k/uL (150-450); RBC 4.03 m/uL (3.80-5.40); RDW 16.2 % (11.5-15.5); WBC 12.8 k/uL (3.8-10.6)
--- NOTE | 2021-01-23 10:11 | P.DS ---
Providers Date of admission: 01/16/21 16:04 Expected date of discharge: 01/23/21 Attending physician: Jeremy Hamilton Consults: 01/17/21 08:40 Consult Physician Urgent Consulting Provider: Jacob Beavers Consult Reason/Comments: hip pain previous total hip Do you want consulting provider notified?: Yes 01/18/21 08:32 Consult Physician Routine Consulting Provider: Cata Zapata Consult Reason/Comments: pain management Do you want consulting provider notified?: Yes 01/20/21 09:03 Consult Physician Routine Consulting Provider: Osito Carr Consult Reason/Comments: Lap band, see esophagram Do you want consulting provider notified?: Yes Primary care physician: [facility] Course: History of present illness This is a [age]-year-old patient who presented to the emergency room for multiple complaints. She is a patient of Dr. Hamilton past medical history significant for asthma, diabetes, hypertension, pneumonia, and left hip replacement. Patient is stating that she is having weakness and unable to ambulate. She is complaining of significant pain to the left hip. Approximate one month ago she did sustain a fall however she was seen by advanced orthopedic who ruled out any significant issues with her hip replacement. Patient was seen in the emergency room 3 days ago for hip pain. She does live at home and is unable to take care of herself. Patient is also complaining of inability to swallow. She is feeling full. She does have history of lap band however she has not had a fill in approximately 1 year. Patient does see the LAP-BAND services once a month. Patient did have Covid back in August. At this time she is denying any sore throat shortness of breath or chest pain. At this time patient is found resting in bed complaining of significant back and hip pain. Orthopedic is at the bedside and is ordering a MRI and x-rays. We will start her on steroids. Patient is also complaining of feeling of fullness and difficulty swallowing. Lab work reveals a to WBCs 11.1, potassium 3.6, BUN 21, creatinine 0.62. Urine is negative for infection does show 4+ ketones. Influenza A and B RSV ankles that are all negative. Patient is afebrile, heart rate 76, respirations 16, blood pressure 97/65, pulse ox 98% on room air. Prior to patient's Covid diagnosis she was planning to have back surgery in August. 01/18: Patient is found resting in bed rating pain 8/10. MRI results are noted below. Patient did state that she was up to the chair which she tolerated for short period time. We will DC aspirin at this time we will start with pain management consult. Patient states that she has seen pain management in the past. Patient was scheduled for surgery however she had developed Covid was unable to move forward with a spine surgery. We will continue with pain management at this time. Discussed with patient possible need for subacute rehab. MRI Results: spondylolisthesis L3-L4, L4-L5; disc herniation T6-T7; degenerative disc disease 01/19: Patient is followed by orthopedic spine with plan for her to follow-up in the outpatient setting. Patient is seen by pain management with plan for intervention tomorrow. Patient states that she is feeling a little better today but not great. She continues to have pain in her back with ambulation and into the left thigh. PT and OT evaluations are pending. She states her abdominal pain is also gone. She is scheduled for upper GI today. Patient has been afebrile, heart rate 72, blood pressure 154/89, pulse ox 90% on room air. Capillary blood glucose running between 146 and 196. Anticipate possible discharge tomorrow after pain management procedure. 01/20: Esophagram was done that showed moderate delay at the level of the LAP-BAND correlate for LAP-BAND function. Numerous tertiary contractions of the esophagus noted. Correlate with direct visualization as clinically warranted. Pressure in epigastric area much better. Patient states that her abdominal epigastric area discomfort has resolved. Consult with Dr. Carr added. Patient has been afebrile, heart rate 69, blood pressure 126/83, pulse ox 95% on room air. Blood sugars are running between 163 and 230. IV steroids will be transitioned to oral prednisone starting in the morning. Patient subsequently underwent foraminal epidural steroid injection by Dr. Zapata. Plan is to monitor patient overnight and probable discharge after seen by Dr. Carr. 01/21: Patient has been seen by Dr. Carr with recommendations for cardiology consult for surgical clearance, hiatal hernia repair in LAP-BAND removal. Patient has been afebrile, heart rate 61, blood pressure 129/81, pulse ox 97% on room air. Regarding her back pain, she states she still is having pain in the buttocks area but the pain in her leg has resolved. She is complaining of abdominal bloating and constipation for which Senokot will be changed to scheduled. Repeat blood work reveals WBC 11.7, hemoglobin 13.8, platelet count 361. Sodium 127, potassium 3.2 and will be replaced, chloride 92, CO2 30, BUN 11 and creatinine 0.55. Sugars are running between [address] Montejo plan to see the patient in the office. 01/22: Loreta Bartlett had her lap band emptied yesterday by general surgery and she states she is feeling so much better but she still has a little sticky feeling that things are not going down her esophagus. Waiting for general surgery to decide if patient is undergoing surgical intervention at this time or if this will be related when she is outpatient. Patient has been afebrile, heart rate 69, blood pressure 123/77, pulse ox 97% on room air. Blood sugars are running between 84 and 358. Repeat blood work ordered for tomorrow. Depending on general shelli kennedi's decision, patient may be ready for discharge tomorrow. 01/23: Dr. Carr is planning for surgery as an outpatient. Patient is happy with this plan. She states her constipation has resolved and had 4 bowel movements yesterday. Her abdomen is feeling much better and she is doing better swallowing pills as well. Patient has been afebrile, heart rate 78, blood pressure 120/76, pulse ox 98% on room air. Blood work reveals WBC 12.8, hemoglobin 12.7, platelet count 317. Blood sugar running between 99 and 132. Patient will be discharged home today in stable condition. Assessment and plan 1. Spinal stenosis with debility and hip pain recent history of left total hip arthroplasty. Patient is status post epidural steroid injection. 2. Dehydration. 3. 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 4. Hypothyroidism. 5. Hypertension. 6. Arrhythmia. 7. Mild asthma/COPD. 8. Chronic ALLERGIES. 9. Severe GERD 10. History of morbid obesity status post lap band. 11. Hyperglycemia secondary to steroids. Discharge plan: Home to her son's home. Impression and plan of care have been directed as dictated by the signing physician. Roxane York nurse practitioner acting as scribe for signing physician. Patient Condition at Discharge: Good Plan - Discharge Summary Discharge Rx Participant: No New Discharge Prescriptions: New Cyclobenzaprine [Flexeril] 10 mg PO TID PRN #90 tab PRN Reason: Muscle Spasm Gabapentin [Neurontin] 300 mg PO TID #45 cap Spironolactone [Aldactone] 25 mg PO DAILY #30 tab Continue Sennosides-Docusate Sodium [Senokot-S] 1 tab PO BID amLODIPine BESYLATE [Norvasc] 10 mg PO DAILY Montelukast [Singulair] 10 mg PO HS Metoprolol Tartrate [Lopressor] 50 mg PO BID lisinopriL [Prinivil] 20 mg PO BID Levothyroxine Sodium [Synthroid] 37.5 mcg PO DAILY Loratadine [Claritin] 10 mg PO DAILY Budesonide-Formot 160-4.5 Mcg [Symbicort 160-4.5 Mcg Inhaler] 2 puff INHALATION RT-BID Omeprazole 40 mg PO DAILY Aspirin [Adult Low Dose Aspirin EC] 81 mg PO DAILY Multivitamins, Thera [Multivitamin (formulary)] 1 tab PO DAILY Acetaminophen Tab [Tylenol] 1,500 mg PO Q6HR PRN PRN Reason: Pain HYDROcodone/APAP 5-325MG [[place] 5-325] 1 - 2 tab PO Q6H PRN PRN Reason: Pain Biotin 5,000 mcg PO DAILY Discontinued hydroCHLOROthiazide [Hydrodiuril] 25 mg PO DAILY Discharge Medication List Levothyroxine Sodium [Synthroid] 37.5 mcg PO DAILY 08/05/14 [History] Metoprolol Tartrate [Lopressor] 50 mg PO BID 08/05/14 [History] Montelukast [Singulair] 10 mg PO HS 08/05/14 [History] Sennosides-Docusate Sodium [Senokot-S] 1 tab PO BID 08/05/14 [History] amLODIPine BESYLATE [Norvasc] 10 mg PO DAILY 08/05/14 [History] lisinopriL [Prinivil] 20 mg PO BID 08/05/14 [History] Loratadine [Claritin] 10 mg PO DAILY 11/26/14 [History] Budesonide-Formot 160-4.5 Mcg [Symbicort 160-4.5 Mcg Inhaler] 2 puff INHALATION RT-BID 01/09/19 [History] Aspirin [Adult Low Dose Aspirin EC] 81 mg PO DAILY 08/23/20 [History] Omeprazole 40 mg PO DAILY 08/23/20 [History] Multivitamins, Thera [Multivitamin (formulary)] 1 tab PO DAILY 10/13/20 [History] Acetaminophen Tab [Tylenol] 1,500 mg PO Q6HR PRN 01/13/21 [History] Biotin 5,000 mcg PO DAILY 01/13/21 [History] HYDROcodone/APAP 5-325MG [[place] 5-325] 1 - 2 tab PO Q6H PRN 01/13/21 [History] Cyclobenzaprine [Flexeril] 10 mg PO TID PRN #90 tab 01/23/21 [Rx] Gabapentin [Neurontin] 300 mg PO TID #45 cap 01/23/21 [Rx] Spironolactone [Aldactone] 25 mg PO DAILY #30 tab 01/23/21 [Rx] Follow up Appointment(s)/Referral(s): Richmond Cooney MD [STAFF PHYSICIAN] - 02/20/21 2:00 pm (with at [facility] office) Jeremy Hamilton MD [Primary Care Provider] - 01/30/21 11:00 am Khang Montejo DO [Doctor of Osteopathic Medicine] - 02/11/21 11:20 am Osito Carr MD [STAFF PHYSICIAN] - 01/27/21 Discharge/Stand Alone Forms: Anes Pain/[place] Instructions Discharge Disposition: HOME SELF-CARE
--- NOTE | 2021-01-23 10:17 | P.PN ---
Subjective Principal diagnosis: -Multilevel lumbar spinal stenosis -spondylolisthesis L3-L4, L4-L5 - disc herniation T6-T7 -Degenerative disc disease Upon entering room, patient is sitting up in chair. She says she is getting surgery on hiatal hernia this coming Tuesday and her heart doctor was able to clear her so the procedure can be performed. SHe syas she has been up and walking with PT this morning and it has been going well. She says the pain that was in her hip region and upper left leg previously has gotten better since she received the injection, and now she only has pain in the left glute/lowerback. he denies any chest pain,shortness of breath, N/V, fever. She denies any perinal numbness/tingling. Objective - Vital Signs Vital signs: Vital Signs Temp 97.6 F 01/23/21 07:58 Pulse 78 01/23/21 07:58 Resp 16 01/23/21 07:58 BP 120/76 01/23/21 07:58 Pulse Ox 98 01/23/21 07:58 Intake & Output 01/22/21 01/23/21 01/23/21 18:59 06:59 18:59 Intake Total 100 296 Balance 100 296 Weight 72.575 kg Intake: Oral 100 296 Other: Voiding Method Bedside Commode Bedside Commode # Voids 3 2 # Bowel Movements 1 - Exam Negative Homans bilaterally. Negative clonus upon dorsiflexing feet bilaterally. There is some bruising over the second third digits of the left f oot. Patient did say this is old and from a fall she had before coming to the hospital. Pulses intact bilaterally dorsalis pedis. Upon active straight leg raise of left leg patient experiences pain in left buttocks region that radiates anteriorly to thigh. Right leg is raised actively patient does not experience this pain. Upon passive range of motion during straight leg raise patient is able to flex hip more with less pain in left leg. Patient was non-tender to touch over anterolateral left hip region. Tender near left SI joint region - Labs CBC & Chem 7: 01/23/21 08:20 01/22/21 12:49 Labs: Abnormal Lab Results - Last 24 Hours (Table) 01/22/21 01/22/21 01/22/21 Range/Units 11:05 12:49 16:32 WBC (3.8-10.6) k/uL RDW (11.5-15.5) % Neutrophils # (1.3-7.7) k/uL Sodium 126 L (137-145) mmol/L Chloride 89 L (98-107) mmol/L Creatinine 0.48 L (0.52-1.04) mg/dL Glucose 145 H (74-99) mg/dL POC Glucose (mg/dL) 154 H 175 H (75-99) mg/dL 01/22/21 01/23/21 Range/Units 20:11 08:20 WBC 12.8 H (3.8-10.6) k/uL RDW 16.2 H (11.5-15.5) % Neutrophils # 8.4 H (1.3-7.7) k/uL Sodium (137-145) mmol/L Chloride (98-107) mmol/L Creatinine (0.52-1.04) mg/dL Glucose (74-99) mg/dL POC Glucose (mg/dL) 130 H (75-99) mg/dL Assessment and Plan Plan: 1. Appreciate medical management 2. Pain management - stable at this time; continue gabapentin 300 mg TID/prn; Flexeril 10 mg; patient was given steroid injection into L3-L4 level this past Tuesday. She does feel some relief in her hip pain from this 3. PT/OT 4. Multilevel lumbar spinal stenosis; spondylolisthesis L3-L4, L4-L5; disc herniation T6-T7; degenerative disc disease - discussed with patient these find ings. Would like patient to become more stabilized medically in hospital during this stay. Plan to f/u with us in outpatient setting to further discuss options for back surgery. 5. Hiatal Hernia - surgery planned for this coming 01/26/[address] Carr for haital hernia and LAP band removal. F/u on patient after this procedure. Time with Patient: Less than 30
--- NOTE | 2021-01-23 11:10 | P.PN ---
Subjective Progress Note Date: 01/23/21 CHIEF COMPLAINT: Dysphagia and abnormal esophagram HISTORY OF PRESENT ILLNESS: Surgical service is following in regards to patient's dysphagia and esophagram has shown moderate delay at the level of the LAP-BAND correlate for LAP-BAND function. Numerous tertiary contractions of the esophagus noted. During this admission patient had 2.4 mL removed from her lap band port. Patient reports having improvement in her swallowing. She is tolerating dysphagia chopped diet. Acid reflux symptoms have resolved. She did have 4 bowel movements yesterday after MiraLAX and lactulose given. Medicine service is planning discharge. She is afebrile. Patient seen and examined with Dr. jaffe PHYSICAL EXAM: VITAL SIGNS: Reviewed. GENERAL: Well-developed in no acute distress. HEENT: No sclera icterus. Extraocular movements grossly intact. Moist buccal mucosa. Head is atraumatic, normocephalic. ABDOMEN: Soft. Nondistended. Nontender. NEUROLOGIC: Alert and oriented. Cranial nerves II through XII grossly intact. ASSESSMENT: 1. Dysphagia and reflux symptoms with esophagram showing moderate delay at the level of the LAP-BAND 2. History of a hiatal hernia PLAN: -Patient is stable from surgical standpoint for discharge and will have her follow-up in the office with Dr. Jaffe on Tuesday -Patient will require outpatient hiatal hernia repair and lap band removal Physician Nailing Machine Operator note has been reviewed by physician. Signing provider agrees with the documented findings, assessment, and plan of care. Objective - Vital Signs Vital signs: Vital Signs Temp 97.6 F 01/23/21 07:58 Pulse 78 01/23/21 07:58 Resp 16 01/23/21 07:58 BP 120/76 01/23/21 07:58 Pulse Ox 98 01/23/21 07:58 Intake & Output 01/22/21 01/23/21 01/23/21 18:59 06:59 18:59 Intake Total 100 296 Balance 100 296 Weight 72.575 kg Intake: Oral 100 296 Other: Voiding Method Bedside Commode Bedside Commode # Voids 3 2 # Bowel Movements 1 - Labs CBC & Chem 7: 01/23/21 08:20 01/22/21 12:49 Labs: Abnormal Lab Results - Last 24 Hours (Table) 01/22/21 01/22/21 01/22/21 Range/Units 11:05 12:49 16:32 WBC (3.8-10.6) k/uL RDW (11.5-15.5) % Neutrophils # (1.3-7.7) k/uL Sodium 126 L (137-145) mmol/L Chloride 89 L (98-107) mmol/L Creatinine 0.48 L (0.52-1.04) mg/dL Glucose 145 H (74-99) mg/dL POC Glucose (mg/dL) 154 H 175 H (75-99) mg/dL 01/22/21 01/23/21 Range/Units 20:11 08:20 WBC 12.8 H (3.8-10.6) k/uL RDW 16.2 H (11.5-15.5) % Neutrophils # 8.4 H (1.3-7.7) k/uL Sodium (137-145) mmol/L Chloride (98-107) mmol/L Creatinine (0.52-1.04) mg/dL Glucose (74-99) mg/dL POC Glucose (mg/dL) 130 H (75-99) mg/dL
[2021-01-23 11:47] LABS: Glucose,Whole Blood 132 mg/dL (75-99)
== END 2021-01-23 13:38 | disposition home or self-care (01) | DRG 552 ==
LOC: EC 12:02 → 4SSUR 16:04
PROVIDERS: ADMIT Internal Medicine Geriatric Medicine; ATTEND Internal Medicine Geriatric Medicine
PROC: 3E0S3BZ Introduction of Anesthetic Agent into Epidural Space, Percutaneous Approach (ICD-10-PCS; principal; 2021-01-20 14:45)
PROC: 3E0S33Z Introduction of Anti-inflammatory into Epidural Space, Percutaneous Approach (ICD-10-PCS; principal; 2021-01-20 14:45)
DX: M48.061 Spinal stenosis, lumbar region without neurogenic claudication (principal); E87.2 Acidosis; M47.26 Other spondylosis with radiculopathy, lumbar region; M43.16 Spondylolisthesis, lumbar region; M51.16 Intervertebral disc disorders with radiculopathy, lumbar region; M51.34 Other intervertebral disc degeneration, thoracic region; R13.10 Dysphagia, unspecified; E03.9 Hypothyroidism, unspecified; E11.65 Type 2 diabetes mellitus with hyperglycemia; T38.0X5A Adverse effect of glucocorticoids and synthetic analogues, initial encounter; E78.5 Hyperlipidemia, unspecified; E86.0 Dehydration; I10 Essential (primary) hypertension; I70.8 Atherosclerosis of other arteries; J44.9 Chronic obstructive pulmonary disease, unspecified; K21.9 Gastro-esophageal reflux disease without esophagitis; K44.9 Diaphragmatic hernia without obstruction or gangrene; K59.00 Constipation, unspecified; Z79.51 Long term (current) use of inhaled steroids; Z79.82 Long term (current) use of aspirin; Z79.890 Hormone replacement therapy; Z79.899 Other long term (current) drug therapy; Z82.49 Family history of ischemic heart disease and other diseases of the circulatory system; Z87.891 Personal history of nicotine dependence; Z86.16 Personal history of COVID-19; Z20.822 Contact with and (suspected) exposure to COVID-19; Z90.710 Acquired absence of both cervix and uterus; Z96.642 Presence of left artificial hip joint; Z96.653 Presence of artificial knee joint, bilateral; Z98.41 Cataract extraction status, right eye; Z98.84 Bariatric surgery status; G47.33 Obstructive sleep apnea (adult) (pediatric)
CPT/HCPCS: 36415; 64483; 71046; 72128; 72131; 72146; 72148; 74240; 80048; 80053; 81003; 82330; 82533; 82550; 83036; 83605; 83735; 83880; 84443; 84484; 85025; 85027; 85610; 85730; 86140; 87636; 93005; 94640; 96360; 96361; 99285

== ENCOUNTER → 2021-01-26 | Outpatient (CLI) | payer MEDICARE ==
--- NOTE | 2021-01-18 10:38 | P.PAINCN ---
History of Present Illness - Reason for Consult Consult date: 01/18/21 - History of Present Illness This is a 75-year-old patient with a complex medical history who has had previous left total hip arthroplasty July 2020, as well as seen in the pain clinic here we have done bilateral lumbar RFA for her. She presented to the ER with some weakness and vomiting on January 16. She was supposed to have back surgery with Dr. Montejo but unfortunately she had COVID in August. The reason for this consult is a patient is having significant left hip and left low back pain with radiation down the anterior aspect of the left lower extremity stopping at the knee. Pain is described as sharp and stabbing and she has significant weakness and has difficulty moving with her left lower extremity. She is unable to bear weight on her own, however she said she was able to sit in a chair for 45 minutes today. He is currently receiving Tylenol 650 mg every 6 as needed, Cuddy 5 every 6 as needed, Flexeril 10 mg 3 times a day, gabapentin 300 mg 3 times a day, and Solu-Medrol 60 mg every 6 hours. She does not take any pain medications at home, her maps only show the occasional Cuddy 5 prescription. In addition to above, 13-point review of systems is also negative for chest pain, shortness of breath, changes in vision, changes in hearing, new onset weakness, abdominal pain, diarrhea, extreme fatigue, malaise, fever, skin changes, homicidal or suicidal ideation, or bowel or bladder incontinence. Physical exam: Vital Signs: Reviewed in EMR GENERAL: Well appearing, mild distress PSYCH: Emotional, tearful SKIN: Skin color, texture, turgor normal, no rashes or lesions HEENT: Normocephalic, atraumatic. EOM intact CV: No pedal edema RESP: Respirations are unlabored, no audible wheezing GI: Abdomen non-distended MUSCULOSKELETAL: LLE strength decreased 1/5 in hip flexion, extension. Unable to assess knee flexion/extension as patient unable to sit up at time of visit. Dorisflexion/plantarflexion of bilateral LE intact.. No atrophy or tone abnormalities are noted. Lumbar spine: Unable to SLR due to pain. pain to palpation over the lumbar spine and paraspinous muscles on left side. Unable to assess lumbar ROM as patient unable to stand at this time due to pain. Significant pain to logrolling on left side Gait: Unable to assess gait due to pain NEUR: Bilateral upper and lower extremity coordination and muscle stretch Could not assess patellar or achilles reflex as patient is unable to sit. Negative clonus. No loss of sensation is noted. Cranial nerves are grossly intact. Imaging: MRI shows lumbar spondylosis throughout the lumbar spine. The most notable findings are significant and severe neural foraminal stenosis at L3-L4. Assessment: 1. Lumbar spinal stenosis 2. Lumbar spondylosis 3. Left hip pain s/p hip replacement Plan: 1. Explanation: Diagnoses, prognoses, and multiple treatment options including but not limited to physical therapy, interventional therapies, medication management and surgery were discussed with the patient and all questions were answered to the patient's satisfaction. 2. Investigations: None 3. Counseling: None at this time 4. Procedures: If the patient is still present in the hospital on Tuesday, we'll schedule her for a left L3-L4 transforaminal epidural steroid injection. Her pain location is in the distribution of this dermatome, however I did note that the MRI shows that the stenosis at this level is no different than it was before. I educated her that it is possible that this injection will likely not help at all and regardless she might need surgery. Patient understands 5. Consultations: Continue to follow up with orthopedic surgery and Dr Montejo 6. Medications: I recommend changing her medication regimen to oxycodone 5 mg every 6H as needed, Tylenol 1000 mg every 6H scheduled, and keeping her gabapentin 300 mg 3 times a day and Flexeril 10 3 times a day. I am leaving the gabapentin at this dose as the patient at this time is overall satisfied with her pain regimen and given her age I do not want to contribute to any mental status clouding.. I also noted that there is an ALLERGY to Flexeril listed in her chart for hives but the patient is not experiencing that right now. Can change to Robaxin 750 mg QID if the patient is getting significant atopic reactions to the flexeril. 7. Disposition: Possible L3-L4 L TFESI Tuesday if still present in house Past Medical History Past Medical History: Asthma, Diabetes Mellitus, Eye Disorder, Hypertension, Pneumonia Additional Past Medical History / Comment(s): Diet-controlled diabetic, back pain, lap Band, PNA, asthma, HIATAL HERNIA, BILAT CATARACTS TO SEE EYE 12/19/20 History of Any Multi-Drug Resistant Organisms: None Reported Past Surgical History: Bariatric Surgery, Cholecystectomy, Joint Replacement, Orthopedic Surgery, Tonsillectomy Additional Past Surgical History / Comment(s): Bilateral knee replacements, lap band, eyelid surgery, panniculectomy, lap band port replacement 2-20, left hip replaced 08/07/2020, sees Dr. Montejo for back pain, EGD, COLONOSCOPY, RT SHOULDER SX, Past Anesthesia/Blood Transfusion Reactions: Postoperative Nausea & Vomiting (PONV) Additional Past Anesthesia/Blood Transfusion Reaction / Comm: once after hyst Past Psychological History: No Psychological Hx Reported Additional Psychological History / Comment(s): Pt resides alone in her home with 2 steps. She owns a cane/walker . She drives. Smoking Status: Former smoker Past Alcohol Use History: Rare Additional Past Alcohol Use History / Comment(s): Patient smokes cigarettes for 22 years and quit in 1985. Past Drug Use History: None Reported - Past Family History Mother Family Medical History: No Reported History Additional Family Medical History / Comment(s): Mother from CHF at the age of 69yrs Father Family Medical History: Myocardial Infarction (CA) Additional Family Medical History / Comment(s): Father of a CA at the age of 63 yrs. Sister(s) Additional Family Medical History / Comment(s): Patient has one sister that from overdose of medications. Patient does not have any brothers. Patient has 2 sons with no major medical problems. Medications and Allergies Home Medications Medication Instructions Recorded Confirmed Type Levothyroxine Sodium [Synthroid] 37.5 mcg PO DAILY 08/05/14 01/16/21 History Metoprolol Tartrate [Lopressor] 50 mg PO BID 08/05/14 01/16/21 History Montelukast [Singulair] 10 mg PO HS 08/05/14 01/16/21 History Sennosides-Docusate Sodium 1 tab PO BID 08/05/14 01/16/21 History [Senokot-S] amLODIPine BESYLATE [Norvasc] 10 mg PO DAILY 08/05/14 01/16/21 History hydroCHLOROthiazide [Hydrodiuril] 25 mg PO DAILY 08/05/14 01/16/21 History lisinopriL [Prinivil] 20 mg PO BID 08/05/14 01/16/21 History Loratadine [Claritin] 10 mg PO DAILY 11/26/14 01/16/21 History Budesonide-Formot 160-4.5 Mcg 2 puff INHALATION RT-BID 01/09/19 01/16/21 History [Symbicort 160-4.5 Mcg Inhaler] Aspirin [Adult Low Dose Aspirin EC] 81 mg PO DAILY 08/23/20 01/16/21 History Omeprazole 40 mg PO DAILY 08/23/20 01/16/21 History Multivitamins, Thera [Multivitamin 1 tab PO DAILY 10/13/20 01/16/21 History (formulary)] Acetaminophen Tab [Tylenol Tab] 1,500 mg PO Q6HR PRN 01/13/21 01/16/21 History Biotin 5,000 mcg PO DAILY 01/13/21 01/16/21 History HYDROcodone/APAP 5-325MG [Cuddy 1 - 2 tab PO Q6H PRN 01/13/21 01/16/21 History 5-325] Allergies Allergy/AdvReac Type Severity Reaction Status Date / Time adhesive tape Allergy Rash/BLISTE Verified 01/16/21 12:15 RS banana Allergy Wheezing Verified 01/16/21 12:15 cinnamon Allergy Wheezing Verified 01/16/21 12:15 hydromorphone [From Dilaudid] Allergy Unknown Verified 01/16/21 12:15 Mushroom Allergy COULD NO Verified 01/16/21 12:15 RESPOND" FELT LIKE SHE WAS PASSING OUT poison michell extract Allergy Rash/Hives Verified 01/16/21 12:15 codeine AdvReac Unknown Abdominal Verified 01/16/21 12:15 Pain monosodium glutamate [MSG] AdvReac Nausea & Verified 01/16/21 12:15 Vomiting burning yan Allergy Rash/Hives Uncoded 01/16/21 12:15 PQRS Measure Charge Sheet PQRS Narrative: Smoking Status Former smoker Narcotic Agreement Date Signed 04/26/19 Hx Alcohol Use (MH) Yes: OCCASIONAL Home Medications: Ambulatory Orders Levothyroxine Sodium [Synthroid] 37.5 mcg PO DAILY 08/05/14 Metoprolol Tartrate [Lopressor] 50 mg PO BID 08/05/14 Montelukast [Singulair] 10 mg PO HS 08/05/14 Sennosides-Docusate Sodium [Senokot-S] 1 tab PO BID 08/05/14 amLODIPine BESYLATE [Norvasc] 10 mg PO DAILY 08/05/14 hydroCHLOROthiazide [Hydrodiuril] 25 mg PO DAILY 08/05/14 lisinopriL [Prinivil] 20 mg PO BID 08/05/14 Loratadine [Claritin] 10 mg PO DAILY 11/26/14 Budesonide-Formot 160-4.5 Mcg [Symbicort 160-4.5 Mcg Inhaler] 2 puff INHALATION RT-BID 01/09/19 Aspirin [Adult Low Dose Aspirin EC] 81 mg PO DAILY 08/23/20 Omeprazole 40 mg PO DAILY 08/23/20 Multivitamins, Thera [Multivitamin (formulary)] 1 tab PO DAILY 10/13/20 Acetaminophen Tab [Tylenol Tab] 1,500 mg PO Q6HR PRN 01/13/21 Biotin 5,000 mcg PO DAILY 01/13/21 HYDROcodone/APAP 5-325MG [Cuddy 5-325] 1 - 2 tab PO Q6H PRN 01/13/21
[2021-01-26 14:25] VITALS: BP 109/74; PULSE 72; RESP 18; TEMP 98.2; BMI 33.5
--- NOTE | 2021-01-27 11:41 | P.HPBAR ---
Bariatric H&P - History & Physicial H&P Date: 01/26/21 History & Physicial: Visit/CC: follow up / lap band Patient initial contact: Initial weight: 142.882 kg Initial weight in pounds: 315.00 Height: 4 ft 9 in Initial BMI: 68.1 Last weight: Current weight: 70.307 kg Current weight in pounds: 155.00 Current BMI: 33.5 [place] body weight (based on NIH guidelines): 38.555 kg Excess body weight loss: 69.5% The patient is a 75 year-old F who presents for Bariatric Assessment. Patient presents today for LAP-BAND follow-up. She states she's had dysphagia. Her dysphagia has improved since her LAP-BAND was empty. Patient has a known hiatal hernia. Past Medical History Past Medical History: Asthma, Diabetes Mellitus, Eye Disorder, GERD/Reflux, Hypertension, Osteoarthritis (OA), Pneumonia Additional Past Medical History / Comment(s): Diet-controlled diabetic, back pain, lap Band, PNA, asthma, HIATAL HERNIA, Right cataract removal History of Any Multi-Drug Resistant Organisms: None Reported Past Surgical History: Adenoidectomy, Bariatric Surgery, Cholecystectomy, Hysterectomy, Joint Replacement, Orthopedic Surgery, Tonsillectomy Additional Past Surgical History / Comment(s): Bilateral knee replacements, lap band, eyelid surgery, panniculectomy, lap band port replacement 2-20, left hip replaced 08/07/2020, sees Dr. Montejo for back pain, EGD, COLONOSCOPY, RT SHOULDER SX, bilateral knee replacement Past Anesthesia/Blood Transfusion Reactions: Postoperative Nausea & Vomiting (PONV) Additional Past Anesthesia/Blood Transfusion Reaction / Comm: once after hysterectomy Past Psychological History: No Psychological Hx Reported Additional Psychological History / Comment(s): Pt resides alone in her home with 2 steps. She owns a cane/walker . She drives. Smoking Status: Former smoker Past Alcohol Use History: Rare Additional Past Alcohol Use History / Comment(s): Patient smokes cigarettes for 22 years and quit in 1985. Past Drug Use History: None Reported - Past Family History Mother Family Medical History: No Reported History Additional Family Medical History / Comment(s): Mother from CHF at the age of 69yrs Father Family Medical History: Myocardial Infarction ([place]) Additional Family Medical History / Comment(s): Father of a [place] at the age of 63 yrs. Sister(s) Additional Family Medical History / Comment(s): Patient has one sister that from overdose of medications. Patient does not have any brothers. Patient has 2 sons with no major medical problems. Surgical - Exam Vital Signs Temp Pulse Resp BP 98.2 F 72 18 109/74 01/26/21 14:19 01/26/21 14:19 01/26/21 14:19 01/26/21 14:19 - General well developed, well nourished, no distress - Eyes PERRL - ENT normal pinna - Neck no masses - Respiratory normal expansion - Cardiovascular Rhythm: regular - Abdomen Abdomen: soft, non tender Bariatric Assessment & Plan Plan: Improve dysphagia with banding empty. Patient still deconditioned. She'll follow-up in one week. When she is more stable she'll be scheduled for repair of her hiatal hernia Bariatric Checklist Checklist: Plan: Checklist: EGD: 1. Hiatal hernia: 2. H. Pylori: HgbA1c: Vitamin D: Smoking: Former smoker Primary care physician referral: DR SANDRO MAURO Psychiatry clearance: Cardiology clearance: Sleep study: Diet journal: VTE risk score: VTE risk level: Rehab needs at discharge:
== END ==
LOC: BARWHC3 14:18
PROVIDERS: ATTEND Surgery
DX: Z46.51 Encounter for fitting and adjustment of gastric lap band (principal); K44.9 Diaphragmatic hernia without obstruction or gangrene; J45.909 Unspecified asthma, uncomplicated; E11.9 Type 2 diabetes mellitus without complications; I10 Essential (primary) hypertension; M19.90 Unspecified osteoarthritis, unspecified site; Z98.84 Bariatric surgery status; Z87.891 Personal history of nicotine dependence
CPT/HCPCS: 99211

== ENCOUNTER → 2021-02-02 | Outpatient (CLI) | payer MEDICARE ==
[2021-02-02 13:59] VITALS: BP 113/76; PULSE 72; RESP 18; TEMP 97.6
== END ==
LOC: PNWHC3 12:43
PROVIDERS: ATTEND Specialist
DX: M48.061 Spinal stenosis, lumbar region without neurogenic claudication (principal); M47.26 Other spondylosis with radiculopathy, lumbar region; M46.1 Sacroiliitis, not elsewhere classified; Z91.048 Other nonmedicinal substance allergy status; Z88.5 Allergy status to narcotic agent; Z91.018 Allergy to other foods; Z87.891 Personal history of nicotine dependence
CPT/HCPCS: 99211

== ENCOUNTER → 2021-02-02 | Outpatient (CLI) | payer MEDICARE ==
[2021-02-02 13:13] VITALS: BP 105/71; PULSE 88; TEMP 98; BMI 33.5
--- NOTE | 2021-02-02 14:28 | P.PN ---
Subjective Progress Note Date: 02/02/21 This is a follow-up visit for this 75 years old female with a chronic history of severe low back pain with radiation to the left lower extremity she's diagnosed with lumbar radiculopathy, lumbar foraminal stenosis and lumbar degenerative disc disease and lumbar spondylosis with lumbar facet arthropathy, recently we have done left-sided transforaminal epidural steroid injection at L3 4, he reported that she get significant improvement of her low back pain but she continued to have some low back pain with radiation to the left lower extremity associated with numbness and ringing sensation, she continued to ambulate using cane she denies any fever or night sweats she denies any change in the bowel mov ement or urination, but that the pain is constant and increases with any activity interference with her quality of life Objective - Vital Signs Vital signs: Vital Signs Temp 98 F 02/02/21 13:08 Pulse 88 02/02/21 13:08 Resp BP 105/71 02/02/21 13:08 Pulse Ox Intake & Output 02/01/21 02/02/21 02/02/21 18:59 06:59 18:59 Weight 70.307 kg - Exam Physical Examinations : -Constitutiona : Cooperative , not in acute distress . -HEENT : nech : supple , no Lymphadenopathy , normal thyroid size . : eyes : no ptosis , no icterus, no photophobia . - neurologic : Cranial nerve II to XII intact , no focal neurological deffecit . -psychatric : alert , oriented X 3 , appropriate affect , intact judgment and insight . -Lymphatic : no Lymphadenopathy . - musculoskeltal : Lumber spine moter stegnth lower extremities ,thigh and legs 5/5 Right side , 4/5 Left side deep tendon reflexes : normal Knee Jerk , normal ankle Jerk lumber facet Loading Test =positive Right , positive Left Range of motion of the lumbar spine Flexion 30 degrees, extension 10 degrees strait leg raising test = positive at 30 degree on the left side Fabere test= positive LT . Sever tenderness over the Sacroiliac joint on the Left sides Gaenslen test= positive left . Seated flexion test= positive Left . Distraction test= positive left MRI of the lumbar spine= multilevel lumbar degenerative disc disease foraminal stenosis at L2-3 and L3 4, spondylosis with lumbar facet arthropathy Assessment and Plan Plan: Assessment and plan=1-lumbar radiculopathy. 2-lumbar foraminal stenosis. 3-lumbar spondylosis and lumbar facet arthropathy. 4-sacroiliitis Patient could benefit from left-sided transforaminal epidural steroid injection at L2-3 and L3 4, under fluoroscopy guidance - PQRS measures = - Patient's medications are documented in the chart. -Tobacco use is negative and counseling.Given. -Patient's has not received pneumococcal vaccine. -Advanced care planning discussed, patient not eligible. -Opiate contract not signed. -Pain positive and follow-up visit/procedure is scheduled. -Patient's blood pressure measured [113/76 ] , and documented in the record ,and patient will follow up with the primary care. -Patient's weight was measured and body mass index [ ] above the normal limits and counseling was done. and patient instructed to follow-up with the primary care physician. -Patient was not identified as an unhealthy alcohol user Time with Patient: Less than 30
--- NOTE | 2021-02-02 15:26 | P.HPBAR ---
Bariatric H&P - History & Physicial H&P Date: 02/02/21 History & Physicial: Visit/CC: lap band follow up Patient initial contact: Initial weight: 142.882 kg Initial weight in pounds: 315.00 Height: 4 ft 9 in Initial BMI: 68.1 Last weight: Current weight: 70.307 kg Current weight in pounds: 155.00 Current BMI: 33.5 [place] body weight (based on NIH guidelines): 38.555 kg Excess body weight loss: 69.5% The patient is a 75 year-old F who presents for Bariatric Assessment. Patient feels better. She states her GERD has improved. Past Medical History Past Medical History: Asthma, Diabetes Mellitus, Eye Disorder, GERD/Reflux, Hypertension, Osteoarthritis (OA), Pneumonia Additional Past Medical History / Comment(s): Diet-controlled diabetic, back pain, lap Band, PNA, asthma, HIATAL HERNIA, Right cataract removal History of Any Multi-Drug Resistant Organisms: None Reported Past Surgical History: Adenoidectomy, Bariatric Surgery, Cholecystectomy, Hysterectomy, Joint Replacement, Orthopedic Surgery, Tonsillectomy Additional Past Surgical History / Comment(s): Bilateral knee replacements, lap band, eyelid surgery, panniculectomy, lap band port replacement 2-20, left hip replaced 08/07/2020, sees Dr. Montejo for back pain, EGD, COLONOSCOPY, RT SHOULDER SX, bilateral knee replacement Past Anesthesia/Blood Transfusion Reactions: Postoperative Nausea & Vomiting (PONV) Additional Past Anesthesia/Blood Transfusion Reaction / Comm: once after hysterectomy Past Psychological History: No Psychological Hx Reported Additional Psychological History / Comment(s): Pt resides alone in her home with 2 steps. She owns a cane/walker . She drives. Smoking Status: Former smoker Past Alcohol Use History: Rare Additional Past Alcohol Use History / Comment(s): Patient smokes cigarettes for 22 years and quit in 1985. Past Drug Use History: None Reported - Past Family History Mother Family Medical History: No Reported History Additional Family Medical History / Comment(s): Mother from CHF at the age of 69yrs Father Family Medical History: Myocardial Infarction ([place]) Additional Family Medical History / Comment(s): Father of a [place] at the age of 63 yrs. Sister(s) Additional Family Medical History / Comment(s): Patient has one sister that from overdose of medications. Patient does not have any brothers. Patient has 2 sons with no major medical problems. Surgical - Exam Vital Signs Temp Pulse BP 98 F 88 105/71 02/02/21 13:08 02/02/21 13:08 02/02/21 13:08 - General well developed, well nourished, no distress - Eyes PERRL - ENT normal pinna - Neck no masses - Respiratory normal expansion - Cardiovascular Rhythm: regular - Abdomen Abdomen: soft, non tender Bariatric Assessment & Plan Plan: GERD related to hiatal hernia. Patient's GERD is improved since her band is empty. She'll be observed currently. She'll follow-up in 4 weeks. Bariatric Checklist Checklist: Plan: Checklist: EGD: 1. Hiatal hernia: 2. H. Pylori: HgbA1c: Vitamin D: Smoking: Former smoker Primary care physician referral: DR SANDRO MAURO Psychiatry clearance: Cardiology clearance: Sleep study: Diet journal: VTE risk score: VTE risk level: Rehab needs at discharge:
== END ==
LOC: BARWHC3 12:40
PROVIDERS: ATTEND Surgery
DX: Z09 Encounter for follow-up examination after completed treatment for conditions other than malignant neoplasm (principal); K21.9 Gastro-esophageal reflux disease without esophagitis; K44.9 Diaphragmatic hernia without obstruction or gangrene; J45.909 Unspecified asthma, uncomplicated; E11.9 Type 2 diabetes mellitus without complications; I10 Essential (primary) hypertension; M19.90 Unspecified osteoarthritis, unspecified site; Z98.84 Bariatric surgery status; Z87.891 Personal history of nicotine dependence; Z91.048 Other nonmedicinal substance allergy status; Z91.018 Allergy to other foods; Z88.5 Allergy status to narcotic agent
CPT/HCPCS: 99211

== ENCOUNTER → 2021-03-02 | Outpatient (CLI) | payer MEDICARE ==
[2021-03-02 13:24] VITALS: BP 126/84; PULSE 64; RESP 16; TEMP 98.3; BMI 35.6
--- NOTE | 2021-03-02 15:13 | FL ---
EXAMINATION TYPE: FL barium swallow DATE OF EXAM: 03/02/2021 LAP BANDING LIMITED ESOPHAGRAM: CLINICAL HISTORY: Chest pressure and reflux after eating in patient with history of lap band TECHNIQUE: Limited esophagram is performed utilizing 2-3 oz of barium. Total fluoroscopic time 1 minute 24 seconds. Total number of images 9. COMPARISON: 01/19/2021 FINDINGS: Pre-procedure surface grinder image shows lap band in satisfactory position in proximal stomach ju st below the gastroesophageal junction. The patient then drank oral contrast. There is good flow of c ontrast along the course of the esophagus. There is delay flow of contrast through the course of the lap band. There is no evidence of contrast extravasation to suggest leak. There is no significant g astric prolapse appreciated. Due to delay of flow of contrast through the course of the lap band, onl y the lower esophagus was evaluated to reduce the amount of oral contrast administered and reduce pat ient's risk of aspiration during the study. IMPRESSION: Delayed flow of contrast through the lap band.
== END ==
LOC: BARWHC3 12:42
PROVIDERS: ATTEND Surgery
DX: R13.10 Dysphagia, unspecified (principal); K21.9 Gastro-esophageal reflux disease without esophagitis; Z79.899 Other long term (current) drug therapy; Z91.048 Other nonmedicinal substance allergy status; Z91.018 Allergy to other foods; Z88.5 Allergy status to narcotic agent; Z88.8 Allergy status to other drugs, medicaments and biological substances; Z87.891 Personal history of nicotine dependence
CPT/HCPCS: 74220; G0463; 99211

== ENCOUNTER 2021-03-05 07:19 | Day surgery (SDC) | payer MEDICARE ==
[2021-03-03 16:12] VITALS: BMI 35.6
[2021-03-05] MEDS ORDERED: LIDOCAINE 1% (10MG/ML) FOR IV START INTRADERMA ONE (08:08)
[2021-03-05 08:10] VITALS: TEMP 97
[2021-03-05 08:13] LABS: Glucose,Whole Blood 83 mg/dL (75-99)
[2021-03-05] MEDS ORDERED: MIDAZOLAM 2 MG/2 ML VIAL ONE (08:37)
[2021-03-05] MEDS ORDERED: fentaNYL (PF) 50 MCG/ML 2 ML AMP ONE (08:37)
[2021-03-05] MEDS ORDERED: LIDOCAINE 1% INJ 10MG/ML (20 ML MDV) ONE (08:37)
[2021-03-05] MEDS ORDERED: methylPREDNISolone ACETATE 40 MG/ML 1 ML VIAL ONE (08:37)
[2021-03-05] MEDS ORDERED: IOPAMIDOL M200 10 ML VIAL ONE (08:37)
[2021-03-05] MEDS ORDERED: DEXAMETHASONE SOD PHOSPHATE 10 MG/ML 1 ML VIAL ONE (08:37)
--- NOTE | 2021-03-05 08:54 | P.PCN ---
Date of Procedure: 03/05/21 Surgeon: Matthias Oscar Pathology: none sent Condition: stable Disposition: PACU Description of Procedure: PREOPERATIVE DIAGNOSIS: Lumbar radiculopathy POSTOPERATIVE DIAGNOSIS: Lumbar radiculopathy PROCEDURE 1. Transforaminal epidural steroid injection under fluoroscopic guidance at L2-3 and L3-4 on the left side 2. Lumbar epidurogram. SURGEON: Matthias Oscar MD ANESTHESIA: Local with 1% lidocaine; IV sedation with Versed and fentanyl. EBL: Minimal PROCEDURE INDICATION: The patient with low back pain and radiculopathy symptoms unresponsive to conservative treatment. PROCEDURE DESCRIPTION / TECHNIQUE: The patient was seen and identified in the preoperative area. Risks, benefits, complications, and alternatives were discussed with the patient. The patient agreed to proceed with the procedure and signed the consent. IV was started, and vital signs were stable. Patient was taken to the OR and time out was completed. The patient was placed in the prone position on procedure table and a pillow was placed under the abdomen to reduce lumbar lordosis. The lumbosacral area was prepped and draped in the usual sterile fashion. Critical pause was taken. Vital signs were closely monitored during the procedure. Conscious sedation was used during the procedure to decrease patients anxiety. The vertebral body of the lumbar vertebra 2 was squared off by tilting the C-arm then the C-arm was tilted to the leftoblique position and the target point was at the 6 o'clock position of the pedicle of L2 then skin and deeper tissues were localized with 1% lidocaine. Subsequently, a 22-gauge 3.5-inch spinal needle was advanced under a tunneled view fluoroscopic guidance just underneath the chin of the [place] dog at the . Under lateral fluoroscopy, the needle was then advanced to the middle of the upper one third of the foramen between(L2-L3 ). After negative aspiration of CSF and blood and with no paresthesias, 1 mL of omnipaque contrast dye was injected excellent epidurogram and outlining of the L nerve root was identified. Subsequently, 2 mL of block solution containing 5 mg of Decadron and 1 mL of Lidocaine 1% PF was injected. Needle was removed intact .the same procedure was repeated at the L3-L4 level in the same manner. At the end of the procedure, skin was cleansed, and bandages were applied.the total dose of steroids used for this procedure is 10 mg of Decadron. COMPLICATIONS: None COMMENTS: DISPOSITION / PLANS: The patient was placed in a supine position and transferred to the recovery area in a stable condition for observation. There was no evidence of lower extremity motor or sensory deficit after the procedure. Patient was discharged from the recovery room after meeting discharge criteria. Home discharge instructions were given to the patient by the staff.
[2021-03-05] MEDS ORDERED: IV FLUID CONTINUATION 1,000 ML IV ONE (09:00)
--- NOTE | 2021-03-05 09:15 | FL ---
EXAMINATION TYPE: FL guided pain mgmt statistic DATE OF EXAM: 03/05/2021 CLINICAL HISTORY: Low back pain. TECHNIQUE: Fluoroscopy. COMPARISON: None. FINDINGS: Fluoroscopic guidance was provided during pain relief procedure performed by Dr. Oscar . A total of 7 seconds of fluoroscopic time was utilized during the procedure and 3 spot images are a cquired. Images acquired shows needle localization at several levels in the lumbar spine. IMPRESSION: As Above.
[2021-03-05 09:48] VITALS: BP 117/67; PULSE 63; RESP 17
== END 2021-03-05 09:42 | disposition home or self-care (01) ==
LOC: ORPAIN 07:19
PROVIDERS: ATTEND Anesthesiology
DX: M54.16 Radiculopathy, lumbar region (principal); Z88.5 Allergy status to narcotic agent; Z79.82 Long term (current) use of aspirin; Z79.899 Other long term (current) drug therapy; E11.9 Type 2 diabetes mellitus without complications; I10 Essential (primary) hypertension
CPT/HCPCS: 64483; 64484; J2250; J1100; J2001; J3010; Q9966; 99152

== ENCOUNTER → 2021-03-09 | Outpatient (CLI) | payer MEDICARE ==
[2021-03-09 13:21] VITALS: BP 135/79; PULSE 71; RESP 16; TEMP 98.6; BMI 35.9
--- NOTE | 2021-05-13 11:31 | P.HPBAR ---
Bariatric H&P - History & Physicial H&P Date: 03/09/21 History & Physicial: Visit/CC: F/U Patient initial contact: Initial weight: 142.882 kg Initial weight in pounds: 315.00 Height: 4 ft 9 in Initial BMI: 68.1 Last weight: Current weight: 75.296 kg Current weight in pounds: 166.00 Current BMI: 35.9 Holmen body weight (based on NIH guidelines): 38.555 kg Excess body weight loss: 64.7% The patient is a 76 year-old F who presents for Bariatric Assessment. Patient presents today for laparoscopic and follow-up. Patient's recent esophagram shows evidence of a hiatal hernia. Patient's had some dysphagia when her band is adjusted. She is requesting have her band removal and conversion sleeve gastrectomy Past Medical History Past Medical History: Asthma, Diabetes Mellitus, Eye Disorder, GERD/Reflux, Hypertension, Osteoarthritis (OA), Pneumonia Additional Past Medical History / Comment(s): Diet-controlled diabetic, back pain, lap Band, PNA, asthma, HIATAL HERNIA, Right cataract removal History of Any Multi-Drug Resistant Organisms: None Reported Past Surgical History: Adenoidectomy, Bariatric Surgery, Cholecystectomy, Hysterectomy, Joint Replacement, Orthopedic Surgery, Tonsillectomy Additional Past Surgical History / Comment(s): Bilateral knee replacements, lap band, eyelid surgery, panniculectomy, lap band port replacement 2-20, left hip replaced 08/07/2020, sees Dr. Montejo for back pain, EGD, COLONOSCOPY, RT SHOULDER SX, bilateral knee replacement Past Anesthesia/Blood Transfusion Reactions: Postoperative Nausea & Vomiting (PONV) Additional Past Anesthesia/Blood Transfusion Reaction / Comm: once after hysterectomy Past Psychological History: No Psychological Hx Reported Additional Psychological History / Comment(s): Pt resides alone in her home with 2 steps. She owns a cane/walker . She drives. Smoking Status: Former smoker Past Alcohol Use History: Rare Additional Past Alcohol Use History / Comment(s): Patient smokes cigarettes for 22 years and quit in 1985. Past Drug Use History: None Reported - Past Family History Mother Family Medical History: No Reported History Additional Family Medical History / Comment(s): Mother from CHF at the age of 69yrs Father Family Medical History: Myocardial Infarction ([place]) Additional Family Medical History / Comment(s): Father of a [place] at the age of 63 yrs. Sister(s) Additional Family Medical History / Comment(s): Patient has one sister that from overdose of medications. Patient does not have any brothers. Patient has 2 sons with no major medical problems. Surgical - Exam Vital Signs Temp Pulse Resp BP 98.6 F 71 16 135/79 03/09/21 13:18 03/09/21 13:18 03/09/21 13:18 03/09/21 13:18 - General well developed, well nourished, no distress - Eyes PERRL - ENT normal pinna, normal nares - Neck no masses - Respiratory normal expansion - Cardiovascular Rhythm: regular - Abdomen Abdomen: soft, non tender Bariatric Assessment & Plan Plan: The patient will need conversion to sleeve gastrectomy. Discussed the risks of surgery removed the band and conversion sleeve yesterday. This will be scheduled once she obtains insurance authorization. Bariatric Checklist Checklist: Plan: Checklist: EGD: 1. Hiatal hernia: 2. H. Pylori: HgbA1c: Vitamin D: Smoking: Former smoker Primary care physician referral: DR SANDRO MAURO Psychiatry clearance: Cardiology clearance: Sleep study: Diet journal: VTE risk score: VTE risk level: Rehab needs at discharge:
== END ==
LOC: BARWHC3 12:44
PROVIDERS: ATTEND Surgery
DX: Z09 Encounter for follow-up examination after completed treatment for conditions other than malignant neoplasm (principal); J45.909 Unspecified asthma, uncomplicated; E11.9 Type 2 diabetes mellitus without complications; K21.9 Gastro-esophageal reflux disease without esophagitis; I10 Essential (primary) hypertension; M19.90 Unspecified osteoarthritis, unspecified site; Z98.84 Bariatric surgery status; Z87.891 Personal history of nicotine dependence; Z91.048 Other nonmedicinal substance allergy status; Z91.018 Allergy to other foods; Z88.5 Allergy status to narcotic agent; Z91.09 Other allergy status, other than to drugs and biological substances
CPT/HCPCS: 99211

== ENCOUNTER → 2021-04-01 | Outpatient (CLI) | payer MEDICARE ==
[2021-04-01 09:25] VITALS: BP 137/87; PULSE 88; RESP 16; TEMP 98
--- NOTE | 2021-04-01 10:06 | P.PN ---
Subjective Progress Note Date: 04/01/21 This is a follow-up visit for this 75 years old female with a chronic history of severe low back pain with radiation to the left lower extremity she is diagnosed with lumbar radiculopathy, lumbar foraminal stenosis and lumbar degenerative disc disease ,and lumbar spondylosis with lumbar facet arthropathy, recently we have done left-sided transforaminal epidural steroid injection at L2-3 ,L3 4, he reported that she get significant improvement of her low back pain but she continued to have some low back pain , she ordered that her radicular symptoms improved significantly , she continued to have severe low back pain ,she stoped using cane , and she ambulated ,she denies any fever or night sweats she denies any change in the bowel movement or urination, but that the pain is constant and increases with any activity interference with her quality of life Physical Examinations : -Constitutiona : Cooperative , not in acute distress . -HEENT : nech : supple , no Lymphadenopathy , normal thyroid size . : eyes : no ptosis , no icterus, no photophobia . - neurologic : Cranial nerve II to XII intact , no focal neurological deffecit . -psychatric : alert , oriented X 3 , appropriate affect , intact judgment and insight . -Lymphatic : no Lymphadenopathy . - musculoskeltal : Lumber spine moter stegnth lower extremities ,thigh and legs 5/5 Right side , 4/5 Left side deep tendon reflexes : normal Knee Jerk , normal ankle Jerk lumber facet Loading Test =positive Right , positive Left Range of motion of the lumbar spine Flexion 30 degrees, extension 10 degrees strait leg raising test = positive at 30 degree on the left side Fabere test= positive LT . Sever tenderness over the Sacroiliac joint on the Left sides Gaenslen test= positive left . Seated flexion test= positive Left . Distraction test= positive left MRI of the lumbar spine= multilevel lumbar degenerative disc disease foraminal stenosis at L2-3 and L3 4, spondylosis with lumbar facet arthropathy Assessment and plan=1-lumbar radiculopathy. 2-lumbar foraminal stenosis. 3-lumbar spondylosis and lumbar facet arthropathy. 4-sacroiliitis Patient could benefit from repeat RFA medial branch lumbar area at L3,L4,L5 Bilaterally - PQRS measures = - Patient's medications are documented in the chart. -Tobacco use is negative and counseling.Given. -Patient's has not received pneumococcal vaccine. -Advanced care planning discussed, patient not eligible. -Opiate contract not signed. -Pain positive and follow-up visit/procedure is scheduled. -Patient's blood pressure measured [137/87 ] , and documented in the record ,and patient will follow up with the primary care. -Patient's weight was measured and body mass index [ ] above the normal limits and counseling was done. and patient instructed to follow-up with the primary care physician. -Patient was not identified as an unhealthy alcohol user Objective - Vital Signs Vital signs: Vital Signs Temp 98.0 F 04/01/21 09:22 Pulse 88 04/01/21 09:22 Resp 16 04/01/21 09:22 BP 137/87 04/01/21 09:22 Pulse Ox 96 04/01/21 09:22 Intake & Output 03/31/21 04/01/21 04/01/21 18:59 06:59 18:59 Weight 77.111 kg
== END ==
LOC: PNWHC3 09:05
PROVIDERS: ATTEND Specialist
DX: M48.061 Spinal stenosis, lumbar region without neurogenic claudication (principal); M47.26 Other spondylosis with radiculopathy, lumbar region; M46.1 Sacroiliitis, not elsewhere classified; Z91.048 Other nonmedicinal substance allergy status; Z91.018 Allergy to other foods; Z88.5 Allergy status to narcotic agent; Z87.891 Personal history of nicotine dependence
CPT/HCPCS: 99211

== ENCOUNTER → 2021-05-11 | Outpatient (CLI) | payer MEDICARE ==
[2021-05-11 13:11] VITALS: BMI 40.8
== END ==
LOC: BARWHC3 08:32
PROVIDERS: ATTEND Surgery
DX: E66.01 Morbid (severe) obesity due to excess calories (principal); Z71.3 Dietary counseling and surveillance; Z91.048 Other nonmedicinal substance allergy status; Z91.018 Allergy to other foods; Z88.5 Allergy status to narcotic agent; Z87.891 Personal history of nicotine dependence; Z68.41 Body mass index [BMI] 40.0-44.9, adult
CPT/HCPCS: 97804

== ENCOUNTER → 2021-06-04 | Outpatient (CLI) | payer MEDICARE ==
[2021-06-05 02:42] LABS: Albumin 4.3 g/dL (3.80-4.90); Albumin/Globulin Ratio 2.15 (1.60-3.17); Anion Gap 12.1 mmol/L (4.00-12.00); BUN/Creat Ratio 32.22 Ratio (12.00-20.00); Calcium 9.3 mg/dL (8.7-10.3); Carbon Dioxide 24.9 mmol/L (21.6-31.8); Chol/HDL Ratio 2.63; LDL Cholesterol,Calculated 68.6 mg/dL (0.0-131.0); Potassium 4.7 mmol/L (3.5-5.5); Total Bilirubin 0.5 mg/dL (0.3-1.2); Total Protein 6.3 g/dL (6.2-8.2); VLDL Calculation 16.4 mg/dL (5.00-40.00)
== END | disposition home or self-care (01) ==
LOC: LABWHC1 08:56
PROVIDERS: ATTEND Nurse Practitioner Adult Health
DX: I10 Essential (primary) hypertension (principal); E78.5 Hyperlipidemia, unspecified; E03.9 Hypothyroidism, unspecified
CPT/HCPCS: 36415; 80053; 80061; 84443; 84481

== ENCOUNTER → 2021-08-03 | Outpatient (CLI) | payer MEDICARE ==
[2021-08-03 14:21] VITALS: BP 136/91; PULSE 76; RESP 18; TEMP 98.1; BMI 43.4
[2021-08-03 15:34] LABS: Basophils # (A) 0.1 k/uL (0-0.2); Basophils % (A) 1 %; Eosinophils # (A) 0.4 k/uL (0-0.7); Eosinophils % (A) 5 %; HCT 43.8 % (34.0-46.0); HGB 13.9 gm/dL (11.4-16.0); Lymphocytes % (A) 23 %; MCH 31.2 pg (25.0-35.0); MCHC 31.8 g/dL (31.0-37.0); MCV 98.4 fL (80.0-100.0); Mean Platelet Volume 7.1; Monocytes # (A) 0.5 k/uL (0-1.0); Monocytes % (A) 5 %; Neutrophils # (A) 5.5 k/uL (1.3-7.7); Neutrophils % (A) 63 %; Platelet Count 276 k/uL (150-450); RBC 4.46 m/uL (3.80-5.40); RDW 14.2 % (11.5-15.5); WBC 8.7 k/uL (3.8-10.6)
[2021-08-04 03:55] LABS: African American GFR (CKD) 84.2 (60.0-200.0); Albumin 4.1 g/dL (3.8-4.9); Albumin/Globulin Ratio 2.16 (1.60-3.17); Anion Gap 15.4 mmol/L (4.00-12.00); BUN/Creat Ratio 45.75 Ratio (12.00-20.00); Blood Urea Nitrogen 36.6 mg/dL (9.0-27.0); Calcium 8.8 mg/dL (8.7-10.3); Carbon Dioxide 18.6 mmol/L (21.6-31.8); Globulin 1.9 g/dL (1.6-3.3); Non-African American GFR(CKD) 72.6 (60.0-200.0); Potassium 4.6 mmol/L (3.5-5.5); Total Bilirubin 0.2 mg/dL (0.30-1.20)
--- NOTE | 2021-08-04 12:51 | P.HPBAR ---
Bariatric H&P - History & Physicial H&P Date: 08/03/21 History & Physicial: Visit/CC: follow up / presurgical visit Patient initial contact: Initial weight: 142.882 kg Initial weight in pounds: 315.00 Height: 4 ft 9 in Initial BMI: 68.1 Last weight: Current weight: 91.172 kg Current weight in pounds: 201.00 Current BMI: 43.4 Speculator body weight (based on NIH guidelines): 38.555 kg Excess body weight loss: 49.5% The patient is a 76 year-old F who presents for Bariatric Assessment. Patient presents today for bariatric follow-up. Vision has a large hiatal hernia and will also be undergoing sleeve gastrectomy. Past Medical History Past Medical History: Asthma, Diabetes Mellitus, Eye Disorder, GERD/Reflux, Hypertension, Osteoarthritis (OA), Pneumonia Additional Past Medical History / Comment(s): Diet-controlled diabetic, back pain, lap Band, PNA, asthma, HIATAL HERNIA, Right cataract removal History of Any Multi-Drug Resistant Organisms: None Reported Past Surgical History: Adenoidectomy, Bariatric Surgery, Cholecystectomy, Hysterectomy, Joint Replacement, Orthopedic Surgery, Tonsillectomy Additional Past Surgical History / Comment(s): Bilateral knee replacements, lap band, eyelid surgery, panniculectomy, lap band port replacement -20, left hip replaced 08/07/2020, sees Dr. Montejo for back pain, EGD, COLONOSCOPY, RT SHOULDER SX, bilateral knee replacement Past Anesthesia/Blood Transfusion Reactions: Postoperative Nausea & Vomiting (PONV) Additional Past Anesthesia/Blood Transfusion Reaction / Comm: once after hysterectomy Past Psychological History: No Psychological Hx Reported Additional Psychological History / Comment(s): Pt resides alone in her home with 2 steps. She owns a cane/walker . She drives. Smoking Status: Former smoker Past Alcohol Use History: Rare Additional Past Alcohol Use History / Comment(s): Patient smokes cigarettes for 22 years and quit in 1985. Past Drug Use History: None Reported - Past Family History Mother Family Medical History: No Reported History Additional Family Medical History / Comment(s): Mother from CHF at the age of 69yrs Father Family Medical History: Myocardial Infarction ([place]) Additional Family Medical History / Comment(s): Father of a [place] at the age of 63 yrs. Sister(s) Additional Family Medical History / Comment(s): Patient has one sister that from overdose of medications. Patient does not have any brothers. Patient has 2 sons with no major medical problems. Surgical - Exam Vital Signs Temp Pulse Resp BP 98.1 F 76 18 136/91 08/03/21 14:15 08/03/21 14:15 08/03/21 14:15 08/03/21 14:15 - General well developed, well nourished, no distress - Eyes PERRL - ENT normal pinna - Neck no masses - Respiratory normal expansion - Cardiovascular Rhythm: regular - Abdomen Abdomen: soft, non tender Results - Labs 08/03/21 14:47 08/03/21 14:47 Abnormal Lab Results - Last 24 Hours (Table) 08/03/21 Range/Units 14:47 Carbon Dioxide 18.6 L (21.6-31.8) mmol/L Anion Gap 15.40 H (4.00-12.00) mmol/L BUN 36.6 H (9.0-27.0) mg/dL BUN/Creatinine Ratio 45.75 H (12.00-20.00) Ratio Total Bilirubin 0.20 L (0.30-1.20) mg/dL Total Protein 6.0 L (6.2-8.2) g/dL Diabetes panel 08/03/21 Range/Units 14:47 Sodium 141 (135-145) mmol/L Potassium 4.6 (3.5-5.5) mmol/L Chloride 107 (96-109) mmol/L Carbon Dioxide 18.6 L (21.6-31.8) mmol/L BUN 36.6 H (9.0-27.0) mg/dL Creatinine 0.8 (0.6-1.5) mg/dL Glucose 84 (70-110) mg/dL Calcium 8.8 (8.7-10.3) mg/dL AST 15 (13-35) U/L ALT 14 (8-44) U/L Alkaline Phosphatase 68 (41-126) U/L Total Protein 6.0 L (6.2-8.2) g/dL Albumin 4.1 (3.8-4.9) g/dL Calcium panel 08/03/21 Range/Units 14:47 Calcium 8.8 (8.7-10.3) mg/dL Albumin 4.1 (3.8-4.9) g/dL Pituitary panel 08/03/21 Range/Units 14:47 Sodium 141 (135-145) mmol/L Potassium 4.6 (3.5-5.5) mmol/L Chloride 107 (96-109) mmol/L Carbon Dioxide 18.6 L (21.6-31.8) mmol/L BUN 36.6 H (9.0-27.0) mg/dL Creatinine 0.8 (0.6-1.5) mg/dL Glucose 84 (70-110) mg/dL Calcium 8.8 (8.7-10.3) mg/dL Adrenal panel 08/03/21 Range/Units 14:47 Sodium 141 (135-145) mmol/L Potassium 4.6 (3.5-5.5) mmol/L Chloride 107 (96-109) mmol/L Carbon Dioxide 18.6 L (21.6-31.8) mmol/L BUN 36.6 H (9.0-27.0) mg/dL Creatinine 0.8 (0.6-1.5) mg/dL Glucose 84 (70-110) mg/dL Calcium 8.8 (8.7-10.3) mg/dL Total Bilirubin 0.20 L (0.30-1.20) mg/dL AST 15 (13-35) U/L ALT 14 (8-44) U/L Alkaline Phosphatase 68 (41-126) U/L Total Protein 6.0 L (6.2-8.2) g/dL Albumin 4.1 (3.8-4.9) g/dL Bariatric Assessment & Plan Plan: Dysphagia and GERD related to lap band and hiatal hernia. Removal of LAP-BAND conversion sleeve gastric. Patient aware the risks of surgery. She'll be scheduled for later this month. Bariatric Checklist Checklist: Plan: Checklist: EGD: 1. Hiatal hernia: 2. H. Pylori: HgbA1c: Vitamin D: Smoking: Former smoker Primary care physician referral: DR SANDRO MAURO Psychiatry clearance: Cardiology clearance: Sleep study: Diet journal: VTE risk score: VTE risk level: Rehab needs at discharge:
== END ==
LOC: BARWHC3 13:19
PROVIDERS: ATTEND Surgery
DX: Z09 Encounter for follow-up examination after completed treatment for conditions other than malignant neoplasm (principal); K44.9 Diaphragmatic hernia without obstruction or gangrene; J45.909 Unspecified asthma, uncomplicated; E11.9 Type 2 diabetes mellitus without complications; I10 Essential (primary) hypertension; M19.90 Unspecified osteoarthritis, unspecified site; Z98.84 Bariatric surgery status; Z87.891 Personal history of nicotine dependence; Z88.5 Allergy status to narcotic agent; Z91.040 Latex allergy status; Z91.012 Allergy to eggs; Z91.018 Allergy to other foods; Z91.048 Other nonmedicinal substance allergy status
CPT/HCPCS: 80053; 85025; G0463; 99211

== ENCOUNTER 2021-08-17 07:50 | Inpatient (IN) | payer MEDICARE ==
[2021-08-07 13:15] VITALS: BMI 42.7
[~2021-08-17 07:50] MED LIST changes: +DEXAMETHASONE SOD PHOSPHATE 4 MG/ML 1 ML VIAL IV ONE; +ENOXAPARIN 40 MG/0.4 ML SYRINGE SQ PRN; +LIDOCAINE 1% (10MG/ML) FOR IV START INTRADERMA PRN; +MIDAZOLAM 2 MG/2 ML VIAL IV PRN; +ONDANSETRON 4 MG/2 ML VIAL IVP ONE
[2021-08-17 08:48] LABS: Glucose,Whole Blood 84 mg/dL (75-99)
--- NOTE | 2021-08-17 08:53 | P.GSHP ---
History of Present Illness H&P Date: 08/17/21 Chief Complaint: GERD, dysphagia This is a 76-year-old female with previous history of LAP-BAND surgery. Patient's echo with GERD and dysphagia. Patient's known to have a hiatal hernia. Patient presents today for laparoscopic removal of LAP-BAND system, repair of her hernia and conversion sleeve gastrectomy. Patient is aware the risks of surgery including conversion to open procedure. As well as in the stomach liver spleen. Past Medical History Past Medical History: Asthma, Diabetes Mellitus, GERD/Reflux, Hyperlipidemia, Hypertension, Osteoarthritis (OA), Pneumonia Additional Past Medical History / Comment(s): Diet-controlled diabetic, back pain, lap Band, PNA, asthma, HIATAL HERNIA, continued sob after covid 08/08 History of Any Multi-Drug Resistant Organisms: None Reported Past Surgical History: Adenoidectomy, Appendectomy, Bariatric Surgery, Cholecystectomy, Hysterectomy, Joint Replacement, Orthopedic Surgery, Tonsillectomy Additional Past Surgical History / Comment(s): Bilateral knee replacements, lap band, eyelid surgery, panniculectomy, lap band port replacement 2-20, left hip replaced 08/07/2020, sees Dr. Montejo for back pain, EGD, COLONOSCOPY, RT SHOULDER SX, ,anne cataract removal Past Anesthesia/Blood Transfusion Reactions: Postoperative Nausea & Vomiting (PONV) Additional Past Anesthesia/Blood Transfusion Reaction / Comment(s): once after hysterectomy Past Psychological History: No Psychological Hx Reported Additional Psychological History / Comment(s): Pt resides alone in her home with 2 steps. She owns a cane/walker . She drives. Smoking Status: Former smoker Past Alcohol Use History: Rare Additional Past Alcohol Use History / Comment(s): Patient smokes cigarettes for 22 years and quit in 1985. Past Drug Use History: None Reported - Past Family History Mother Family Medical History: No Reported History Additional Family Medical History / Comment(s): Mother from CHF at the age of 69yrs Father Family Medical History: Myocardial Infarction ([place]) Additional Family Medical History / Comment(s): Father of a [place] at the age of 63 yrs. Sister(s) Additional Family Medical History / Comment(s): Patient has one sister that from overdose of medications. Patient does not have any brothers. Patient has 2 sons with no major medical problems. Medications and Allergies Home Medications Medication Instructions Recorded Confirmed Type Levothyroxine Sodium [Synthroid] 37.5 mcg PO DAILY 08/05/14 08/07/21 History Metoprolol Tartrate [Lopressor] 50 mg PO BID 08/05/14 08/07/21 History Montelukast [Singulair] 10 mg PO HS 08/05/14 08/07/21 History Sennosides-Docusate Sodium 1 tab PO BID 08/05/14 08/07/21 History [Senokot-S] amLODIPine BESYLATE [Norvasc] 10 mg PO DAILY 08/05/14 08/07/21 History lisinopriL [Prinivil] 20 mg PO BID 08/05/14 08/07/21 History Loratadine [Claritin] 10 mg PO DAILY 11/26/14 08/07/21 History Budesonide-Formot 160-4.5 Mcg 2 puff INHALATION RT-BID 01/09/19 08/07/21 History [Symbicort 160-4.5 Mcg Inhaler] Aspirin [Adult Low Dose Aspirin EC] 81 mg PO DAILY 08/23/20 08/07/21 History Omeprazole 20 mg PO BID 08/23/20 08/07/21 History Multivitamins, Thera [Multivitamin 1 tab PO DAILY 10/13/20 08/07/21 History (formulary)] Acetaminophen Tab [Tylenol] 1,000 mg PO Q6HR PRN 01/13/21 08/07/21 History Biotin [Biotin Disolve] 5,000 mcg PO DAILY 01/13/21 08/07/21 History Cyclobenzaprine [Flexeril] 10 mg PO TID PRN #90 tab 01/23/21 08/07/21 Rx Gabapentin [Neurontin] 300 mg PO TID #45 cap 01/23/21 08/07/21 Rx Spironolactone [Aldactone] 25 mg PO DAILY #30 tab 01/23/21 08/07/21 Rx Pravastatin Sodium [Pravachol] 20 mg PO DAILY 08/07/21 08/07/21 History Allergies Allergy/AdvReac Type Severity Reaction Status Date / Time adhesive tape Allergy Rash/BLISTE Verified 08/07/21 12:48 RS banana Allergy Wheezing Verified 08/07/21 12:48 cinnamon Allergy Wheezing Verified 08/07/21 12:48 hydromorphone [From Dilaudid] Allergy Unknown Verified 08/07/21 12:48 Mushroom Allergy COULD NO Verified 08/07/21 12:48 RESPOND" FELT LIKE SHE WAS PASSING OUT poison michell extract Allergy Rash/Hives Verified 08/07/21 12:48 codeine AdvReac Unknown Abdominal Verified 08/07/21 12:48 Pain monosodium glutamate [MSG] AdvReac Nausea & Verified 08/07/21 12:48 Vomiting burning yan Allergy Rash/Hives Uncoded 08/07/21 12:48 Surgical - Exam Vital Signs Temp Pulse Resp BP Pulse Ox 97.5 F L 110 H 20 104/56 95 08/17/21 08:16 08/17/21 08:16 08/17/21 08:16 08/17/21 08:16 08/17/21 08:16 - General well developed, well nourished, no distress - Eyes PERRL - ENT normal pinna - Neck no masses - Respiratory normal expansion - Cardiovascular Rhythm: regular - Abdomen Abdomen: soft, non tender Assessment and Plan Assessment: GERD, dysphagia. We'll perform removal LAP-BAND system and conversion sleeve gastrectomy with repair of hiatal hernia.
[2021-08-17] MEDS ORDERED: PHENYLEPHRINE-0.9% NACL SYG 1,000 MCG/10 ML SYRINGE ONE (09:05)
[2021-08-17] MEDS ORDERED: PROPOFOL 10 MG/ML 20 ML VIAL IV ONE (09:05)
[2021-08-17] MEDS ORDERED: ePHEDrine 50 MG/ML 1 ML AMP ONE (09:05)
[2021-08-17] MEDS ORDERED: CALCIUM CHLORIDE 100 MG/ML 10 ML SYRINGE ONE (09:05)
[2021-08-17] MEDS ORDERED: ROCURONIUM 10 MG/ML (5 ML VIAL) IV ONE (09:05)
[2021-08-17] MEDS ORDERED: LIDOCAINE 1% INJ 10MG/ML (20 ML MDV) ONE (09:05)
[2021-08-17] MEDS ORDERED: VASOPRESSIN 20 UNIT/ML 1 ML VIAL ONE (09:05)
[2021-08-17] MEDS ORDERED: SODIUM BICARB 8.4% 50 ML SYR (1 MEQ/ML) ONE ×2 (09:05→14:54)
[2021-08-17] MEDS ORDERED: VECURONIUM 10 MG VIAL IV ONE (09:05)
[2021-08-17] MEDS ORDERED: BUPIVACAIN-EPI 0.25%-1:200,000 30 ML VIAL SQ ONE (09:46)
[2021-08-17 10:47] LABS: Allen Test Performed? Yes
[2021-08-17 10:51] LABS: ABG Base Excess -11.7 mmol/L; ABG HCO3 14 mmol/L (21-25); ABG Oxygen Saturation 99.4 % (94-97); ABG PCO2 32 mmHg (35-45); ABG PH 7.26 (7.35-7.45); ABG PO2 310 mmHg (83-108)
[2021-08-17 10:58] LABS: HCT 28.6 % (34.0-46.0); MCH 31.7 pg (25.0-35.0); MCHC 33.3 g/dL (31.0-37.0); MCV 95.2 fL (80.0-100.0); Mean Platelet Volume 7.6; Platelet Count 222 k/uL (150-450); RBC 3.01 m/uL (3.80-5.40); RDW 14.6 % (11.5-15.5)
[2021-08-17 11:07] LABS: HGB 9.5 gm/dL (11.4-16.0)
[2021-08-17 11:20] LABS: Calcium 7.6 mg/dL (8.4-10.2); Potassium 4.4 mmol/L (3.5-5.1); Total Bilirubin 0.3 mg/dL (0.2-1.3); Total Protein 4.9 g/dL (6.3-8.2)
[2021-08-17 11:38] LABS: HCT 32.4 % (34.0-46.0); HGB 11.5 gm/dL (11.4-16.0); MCH 31.9 pg (25.0-35.0); MCHC 35.4 g/dL (31.0-37.0); MCV 90.3 fL (80.0-100.0); Mean Platelet Volume 7.5; Platelet Count 126 k/uL (150-450); RBC 3.59 m/uL (3.80-5.40); RDW 14.4 % (11.5-15.5); WBC 15.2 k/uL (3.8-10.6)
[2021-08-17 12:08] LABS: Allen Test Performed? Yes
[2021-08-17 12:14] LABS: ABG Base Excess -9.7 mmol/L; ABG HCO3 16 mmol/L (21-25); ABG Oxygen Saturation 99.7 % (94-97); ABG PCO2 39 mmHg (35-45); ABG PH 7.25 (7.35-7.45)
[2021-08-17 12:15] LABS: HCT 22.2 % (34.0-46.0); MCH 31.5 pg (25.0-35.0); MCHC 34.7 g/dL (31.0-37.0); MCV 90.9 fL (80.0-100.0); Mean Platelet Volume 7.3; RBC 2.45 m/uL (3.80-5.40); RDW 14.3 % (11.5-15.5); WBC 13.2 k/uL (3.8-10.6)
[2021-08-17 12:25] LABS: ABG PO2 >420 mmHg (83-108)
[2021-08-17 12:29] LABS: HGB 7.7 gm/dL (11.4-16.0)
[2021-08-17 12:45] LABS: Platelet Count 81 k/uL (150-450)
[2021-08-17] MEDS ORDERED: GELATIN SPONGE,ABSORB (LARGE) 1 EACH SPONGE TOPICAL ONE ×2 (13:41)
[2021-08-17 14:00] LABS: Allen Test Performed? Yes
[2021-08-17 14:02] LABS: ABG Base Excess -13.7 mmol/L; ABG HCO3 13 mmol/L (21-25); ABG Oxygen Saturation 99.7 % (94-97); ABG PCO2 32 mmHg (35-45); ABG PH 7.22 (7.35-7.45); ABG PO2 356 mmHg (83-108)
[2021-08-17] MEDS ORDERED: LACTATED RINGERS 1,000 ML IV ONE ×4 (14:06→14:08)
[2021-08-17] MEDS ORDERED: EPINEPHrine 4 MG in DEXTROSE 5% IN WATER 250 ML IV SCH ×2 (14:30)
[2021-08-17] MEDS ORDERED: NOREPINEPHRINE 8 MG in SODIUM CHLORIDE 0.9% 250 ML IV SCH (14:30)
[2021-08-17 14:35] LABS: Glucose,Whole Blood 130 mg/dL (75-99)
[2021-08-17 15:05] LABS: ABG Base Excess -3.8 mmol/L; ABG HCO3 23 mmol/L (21-25); ABG PCO2 50 mmHg (35-45); ABG PH 7.27 (7.35-7.45); ABG PO2 >400 mmHg (83-108); ABG TCO2 25 mmol/L (19-24); Allen Test Performed? Yes
[2021-08-17 15:21] VITALS: BP 51/29
[2021-08-17] MEDS ORDERED: MORPHINE SULFATE 4 MG/ML SYRINGE IVP STA (15:45)
--- NOTE | 2021-08-17 15:54 | P.OP ---
Date of Procedure: 08/17/21 Preoperative Diagnosis: GERD Dysphagia Hiatal hernia Postoperative Diagnosis: mesenteric vein laceration Procedure(s) Performed: diagnostic laparoscopy Repair of stomach Repair of mesenteric vein bleeding Anesthesia: AARON Surgeon: Osito Carr Vp Legal Affairs #1: Cristhian Garcia Estimated Blood Loss (ml): 2,500 Pathology: none sent Condition: critical Disposition: ICU Indications for Procedure: InT is a 76-year-old female who's had long-standing problems with reflux and dysphagia related to her LAP-BAND. Patient has developed a hiatal hernia. She presents today for removal of LAP-BAND system, repair of hiatal hernia and conversion to sleeve gastrectomy. Description of Procedure: The patient's placed on the operative table in the supine position. She received general anesthesia. She was then placed in dorsal lithotomy position. Her abdomen was then prepped and draped usual sterile fashion. The skin incision sites were anesthetized 1% local Xylocaine. Using 11 blade the skin was incised at the LAP-BAND port site. The LAP-BAND port was located in the left epigastric area. And then using blunt and sharp dissection with cautery the LAP-BAND port was dissected free. The connecting tube was then cut. LAP- BAND port was then removed. Next using a 5 mm optical trocar under direct vision the peritoneal cavity is entered. The trocar was visualized and was thought to have entered the liver. At this point the inner cannula was removed. And then using a Veress needle in the left upper quadrant the peritoneal cavity was entered and then insufflated with air. Following this a 5 mm trocar was placed in the right lateral position. The trocar was examined. There did not appear to be any evidence of a liver injury however there was possible injury of the stomach. At this point the RACING BOARD MARKER noted there was hypotension. I asked for the M.D. to be called to the room. I then converted the procedure to exploratory laparotomy. The skin was incised in the midline. And then the fascia was opened in the midline. There were adhesions noted along the epigastric area. These were lysed with sharp dissection. Some adhesions were also dissected with the Enseal device. There was some evidence of blood near the initial trocar site. Point pressure was held over the retroperitoneum. He was unclear where the bleeding was coming from initially. At this point a called for the vascular surgeon on-call which was Dr. Garcia. He was at a different institution. He stated that he would be there within 45 minutes. During this time pressure was held over the bleeding area. Anesthesia fluid resuscitated the patient. Dr. Baeza arrived approximately 50 minutes later. The area of bleeding was explored. There was significant bleeding seen. The area was explored and appeared to be a mesenteric vein which was bleeding. The adhesions to the small bowel were incised. And the small bowel was packed out of the operative field. This was ligated proximal and distally. The stomach was examined. There was a potential injury to the stomach. It appears of the trocar medial entered the anterior wall the stomach and through the posterior wall and stomach. The injury to the stomach was oversewn with 3-0 GI silk suture. This was oversewn with 3-0 GI silk suture. During exposure of the bleeding mesenteric vessel. There was some traction injuries to the mesentery of the stomach which was repaired using the Enseal device and oversewing with 3-0 GI Silk Suture. The Retroperitoneum Was Explored. There Was Some Bleeding at the Edge of the Pancreas Which Was Thought to Be Due To Exposure of the Bleeding Mesenteric Vein. This Was Suture Ligated. Please See Dr. Baeza's Operative Note. There Appeared to Be Adequate Control of the Bleeding. The Air the Retroperitoneum Was Examined. There Did Not Appear to Be Evidence of an Injury to the Vena Cava. Using Tisseel and Surgicel and Gelfoam There Appeared to Be No Significant Bleeding Seen. At This Point the Patient Had Received 8 Units of Packed Red Cells. She Also Received Crystalloid Volume Infusion. It was decided to not close the patient's fascia and perform a second look procedure 24 hours later. The abdomen was irrigated. No other significant bleeding was seen. There is no other injury to the bowel noted. The skin was closed with morales. Patient was sent to the ICU intubated in critical condition.
[2021-08-17 17:28] VITALS: PULSE 0; RESP 0; TEMP 95.6
--- NOTE | 2021-08-19 08:32 | P.DS ---
Providers Date of admission: 08/17/21 07:50 Expected date of discharge: 08/17/21 Attending physician: Osito Carr Primary care physician: [facility] Course: This is a 76-year-old female who was admitted to the hospital on 08/17/2021. Patient was scheduled to undergo removal of LAP-BAND, gastric sleeve and repair of hiatal hernia. The patient's procedure was converted to exploratory laparotomy after she is found have bleeding after initial trocar placement. The patient had an injury to the mesenteric vein. Dr. Garcia, the vascular surgeon was called to the room to help with the repair of bleeding. Patient had significant blood transfusions intraoperatively. The patient was supported with IV fluids blood products and pressors. Due to the large volume of blood and fluid products given. The patient's fascia was not closed. Her skin was closed. And she was intended to come back for a second look 24 hours later. The patient upon entering the ICU became extremely hypotensive despite maximal fluid and pressor support. Dr. Franco supervisor travel information center was consulted. The family was notified of the patient's condition. They wish to make her DO NOT RESUSCITATE. The patient was extubated made comfort care and . Procedures: Exploratory laparotomy with repair of mesenteric vein, removal of LAP-BAND Plan - Discharge Summary Discharge Rx Participant: No New Discharge Prescriptions: No Action Sennosides-Docusate Sodium [Senokot-S] 1 tab PO BID amLODIPine BESYLATE [Norvasc] 10 mg PO DAILY Montelukast [Singulair] 10 mg PO HS Metoprolol Tartrate [Lopressor] 50 mg PO BID lisinopriL [Prinivil] 20 mg PO BID Levothyroxine Sodium [Synthroid] 37.5 mcg PO DAILY Loratadine [Claritin] 10 mg PO DAILY Budesonide-Formot 160-4.5 Mcg [Symbicort 160-4.5 Mcg Inhaler] 2 puff INHALATION RT-BID Omeprazole 20 mg PO BID Aspirin [Adult Low Dose Aspirin EC] 81 mg PO DAILY Multivitamins, Thera [Multivitamin (formulary)] 1 tab PO DAILY Acetaminophen Tab [Tylenol] 1,000 mg PO Q6HR PRN PRN Reason: Pain Cyclobenzaprine [Flexeril] 10 mg PO TID PRN #90 tab PRN Reason: Muscle Spasm Gabapentin [Neurontin] 300 mg PO TID #45 cap Biotin [Biotin Disolve] 5,000 mcg PO DAILY Spironolactone [Aldactone] 25 mg PO DAILY #30 tab Pravastatin Sodium [Pravachol] 20 mg PO DAILY Discharge Medication List Levothyroxine Sodium [Synthroid] 37.5 mcg PO DAILY 08/05/14 [History] Metoprolol Tartrate [Lopressor] 50 mg PO BID 08/05/14 [History] Montelukast [Singulair] 10 mg PO HS 08/05/14 [History] Sennosides-Docusate Sodium [Senokot-S] 1 tab PO BID 08/05/14 [History] amLODIPine BESYLATE [Norvasc] 10 mg PO DAILY 08/05/14 [History] lisinopriL [Prinivil] 20 mg PO BID 08/05/14 [History] Loratadine [Claritin] 10 mg PO DAILY 11/26/14 [History] Budesonide-Formot 160-4.5 Mcg [Symbicort 160-4.5 Mcg Inhaler] 2 puff INHALATION RT-BID 01/09/19 [History] Aspirin [Adult Low Dose Aspirin EC] 81 mg PO DAILY 08/23/20 [History] Omeprazole 20 mg PO BID 08/23/20 [History] Multivitamins, Thera [Multivitamin (formulary)] 1 tab PO DAILY 10/13/20 [History] Acetaminophen Tab [Tylenol] 1,000 mg PO Q6HR PRN 01/13/21 [History] Biotin [Biotin Disolve] 5,000 mcg PO DAILY 01/13/21 [History] Cyclobenzaprine [Flexeril] 10 mg PO TID PRN #90 tab 01/23/21 [Rx] Gabapentin [Neurontin] 300 mg PO TID #45 cap 01/23/21 [Rx] Spironolactone [Aldactone] 25 mg PO DAILY #30 tab 01/23/21 [Rx] Pravastatin Sodium [Pravachol] 20 mg PO DAILY 08/07/21 [History] Discharge Disposition: - Preliminary Cause of Preliminary Cause of : Shock
--- NOTE | 2021-08-20 08:52 | P.OP ---
Date of Procedure: 08/17/21 Preoperative Diagnosis: Identified/uncontrolled intra-abdominal bleeding. Postoperative Diagnosis: #1: Injury to the superior mesenteric vein. #2: Dense intra-abdominal adhesions. #3: Injury to the posterior wall of the stomach along the greater curvature. 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 Procedure(s) Performed: #1: Ligation superior mesenteric vein. #2: Adhesio lysis. #3: Repair perforation posterior wall of the stomach along the greater curvature. Implants: None. Anesthesia: GETA Surgeon: Osito Carr Rn Orthopaedics #1: Cristhian Garcia Pathology: none sent Condition: critical Disposition: ICU Indications for Procedure: Uncontrolled/identified venous bleeding. Description of Procedure: I was asked to help in an emergent situation where patient was undergoing a laparoscopic procedure and significant bleeding from an unidentified source was ongoing and the patient was in extremis. Information that I received indicated the procedure of being converted from a laparoscopic to an open procedure the source of bleeding could not be identified. Manual pressure was being held to control the bleeding. At the time I was in [place], and left immediately. The drive was approximate 40 minutes in duration. Upon entering the operating room I found the operating surgeon 12 open the patient's abdominal cavity and was holding direct pressure. At that time the patient had artery received 4 units of packed red blood cells and I believe some plasma had also been administered. With release of manual pressure significant venous bleeding was noted. Manual pressure was reapplied. To better visualize the issue at hand the incision was extended. A significant adhesive burden was encountered requiring an extensive amount of enterolysis to gain full visualization. The small bowel was mobilized to to the right which revealed the major source of bleeding to be from to be the proximal portion of the superior mesenteric vein. There was a circular rent in the vein. Additionally at at least one smaller defect in the vein was noted. I was of the opinion that this smaller rent was due to traction injury occurred possibly during simple active manual compression or due to the need for mobilization/ enterolysis. The vein was clamped both proximally and distally to these injuries and ligated. Primary repair was not thought to be appropriate or necessarily feasible. During this time by was identified, the source of which was noted to be a defect in the posterior wall of the stomach along the greater curvature. This was oversewn successfully. The lap band device was removed by the primary surgeon for fear of infectious complications. No other solid or hollow organ injury was noted. During this entire process the biggest challenge was a general and essentially uncontrollable ooze from large areas of raw surfaces. Many times suture ligature and/or electrocautery was employed only to later find the same treated areas to once again bleed. The patient was administered calcium as well as additional units of packed red blood cells and plasma. Unfortunately platelets were not available and thus none could be administered. Tisseel, FloSeal as well as Gelfoam were utilized with some improvement. I was of the impression the patient was in DIC and no further surgical options were available. At this time express thoughts to the primary surgeon patient's abdomen was subsequently closed by the primary surgeon.
== END 2021-08-17 20:10 | disposition expired | DRG 326 ==
LOC: 2ORMAIN 07:50 → 2SICU 14:40
PROVIDERS: ADMIT Surgery; ATTEND Surgery
PROC: 0BQT4ZZ Repair Diaphragm, Percutaneous Endoscopic Approach (ICD-10-PCS; 2021-08-17)
PROC: 0DB64Z3 Excision of Stomach, Percutaneous Endoscopic Approach, Vertical (ICD-10-PCS; 2021-08-17)
PROC: 0DNW0ZZ Release Peritoneum, Open Approach (ICD-10-PCS; 2021-08-17)
PROC: 0DQV0ZZ Repair Mesentery, Open Approach (ICD-10-PCS; 2021-08-17)
PROC: 0DQ60ZZ Repair Stomach, Open Approach (ICD-10-PCS; 2021-08-17)
PROC: 06Q Lower Veins, Repair (ICD-10-PCS; 2021-08-17)
PROC: 0DNW0ZZ Release Peritoneum, Open Approach (ICD-10-PCS; 2021-08-17)
PROC: 30233N1 Transfusion of Nonautologous Red Blood Cells into Peripheral Vein, Percutaneous Approach (ICD-10-PCS; 2021-08-17)
PROC: 0DP64CZ Removal of Extraluminal Device from Stomach, Percutaneous Endoscopic Approach (ICD-10-PCS; principal; 2021-08-17 08:50)
DX: K95.09 Other complications of gastric band procedure (principal); D65 Disseminated intravascular coagulation [defibrination syndrome]; R57.9 Shock, unspecified; K91.72 Accidental puncture and laceration of a digestive system organ or structure during other procedure; K66.0 Peritoneal adhesions (postprocedural) (postinfection); E11.9 Type 2 diabetes mellitus without complications; I10 Essential (primary) hypertension; E78.5 Hyperlipidemia, unspecified; I95.9 Hypotension, unspecified; Z20.822 Contact with and (suspected) exposure to COVID-19; Z66 Do not resuscitate; Z51.5 Encounter for palliative care; J45.909 Unspecified asthma, uncomplicated; M19.90 Unspecified osteoarthritis, unspecified site; K21.9 Gastro-esophageal reflux disease without esophagitis; K44.9 Diaphragmatic hernia without obstruction or gangrene; R13.10 Dysphagia, unspecified; Y84.8 Other medical procedures as the cause of abnormal reaction of the patient, or of later complication, without mention of misadventure at the time of the procedure; Z79.51 Long term (current) use of inhaled steroids; Z79.82 Long term (current) use of aspirin; Z79.890 Hormone replacement therapy; Z79.899 Other long term (current) drug therapy; Z87.891 Personal history of nicotine dependence; Z53.31 Laparoscopic surgical procedure converted to open procedure; Z90.710 Acquired absence of both cervix and uterus; Z96.642 Presence of left artificial hip joint; Z96.653 Presence of artificial knee joint, bilateral; Z98.42 Cataract extraction status, left eye; Z98.41 Cataract extraction status, right eye; Z91.02 Food additives allergy status; Z88.5 Allergy status to narcotic agent; Z91.048 Other nonmedicinal substance allergy status; Y65.8 Other specified misadventures during surgical and medical care
CPT/HCPCS: 36430; 80053; 82805; 85027; 86850; 86900; 86901; 86920; 87635; 94002